=== PATIENT | male | born 1955 | race Caucasian/White ===

== ENCOUNTER → 2016-08-24 | Outpatient (CLI) | payer OTHER, MEDICARE ==
[~2016-08-24] MED LIST: ACCL20 PO; ARFO15NE INH; ASPI81TA21 PO; B-CO1TAB53 PO; CALC500C70 PO; CMBIN INH; DESL1TAB5 PO; DILT180C PO; FEXO1TAB46 PO; FLNIN/ NAE; FSM70 PO; FURO20TA PO; INSDGI SQ; INSDGIPEN SC; INSHNI SQ; IPRA1AER2 INH; IPRASOL34 INH; IPRASOL4 INH; LISI-788 PO; LORA-741 PO; LSN/2025 PO; LXP10 PO; MEPO1INJ SC; NVLGI SC; NVLGI/PEN SQ; OMEP40CA41 PO; OXYC1TAB3 PO; PLMINSR5 NEB; POTA20TA16 PO; PRED10TA PO; PRED20TA2 PO; SIMV10TA5 PO; SPRIN/30 INH; TRAZ50TA35 PO; TURM500T PO; VITATAB11 PO
[2016-08-24 12:59] LABS: ESTIMATED AVERAGE GLUCOSE 140 mg/dl; HA1C FLAG Normal (Normal)
[2016-08-24 13:18] LABS: ALT/SGPT 33 U/L (12-78); BLOOD UREA NITROGEN 25 mg/dl (7-18); BUN/CREATININE RATIO 25.4 (10-20); CALCIUM 8.7 mg/dl (8.5-10.1); CARBON DIOXIDE 28 mmol/L (21-32); CHLORIDE 105 mmol/L (98-107); GLUCOSE 135 mg/dl (70-99); POTASSIUM 4.3 mmol/L (3.5-5.1); SODIUM 143 mmol/L (136-145)
[2016-08-24 13:21] LABS: CHOLESTEROL 185 mg/dl (0-200); CHOLESTEROL/HDL RATIO 2.2; HDL CHOLESTEROL 83 mg/dl; LDL CHOLESTEROL CALCULATED 78 mg/dl; TRIGLYCERIDES 118 mg/dl (0-150); VERY LOW DENSITY LIPOPROT CALC 24 mg/dl
== END | disposition home or self-care (01) ==
LOC: C.LABPBG 08:06
PROVIDERS: ATTEND Family Medicine
DX: E11.9 Type 2 diabetes mellitus without complications (principal); I10 Essential (primary) hypertension; E78.5 Hyperlipidemia, unspecified

== ENCOUNTER 2016-09-30 18:24 | Emergency (ER) | payer OTHER, MEDICARE ==
[~2016-09-30] VITALS: Ht 175.3 cm; Wt 95.0 kg
[~2016-09-30 18:24] MED LIST changes: -ARFO15NE INH; -DESL1TAB5 PO; -INSDGIPEN SC; -INSHNI SQ; -IPRA1AER2 INH; -IPRASOL4 INH; -LISI-788 PO; -LORA-741 PO; -MEPO1INJ SC; -NVLGI/PEN SQ; -OXYC1TAB3 PO; -PRED20TA2 PO
[2016-09-30 18:49] VITALS: TEMP 36.6; Ht 175.3 cm; Wt 95.0 kg
[2016-09-30] MEDS ORDERED: LIDOCAINE/EPINEPH/TETRACAINE 1 EA SYR EXT STA (19:17)
--- NOTE | 2016-09-30 19:32 | DIAGNOSTIC IMAGING REPORT ---
CHEST ONE VIEW PORTABLE CLINICAL HISTORY: cough HEAD TRAUMA. FALL. COMPARISON STUDY: 05/15/2016 FINDINGS: The cardiac and mediastinal contours are normal. There is no evidence of focal pulmonary consolidation. There is no evidence of failure. No pleural effusions are visualized.[ IMPRESSION: No active disease in the chest. Electronically signed by: Isma Cunningham M.D. 09/30/2016 7:31 PM Dictated Date/Time: 09/30/2016 7:30 PM
[2016-09-30 19:51] LABS: BASO % 0.1 %; BASO ABS # 0.01 K/uL (0-0.2); COMPLETE YES; EOS % 0.3 %; HEMATOCRIT 42.9 % (42-52); IG% 1.1 %; LYMPH % 4.8 %; LYMPH ABS # 0.53 K/uL (1.2-3.4); MEAN CELL VOLUME 84.6 fL (80-100); MEAN CORPUSCULAR HEMOGLOBIN 27.8 pg (25-34); MEAN CORPUSCULAR HGB CONC 32.9 g/dl (32-36); MEAN PLATELET VOLUME 9.1 fL (7.4-10.4); MONO % 6.2 %; NEUT % 87.5 %; PLATELET COUNT 270 K/uL (130-400); RED BLOOD COUNT 5.07 M/uL (4.7-6.1); WHITE BLOOD COUNT 10.94 K/uL (4.8-10.8)
--- NOTE | 2016-09-30 20:05 | DIAGNOSTIC IMAGING REPORT ---
CT HEAD WITHOUT CONTRAST (CT) CLINICAL HISTORY: fall, head injury COMPARISON STUDY: 12/20/2014 TECHNIQUE: Axial CT of the brain is performed from the vertex to the skull base. IV contrast was not administered for this examination. CT DOSE: FINDINGS: No intra or extra-axial mass lesions are visualized. There is no CT evidence of acute cortical infarction. There is no evidence of midline shift. There is no acute hemorrhage. No calvarial fractures are visualized. There are minimal white matter hypodensities likely on a small vessel basis. There is no evidence of pathologic ventricular dilatation. There are postsurgical changes of bilateral maxillary medial antrectomies. There is mucosal thickening. There is left-sided periorbital edema. There is an equivocal discontinuity in the lamina papyracea bilaterally. There is left frontal scalp edema. IMPRESSION: 1. No acute intracranial findings 2. Left periorbital edema and frontal scalp swelling 3. Equivocal bony defects involving the lamina papyracea. Electronically signed by: Isma Cunningham M.D. 09/30/2016 8:03 PM Dictated Date/Time: 09/30/2016 8:00 PM
[2016-09-30 20:09] LABS: ALT/SGPT 33 U/L (12-78); AST/SGOT 11 U/L (15-37); BLOOD UREA NITROGEN 17 mg/dl (7-18); BUN/CREATININE RATIO 13.8 (10-20); CALCIUM 9.1 mg/dl (8.5-10.1); CARBON DIOXIDE 30 mmol/L (21-32); CHLORIDE 104 mmol/L (98-107); GLUCOSE 165 mg/dl (70-99); POTASSIUM 4.2 mmol/L (3.5-5.1); SODIUM 140 mmol/L (136-145)
--- NOTE | 2016-09-30 20:12 | DIAGNOSTIC IMAGING REPORT ---
CT FACIAL BONES-MXILLOFAC WITHOUT CT DOSE: 766.96 mGy.cm CLINICAL HISTORY: Head trauma. Facial pain. COMPARISON STUDY: 12/20/2014 TECHNIQUE: Helical images were acquired in the transverse plane. The study was reviewed and analyzed on the independent 3-D workstation. The pterygoid plates appear intact. The zygomatic arches appear intact. . There are chronic bony defects involving the lamina papyracea bilaterally. There are old nasal bone fractures. The orbital floors appears intact. The mandibular condyles appear intact. There is left-sided periorbital edema. There is frontal scalp edema. There are postsurgical changes involving the maxillary sinuses. IMPRESSION: 1. Old fractures of the lamina papyracea bilaterally. 2. Old nasal bone fractures 3. No acute fractures are visualized 4. Left-sided periorbital edema and frontal scalp edema Electronically signed by: Isma Cunningham M.D. 09/30/2016 8:10 PM Dictated Date/Time: 09/30/2016 8:04 PM
[2016-09-30 20:14] LABS: ALB/GLOB RATIO 1.1 (0.9-2); ALKALINE PHOSPHATASE 61 U/L (45-117)
[2016-09-30] MEDS ORDERED: NVLGI/PEN SQ (21:00)
[2016-09-30] MEDS ORDERED: VITATAB11 PO (21:00)
[2016-09-30] MEDS ORDERED: LORA-741 PO (21:00)
[2016-09-30] MEDS ORDERED: LISI-788 PO (21:00)
[2016-09-30] MEDS ORDERED: PRED10TA PO (21:00)
[2016-09-30] MEDS ORDERED: INSDGIPEN SC (21:00)
[2016-09-30] MEDS ORDERED: IPRA1AER2 INH (21:00)
[2016-09-30] MEDS ORDERED: IPRASOL4 INH (21:00)
--- NOTE | 2016-09-30 21:15 | EMERGENCY ROOM VISIT NOTE ---
ED Visit Note First contact with patient: 19:03 Staff note: I have reviewed the Patients chart and have discussed this case with my PA. I generally agree with the ED note and findings.
--- NOTE | 2016-09-30 21:41 | EMERGENCY ROOM VISIT NOTE ---
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 Pt reports this has happened once in the past. Pt has lac to forehead, bruised right eye, and swelling and ecchymosis to right lip. Denies chest pain, SOB, N, or vomiting. History of Present Illness The patient is a 61 year old male who presents to the Emergency Room with complaints of a syncopal episode. The patient states that approximately one hour ago he was eating dinner and started coughing. The patient then had a syncopal episode. He states this is not unusual for him and has happened multiple times before. He has seen his primary care provider about it before. He has a history of COPD and uses inhalers at home. He states that he struck his face on his exercise bike. He complains of pain and swelling to the left eye, a laceration to the forehead, and swelling of the lip. He denies any further injuries. He rates his discomfort an 8/10. He denies any nausea/ vomiting or dizziness. Review of Systems A complete 10 point review of systems was reviewed with the patient with pertinent positives and negatives as per history of present illness. All else were negative. Past Medical/Surgical History Medical Problems: (1) Asthma (2) COPD with acute exacerbation (3) Diabetes (4) Nasal polyp (5) nose surgery (6) wrist surgery Family History Diabetes mellitus Heart disease Hypertension Social History Smoking Status: Never Smoker Drug Use: none Marital Status: Housing Status: lives with family Occupation Status: employed Current/Historical Medications Scheduled Alendronate Sodium (Alendronate Sodium), 70 MG PO WK Aspirin Enteric Coated (Ecotrin Or Generic), 81 MG PO DAILY B-Complex W/Biotin & Folic Aci (Super B-Complex), 1 TAB PO DAILY Budesonide (Pulmicort Respules 0.5MG/2ML), 2 ML NEB BID Calcium/Vitamin D (Os-Lee 500 Plus D), 1 TAB PO DAILY Diltiazem Hcl Coated Beads (Diltiazem Hcl Er), 180 MG PO DAILY Escitalopram Oxalate (Escitalopram Oxalate), 10 MG PO DAILY Fexofenadine Hcl (Lupe), 180 MG PO DAILY Fluticasone Propionate (Fluticasone Propionate), 2 SPRAYS ANNA DAILY Furosemide (Lasix), 20-40 MG PO DAILY Insulin Glargine (Lantus), 30 UNITS SQ QAM Insulin Glargine (Lantus Solostar), 25 UNITS SC QPM Ipratropium-Albuterol (Combivent Respimat), 1 PUFFS INH QID Lisinopril/Hctz (Zestoretic 20MG/25MG), 1 TAB PO DAILY Omeprazole (Prilosec), 40 MG PO BID Potassium Ext Rel (Klor-Con), 20 MEQ PO TID Prednisone Tab (Prednisone), 10 MG PO DAILY Simvastatin (Zocor), 10 MG PO QPM Tiotropium Tokio (Spiriva Handihaler), 1 CAP INH DAILY Trazodone Hcl (Trazodone), 50 MG PO HS PRN Turmeric (Curcuma Longa) (Turmeric), 500 MG PO DAILY Zafirlukast (Zafirlukast), 20 MG PO BID Scheduled PRN Insulin Aspart (Novolog Flexpen), 1 DOSE SQ TIDM PRN for PER SLIDING SCALE Ipratropium-Albuterol (Duoneb), 1 TREATMENT INH Q4H PRN for SOB/Wheezing Lorazepam (Ativan), 0.5 MG PO TID PRN for Anxiety Allergies Coded Allergies: No Known Allergies (Unverified , 09/30/16) UNKNOWN Physical Exam Vital Signs Date Time Temp Pulse Resp B/P (MAP) Pulse Ox O2 Delivery O2 Flow Rate FiO2 09/30/16 21:50 110 24 150/87 94 09/30/16 20:28 77 21 160/86 96 Room Air 83 162/88 85 154/86 09/30/16 19:13 82 09/30/16 18:49 36.6 91 18 136/85 95 Room Air Physical Exam VITALS: Vitals are noted on the nurse's note and reviewed by myself. Vital signs stable. GENERAL: This is a 61-year-old male, in no acute distress, nondiaphoretic, well- developed well-nourished. SKIN: There is a 4 cm laceration to the forehead with no active bleeding. HEAD: Normocephalic atraumatic. EARS: External auditory canals clear, no hemotympanum. EYES: Bilateral subconjunctival hemorrhages. There is moderate left periorbital ecchymosis and swelling. Extraocular movements intact. NOSE: Patent, no bleeding. MOUTH: The left lower lip is swollen and ecchymotic. NECK: Supple without nuchal rigidity. No tenderness of the cervical spine. HEART: Regular rate and rhythm without murmurs gallops or rubs. LUNGS: Clear to auscultation bilaterally without wheezes, rales or rhonchi. MUSCULOSKELETAL: Full range of motion throughout. Strength 5/5 throughout. NEURO: Patient was alert and oriented to person place and time. Normal sensation to light and sharp touch. Medical Decision & Procedures ER Provider Diagnostic Interpretation: CHEST ONE VIEW PORTABLE FINDINGS: The cardiac and mediastinal contours are normal. There is no evidence of focal pulmonary consolidation. There is no evidence of failure. No pleural effusions are visualized.[ IMPRESSION: No active disease in the chest. CT HEAD WITHOUT CONTRAST (CT) FINDINGS: No intra or extra-axial mass lesions are visualized. There is no CT evidence of acute cortical infarction. There is no evidence of midline shift. There is no acute hemorrhage. No calvarial fractures are visualized. There are minimal white matter hypodensities likely on a small vessel basis. There is no evidence of pathologic ventricular dilatation. There are postsurgical changes of bilateral maxillary medial antrectomies. There is mucosal thickening. There is left-sided periorbital edema. There is an equivocal discontinuity in the lamina papyracea bilaterally. There is left frontal scalp edema. IMPRESSION: 1. No acute intracranial findings 2. Left periorbital edema and frontal scalp swelling 3. Equivocal bony defects involving the lamina papyracea. CT FACIAL BONES-MXILLOFAC WITHOUT The pterygoid plates appear intact. The zygomatic arches appear intact. . There are chronic bony defects involving the lamina papyracea bilaterally. There are old nasal bone fractures. The orbital floors appears intact. The mandibular condyles appear intact. There is left-sided periorbital edema. There is frontal scalp edema. There are postsurgical changes involving the maxillary sinuses. IMPRESSION: 1. Old fractures of the lamina papyracea bilaterally. 2. Old nasal bone fractures 3. No acute fractures are visualized 4. Left-sided periorbital edema and frontal scalp edema Laboratory Results 09/30/16 19:30 Red Blood Count 5.07, Mean Corpuscular Volume 84.6, Mean Corpuscular Hemoglobin 27.8, Mean Corpuscular Hemoglobin Concent 32.9, Mean Platelet Volume 9.1, Neutrophils (%) (Auto) 87.5, Lymphocytes (%) (Auto) 4.8, Monocytes (%) (Auto) 6.2, Eosinophils (%) (Auto) 0.3, Basophils (%) (Auto) 0.1, Neutrophils # (Auto) 9.57, Lymphocytes # (Auto) 0.53, Monocytes # (Auto) 0.68, Eosinophils # (Auto) 0.03, Basophils # (Auto) 0.01 09/30/16 19:30 Test 09/30/16 19:30 09/30/16 21:21 White Blood Count 10.94 K/uL (4.8-10.8) Red Blood Count 5.07 M/uL (4.7-6.1) Hemoglobin 14.1 g/dL (14.0-18.0) Hematocrit 42.9 % (42-52) Mean Corpuscular Volume 84.6 fL (80-100) Mean Corpuscular Hemoglobin 27.8 pg (25-34) Mean Corpuscular Hemoglobin Concent 32.9 g/dl (32-36) Platelet Count 270 K/uL (130-400) Mean Platelet Volume 9.1 fL (7.4-10.4) Neutrophils (%) (Auto) 87.5 % Lymphocytes (%) (Auto) 4.8 % Monocytes (%) (Auto) 6.2 % Eosinophils (%) (Auto) 0.3 % Basophils (%) (Auto) 0.1 % Neutrophils # (Auto) 9.57 K/uL (1.4-6.5) Lymphocytes # (Auto) 0.53 K/uL (1.2-3.4) Monocytes # (Auto) 0.68 K/uL (0.11-0.59) Eosinophils # (Auto) 0.03 K/uL (0-0.5) Basophils # (Auto) 0.01 K/uL (0-0.2) RDW Standard Deviation 43.1 fL (36.4-46.3) RDW Coefficient of Variation 14.0 % (11.5-14.5) Immature Granulocyte % (Auto) 1.1 % Immature Granulocyte # (Auto) 0.12 K/uL (0.00-0.02) Anion Gap 6.0 mmol/L (3-11) Est Creatinine Clear Calc Drug Dose 73.6 ml/min Estimated GFR () 75.2 Estimated GFR (Non- 64.9 BUN/Creatinine Ratio 13.8 (10-20) Calcium Level 9.1 mg/dl (8.5-10.1) Total Bilirubin 0.3 mg/dl (0.2-1) Aspartate Amino Transf (AST/SGOT) 11 U/L (15-37) Alanine Aminotransferase (ALT/SGPT) 33 U/L (12-78) Alkaline Phosphatase 61 U/L (45-117) Troponin I < 0.015 ng/ml (0-0.045) Total Protein 6.5 gm/dl (6.4-8.2) Albumin 3.4 gm/dl (3.4-5.0) Globulin 3.1 gm/dl (2.5-4.0) Albumin/Globulin Ratio 1.1 (0.9-2) Bedside Glucose 248 mg/dl (70-99) Medications Administered Medications (Trade) Dose Ordered Sig/Dianne Route Start Time Stop Time Status Last Admin Dose Admin Tetracaine/ Epinephrine/ Lidocaine (L.e.t. Gel 4%/ 1:100/0.5%) 1 ea UD STAT EXT 09/30/16 19:17 09/30/16 19:20 DC 09/30/16 19:47 1 EA Procedure Verbal consent was obtained to perform the procedure. LET gel was applied to the laceration and left in place for greater than 30 minutes. Using sterile technique the wound was cleaned with Betadine. The area was sterilely draped. The wound was copiously irrigated under pressure with sterile saline. The wound was explored and there were no deep structures injured such as tendons, bone, or significant blood vessels. The laceration was repaired using 7 simple interrupted 6-0 nylon sutures with the wound edges being well approximated. The patient tolerated the procedure well. Hemostasis was achieved. The area was cleaned with sterile saline and dressed with bacitracin ointment and bandage. ECG Rate (beats per minute): 89 Rhythm: normal sinus Findings: PVC, no acute ischemic change ED Course The patient was evaluated as above. Labs were drawn and IV access was obtained. Imaging studies performed and read by radiology as above. Laceration repair was performed as noted above. Discharge instructions were reviewed with the patient. The patient verbalized understanding of my assessment and treatment plan and was discharged home in good condition. Medical Decision Differential diagnosis includes vasovagal syncope, pneumonia, bronchitis, arrhythmia, among others. The patient is a 61-year-old male who presents today complaining of injuries following a syncopal event. The patient experienced a vasovagal event after coughing. This has happened to him frequently in the past. Labs were unremarkable. CT scans of the head and facial bones were performed and showed no bleeds or fractures. There was an old fracture, which the patient states is from a previous similar event. His laceration was repaired. Conservative measures were discussed. The patient was independently evaluated by Dr. Lyles, ED attending physician, who agreed with my assessment and treatment plan. Based on the patient's presentation and work up, I feel the patient is stable for outpatient treatment. The patient was educated to return to the emergency department for any worsening of their current condition or new/concerning symptoms. He will follow up with his PCP. Impression Primary Impression: Syncope Additional Impression: Facial laceration Departure Information Dispostion Home / Self-Care Condition GOOD Referrals Malathi Phillip MD (PCP) Patient Instructions My [facility] Additional Instructions You have received 7 sutures on your days. These sutures are NOT dissolvable and WILL need to be removed by a health care provider in 6-7 days. You can return to the Emergency Department or contact your Primary Care Provider to have the sutures removed. Proper wound care is essential for adequate wound healing and infection prevention. You can shower and clean the wound with soap and water. Do not scour over the wound, pat dry with a towel. Do not submerse the wound (i.e. bathe or dish wash) until the sutures have been removed. You can use an antibiotic ointment with a dressing over the wound for the next 3-4 days. After this time you may leave the wound dry and open to the air. If crust develops over the wound you can use a Q-tip to apply a 1:1 peroxide:water solution to clean the wound. Look for signs of infection of the wound including: increased pain, swelling, foul discharge, streaking, or increased temperature. If any of these are noticed you should return to the Emergency Department for further assessment and treatment. As with any laceration you may have received nerve damage to the surrounding tissues. This damage may or may not be permanent. You should keep the area covered with sunscreen for the first 6 months to 1 year when at risk for exposure to help minimize scarring. You can also use scar reducing creams or Vitamin E oil to help minimize scarring. For pain control, you can use the following [id number] medicines (if >12 yo): - Regular strength (325mg/tab) Tylenol (acetaminophen) 2 tabs every 4-6 hours as needed. Do not exceed 12 tablets in a 24 hour period. Avoid taking more than 4 grams (4000 mg) of Tylenol per day. This includes any other sources of acetaminophen you may take on a regular basis. - Regular strength (200 mg/tab) Advil (ibuprofen) 1-2 tabs every 4-6 hours as needed. Do not exceed a dose of 3200 mg per day. Rest and drink plenty of fluids. Follow-up with your primary care provider. Return to the emergency department if your symptoms worsen despite treatment course outlined above. Problem Qualifiers Primary Impression: Syncope Syncope type: vasovagal syncope Qualified Codes: R55 - Syncope and collapse
[2016-09-30 21:50] VITALS: BP 150/87; PULSE 110; O2SAT 94
== END 2016-09-30 21:50 | disposition home or self-care (01) ==
LOC: C.EDB 18:25 → C.EDA 21:50
DX: R55 Syncope and collapse (principal); S01.81XA Laceration without foreign body of other part of head, initial encounter; W22.8XXA Striking against or struck by other objects, initial encounter; S00.11XA Contusion of right eyelid and periocular area, initial encounter; S00.531A Contusion of lip, initial encounter; J45.909 Unspecified asthma, uncomplicated; J44.9 Chronic obstructive pulmonary disease, unspecified; E11.9 Type 2 diabetes mellitus without complications; Z79.82 Long term (current) use of aspirin; Z79.4 Long term (current) use of insulin; Z83.3 Family history of diabetes mellitus; Z82.49 Family history of ischemic heart disease and other diseases of the circulatory system

== ENCOUNTER → 2016-11-13 | Outpatient (CLI) | payer OTHER, MEDICARE ==
[~2016-11-13] MED LIST changes: +ARFO15NE INH; -CMBIN INH; +DESL1TAB5 PO; +INSDGIPEN SC; +INSHNI SQ; +IPRA1AER2 INH; -IPRASOL34 INH; +IPRASOL4 INH; +LISI-788 PO; +LORA-741 PO; -LSN/2025 PO; +MEPO1INJ SC; -NVLGI SC; +NVLGI/PEN SQ; +OXYC1TAB3 PO; +PRED20TA2 PO; -VITATAB11 PO
[2016-11-13 18:20] LABS: INR 0.9 (0.9-1.1); PROTHROMBIN TIME (PATIENT) 9.6 SECONDS (9.0-12.0)
[2016-11-13 18:43] LABS: ALKALINE PHOSPHATASE 73 U/L (45-117); ALT/SGPT 43 U/L (12-78); AST/SGOT 19 U/L (15-37)
--- NOTE | 2016-11-16 07:24 | DIAGNOSTIC IMAGING REPORT ---
RIGHT RIBS UNILATERAL WITH PA CHEST CLINICAL HISTORY: Right lower lateral rib pain following cough. COMPARISON STUDY: Chest radiograph September 30, 2016. FINDINGS: There is no pneumothorax or pleural effusion. No airspace opacities are identified. There are several old anterior right rib fractures. No acute right rib fractures are identified on this exam. There is a small hiatal hernia. IMPRESSION: No pneumothorax. No acute right rib fractures identified. Electronically signed by: Mike Daniels M.D. 11/13/2016 6:21 PM Dictated Date/Time: 11/13/2016 6:17 PM
== END | disposition home or self-care (01) ==
LOC: C.RAD 17:46
PROVIDERS: ATTEND Nurse Practitioner Adult Health
DX: R07.81 Pleurodynia (principal); R23.8 Other skin changes

== ENCOUNTER 2017-01-15 10:40 | Emergency (ER) | payer OTHER, MEDICARE ==
[~2017-01-15] VITALS: Ht 175.3 cm; Wt 95.3 kg
[~2017-01-15 10:40] MED LIST changes: -ARFO15NE INH; -DESL1TAB5 PO; -INSHNI SQ; -MEPO1INJ SC; -OXYC1TAB3 PO; -PRED20TA2 PO
[2017-01-15 10:48] VITALS: TEMP 36.4; Ht 175.3 cm; Wt 95.3 kg
[2017-01-15] MEDS ORDERED: SODIUM CHLORIDE 0.9% 1000ML 1,000 ML IV STA (11:08)
[2017-01-15 11:18] LABS: BASO % 0.1 %; BASO ABS # 0.02 K/uL (0-0.2); COMPLETE YES; EOS % 0.2 %; HEMATOCRIT 44.2 % (42-52); IG% 0.6 %; LYMPH % 5.3 %; LYMPH ABS # 0.84 K/uL (1.2-3.4); MEAN CELL VOLUME 84.7 fL (80-100); MEAN CORPUSCULAR HEMOGLOBIN 27.2 pg (25-34); MEAN CORPUSCULAR HGB CONC 32.1 g/dl (32-36); MEAN PLATELET VOLUME 9.6 fL (7.4-10.4); MONO % 6.4 %; NEUT % 87.4 %; PLATELET COUNT 331 K/uL (130-400); RED BLOOD COUNT 5.22 M/uL (4.7-6.1); WHITE BLOOD COUNT 15.73 K/uL (4.8-10.8)
--- NOTE | 2017-01-15 11:26 | EMERGENCY ROOM VISIT NOTE ---
History First contact with patient: 10:57 Chief Complaint: KIDNEY STONE Stated Complaint: KIDNEY STONE - SENT FROM [facility] History of Present Illness The patient is a 61 year old male who presents to the Emergency Room via private vehicle accompanied by female referred by family doctor with complaints of "kidney stone-sent from Dr. Phillip". The patient states that he has a history of renal calculi, and for the past few days has had right flank pain. He notes that it will wax and wane. He also notes that for the same amount of time he has had a superficial right lower quadrant abdominal tenderness over the area where he has been injecting himself with the insulin. He notes a small bruise over this region. He denies any history of hernia. He states that he has been urinating okay, and does not believe he has passed any stones. He went to see his family doctor, Dr. Phillip today who referred him here to the emergency Department for further evaluation and management of a suspected kidney stone. The patient notes that upon arrival he is in no pain and declines pain medication. He denies any fevers, chills, chest pain or shortness of breath. His interval medication adjustment is that he is now on Pep. Review of Systems A complete 10-point Review of Systems was discussed with the patient, with pertinent positives and negatives listed in the History of Present Illness. All remaining Review of Systems questions can be considered negative unless otherwise specified. Past Medical/Surgical History Medical Problems: (1) Asthma (2) COPD with acute exacerbation (3) Diabetes (4) Nasal polyp (5) nose surgery (6) wrist surgery Family History Diabetes mellitus Heart disease Hypertension Social History Smoking Status: Never Smoker Drug Use: none Marital Status: Housing Status: lives with family Occupation Status: employed Current/Historical Medications Scheduled Alendronate Sodium (Alendronate Sodium), 70 MG PO WK Arformoterol Tartrate (Brovana), 15 MCG INH BID Aspirin Enteric Coated (Ecotrin Or Generic), 81 MG PO DAILY B-Complex W/Biotin & Folic Aci (Super B-Complex), 1 TAB PO DAILY Budesonide (Pulmicort Respules 0.5MG/2ML), 2 ML NEB BID Calcium/Vitamin D (Os-Lee 500 Plus D), 1 TAB PO DAILY Desloratadine (Desloratadine), 5 MG PO DAILY Diltiazem Hcl Coated Beads (Diltiazem Hcl Er), 180 MG PO DAILY Escitalopram Oxalate (Escitalopram Oxalate), 10 MG PO DAILY Fluticasone Propionate (Fluticasone Propionate), 2 SPRAYS ANNA DAILY Furosemide (Lasix), 20-40 MG PO DAILY Insulin Glargine (Lantus), 28 UNITS SQ QAM Insulin Glargine (Lantus Solostar), 25 UNITS SC QPM Ipratropium-Albuterol (Combivent Respimat), 1 PUFFS INH QID Lisinopril/Hctz (Zestoretic 20MG/25MG), 1 TAB PO DAILY Omeprazole (Prilosec), 40 MG PO BID Potassium Ext Rel (Klor-Con), 20 MEQ PO TID Simvastatin (Zocor), 10 MG PO QPM Turmeric (Curcuma Longa) (Turmeric), 500 MG PO DAILY Zafirlukast (Zafirlukast), 20 MG PO BID Scheduled PRN Insulin Aspart (Novolog Flexpen), 1 DOSE SQ TIDM PRN for PER SLIDING SCALE Ipratropium-Albuterol (Duoneb), 1 TREATMENT INH Q4H PRN for SOB/Wheezing Oxycodone Ir (Roxicodone Ir), 1-2 TAB PO Q4H PRN for Pain Physical Exam Vital Signs Date Time Temp Pulse Resp B/P (MAP) Pulse Ox O2 Delivery O2 Flow Rate FiO2 01/15/17 12:44 102 20 115/72 98 Room Air 01/15/17 10:48 36.4 102 20 169/91 91 Room Air Physical Exam VITAL SIGNS - Vital signs and nursing notes were reviewed. Patient is afebrile , hypertensive at 169/91, tachycardic at a rate of 102 bpm, and is saturating well on room air 91%. GENERAL -61-year-old male appearing his stated age who is in no acute distress. Communicates well with provider and answers questions appropriately. SKIN - Without rashes. No petechial rashes. There is a small bruise formation overlying the skin approximately 4 cm x 2 cm in the right lower quadrant of the abdomen. HEAD - NC/AT. EYES - sclera anicteric. EARS - No deformities of external structures noted on gross examination bilaterally. NOSE - Midline and without cyanosis. No epistaxis or purulent drainage noted. MOUTH/OROPHARYNX - Without perioral cyanosis. LUNGS - Chest wall symmetric without accessory muscle use, intercostals retractions, or central cyanosis. Normal vesicular breath sounds CTA B/L. No wheezes, rales, or rhonchi appreciated. CARDIAC - RRR with S1/S2. No murmur, rubs, or gallops appreciated. ABDOMEN - Abdominal contour normal without pulsations or visible masses. BS normoactive all four quadrants. There is minimal tenderness in the right lower quadrant overlying a superficial area that is palpable as a small nodule without fluctuance. No hepatosplenomegaly, or ascites noted. EXTREMITIES - No clubbing or peripheral cyanosis. No pretibial edema present. NEUROLOGIC - Cranial nerves II through XII grossly intact. PSYCH - A&O, and cooperates fully with examiner. Pt is very pleasant and interacts well with examiner. Medical Decision & Procedures ER Provider Diagnostic Interpretation: ABDOMEN AND PELVIS CT WITHOUT CONTRAST CT DOSE: 1241.12 mGy.cm HISTORY: Right flank pain, hx of stones and RLQ superficial lump/pain TECHNIQUE: Multiaxial CT images of the abdomen and pelvis were performed without the use of intravenous and oral contrast according to the standard department stone protocol. A dose lowering technique was utilized adhering to the principles of ALARA. COMPARISON STUDY: None. FINDINGS: The lung bases are clear. No pneumoperitoneum. No pneumatosis. No fractures within the visualized osseous structures. Mild skin thickening and subcutaneous fat stranding within the right and left lower quadrant likely due to prior medication injection. No focal hematoma or fluid collections. Mild fatty changes within the liver. Otherwise, the unenhanced liver, spleen, adrenal glands, gallbladder and pancreas are unremarkable. Mild bilateral perinephric edema. This is likely chronic. A 9 mm hypodense lesion within the upper pole of the right kidney. This is incompletely characterized on this noncontrast study. A 4 mm stone within the right kidney. A punctate stone within the left kidney. No ureteral calculi. No hydronephrosis. No retroperitoneal lymphadenopathy. Normal bladder. Suboptimal evaluation for bowel pathology due to the lack of intravenous and oral contrast. However, there is no evidence for bowel obstruction. A few colonic diverticula. The mid to distal appendix best seen on image 256 within the lateral aspect of the right lower quadrant is fluid-filled and distended up to 1 cm. There is no associated inflammatory change. IMPRESSION: 1. Mild skin thickening and subcutaneous fat stranding within the right and left lower quadrant. This likely represents prior medication injection. No large hematoma or loculated fluid collections. 2. Bilateral nephrolithiasis. No hydronephrosis. 3. The mid to distal appendix is fluid-filled and distended up to 1 cm. There is no periappendiceal fat stranding to suggest acute appendicitis at this time. However, this is considered abnormal and could represent a mucocele. Surgical consultation is recommended for resection. 4. These findings were discussed with Dr. Villegas at 11:45 AM on 01/15/2017. Electronically signed by: Doe Knight M.D. 01/15/2017 11:48 AM Dictated Date/Time: 01/15/2017 11:34 AM Laboratory Results 01/15/17 11:00 Red Blood Count 5.22, Mean Corpuscular Volume 84.7, Mean Corpuscular Hemoglobin 27.2, Mean Corpuscular Hemoglobin Concent 32.1, Mean Platelet Volume 9.6, Neutrophils (%) (Auto) 87.4, Lymphocytes (%) (Auto) 5.3, Monocytes (%) (Auto) 6.4, Eosinophils (%) (Auto) 0.2, Basophils (%) (Auto) 0.1, Neutrophils # (Auto) 13.74, Lymphocytes # (Auto) 0.84, Monocytes # (Auto) 1.01, Eosinophils # (Auto) 0.03, Basophils # (Auto) 0.02 01/15/17 11:00 Test 01/15/17 11:00 White Blood Count 15.73 K/uL (4.8-10.8) Red Blood Count 5.22 M/uL (4.7-6.1) Hemoglobin 14.2 g/dL (14.0-18.0) Hematocrit 44.2 % (42-52) Mean Corpuscular Volume 84.7 fL (80-100) Mean Corpuscular Hemoglobin 27.2 pg (25-34) Mean Corpuscular Hemoglobin Concent 32.1 g/dl (32-36) Platelet Count 331 K/uL (130-400) Mean Platelet Volume 9.6 fL (7.4-10.4) Neutrophils (%) (Auto) 87.4 % Lymphocytes (%) (Auto) 5.3 % Monocytes (%) (Auto) 6.4 % Eosinophils (%) (Auto) 0.2 % Basophils (%) (Auto) 0.1 % Neutrophils # (Auto) 13.74 K/uL (1.4-6.5) Lymphocytes # (Auto) 0.84 K/uL (1.2-3.4) Monocytes # (Auto) 1.01 K/uL (0.11-0.59) Eosinophils # (Auto) 0.03 K/uL (0-0.5) Basophils # (Auto) 0.02 K/uL (0-0.2) RDW Standard Deviation 42.5 fL (36.4-46.3) RDW Coefficient of Variation 13.8 % (11.5-14.5) Immature Granulocyte % (Auto) 0.6 % Immature Granulocyte # (Auto) 0.09 K/uL (0.00-0.02) Urine Color DK YELLOW Urine Appearance CLEAR (CLEAR) Urine pH 5.0 (4.5-7.5) Urine Specific [place] 1.021 (1.000-1.030) Urine Protein NEG (NEG) Urine Glucose (UA) 2+ (NEG) Urine Ketones NEG (NEG) Urine Occult Blood NEG (NEG) Urine Nitrite NEG (NEG) Urine Bilirubin NEG (NEG) Urine Urobilinogen NEG (NEG) Urine Leukocyte Esterase TRACE (NEG) Urine WBC (Auto) 1-5 /hpf (0-5) Urine RBC (Auto) 0-4 /hpf (0-4) Urine Hyaline Casts (Auto) 0 /lpf (0-5) Urine Epithelial Cells (Auto) 0-5 /lpf (0-5) Urine Bacteria (Auto) NEG (NEG) Anion Gap 8.0 mmol/L (3-11) Est Creatinine Clear Calc Drug Dose 80.4 ml/min Estimated GFR () 83.5 Estimated GFR (Non- 72.1 BUN/Creatinine Ratio 9.4 (10-20) Calcium Level 9.0 mg/dl (8.5-10.1) Total Bilirubin 0.3 mg/dl (0.2-1) Aspartate Amino Transf (AST/SGOT) 14 U/L (15-37) Alanine Aminotransferase (ALT/SGPT) 38 U/L (12-78) Alkaline Phosphatase 80 U/L (45-117) Total Creatine Kinase 71 U/L (39-308) Total Protein 7.2 gm/dl (6.4-8.2) Albumin 3.6 gm/dl (3.4-5.0) Globulin 3.6 gm/dl (2.5-4.0) Albumin/Globulin Ratio 1.0 (0.9-2) Medications Administered Medications (Trade) Dose Ordered Sig/Dianne Route Start Time Stop Time Status Last Admin Dose Admin Sodium Chloride 1,000 ml @ 999 mls/hr Q1H1M STAT IV 01/15/17 11:08 01/15/17 12:08 DC 01/15/17 11:08 999 MLS/HR Medical Decision Patient was seen and evaluated as above. He presents to us today referred by his family doctor over concern for a kidney stone. IV access was initiated, and the above workup was performed. He declines pain medication, and notes that he actually feels well upon examination. He notes pain in the right flank prior to coming here, as well as a small discomfort in the right lower quadrant that is superficial at the location where he provides his insulin injections. Blood work, specific we CBC reveals a leukocytosis of 15.73, and review of his previous studies reveal this is likely chronic secondary to his chronic prednisone use for his respiratory ailments. Metabolic workup is negative for acute process, glucose is high at 178. No evidence of kidney or liver failure. Urine reveals a small amount of leukocytes, and a small amount of glucose. Otherwise negative. Decision was made to obtain a CT scan of the abdomen and pelvis without contrast for stone. As this was being performed, I was called by the radiologist in regard to a dilated appendix. It was identified that this is likely not appendicitis, however should be dealt with by the patient being referred to surgery on a nonemergent basis. Patient was thoroughly educated upon this, and provided with the number for a general surgeon of which she is to call later today to schedule follow-up. I suspect that his pain is likely secondary to some kidney stones that he is likely passed. There is no evidence of emergent process upon examination. He is felt stable for discharge. Case was thoroughly discussed with the attending physician, who also personally evaluated the patient. The patient was educated upon worrisome symptoms in which to return, had questions prior to discharge, and was discharged home in good condition. The patient notes that the right flank pain which feels identical to his previous renal calculi, thus causing difficulty sleeping, and requests something. I will give him a short course of OxyIR. In evaluation treatment this patient following differential diagnoses were entertained: Renal calculi, rhabdomyolysis, pyelonephritis, appendicitis, diverticulitis, among others. [facility] Drug Monitoring Program Search Results: patient reviewed within database, no issues identified Medication Reconcilliation Current Medication List: was personally reviewed by me Blood Pressure Screening Patient's blood pressure: Elevated blood pressure Blood pressure disposition: Elevated BP felt to be situational Impression Primary Impression: Right flank pain Additional Impressions: Hypokalemia enlarged appendix Departure Information Dispostion Home / Self-Care Condition GOOD Prescriptions Oxycodone Ir (Roxicodone Ir) 5 Mg Tab 1-2 TAB PO Q4H Y for Pain, #12 TAB For Initial Treatment Prov: Jesu Herrera PA-C 01/15/17 Referrals Malathi Phillip MD (PCP) Roberto Cornelius, DO Patient Instructions [facility] Additional Instructions You have been treated in the Emergency Department your Abdominal Pain. Laboratory results and imaging studies have ruled out any emergent causes for your abdominal pain which would warrant admission or surgery emergently however please refer to the CT scan report below which recommends that you have your appendix evaluated by a general surgeon. Please call them later today. I have listed [address] Cornelius, Dr. Manzano, Dr. Atkinson. You may choose any of these, or any surgeon that you prefer. You have been prescribed oxycodone immediate release to be used for pain control. This is a narcotic medication. You cannot drive or consume alcohol while on this medicine. This medicine should only be used for pain that cannot be controlled with [id number] pain medicines. Drink plenty of water and stay well hydrated. As with any trip to the Emergency Department, you should follow-up with your Primary Care Provider from today's visit. Please follow-up regarding the kidney as we discussed. Return to the emergency department if your symptoms persist despite treatment plan outlined above or if the following symptoms occur: increased fevers, chills , worsening nausea/vomiting, blood in your stool or urine. Hilario Manzano MD Address: [address] [place] [address], [place] [address] Dr. Alexander : [phone] WITHOUT CONTRAST CT DOSE: 1241.12 mGy.cm HISTORY: Right flank pain, hx of stones and RLQ superficial lump/pain TECHNIQUE: Multiaxial CT images of the abdomen and pelvis were performed without the use of intravenous and oral contrast according to the standard department stone protocol. A dose lowering technique was utilized adhering to the principles of ALARA. COMPARISON STUDY: None. FINDINGS: The lung bases are clear. No pneumoperitoneum. No pneumatosis. No fractures within the visualized osseous structures. Mild skin thickening and subcutaneous fat stranding within the right and left lower quadrant likely due to prior medication injection. No focal hematoma or fluid collections. Mild fatty changes within the liver. Otherwise, the unenhanced liver, spleen, adrenal glands, gallbladder and pancreas are unremarkable. Mild bilateral perinephric edema. This is likely chronic. A 9 mm hypodense lesion within the upper pole of the right kidney. This is incompletely characterized on this noncontrast study. A 4 mm stone within the right kidney. A punctate stone within the left kidney. No ureteral calculi. No hydronephrosis. No retroperitoneal lymphadenopathy. Normal bladder. Suboptimal evaluation for bowel pathology due to the lack of intravenous and oral contrast. However, there is no evidence for bowel obstruction. A few colonic diverticula. The mid to distal appendix best seen on image 256 within the lateral aspect of the right lower quadrant is fluid-filled and distended up to 1 cm. There is no associated inflammatory change. IMPRESSION: 1. Mild skin thickening and subcutaneous fat stranding within the right and left lower quadrant. This likely represents prior medication injection. No large hematoma or loculated fluid collections. 2. Bilateral nephrolithiasis. No hydronephrosis. 3. The mid to distal appendix is fluid-filled and distended up to 1 cm. There is no periappendiceal fat stranding to suggest acute appendicitis at this time. However, this is considered abnormal and could represent a mucocele. Surgical consultation is recommended for resection. 4. These findings were discussed with Dr. Villegas at 11:45 AM on 01/15/2017. Electronically signed by: Doe Knight M.D. 01/15/2017 11:48 AM Dictated Date/Time: 01/15/2017 11:34 AM Problem Qualifiers
[2017-01-15 11:30] LABS: URINE APPEARANCE CLEAR (CLEAR); URINE BILIRUBIN NEG (NEG); URINE COLOR DK YELLOW; URINE EPITHELIAL CELL AUTO 0-5 /lpf (0-5); URINE NITRITE NEG (NEG); URINE SPECIFIC GRAVITY 1.021 (1.000-1.030); UROBILINOGEN NEG (NEG); ZZUR CULT IF INDIC CLEAN CATCH NO
[2017-01-15 11:32] LABS: MANUAL MICROSCOPIC REQUIRED? NO; REVIEW REQ? NO
[2017-01-15 11:38] LABS: BUN/CREATININE RATIO 9.4 (10-20); CREATININE 1.1 mg/dl (0.60-1.40); POTASSIUM 3.4 mmol/L (3.5-5.1)
--- NOTE | 2017-01-15 11:49 | DIAGNOSTIC IMAGING REPORT ---
ABDOMEN AND PELVIS CT WITHOUT CONTRAST CT DOSE: 1241.12 mGy.cm HISTORY: Right flank pain, hx of stones and RLQ superficial lump/pain TECHNIQUE: Multiaxial CT images of the abdomen and pelvis were performed without the use of intravenous and oral contrast according to the standard department stone protocol. A dose lowering technique was utilized adhering to the principles of ALARA. COMPARISON STUDY: None. FINDINGS: The lung bases are clear. No pneumoperitoneum. No pneumatosis. No fractures within the visualized osseous structures. Mild skin thickening and subcutaneous fat stranding within the right and left lower quadrant likely due to prior medication injection. No focal hematoma or fluid collections. Mild fatty changes within the liver. Otherwise, the unenhanced liver, spleen, adrenal glands, gallbladder and pancreas are unremarkable. Mild bilateral perinephric edema. This is likely chronic. A 9 mm hypodense lesion within the upper pole of the right kidney. This is incompletely characterized on this noncontrast study. A 4 mm stone within the right kidney. A punctate stone within the left kidney. No ureteral calculi. No hydronephrosis. No retroperitoneal lymphadenopathy. Normal bladder. Suboptimal evaluation for bowel pathology due to the lack of intravenous and oral contrast. However, there is no evidence for bowel obstruction. A few colonic diverticula. The mid to distal appendix best seen on image 256 within the lateral aspect of the right lower quadrant is fluid-filled and distended up to 1 cm. There is no associated inflammatory change. IMPRESSION: 1. Mild skin thickening and subcutaneous fat stranding within the right and left lower quadrant. This likely represents prior medication injection. No large hematoma or loculated fluid collections. 2. Bilateral nephrolithiasis. No hydronephrosis. 3. The mid to distal appendix is fluid-filled and distended up to 1 cm. There is no periappendiceal fat stranding to suggest acute appendicitis at this time. However, this is considered abnormal and could represent a mucocele. Surgical consultation is recommended for resection. 4. These findings were discussed with Dr. Villegas at 11:45 AM on 01/15/2017. Electronically signed by: Doe Knight M.D. 01/15/2017 11:48 AM Dictated Date/Time: 01/15/2017 11:34 AM
[2017-01-15] MEDS ORDERED: DESL1TAB5 PO (11:50)
[2017-01-15] MEDS ORDERED: ARFO15NE INH (11:50)
[2017-01-15] MEDS ORDERED: OXYC1TAB3 PO (12:32)
[2017-01-15 12:44] VITALS: BP 115/72; PULSE 102; O2SAT 98
== END 2017-01-15 12:46 | disposition home or self-care (01) ==
LOC: C.EDB 10:41 → C.EDC 12:46
DX: K38.9 Disease of appendix, unspecified (principal); E87.6 Hypokalemia; E11.9 Type 2 diabetes mellitus without complications; J45.909 Unspecified asthma, uncomplicated; J44.9 Chronic obstructive pulmonary disease, unspecified; Z87.828 Personal history of other (healed) physical injury and trauma; Z79.4 Long term (current) use of insulin; Z79.82 Long term (current) use of aspirin; Z79.899 Other long term (current) drug therapy; Z83.3 Family history of diabetes mellitus; Z82.49 Family history of ischemic heart disease and other diseases of the circulatory system

== ENCOUNTER 2017-01-18 17:33 | Emergency (ER) | payer OTHER, MEDICARE ==
[~2017-01-18] VITALS: Ht 165.1 cm; Wt 96.1 kg
[~2017-01-18 17:33] MED LIST changes: +ARFO15NE INH; +DESL1TAB5 PO; -FEXO1TAB46 PO; -LORA-741 PO; +OXYC1TAB3 PO; -PRED10TA PO; -SPRIN/30 INH; -TRAZ50TA35 PO
[2017-01-18 17:37] VITALS: TEMP 36.6; Ht 165.1 cm; Wt 96.1 kg
[2017-01-18] MEDS ORDERED: ALBUT/IPRATROP 3MG/0.5MG NEB 3 ML VIAL INH STA (18:06)
[2017-01-18 18:11] VITALS: O2SAT 93
[2017-01-18] MEDS ORDERED: METHYLPREDNISOLONE 125 MG VIAL IV STA (18:14)
[2017-01-18] MEDS ORDERED: MAGNESIUM SULFATE 1GM / D5W 1 GM BAG IV STA (18:31)
--- NOTE | 2017-01-18 18:35 | EMERGENCY ROOM VISIT NOTE ---
History Report prepared by Zaki: Cesar Platt Under the Supervision of: Dr. Christi Mills D.O. First contact with patient: 17:40 Chief Complaint: RESPIRATORY PROBLEMS Stated Complaint: DIFFICULTY BREATHING History of Present Illness The patient is a 61 year old male who presents to the Emergency Room with complaints of constant shortness of breath that started a day ago. He rates his discomfort as a 5/10 in severity. The patient states that his SOB worsens with exertion. He also reports that he is experiencing a cough with clear sputum and diffuse chest tightness. The patient denies and radiation of chest pain. He admits that he tried to use his Duoneb, Albuterol inhaler, and Mucinex, but denies any relief of symptoms. The patient reports that he has had multiple similar incidents in the past. The patient reports that his last hospitalization for his symptoms was in May, when he was given a BiPAP and Nitroglycerin. He admits to a history of chronic asthma, COPD, diabetes, and bilateral kidney stones. States this episode is similar to prior asthma exacerbations. Has never been intubated. He states that his blood sugars for his diabetes have been fine. The patient states that he currently has kidney stones and is experiencing hematuria and dysuria. He admits that he has lower extremity edema, but reports that this is baseline. He reports that he recently saw a revenue officer, but had no pertinent results. The patient states that he takes 10 mg of steroids a day, but reports that he took 30 mg today. The patient states he has not taken his Lasix today, which he usually takes as needed. He states that he takes medication for his rapid heart rate and started Nucala a month ago. He reports that he usually uses 2L of oxygen at night and oxygen during the day if needed. The patient states that he is usually 94-92% oxygen saturated in the day and 98% at night. He admits to a history of a kidney removal surgery years ago. The patient admits to chewing, but denies smoking. He denies a family history of asthma. He denies any heart palpitations , fevers, chills, rhinorrhea, congestion. Source of History: patient Onset: a day ago Position: other (global) Symptom Intensity: 5/10 Timing: constant Modifying Factors (Worsening): exertion Modifying Factors (Relieving): other (Duoneb, inhaler) Associated Symptoms: + cough, + chest pain, No fevers, No chills Review of Systems See HPI for pertinent positives & negatives. A total of 10 systems reviewed and were otherwise negative. Past Medical & Surgical Medical Problems: (1) Asthma (2) COPD with acute exacerbation (3) Diabetes (4) Nasal polyp (5) nose surgery (6) wrist surgery Family History Diabetes mellitus Heart disease Hypertension Social History Smoking Status: Never Smoker Drug Use: none Marital Status: Housing Status: lives with family Occupation Status: employed Current/Historical Medications Scheduled Alendronate Sodium (Alendronate Sodium), 70 MG PO WK Arformoterol Tartrate (Brovana), 15 MCG INH BID Aspirin Enteric Coated (Ecotrin Or Generic), 81 MG PO DAILY B-Complex W/Biotin & Folic Aci (Super B-Complex), 1 TAB PO DAILY Budesonide (Pulmicort Respules 0.5MG/2ML), 2 ML NEB BID Calcium/Vitamin D (Os-Lee 500 Plus D), 1 TAB PO DAILY Desloratadine (Desloratadine), 5 MG PO DAILY Diltiazem Hcl Coated Beads (Diltiazem Hcl Er), 180 MG PO DAILY Escitalopram Oxalate (Escitalopram Oxalate), 10 MG PO DAILY Fluticasone Propionate (Fluticasone Propionate), 2 SPRAYS ANNA DAILY Furosemide (Lasix), 20-40 MG PO DAILY Insulin Glargine (Lantus), 28 UNITS SQ QAM Insulin Glargine (Lantus Solostar), 25 UNITS SC QPM Ipratropium-Albuterol (Combivent Respimat), 1 PUFFS INH QID Lisinopril/Hctz (Zestoretic 20MG/25MG), 1 TAB PO DAILY Omeprazole (Prilosec), 40 MG PO BID Potassium Ext Rel (Klor-Con), 20 MEQ PO TID Simvastatin (Zocor), 10 MG PO QPM Turmeric (Curcuma Longa) (Turmeric), 500 MG PO DAILY Zafirlukast (Zafirlukast), 20 MG PO BID Scheduled PRN Insulin Aspart (Novolog Flexpen), 1 DOSE SQ TIDM PRN for PER SLIDING SCALE Ipratropium-Albuterol (Duoneb), 1 TREATMENT INH Q4H PRN for SOB/Wheezing Oxycodone Ir (Roxicodone Ir), 1-2 TAB PO Q4H PRN for Pain Oxycodone Ir (Roxicodone Ir), 1-2 TAB PO Q4H PRN for Severe Pain Allergies Coded Allergies: No Known Allergies (Unverified , 09/30/16) UNKNOWN Physical Exam Vital Signs Date Time Temp Pulse Resp B/P (MAP) Pulse Ox O2 Delivery O2 Flow Rate FiO2 01/18/17 22:13 115 172/81 91 Nasal Cannula 2.0 01/18/17 21:18 100 17 92 01/18/17 20:48 107 15 01/18/17 20:40 145/78 01/18/17 20:18 108 20 94 01/18/17 20:13 111 17 93 01/18/17 20:08 109 25 97 01/18/17 20:03 110 20 97 01/18/17 19:58 113 22 01/18/17 19:53 113 18 97 01/18/17 19:48 107 29 97 01/18/17 19:43 101 14 98 01/18/17 19:38 101 15 98 01/18/17 19:33 102 13 97 01/18/17 19:28 99 16 98 01/18/17 19:23 104 14 98 01/18/17 19:18 102 15 97 01/18/17 19:13 112 24 95 01/18/17 19:08 98 15 97 01/18/17 19:03 100 13 99 01/18/17 18:58 101 18 98 01/18/17 18:55 106 22 146/84 98 Room Air 01/18/17 18:54 146/84 17 18:53 100 16 98 17 18:48 103 21 97 17 18:45 111 21 95 Nasal Cannula 2.5 01/18/17 18:43 111 25 96 1817 18:38 141 28 88 1817 18:33 102 16 95 18/17 18:28 109 21 95 18/17 18:23 104 23 94 1817 18:18 91 25 94 18/17 18:15 98 1817 18:13 91 93 18 18:11 93 Nasal Cannula 2.0 01/18/17 18:08 88 Room Air 01/18/17 17:37 36.6 104 26 135/79 88 Room Air Physical Exam GENERAL: alert, well appearing, well nourished, no distress, non-toxic EYE EXAM: normal conjunctiva, PERRL and EOM's grossly intact OROPHARYNX: no exudate, no erythema, lips, buccal mucosa, and tongue normal and mucous membranes are moist NECK: supple, no nuchal rigidity, no adenopathy, non-tender LUNGS: Bilateral inspiratory and expiratory wheezes. Increased work of breath. Coughing. HEART: Tachycardic no murmurs, S1 normal and S2 normal ABDOMEN: abdomen soft, non-tender, normo-active bowel sounds, no masses, no rebound or guarding. BACK: Back is symmetrical on inspection and there is no deformity, no midline tenderness, no CVA tenderness. SKIN: no rashes and no bruising UPPER EXTREMITIES: upper extremities are grossly normal. LOWER EXTREMITIES: 1+ lower extremity edema, right greater than left. NEURO EXAM: Normal sensorium, cranial nerves II-XII grossly intact, normal speech, no gross weakness of arms, no gross weakness of legs. No drift. Finger to nose intact. Gross sensation intact. Medical Decision & Procedures ER Provider Diagnostic Interpretation: Radiology results have been interpreted by the radiologist and reviewed by me. SINGLE VIEW CHEST CLINICAL HISTORY: Dyspnea. FINDINGS: An AP, portable, upright chest radiograph is compared to study dated 09/30/2016 and correlated with chest CT dated 05/13/2016. The examination is degraded by portable technique and patient rotation. The heart is top normal for projection and there is mild atherosclerotic calcification of the thoracic aorta. The pulmonary vasculature is noncongested. Chronic interstitial thickening is similar to previous. No airspace consolidation or pleural effusion is identified. No pneumothorax is seen. The skeletal structures are osteopenic. The bony thorax is grossly intact. IMPRESSION: No acute cardiopulmonary abnormality. Electronically signed by: Otf Banks M.D. 01/18/2017 6:38 PM Dictated Date/Time: 01/18/2017 6:37 PM Laboratory Results 01/18/17 18:35 Red Blood Count 5.09, Mean Corpuscular Volume 85.1, Mean Corpuscular Hemoglobin 26.9, Mean Corpuscular Hemoglobin Concent 31.6, Mean Platelet Volume 9.5, Neutrophils (%) (Auto) 95.5, Lymphocytes (%) (Auto) 2.9, Monocytes (%) (Auto) 1.1, Eosinophils (%) (Auto) 0.0, Basophils (%) (Auto) 0.1, Neutrophils # (Auto) 13.59, Lymphocytes # (Auto) 0.41, Monocytes # (Auto) 0.16, Eosinophils # (Auto) 0.00, Basophils # (Auto) 0.01 01/18/17 18:35 Test 01/18/17 18:35 White Blood Count 14.23 K/uL (4.8-10.8) Red Blood Count 5.09 M/uL (4.7-6.1) Hemoglobin 13.7 g/dL (14.0-18.0) Hematocrit 43.3 % (42-52) Mean Corpuscular Volume 85.1 fL (80-100) Mean Corpuscular Hemoglobin 26.9 pg (25-34) Mean Corpuscular Hemoglobin Concent 31.6 g/dl (32-36) Platelet Count 319 K/uL (130-400) Mean Platelet Volume 9.5 fL (7.4-10.4) Neutrophils (%) (Auto) 95.5 % Lymphocytes (%) (Auto) 2.9 % Monocytes (%) (Auto) 1.1 % Eosinophils (%) (Auto) 0.0 % Basophils (%) (Auto) 0.1 % Neutrophils # (Auto) 13.59 K/uL (1.4-6.5) Lymphocytes # (Auto) 0.41 K/uL (1.2-3.4) Monocytes # (Auto) 0.16 K/uL (0.11-0.59) Eosinophils # (Auto) 0.00 K/uL (0-0.5) Basophils # (Auto) 0.01 K/uL (0-0.2) RDW Standard Deviation 42.9 fL (36.4-46.3) RDW Coefficient of Variation 13.9 % (11.5-14.5) Immature Granulocyte % (Auto) 0.4 % Immature Granulocyte # (Auto) 0.06 K/uL (0.00-0.02) Anion Gap 12.0 mmol/L (3-11) Est Creatinine Clear Calc Drug Dose 68.9 ml/min Estimated GFR () 75.2 Estimated GFR (Non- 64.9 BUN/Creatinine Ratio 13.8 (10-20) Calcium Level 9.7 mg/dl (8.5-10.1) Magnesium Level 1.7 mg/dl (1.8-2.4) Total Bilirubin 0.4 mg/dl (0.2-1) Aspartate Amino Transf (AST/SGOT) 26 U/L (15-37) Alanine Aminotransferase (ALT/SGPT) 39 U/L (12-78) Alkaline Phosphatase 77 U/L (45-117) Troponin I < 0.015 ng/ml (0-0.045) Pro-B-Type Natriuretic Peptide 65 pg/ml (0-900) Total Protein 7.0 gm/dl (6.4-8.2) Albumin 3.5 gm/dl (3.4-5.0) Globulin 3.5 gm/dl (2.5-4.0) Albumin/Globulin Ratio 1.0 (0.9-2) Laboratory results per my review. Medications Administered Medications (Trade) Dose Ordered Sig/Dianne Route Start Time Stop Time Status Last Admin Dose Admin Methylprednisolone Sodium Succinate (Solu-Medrol IV) 80 mg NOW STAT IV 01/18/17 18:14 01/18/17 18:15 DC 01/18/17 18:47 80 MG Albuterol/ Ipratropium (Duoneb) 12 ml ONE ONCE INH 01/18/17 18:45 01/18/17 18:46 DC 01/18/17 18:44 12 ML Magnesium Sulfate (Magnesium Sulfate) 2 gm NOW STAT IV 01/18/17 18:31 01/18/17 18:32 DC 01/18/17 19:13 2 GM ECG Indication: SOB/dyspnea Rate (beats per minute): 101 Rhythm: sinus tachycardia Findings: RBBB (incomplete), other (No acute STEMI, no Q waves, no hypertrophy , normal axis) ED Course 1805: Ordered Duoneb 3 ml INH. 1813: Ordered Solu-Medrol IV 80 mg IV. 1823: The patient was evaluated in room C03. A complete history and physical exam was performed. 1830: Ordered Magnesium Sulfate 2 gram IV. 1844: Ordered Duoneb 12 ml INH. 1950: I reevaluated the patient and he is still bilateral wheezing with a decreased work of breathing. He reports that he feels better. 2130: I reevaluated the patient and he has expiratory wheezing at the base posteriorly. He and his family are fine with him going home. He is on his usually oxygen at home and his oxygen saturation is 94. I updated him on his results and treatment plan. They understand and agree. The patient is ready for discharge. Medical Decision Differential diagnoses includes but is not limited to pneumonia, bronchitis, COPD/Asthma exacerbation, pneumothorax, pulmonary embolism, congestive heart failure, acute coronary syndrome Pt markedly improved following nebs/steroids here. Pt with multiple similar episodes, states feeling well enough to go home. No fevers, no evidence of infection. Leukocytosis likely due to steroids. Pt with steroid regimen for exacerbations, MDI and home nebs. No evidence of cardiac etiology. Doubt PE. Doubt bacteremia/sepsis. Doubt pneumothorax. Doubt other vascular etiology. Pt maintaining sats on usual home oxygen levels. Family at bedside comfortable with how improved he is and comfortable with him going home. Pt offered observation due to hx of severe resp distress and risk factors, he declined. Discussed with him at length sx to watch/return for, he and family both verbalized understanding and were agreeable with plan. Medication Reconcilliation Current Medication List: was personally reviewed by me Blood Pressure Screening Patient's blood pressure: Elevated blood pressure Blood pressure disposition: Elevated BP felt to be situational Impression Primary Impression: Asthma Additional Impression: Oxygen dependent Scribe Attestation The scribe's documentation has been prepared under my direction and personally reviewed by me in its entirety. I confirm that the note above accurately reflects all work, treatment, procedures, and medical decision making performed by me. Departure Information Dispostion Home / Self-Care Prescriptions Oxycodone Ir (Roxicodone Ir) 5 Mg Tab 1-2 TAB PO Q4H Y for Severe Pain, #7 TAB Prov: Christi Mills, 01/18/17 Referrals Malathi Phillip MD (PCP) Forms HOME CARE DOCUMENTATION FORM, IMPORTANT VISIT INFORMATION, WORK / SCHOOL INSTRUCTIONS Patient Instructions My [facility] Additional Instructions Please continue wearing your home oxygen as usual. Please continue your home nebulizer treatments in your other controller medications for your asthma. Please adhere to the prior protocol regarding your steroids for your asthma exacerbations is you are familiar with. You were given a dose of IV steroids here. If you have any worsening trouble breathing, feel you need to turn of the amount of oxygen you're using, feel as though you're nebulizer treatments aren't helping, noticed a change in your cough or the color be sputum, develop fevers, chest pain, dizziness, increased swelling in her legs, or you have any other new concerns, please return the emergency room. Problem Qualifiers
--- NOTE | 2017-01-18 18:39 | DIAGNOSTIC IMAGING REPORT ---
SINGLE VIEW CHEST CLINICAL HISTORY: Dyspnea. FINDINGS: An AP, portable, upright chest radiograph is compared to study dated 09/30/2016 and correlated with chest CT dated 05/13/2016. The examination is degraded by portable technique and patient rotation. The heart is top normal for projection and there is mild atherosclerotic calcification of the thoracic aorta. The pulmonary vasculature is noncongested. Chronic interstitial thickening is similar to previous. No airspace consolidation or pleural effusion is identified. No pneumothorax is seen. The skeletal structures are osteopenic. The bony thorax is grossly intact. IMPRESSION: No acute cardiopulmonary abnormality. Electronically signed by: Otf Banks M.D. 01/18/2017 6:38 PM Dictated Date/Time: 01/18/2017 6:37 PM
[2017-01-18 18:45] VITALS: PULSE 111; O2SAT 95
[2017-01-18] MEDS ORDERED: ALBUT/IPRATROP 3MG/0.5MG NEB 3 ML VIAL INH ONE (18:45)
[2017-01-18 18:53] LABS: BASO % 0.1 %; BASO ABS # 0.01 K/uL (0-0.2); COMPLETE YES; HEMATOCRIT 43.3 % (42-52); IG% 0.4 %; LYMPH % 2.9 %; LYMPH ABS # 0.41 K/uL (1.2-3.4); MEAN CELL VOLUME 85.1 fL (80-100); MEAN CORPUSCULAR HEMOGLOBIN 26.9 pg (25-34); MEAN CORPUSCULAR HGB CONC 31.6 g/dl (32-36); MEAN PLATELET VOLUME 9.5 fL (7.4-10.4); MONO % 1.1 %; NEUT % 95.5 %; PLATELET COUNT 319 K/uL (130-400); RED BLOOD COUNT 5.09 M/uL (4.7-6.1); WHITE BLOOD COUNT 14.23 K/uL (4.8-10.8)
[2017-01-18 19:11] LABS: ALT/SGPT 39 U/L (12-78); AST/SGOT 26 U/L (15-37); BLOOD UREA NITROGEN 17 mg/dl (7-18); BUN/CREATININE RATIO 13.8 (10-20); CALCIUM 9.7 mg/dl (8.5-10.1); CARBON DIOXIDE 27 mmol/L (21-32); CHLORIDE 101 mmol/L (98-107); GLUCOSE 179 mg/dl (70-99); MAGNESIUM 1.7 mg/dl (1.8-2.4); SODIUM 140 mmol/L (136-145)
[2017-01-18 19:16] LABS: ALKALINE PHOSPHATASE 77 U/L (45-117)
[2017-01-18] MEDS ORDERED: OXYC1TAB3 PO (22:01)
[2017-01-18 22:13] VITALS: BP 172/81; PULSE 115; O2SAT 91
== END 2017-01-18 22:18 | disposition home or self-care (01) ==
LOC: C.EDB 17:33 → C.EDC 22:18
DX: J45.909 Unspecified asthma, uncomplicated (principal); Z99.81 Dependence on supplemental oxygen; R00.0 Tachycardia, unspecified; J44.9 Chronic obstructive pulmonary disease, unspecified; E11.9 Type 2 diabetes mellitus without complications; Z79.82 Long term (current) use of aspirin; Z79.4 Long term (current) use of insulin; Z79.899 Other long term (current) drug therapy; Z83.3 Family history of diabetes mellitus; Z82.49 Family history of ischemic heart disease and other diseases of the circulatory system

== ENCOUNTER 2017-01-21 16:01 | Observation (INO) | payer OTHER, MEDICARE ==
[~2017-01-21] VITALS: Ht 175.3 cm; Wt 94.9 kg
[2017-01-21] MEDS ORDERED: PRED10TA PO (16:46)
--- NOTE | 2017-01-21 17:08 | DIAGNOSTIC IMAGING REPORT ---
CHEST ONE VIEW PORTABLE CLINICAL HISTORY: Shortness of breath COMPARISON STUDY: 01/18/2017 FINDINGS: The cardiac and mediastinal contours are normal. There is no evidence of focal pulmonary consolidation. There is no evidence of failure. No pleural effusions are visualized.[ IMPRESSION: No active disease in the chest. Electronically signed by: Isma Cunningham M.D. 01/21/2017 5:07 PM Dictated Date/Time: 01/21/2017 5:06 PM
[2017-01-21] MEDS ORDERED: ALBUT/IPRATROP 3MG/0.5MG NEB 3 ML VIAL INH STA ×2 (17:11→17:31)
[2017-01-21] MEDS ORDERED: MAGNESIUM SULFATE 1GM / D5W 1 GM BAG IV STA (17:11)
[2017-01-21] MEDS ORDERED: METHYLPREDNISOLONE 125 MG VIAL IV STA (17:11)
[2017-01-21] MEDS ORDERED: AZITHROMYCIN 250 MG TAB PO ONE (17:15)
--- NOTE | 2017-01-21 17:27 | EMERGENCY ROOM VISIT NOTE ---
History Report prepared by Zaki: Cesar Platt Under the Supervision of: Dr. Joey Jordan M.D. First contact with patient: 16:58 Chief Complaint: RESPIRATORY PROBLEMS Stated Complaint: CAN'T BREATH -PHYSICIAN REFERRED Nursing Triage Summary: pt seen in er on wednesday night for trouble breathing, hx asthma, they wanted pt to stay but he refused, went to f/u with pcp today and they sent him to the er History of Present Illness The patient is a 61 year old white male with a past medical history of chronic asthma and bilateral kidney stones who presents to the ED with a cc of constant shortness of breath beginning today. The patient rates his discomfort as a 5/10 in severity. He states that he was here a couple of days ago for the same symptoms. The patient reports that he was treated and discharged home. He states that he went to his vessel welder, Dr. Villegas of [facility], today. The patient states that his vessel welder told him to report to the ED. He reports that he has been using his inhaler and nebulizer treatment a couple of times per hour for the last four days. The patient states that he has been experiencing normal bowel movements and urinating normally. He reports that he takes diuretics as needed. He reports that he is supposed to have his appendix taken out because it is fluid filled and enlarged, which they noticed when he was here in the hospital six days ago. Positive productive cough with clear sputum and fatigue. Negative chest pains, a history of heart failure and blood clots, use of BiPAP and CPAP. Source of History: patient Onset: today Position: other (global) Symptom Intensity: 5/10 Timing: constant Modifying Factors (Relieving): other (nebulizer, inhaler) Associated Symptoms: + cough, + fatigue, No chest pain Review of Systems See HPI for pertinent positives and negatives. A total of ten systems were reviewed and were otherwise negative. Past Medical & Surgical Medical Problems: (1) Asthma (2) COPD with acute exacerbation (3) Diabetes (4) Nasal polyp (5) nose surgery (6) wrist surgery Family History Diabetes mellitus Heart disease Hypertension Social History Smoking Status: Never Smoker Drug Use: none Marital Status: Housing Status: lives with family Occupation Status: employed Current/Historical Medications Scheduled Alendronate Sodium (Alendronate Sodium), 70 MG PO WK Arformoterol Tartrate (Brovana), 15 MCG INH BID Aspirin Enteric Coated (Ecotrin Or Generic), 81 MG PO DAILY B-Complex W/Biotin & Folic Aci (Super B-Complex), 1 TAB PO DAILY Budesonide (Pulmicort Respules 0.5MG/2ML), 2 ML NEB BID Calcium/Vitamin D (Os-Lee 500 Plus D), 1 TAB PO DAILY Desloratadine (Desloratadine), 5 MG PO DAILY Diltiazem Hcl Coated Beads (Diltiazem Hcl Er), 180 MG PO DAILY Escitalopram Oxalate (Escitalopram Oxalate), 10 MG PO DAILY Fluticasone Propionate (Fluticasone Propionate), 2 SPRAYS ANNA DAILY Furosemide (Lasix), 20-40 MG PO DAILY Insulin Glargine (Lantus), 28 UNITS SQ QAM Insulin Glargine (Lantus Solostar), 25 UNITS SC QPM Ipratropium-Albuterol (Combivent Respimat), 1 PUFFS INH QID Lisinopril/Hctz (Zestoretic 20MG/25MG), 1 TAB PO DAILY Mepolizumab (Nucala), 100 MG SC MONTHLY Omeprazole (Prilosec), 40 MG PO BID Potassium Ext Rel (Klor-Con), 20 MEQ PO TID Prednisone (Prednisone), 10 MG PO DAILY Simvastatin (Zocor), 10 MG PO QPM Turmeric (Curcuma Longa) (Turmeric), 500 MG PO DAILY Zafirlukast (Zafirlukast), 20 MG PO BID Scheduled PRN Insulin Aspart (Novolog Flexpen), 1 DOSE SQ TIDM PRN for PER SLIDING SCALE Ipratropium-Albuterol (Duoneb), 1 TREATMENT INH Q4H PRN for SOB/Wheezing Oxycodone Ir (Roxicodone Ir), 1-2 TAB PO Q4H PRN for Severe Pain Allergies Coded Allergies: No Known Allergies (Unverified , 01/21/17) UNKNOWN Physical Exam Vital Signs Date Time Temp Pulse Resp B/P (MAP) Pulse Ox O2 Delivery O2 Flow Rate FiO2 01/21/17 19:55 94 18 159/75 93 Room Air 01/21/17 18:53 92 166/87 95 Room Air 01/21/17 18:52 93 Room Air 01/21/17 18:27 80 01/21/17 17:59 81 22 144/88 99 Nebulizer 9.0 01/21/17 17:48 85 14 94 Room Air 01/21/17 16:07 92 Room Air 01/21/17 16:05 36.9 93 24 154/86 92 Room Air Physical Exam GENERAL: Awake, alert, well-appearing, NAD HENT: Normocephalic, atraumatic. EYES: Normal conjunctiva. Sclera non-icteric. NECK: Supple. No nuchal rigidity. FROM. RESPIRATORY: labored breathing, tachypneic, wheezing in all lung krishnamurthy, prolonged expiration. CARDIAC: RRR, no MRG ABDOMEN: Soft, NTND, BS+ MSK: No chest wall TTP, 1-2+ LE edema bilaterally. NEURO: GCS 15, CN 2-12 intact, moves all 4s on command SKIN: No rash or jaundice noted. Medical Decision & Procedures ER Provider Diagnostic Interpretation: Radiology results as stated below per my review and radiologist interpretation: CHEST ONE VIEW PORTABLE CLINICAL HISTORY: Shortness of breath COMPARISON STUDY: 01/18/2017 FINDINGS: The cardiac and mediastinal contours are normal. There is no evidence of focal pulmonary consolidation. There is no evidence of failure. No pleural effusions are visualized.[ IMPRESSION: No active disease in the chest. Electronically signed by: Isma Cunningham M.D. 01/21/2017 5:07 PM Dictated Date/Time: 01/21/2017 5:06 PM ABD/PELVIS IV CONTRAST ONLY CLINICAL HISTORY: 61 years-old Male presenting with recent CT w/ enlarged appendix w/o stranding; f/u study. TECHNIQUE: Multidetector CT of the abdomen and pelvis was performed after the administration of intravenous contrast. IV contrast: 118 mL of Optiray 320. A dose lowering technique was used consistent with the principles of ALARA (as low as reasonably achievable). COMPARISON: 01/15/2017. CT DOSE (mGy.cm): The estimated cumulative dose is 1106.85 mGy.cm. FINDINGS: [employer] topogram: Unremarkable. Lung bases: Lung bases clear. Normal heart size. No pericardial or pleural effusion. Liver: Normal morphology. Hepatic steatosis. No liver lesion. Patent hepatic vasculature. Biliary: No intrahepatic or extrahepatic biliary ductal dilatation. Normal gallbladder. Pancreas: Moderate parenchymal atrophy. Spleen: Normal. Adrenal glands: Normal. Kidneys and ureters: Small hypodensity at the upper pole the right kidney likely simple cyst. Nonobstructing 4 mm calculus at the interpolar region the right kidney. The previously noted nonobstructing punctate calculus in the interpolar region of the left kidney is minimally apparent. No hydronephrosis. Ureters normal. Bladder: Normal. Pelvic organs: Prostate and seminal vesicles normal. Bowel: Mild stool burden throughout normal caliber colon. The appendix is fluid-filled and measures up to 8 mm in diameter. No periappendiceal fat stranding. No bowel obstruction. Peritoneal cavity: No free fluid or intraperitoneal gas. Vasculature: Atherosclerosis of the normal caliber abdominal aorta. IVC patent. Lymph nodes: No enlarged lymph nodes in the abdomen or pelvis. Abdominal wall: Infiltration of the subcutaneous tissue of anterior abdominal wall persists. Minimal associated skin thickening. Musculoskeletal: Normal. IMPRESSION: 1. Persistent fluid-filled mildly dilated appendix without associated periappendiceal inflammatory change. The degree of appendiceal distention is slightly above what is considered within normal range. This could represent a mucocele versus normal variant. 2. Nonobstructing renal calculi. 3. Persistent skin thickening and infiltration of the subcutaneous fat along the inferior abdominal wall. Correlate clinically to exclude cellulitis. This could be secondary to medication administration. Electronically signed by: Fred Sweet M.D. 01/21/2017 8:31 PM Dictated Date/Time: 01/21/2017 8:24 PM Laboratory Results 01/21/17 17:52 01/21/17 17:52 Test 01/21/17 17:52 Red Blood Count 4.62 M/uL (4.7-6.1) Mean Corpuscular Volume 85.1 fL (80-100) Mean Corpuscular Hemoglobin 27.3 pg (25-34) Mean Corpuscular Hemoglobin Concent 32.1 g/dl (32-36) RDW Standard Deviation 44.5 fL (36.4-46.3) RDW Coefficient of Variation 14.4 % (11.5-14.5) Mean Platelet Volume 9.4 fL (7.4-10.4) Prothrombin Time 9.4 SECONDS (9.0-12.0) Prothromb Time International Ratio 0.9 (0.9-1.1) Activated Partial Thromboplast Time 22.3 SECONDS (21.0-31.0) Partial Thromboplastin Ratio 0.9 Venous Blood pH 7.45 (7.36-7.41) Venous Blood Partial Pressure CO2 42 mmHg (38.0-50.0) Venous Blood Partial Pressure O2 67 mmHg Venous Blood HCO3 29 mmol/L Venous Blood Oxygen Saturation 92.9 % Venous Blood Base Excess 4.2 mEq/L Anion Gap 7.0 mmol/L (3-11) Est Creatinine Clear Calc Drug Dose 89.2 ml/min Estimated GFR () 93.7 Estimated GFR (Non- 80.9 BUN/Creatinine Ratio 24.8 (10-20) Calcium Level 9.1 mg/dl (8.5-10.1) Total Bilirubin 0.2 mg/dl (0.2-1) Aspartate Amino Transf (AST/SGOT) 25 U/L (15-37) Alanine Aminotransferase (ALT/SGPT) 46 U/L (12-78) Alkaline Phosphatase 64 U/L (45-117) Total Creatine Kinase 194 U/L (39-308) Creatine Kinase MB 2.9 ng/ml (0.5-3.6) Creatine Kinase MB Ratio 1.5 (0-3.0) Troponin I < 0.015 ng/ml (0-0.045) Total Protein 6.4 gm/dl (6.4-8.2) Albumin 3.3 gm/dl (3.4-5.0) Globulin 3.1 gm/dl (2.5-4.0) Albumin/Globulin Ratio 1.1 (0.9-2) Laboratory results reviewed by me Medications Administered Medications (Trade) Dose Ordered Sig/Dianne Route Start Time Stop Time Status Last Admin Dose Admin Methylprednisolone Sodium Succinate (Solu-Medrol IV) 125 mg NOW STAT IV 01/21/17 17:11 01/21/17 17:13 DC 01/21/17 17:58 125 MG Magnesium Sulfate (Magnesium Sulfate) 2 gm NOW STAT IV 01/21/17 17:11 01/21/17 17:13 DC 01/21/17 17:59 2 GM Azithromycin (Zithromax Tab) 500 mg NOW ONCE PO 01/21/17 17:15 01/21/17 17:16 DC 01/21/17 17:30 500 MG Albuterol/ Ipratropium (Duoneb) 12 ml ONE STAT INH 01/21/17 17:31 01/21/17 17:32 DC 01/21/17 17:47 12 ML Ondansetron HCl (Zofran Inj) 4 mg NOW STAT IV 01/21/17 20:02 01/21/17 20:03 DC 01/21/17 20:09 4 MG ECG Indication: SOB/dyspnea Rate (beats per minute): 81 Rhythm: normal sinus Findings: other (Normal axis, Normal intervals, No ST changes) ED Course 1702: The patient was evaluated in room B10. A complete history and physical exam was performed. 1917: I discussed the patient's case with Dr. Laird [facility] Hospitalist. He understands the patient's condition and agrees to accept the patient. The patient will be further evaluated. Medical Decision The differential diagnoses includes etiologies such as infections, reactive airway disease, pneumonia, pneumothorax, COPD, CHF, cardiac ischemia, pulmonary embolism, musculoskeletal, gastrointestinal, as well as others were entertained. Patient was seen and evaluated at the bedside. Patient is clear chest x-ray fairly benign labs. Patient was given symptomatic treatment for COPD. Patient did improve his lung sounds still had a prolonged expiratory phase and wheezing. Patient was able to ambulate was mildly tachypnea, no no desaturation. I spoke with the patient and family given there recent issues they were concerned about going home as he tends to get worse after he's been treated here in the ER twice in the last week. The hospitalist who agreed that the patient should be admitted. Patient did have a CT of the abdomen and pelvis was repeated given the prior concern for an enlarged fluid-filled appendix without any periappendiceal stranding. Patient's CT was negative at this time for acute appendicitis. Patient admitted. Medication Reconcilliation Current Medication List: was personally reviewed by me Blood Pressure Screening Patient's blood pressure: Elevated blood pressure Blood pressure disposition: Referred to PCP Consults Time Called: 1917 Consulting Physician: Dr. Laird [facility] Hospitalist Returned Call: 1917 I discussed the patient's case with Dr. Laird [facility] Hospitalist. He understands the patient's condition and agrees to accept the patient. The patient will be further evaluated. Impression Primary Impression: COPD with acute exacerbation Scribe Attestation The scribe's documentation has been prepared under my direction and personally reviewed by me in its entirety. I confirm that the note above accurately reflects all work, treatment, procedures, and medical decision making performed by me. Departure Information Dispostion Being Evaluated By Hospitalist Referrals Malathi Phillip MD (PCP) Patient Instructions My [facility]
[2017-01-21 17:48] VITALS: PULSE 85; O2SAT 94
[2017-01-21 18:01] LABS: HEMATOCRIT 39.3 % (42-52); MEAN CELL VOLUME 85.1 fL (80-100); MEAN CORPUSCULAR HEMOGLOBIN 27.3 pg (25-34); MEAN CORPUSCULAR HGB CONC 32.1 g/dl (32-36); MEAN PLATELET VOLUME 9.4 fL (7.4-10.4); PLATELET COUNT 289 K/uL (130-400); RED BLOOD COUNT 4.62 M/uL (4.7-6.1); WHITE BLOOD COUNT 11.56 K/uL (4.8-10.8)
[2017-01-21 18:05] LABS: VEN BLD GAS O2 SATURATION 92.9 %; VEN BLOOD GAS BASE EXCESS 4.2 mEq/L
[2017-01-21 18:10] LABS: INR 0.9 (0.9-1.1); PARTIAL THROMBOPLASTIN RATIO 0.9; PROTHROMBIN TIME (PATIENT) 9.4 SECONDS (9.0-12.0)
[2017-01-21 18:19] LABS: ALT/SGPT 46 U/L (12-78); BLOOD UREA NITROGEN 25 mg/dl (7-18); BUN/CREATININE RATIO 24.8 (10-20); CALCIUM 9.1 mg/dl (8.5-10.1); CARBON DIOXIDE 29 mmol/L (21-32); CHLORIDE 105 mmol/L (98-107); GLUCOSE 134 mg/dl (70-99); POTASSIUM 3.9 mmol/L (3.5-5.1); SODIUM 141 mmol/L (136-145)
[2017-01-21 18:23] LABS: ALB/GLOB RATIO 1.1 (0.9-2); ALKALINE PHOSPHATASE 64 U/L (45-117); AST/SGOT 25 U/L (15-37); CKMB/CK RATIO 1.5 (0-3.0)
[2017-01-21] MEDS ORDERED: OPTIRAY 320 IV PRN (19:30)
[2017-01-21] MEDS ORDERED: MEPO1INJ SC (19:58)
[2017-01-21] MEDS: BUDESONIDE 0.5 MG/2 ML VIAL (PULMICORT) INH SCH (20:00)
[2017-01-21] MEDS ORDERED: ALUMINUM/MAGNESIUM/SIMETH (MAALOX MAX) 30 ML UDC PO PRN (20:00)
[2017-01-21] MEDS ORDERED: ACETAMINOPHEN 325 MG TAB PO PRN (20:00)
[2017-01-21] MEDS: ALBUT/IPRATROP 3MG/0.5MG NEB 3 ML VIAL INH SCH (20:00)
[2017-01-21] MEDS: ARFORMOTEROL TART 15MCG/2ML VIAL INH SCH (20:00)
[2017-01-21] MEDS ORDERED: MAGNESIUM HYDROXIDE SUSP 30 ML UDC PO PRN (20:00)
[2017-01-21] MEDS ORDERED: ONDANSETRON INJ 2 MG/ML 2 ML VIAL IV PRN (20:00)
[2017-01-21] MEDS ORDERED: POLYETHYLENE (MIRALAX) 17 GM PACK PO PRN (20:00)
[2017-01-21] MEDS ORDERED: ONDANSETRON INJ 2 MG/ML 2 ML VIAL IV STA (20:02)
[2017-01-21] MEDS ORDERED: DiphenhydrAMINE HCL 50 MG/ML VIAL IV PRN (20:15)
--- NOTE | 2017-01-21 20:28 | History and Physical ---
History & Physical Date & Time of Service: Jan 21, 2017 at 20:05 Chief Complaint: Can't Breath -Physician Referred Primary Care Physician: Malathi Phillip MD History of Present Illness Source: patient, parent, spouse, clinic records, hospital records This is a 61 y/o male with a history of COPD, severe persistent asthma, HTN, HLD , DM I, anxiety, and GERD who presented to the ED on 01/21 with worsening shortness of breath. The patient had actually presented to the ED on 01/18 with shortness of breath and was found to be in a COPD exacerbation. He was given nebulizers and IV steroids and was feeling better. The ED had recommended admission for observation at that time, but the patient had refused. He now returns again with worsening shortness of breath and dyspnea on exertion. He has a mildly productive cough with clear sputum. He complains of intermittent wheezing. The patient denies fevers, chills, sweats, chest pain, palpitations, claudication, nausea, vomiting, abdominal pain, dysuria, hematuria, urinary retention, paralysis, weakness, numbness and tingling. Past Medical/Surgical History Medical Problems: (1) Asthma Status: Chronic (2) Diabetes mellitus type 1 Status: Chronic (3) Nasal polyp Status: Resolved (4) Nose surgery Status: Resolved (5) Wrist surgery Status: Resolved COPD HTN HLD Anxiety GERD Family History Diabetes mellitus Heart disease Hypertension Lung cancer Myocardial infarction Social History Smoking Status: Never Smoker Smokeless Tobacco Use: Yes Alcohol Use: none Drug Use: none Marital Status: Housing status: lives with significant other Occupational Status: retired Immunizations History of Influenza Vaccine: Yes Influenza Vaccine Date: Feb 07, 2010 History of Tetanus Vaccine?: Unknown History of Pneumococcal: Yes Pneumococcal Date: Apr 09, 2009 History of Hepatitis B Vaccine: Unknown Multi-Drug Resistant Organisms History of MDRO: Yes Type of MDRO: MRSA Allergies Coded Allergies: No Known Allergies (Unverified , 01/21/17) UNKNOWN Home Medications Scheduled Alendronate Sodium (Alendronate Sodium), 70 MG PO WK Arformoterol Tartrate (Brovana), 15 MCG INH BID Aspirin Enteric Coated (Ecotrin Or Generic), 81 MG PO DAILY B-Complex W/Biotin & Folic Aci (Super B-Complex), 1 TAB PO DAILY Budesonide (Pulmicort Respules 0.5MG/2ML), 2 ML NEB BID Calcium/Vitamin D (Os-Lee 500 Plus D), 1 TAB PO DAILY Desloratadine (Desloratadine), 5 MG PO DAILY Diltiazem Hcl Coated Beads (Diltiazem Hcl Er), 180 MG PO DAILY Escitalopram Oxalate (Escitalopram Oxalate), 10 MG PO DAILY Fluticasone Propionate (Fluticasone Propionate), 2 SPRAYS ANNA DAILY Furosemide (Lasix), 20-40 MG PO DAILY Insulin Glargine (Lantus), 28 UNITS SQ QAM Insulin Glargine (Lantus Solostar), 25 UNITS SC QPM Ipratropium-Albuterol (Combivent Respimat), 1 PUFFS INH QID Lisinopril/Hctz (Zestoretic 20MG/25MG), 1 TAB PO DAILY Mepolizumab (Nucala), 100 MG SC MONTHLY Omeprazole (Prilosec), 40 MG PO BID Potassium Ext Rel (Klor-Con), 20 MEQ PO TID Prednisone (Prednisone), 10 MG PO DAILY Simvastatin (Zocor), 10 MG PO QPM Turmeric (Curcuma Longa) (Turmeric), 500 MG PO DAILY Zafirlukast (Zafirlukast), 20 MG PO BID Scheduled PRN Insulin Aspart (Novolog Flexpen), 1 DOSE SQ TIDM PRN for PER SLIDING SCALE Ipratropium-Albuterol (Duoneb), 1 TREATMENT INH Q4H PRN for SOB/Wheezing Oxycodone Ir (Roxicodone Ir), 1-2 TAB PO Q4H PRN for Severe Pain Review of Systems Constitutional: No fever, No chills, No sweats Eyes: No worsening of vision, No eye pain, No diplopia ENT: No hearing loss, No sore throat, No trouble swallowing Respiratory: + cough, + sputum, + wheezing, + shortness of breath, + dyspnea on exertion Cardiovascular: No chest pain, No claudication, No palpitations Abdomen: No pain, No nausea, No vomiting Musculoskeletal: No joint pain, No muscle pain, No swelling Genitourinary - Male: No hematuria, No dysuria, No urinary retention Neurologic: No paralysis, No weakness, No numbness/tingling Integumentary: No rash, No itch, No color change Physical Exam Vital Signs Date Time Temp Pulse Resp B/P (MAP) Pulse Ox O2 Delivery O2 Flow Rate FiO2 01/21/17 19:55 94 18 159/75 93 Room Air 01/21/17 18:53 92 166/87 95 Room Air 01/21/17 18:52 93 Room Air 01/21/17 18:27 80 01/21/17 17:59 81 22 144/88 99 Nebulizer 9.0 01/21/17 17:48 85 14 94 Room Air 01/21/17 16:07 92 Room Air 01/21/17 16:05 36.9 93 24 154/86 92 Room Air General appearance: +Obese. Well-developed, well-nourished, no apparent distress Head: Normocephalic, atraumatic Eyes: Normal inspection, PERRL, EOMI ENT: Normal ENT inspection, hearing grossly normal, pharynx normal Neck: Supple, no JVD, trachea midline Respiratory/Chest: +Diffuse wheezing throughout all lung krishnamurthy. Normal breath sounds, no respiratory distress Cardiovascular: Regular rate & rhythm, no gallop, no murmur Abdomen/GI: Normal bowel sounds, non-tender, soft Extremities/Musculoskeletal: +Trace pitting edema. Normal inspection, no calf tenderness Neurological/Psych: Alert, normal mood/affect, oriented x 3 Skin: Normal color, warm/dry, no rash Diagnostics Laboratory Results Results Past 24 Hours Test 01/21/17 17:52 Range/Units White Blood Count 11.56 4.8-10.8 K/uL Red Blood Count 4.62 4.7-6.1 M/uL Hemoglobin 12.6 14.0-18.0 g/dL Hematocrit 39.3 42-52 % Mean Corpuscular Volume 85.1 80-100 fL Mean Corpuscular Hemoglobin 27.3 25-34 pg Mean Corpuscular Hemoglobin Concent 32.1 32-36 g/dl RDW Standard Deviation 44.5 36.4-46.3 fL RDW Coefficient of Variation 14.4 11.5-14.5 % Platelet Count 289 130-400 K/uL Mean Platelet Volume 9.4 7.4-10.4 fL Prothrombin Time 9.4 9.0-12.0 SECONDS Prothromb Time International Ratio 0.9 0.9-1.1 Activated Partial Thromboplast Time 22.3 21.0-31.0 SECONDS Partial Thromboplastin Ratio 0.9 Venous Blood pH 7.45 7.36-7.41 Venous Blood Partial Pressure CO2 42 38.0-50.0 mmHg Venous Blood Partial Pressure O2 67 mmHg Venous Blood HCO3 29 mmol/L Venous Blood Oxygen Saturation 92.9 % Venous Blood Base Excess 4.2 mEq/L Sodium Level 141 136-145 mmol/L Potassium Level 3.9 3.5-5.1 mmol/L Chloride Level 105 98-107 mmol/L Carbon Dioxide Level 29 21-32 mmol/L Anion Gap 7.0 3-11 mmol/L Blood Urea Nitrogen 25 7-18 mg/dl Creatinine 1.00 0.60-1.40 mg/dl Est Creatinine Clear Calc Drug Dose 89.2 ml/min Estimated GFR () 93.7 Estimated GFR (Non- 80.9 BUN/Creatinine Ratio 24.8 10-20 Random Glucose 134 70-99 mg/dl Calcium Level 9.1 8.5-10.1 mg/dl Total Bilirubin 0.2 0.2-1 mg/dl Aspartate Amino Transf (AST/SGOT) 25 15-37 U/L Alanine Aminotransferase (ALT/SGPT) 46 12-78 U/L Alkaline Phosphatase 64 45-117 U/L Total Creatine Kinase 194 39-308 U/L Creatine Kinase MB 2.9 0.5-3.6 ng/ml Creatine Kinase MB Ratio 1.5 0-3.0 Troponin I < 0.015 0-0.045 ng/ml Total Protein 6.4 6.4-8.2 gm/dl Albumin 3.3 3.4-5.0 gm/dl Globulin 3.1 2.5-4.0 gm/dl Albumin/Globulin Ratio 1.1 0.9-2 Diagnostic Radiology Reviewed the following studies and agree with interpretation as follows: Patient Name: ALEC WHITE Unit Number: [id number] Dictated: 01/21/171705 Transcribed: 01/21/171705 ARG Printed Date/Time: [~ rep prt dt]/[~ rep prt tm] [~ rep ct labl] - [~ rep ct ivnm] [facility] [place] [address] Dictated: 01/21/171705 Transcribed: 01/21/171705 ARG Printed Date/Time: [~ rep prt dt]/[~ rep prt tm] [~ rep ct labl] - [~ rep ct ivnm] Patient: ALEC WHITE Address1: [address] [facility] Rec: [id number] Address2: Acct ID: [id number] [facility] Zip: [id number] Date: 1955 Sex: M Room/Bed: Ref Phy: Malathi Phillip MD SC: C.EDB Att Phy: Report #: [id number] Krupa Phy: Malathi Phillip MD Test: CXR1P Admit Phy: Food Mixer: JAC Interpreting Phy: Isma Cunningham M.D. Diagnosis: CAN'T BREATH -PHYSICIAN REFERRED Ordering Phy: ED, PROTOCOL Service Date: 01/21/17 Admit Date: 01/21/17 MNE: [id number] CONF: DICTATED BY: Isma Cunningham M.D.]] CC: ED,PROTOCOL Joey Jordan M.D. Zuniga, Tania S., MD Endcc: [~ rep ct add3]] CHEST ONE VIEW PORTABLE CLINICAL HISTORY: Shortness of breath COMPARISON STUDY: 01/18/2017 FINDINGS: The cardiac and mediastinal contours are normal. There is no evidence of focal pulmonary consolidation. There is no evidence of failure. No pleural effusions are visualized.[ IMPRESSION: No active disease in the chest. Electronically signed by: Isma Cunningham M.D. 01/21/2017 5:07 PM Dictated Date/Time: 01/21/2017 5:06 PM The status of this report is Signed. Draft = Not yet reviewed or approved by Radiologist. Signed = Reviewed and approved by Radiologist. <AttendingPhy></AttendingPhy> <FamilyPhy>Malathi Phillip MD</FamilyPhy> < PrimaryPhy>Malathi Phillip MD</PrimaryPhy> <UnitNumber>[id number]</UnitNumber > <VisitNumber>[id number]</VisitNumber> <PatientName>ALEC WHITE</ PatientName> <DateOfBirth>1955</DateOfBirth> <Location>C.EDB</Location> < ServiceDate>01/21/17</ServiceDate> <MNE>ESINDI</MNE> <OrderingPhy>ED, PROTOCOL</ OrderingPhy> <OrderingPhyMNE>f rep ord dr truong</OrderingPhyMNE> <DictatingPhyMNE> f rep dict dr truong</DictatingPhyMNE> <CCListMNE>f rep ct dionne</CCListMNE> < AdmittingPhyMNE>f pt admit dr truong</AdmittingPhyMNE> <AttendingPhyMNE>f pt attend dr truong</AttendingPhyMNE> <ConsultingPhyMNE>f pt consult dr truong</ConsultingPhyMNE> <FamilyPhyMNE>f pt fam dr truong</FamilyPhyMNE> <OtherPhyMNE>f pt other dr truong</OtherPhyMNE> < PrimaryPhyMNE>f pt prim care dr truong</PrimaryPhyMNE> <ReferringPhyMNE>f pt referring dr truong</ReferringPhyMNE> EKG Reviewed EKG and agree with interpretation as follows: 81 bpm, sinus rhythm Impression Assessment and Plan 61 y/o male with a history of COPD, severe persistent asthma, HTN, HLD, DM I, anxiety, and GERD who presented to the ED on 01/21 with worsening shortness of breath. Pt afebrile, VSS on arrival. CXR shows no acute disease although appears emphysematous upon my review. EKG no ischemic changes. WBC 11.56. Troponin negative. Pt received loading dose of Solu-Medrol 125 mg IV x 1, magnesium 2 mg IV, a Duoneb treatment and azithromycin 500 mg PO x 1 in ED. COPD exacerbation, severe persistent asthma -Admit to tele for observation -Hold off on further Solu-Medrol for now. Pt had abdomen/pelvis CT last week that showed fluid filled and dilated appendix. Repeat a/p CT pending. Consider general surgery consult if appears to be worsening. If stable, can then start steroids -DuoNebs QIDR and q2h prn SOB/wheezing -O2 by protocol. Pt also wears 2L NC at nighttime -Continue Brovana neb BID, Pulmicort respules neb BID -Desloratadine converted to loratadine 10 mg PO hs -Zafirlukast converted to montelukast 10 mg PO hs -Home prednisone, Combivent and Nucala held HTN--stable -Continue diltiazem 180 mg PO qd and HCTZ/lisinopril 25/20 mg PO qd -Pt takes Lasix prn weight gain/swelling. He states based on his current swelling, he is due for a dose. Continue Lasix 20 mg PO qd HLD -Continue simvastatin 10 mg PO hs DM I--last HgbA1c 08/24/16 was 6.5 -Lantus 28 units SC q am and 25 units q pm -Insulin sliding scale -Check BSGs q ac and qhs -Recheck HgbA1c Anxiety -Continue Lexapro 10 mg PO qd GERD -Convert Prilosec to Protonix 40 mg PO BID DVT prophylaxis -Enoxaparin 40 mg SC q24h -ISAIAH mena and SCDs Code Status -Level I, FULL RESUSCITATION STATUS Attending Addendum: I have physically seen and examined this patient, have directed the physician assistants medical activities, and agree with the H&P as noted above with the following exceptions as noted. The patient is awake, alert and oriented 3, well-developed and well-nourished , normocephalic and atraumatic, lying in bed and in no acute distress. HEENT--PERRL, EOMI, mucous membranes and oropharynx dry. Neck--supple, no JVD or bruits, thyroid normal, trachea midline, no adenopathy. Heart--normal S1 and S2, no extra beats, no murmurs, rubs or gallops. Lungs--coarse breath sounds with wheezes bilaterally, no respiratory distress, no accessory muscle use. Abdomen--normal bowel sounds and soft, nontender and nondistended, no hernias or masses, no organomegaly and obese. Extremities--no cyanosis, clubbing or edema. There are good distal pulses b/l. Dermatologic--normal skin turgor, normal color, warm and dry, no abnormal lymph nodes, no rash. Neurologic--cranial nerves II through XII grossly intact, motor and sensory examination normal. Rheumatologic--normal range of motion, nontender, muscles and joints. Psychiatric--normal affect. Assessment and Plan: 1. COPD exacerbation/severe persistent asthma-- Status post Solu-Medrol 125 mg IV 1, magnesium 2 g IV and azithromycin 500 mg by mouth in the ED. Admit to telemetry for observation. Duonebs every 4 hours while awake and every 2 hours when necessary. Nasal cannula 2 L of oxygen, titrate to keep pulse ox greater than or equal to 92%. Continue Brovana twice a day and Pulmicort Respules twice a day. Desloratadine to loratadine. Zafirlukast to montelukast. Solu-Medrol 20 mg IV every 8 hours. Follow blood sugars closely. 2. Diabetes mellitus-- Continue Lantus 28 units subcutaneous every morning and 25 units subcutaneous every evening. Place on Accu-Cheks before meals and at bedtime with NovoLog coverage per scale. Follow blood sugars closely while on Solu-Medrol IV. 3. Hypertension Continue outpatient dosing of diltiazem CD 180 mg by mouth daily and HCTZ/ lisinopril 25/20 by mouth daily. Lasix 20 mg by mouth daily. 4. Swollen appendix stable on successive CTs--consult surgery for their opinion. He reports he was scheduled to see Dr. Atkinson sometime next week. Level of Care Telemetry Advanced Directives Existing Advance Directive: No Existing Living Will: No Existing Power of Screen Roller: No Resuscitation Status FULL RESUSCITATION VTE Prophylaxis VTE Risk Assessment Done? Y/N: Yes Risk Level: Moderate Given or contraindicated: Enoxaparin (Lovenox)SQ, T.E.D. Stockings, SCD's Social Service Consult None Apply
[2017-01-21] MEDS ORDERED: GLUCAGON FOR INJ 1 MG VIAL SQ PRN (20:30)
[2017-01-21] MEDS ORDERED: DEXTROSE 50% 50 ML SYR IV PRN (20:30)
[2017-01-21] MEDS ORDERED: GLUCOSE 10 TABS/TUBE PO PRN (20:30)
[2017-01-21] MEDS ORDERED: GLUCOSE 40% GEL 15 GM TUBE PO PRN (20:30)
--- NOTE | 2017-01-21 20:32 | DIAGNOSTIC IMAGING REPORT ---
ABD/PELVIS IV CONTRAST ONLY CLINICAL HISTORY: 61 years-old Male presenting with recent CT w/ enlarged appendix w/o stranding; f/u study. TECHNIQUE: Multidetector CT of the abdomen and pelvis was performed after the administration of intravenous contrast. IV contrast: 118 mL of Optiray 320. A dose lowering technique was used consistent with the principles of ALARA (as low as reasonably achievable). COMPARISON: 01/15/2017. CT DOSE (mGy.cm): The estimated cumulative dose is 1106.85 mGy.cm. FINDINGS: Radio Script Writer topogram: Unremarkable. Lung bases: Lung bases clear. Normal heart size. No pericardial or pleural effusion. Liver: Normal morphology. Hepatic steatosis. No liver lesion. Patent hepatic vasculature. Biliary: No intrahepatic or extrahepatic biliary ductal dilatation. Normal gallbladder. Pancreas: Moderate parenchymal atrophy. Spleen: Normal. Adrenal glands: Normal. Kidneys and ureters: Small hypodensity at the upper pole the right kidney likely simple cyst. Nonobstructing 4 mm calculus at the interpolar region the right kidney. The previously noted nonobstructing punctate calculus in the interpolar region of the left kidney is minimally apparent. No hydronephrosis. Ureters normal. Bladder: Normal. Pelvic organs: Prostate and seminal vesicles normal. Bowel: Mild stool burden throughout normal caliber colon. The appendix is fluid-filled and measures up to 8 mm in diameter. No periappendiceal fat stranding. No bowel obstruction. Peritoneal cavity: No free fluid or intraperitoneal gas. Vasculature: Atherosclerosis of the normal caliber abdominal aorta. IVC patent. Lymph nodes: No enlarged lymph nodes in the abdomen or pelvis. Abdominal wall: Infiltration of the subcutaneous tissue of anterior abdominal wall persists. Minimal associated skin thickening. Musculoskeletal: Normal. IMPRESSION: 1. Persistent fluid-filled mildly dilated appendix without associated periappendiceal inflammatory change. The degree of appendiceal distention is slightly above what is considered within normal range. This could represent a mucocele versus normal variant. 2. Nonobstructing renal calculi. 3. Persistent skin thickening and infiltration of the subcutaneous fat along the inferior abdominal wall. Correlate clinically to exclude cellulitis. This could be secondary to medication administration. Electronically signed by: Fred Sweet M.D. 01/21/2017 8:31 PM Dictated Date/Time: 01/21/2017 8:24 PM
[2017-01-21] MEDS ORDERED: IV FLUIDS COMPLETED PRN (20:45)
[2017-01-21] MEDS ORDERED: IPRATROPIUM BROMIDE/ALBUTEROL respimat INH INH SCH (21:00)
[2017-01-21] MEDS ORDERED: INSULIN GLARGINE SOLOSTAR 100 UNITS/ML 3 ML PEN SC SCH (21:00)
[2017-01-21 21:30] VITALS: BP 156/79; PULSE 110; TEMP 37.2; O2SAT 92; BMI 31.1
[2017-01-21] MEDS: POTASSIUM CHLORIDE 20 MEQ TABCR PO SCH (21:49)
[2017-01-21] MEDS: PANTOprazole SOD 40 MG TAB PO SCH (21:49)
[2017-01-21] MEDS: MONTELUKAST SOD 10 MG TAB PO SCH (21:50)
[2017-01-21] MEDS: SIMVASTATIN 10 MG TAB PO SCH (21:50)
[2017-01-21] MEDS: ENOXAPARIN 40 MG/0.4 ML SYR SC SCH (21:51)
[2017-01-21] MEDS: INSULIN ASPART 100 UNITS/ML 3 ML PEN SC SCH (21:54)
[2017-01-21] MEDS: METHYLPREDNISOLONE IV 20 MG in SYRINGE 0 ML IV SCH (22:22)
[2017-01-21] MEDS ORDERED: INFLUENZA VIRUS QUAD VACCINE 0.5 ML SYR IM. ONE (23:45)
[2017-01-21] MEDS ORDERED: INFLUENZA ADMINISTRATION CHARGE ONE (23:45)
[2017-01-22] VITALS (13 sets, daily range): BP systolic 135–156; BP diastolic 71–87; PULSE 76–99; TEMP 36.5–37; O2SAT 89–100; Ht 175.3 cm; Wt 94.9 kg
[2017-01-22] MEDS: ALBUT/IPRATROP 3MG/0.5MG NEB 3 ML VIAL INH SCH ×5 (03:45→19:27)
[2017-01-22 06:08] LABS: ESTIMATED AVERAGE GLUCOSE 154 mg/dl; HA1C FLAG Normal (Normal)
[2017-01-22] MEDS: METHYLPREDNISOLONE IV 20 MG in SYRINGE 0 ML IV SCH (06:42)
[2017-01-22 07:03] LABS: MEAN CELL VOLUME 84.6 fL (80-100); MEAN CORPUSCULAR HEMOGLOBIN 27.1 pg (25-34); MEAN CORPUSCULAR HGB CONC 32.1 g/dl (32-36); MEAN PLATELET VOLUME 9.5 fL (7.4-10.4); PLATELET COUNT 256 K/uL (130-400); RED BLOOD COUNT 4.61 M/uL (4.7-6.1); WHITE BLOOD COUNT 11.24 K/uL (4.8-10.8)
[2017-01-22] MEDS: BUDESONIDE 0.5 MG/2 ML VIAL (PULMICORT) INH SCH ×2 (07:05→19:27)
[2017-01-22] MEDS: ARFORMOTEROL TART 15MCG/2ML VIAL INH SCH ×2 (07:05→19:27)
[2017-01-22 07:42] LABS: BUN/CREATININE RATIO 19.5 (10-20); CALCIUM 8.7 mg/dl (8.5-10.1); CREATININE 1.3 mg/dl (0.60-1.40)
[2017-01-22] MEDS ORDERED: PHARMACY GLYCEMIC MGMT CONSULT STA (07:50)
[2017-01-22 07:56] LABS: BETA-HYDROXYBUTYRATE 1.37 mg/dL (0.2-2.81)
[2017-01-22] MEDS: INSULIN GLARGINE SOLOSTAR 100 UNITS/ML 3 ML PEN SC SCH ×2 (08:46→21:44)
[2017-01-22] MEDS: INSULIN ASPART 100 UNITS/ML 3 ML PEN SC SCH ×3 (08:46→21:41)
[2017-01-22] MEDS: LISINOPRIL/HCTZ 20/25MG TAB PO SCH (08:47)
[2017-01-22] MEDS: LORATADINE 10 MG TAB PO SCH (08:47)
[2017-01-22] MEDS: ASPIRIN 81 MG ECTAB PO SCH (08:47)
[2017-01-22] MEDS: FUROSEMIDE 20 MG TAB PO SCH (08:47)
[2017-01-22] MEDS: ESCITALOPRAM OXALATE 10 MG TAB PO SCH (08:48)
[2017-01-22] MEDS: FLUTICASONE PROPIONATE NA SPR 16 GM BTL NAE SCH (08:48)
[2017-01-22] MEDS: CALCIUM 600MG + VIT D 400 IU TAB PO SCH (08:48)
[2017-01-22] MEDS: DILTIAZEM HCL 180 MG CAPCR PO SCH (08:48)
[2017-01-22] MEDS: PANTOprazole SOD 40 MG TAB PO SCH ×2 (08:48→20:26)
[2017-01-22] MEDS: POTASSIUM CHLORIDE 20 MEQ TABCR PO SCH ×3 (09:00→20:25)
[2017-01-22] MEDS ORDERED: INSULIN GLARGINE SOLOSTAR 100 UNITS/ML 3 ML PEN SQ SCH (09:00)
--- NOTE | 2017-01-22 09:45 | Medical Consult ---
Consultation Date of Consultation: Jan 22, 2017. Attending Physician: Carlos Ling D.O. History of Present Illness 61 y/o male admitted last night for COPD exacerbation, had been in ER 3 days prior for the same. Feels much better this morning, hoping to be discharged soon. Has appt next week with Dr. Alexander next week for dilated, fluid filled appendix possible mucocele. This was first seen on CT 01/15 when he was in ED for flank pain and appeared similar on CT yesterday. He also has right nephrolithiasis. His flank pain has subsided. His appetite has been good. No fevers, chills or nausea. Has never had colonoscopy. Past Medical/Surgical History Medical Problems: (1) Asthma (2) COPD with acute exacerbation (3) Diabetes (4) Nasal polyp (5) nose surgery (6) wrist surgery Family History Diabetes mellitus Heart disease Hypertension Lung cancer Myocardial infarction Social History Smoking Status: Never Smoker Smokeless Tobacco Use: Yes Alcohol Use: none Drug Use: none Marital Status: Housing Status: lives with family Occupation Status: retired Allergies Coded Allergies: No Known Allergies (Unverified , 01/21/17) UNKNOWN Current Inpatient Medications Current Inpatient Medications Medications (Trade) Dose Ordered Sig/Dianne Route Start Time Stop Time Status Last Admin Dose Admin Ioversol (Optiray 320) 111 ml UD PRN IV 01/21/17 19:30 01/25/17 19:29 Enoxaparin Sodium (Lovenox Inj) 40 mg HS SC 01/21/17 22:00 02/20/17 21:59 01/21/17 21:51 40 MG Acetaminophen (Tylenol Tab) 650 mg Q4H PRN PO 01/21/17 20:00 02/20/17 19:59 Al Hydrox/Mg Hydrox/Simethicone (Maalox Max Susp) 15 ml Q4H PRN PO 01/21/17 20:00 02/20/17 19:59 Magnesium Hydroxide (Milk Of Magnesia Susp) 30 ml Q12H PRN PO 01/21/17 20:00 02/20/17 19:59 Ondansetron HCl (Zofran Inj) 4 mg Q6H PRN IV 01/21/17 20:00 02/20/17 19:59 Polyethylene (Miralax Powder Packet) 17 gm DAILY PRN PO 01/21/17 20:00 02/20/17 19:59 Arformoterol Tartrate (Brovana 15MCG/ 2ML Neb Soln) 15 mcg BID INH 01/21/17 21:00 02/20/17 20:59 01/22/17 07:05 15 MCG Aspirin (Ecotrin Tab) 81 mg DAILY PO 01/22/17 09:00 02/21/17 08:59 01/22/17 08:47 81 MG Budesonide (Pulmicort Respules 0.5MG/ 2ML Neb Soln) 0.5 mg BID INH 01/21/17 21:00 02/20/17 20:59 01/22/17 07:05 0.5 MG Calcium/Vitamin D (Caltrate Plus Tab) 1 tab DAILY PO 01/22/17 09:00 02/21/17 08:59 01/22/17 08:48 1 TAB Diltiazem HCl (Cardizem Cd Cap) 180 mg DAILY PO 01/22/17 09:00 02/21/17 08:59 01/22/17 08:48 180 MG Escitalopram Oxalate (Lexapro Tab) 10 mg DAILY PO 01/22/17 09:00 02/21/17 08:59 01/22/17 08:48 10 MG Fluticasone Propionate (Flonase Nasal [place]) 2 sprays DAILY ANNA 01/22/17 09:00 02/21/17 08:59 01/22/17 08:48 2 SPRAYS HCTZ/Lisinopril (Prinzide 20-25MG Tab) 1 tab DAILY PO 01/22/17 09:00 02/21/17 08:59 01/22/17 08:47 1 TAB Potassium Chloride (Klor-Con Tab) 20 meq TID PO 01/21/17 21:00 02/20/17 20:59 01/21/17 21:49 20 MEQ Simvastatin (Zocor Tab) 10 mg QPM PO 01/21/17 21:00 02/20/17 20:59 01/21/17 21:50 10 MG Furosemide (Lasix Tab) 20 mg QAM PO 01/22/17 09:00 02/21/17 08:59 01/22/17 08:47 20 MG Loratadine (Claritin Tab) 10 mg QAM PO 01/22/17 09:00 02/21/17 08:59 01/22/17 08:47 10 MG Pantoprazole Sodium (Protonix Tab) 40 mg BID PO 01/21/17 21:00 02/20/17 20:59 01/22/17 08:48 40 MG Montelukast Sodium (Singulair Tab) 10 mg HS PO 01/21/17 21:00 02/20/17 20:59 01/21/17 21:50 10 MG Albuterol/ Ipratropium (Duoneb) 3 ml QIDR INH 01/21/17 20:00 02/20/17 19:59 01/22/17 03:45 3 ML Glucose (Glucose 40% Gel) 15-30 GRAMS 15 GRAMS... UD PRN PO 01/21/17 20:30 02/20/17 20:29 Glucose (Glucose Chew Tab) 4-8 Tablets 4 Tabl... UD PRN PO 01/21/17 20:30 02/20/17 20:29 Dextrose (Dextrose 50% 50ML Syringe) 25-50ML OF 50% DW IV FOR... UD PRN IV 01/21/17 20:30 02/20/17 20:29 Glucagon (Glucagon Inj) 1 mg UD PRN SQ 01/21/17 20:30 02/20/17 20:29 Insulin Aspart (novoLOG ASPART) SLIDING SCALE G... ACHS SC 01/21/17 21:00 02/20/17 20:59 01/22/17 08:46 25 UNITS Miscellaneous (Iv Fluids Completed) 1 ea PRN PRN N/A 01/21/17 20:45 01/21/18 20:44 Methylprednisolone Sodium Succinate 40 mg/Syringe 0.64 ml @ 1.5 mls/min Q12 IV 01/22/17 11:00 02/21/17 10:59 Insulin Glargine (Lantus Solostar Pen) 45 units BID SC 01/22/17 09:00 02/21/17 08:59 01/22/17 08:46 45 UNITS Review of Systems Constitutional: No fever, No chills Respiratory: + shortness of breath, + dyspnea on exertion Abdomen: + pain, No nausea, No vomiting, No GI bleeding Physical Exam Date Time Temp Pulse Resp B/P (MAP) Pulse Ox O2 Delivery O2 Flow Rate FiO2 01/22/17 08:00 90 Room Air 01/22/17 07:21 36.5 80 16 135/84 (101) 100 Nasal Cannula 2.0 01/22/17 07:05 76 18 96 Nasal Cannula 2.0 01/22/17 04:00 Nasal Cannula 2.0 01/22/17 03:45 99 24 89 Room Air 01/22/17 03:43 36.5 84 18 146/82 (103) 91 Nasal Cannula 2.0 01/22/17 00:00 37.0 85 18 152/80 (104) 97 Nasal Cannula 2.0 01/21/17 23:59 Nasal Cannula 2.0 01/21/17 21:30 37.2 110 24 156/79 92 Room Air 01/21/17 20:53 105 22 163/88 91 01/21/17 19:55 94 18 159/75 93 Room Air 01/21/17 18:53 92 166/87 95 Room Air 01/21/17 18:52 93 Room Air 01/21/17 18:27 80 01/21/17 17:59 81 22 144/88 99 Nebulizer 9.0 01/21/17 17:48 85 14 94 Room Air 01/21/17 16:07 92 Room Air 01/21/17 16:05 36.9 93 24 154/86 92 Room Air General Appearance: WD/WN, no apparent distress Head: normocephalic, atraumatic ENT: normal ENT inspection, hearing grossly normal Respiratory/Chest: no respiratory distress, no accessory muscle use, + wheezing Cardiovascular: regular rate, rhythm, no edema Abdomen/GI: non tender, soft Neurologic/Psych: alert, normal mood/affect Skin: normal color, warm/dry Laboratory Results Last 24 Hours Test 01/21/17 17:52 01/21/17 21:09 01/22/17 06:31 01/22/17 06:47 White Blood Count 11.56 K/uL 11.24 K/uL Red Blood Count 4.62 M/uL 4.61 M/uL Hemoglobin 12.6 g/dL 12.5 g/dL Hematocrit 39.3 % 39.0 % Mean Corpuscular Volume 85.1 fL 84.6 fL Mean Corpuscular Hemoglobin 27.3 pg 27.1 pg Mean Corpuscular Hemoglobin Concent 32.1 g/dl 32.1 g/dl RDW Standard Deviation 44.5 fL 43.9 fL RDW Coefficient of Variation 14.4 % 14.2 % Platelet Count 289 K/uL 256 K/uL Mean Platelet Volume 9.4 fL 9.5 fL Prothrombin Time 9.4 SECONDS Prothromb Time International Ratio 0.9 Activated Partial Thromboplast Time 22.3 SECONDS Partial Thromboplastin Ratio 0.9 Venous Blood pH 7.45 Venous Blood Partial Pressure CO2 42 mmHg Venous Blood Partial Pressure O2 67 mmHg Venous Blood HCO3 29 mmol/L Venous Blood Oxygen Saturation 92.9 % Venous Blood Base Excess 4.2 mEq/L Sodium Level 141 mmol/L 136 mmol/L Potassium Level 3.9 mmol/L 5.0 mmol/L Chloride Level 105 mmol/L 100 mmol/L Carbon Dioxide Level 29 mmol/L 31 mmol/L Anion Gap 7.0 mmol/L 5.0 mmol/L Blood Urea Nitrogen 25 mg/dl 25 mg/dl Creatinine 1.00 mg/dl 1.30 mg/dl Est Creatinine Clear Calc Drug Dose 89.2 ml/min 68.1 ml/min Estimated GFR () 93.7 68.3 Estimated GFR (Non- 80.9 58.9 BUN/Creatinine Ratio 24.8 19.5 Random Glucose 134 mg/dl 375 mg/dl Estimated Average Glucose 154 mg/dl Hemoglobin A1c 7.0 % Calcium Level 9.1 mg/dl 8.7 mg/dl Total Bilirubin 0.2 mg/dl Aspartate Amino Transf (AST/SGOT) 25 U/L Alanine Aminotransferase (ALT/SGPT) 46 U/L Alkaline Phosphatase 64 U/L Total Creatine Kinase 194 U/L Creatine Kinase MB 2.9 ng/ml Creatine Kinase MB Ratio 1.5 Troponin I < 0.015 ng/ml Total Protein 6.4 gm/dl Albumin 3.3 gm/dl Globulin 3.1 gm/dl Albumin/Globulin Ratio 1.1 Bedside Glucose 242 mg/dl 333 mg/dl Beta-Hydroxybutyric Acid 1.37 mg/dL ABD/PELVIS IV CONTRAST ONLY CLINICAL HISTORY: 61 years-old Male presenting with recent CT w/ enlarged appendix w/o stranding; f/u study. TECHNIQUE: Multidetector CT of the abdomen and pelvis was performed after the administration of intravenous contrast. IV contrast: 118 mL of Optiray 320. A dose lowering technique was used consistent with the principles of ALARA (as low as reasonably achievable). COMPARISON: 01/15/2017. CT DOSE (mGy.cm): The estimated cumulative dose is 1106.85 mGy.cm. FINDINGS: Application Software Developer topogram: Unremarkable. Lung bases: Lung bases clear. Normal heart size. No pericardial or pleural effusion. Liver: Normal morphology. Hepatic steatosis. No liver lesion. Patent hepatic vasculature. Biliary: No intrahepatic or extrahepatic biliary ductal dilatation. Normal gallbladder. Pancreas: Moderate parenchymal atrophy. Spleen: Normal. Adrenal glands: Normal. Kidneys and ureters: Small hypodensity at the upper pole the right kidney likely simple cyst. Nonobstructing 4 mm calculus at the interpolar region the right kidney. The previously noted nonobstructing punctate calculus in the interpolar region of the left kidney is minimally apparent. No hydronephrosis. Ureters normal. Bladder: Normal. Pelvic organs: Prostate and seminal vesicles normal. Bowel: Mild stool burden throughout normal caliber colon. The appendix is fluid-filled and measures up to 8 mm in diameter. No periappendiceal fat stranding. No bowel obstruction. Peritoneal cavity: No free fluid or intraperitoneal gas. Vasculature: Atherosclerosis of the normal caliber abdominal aorta. IVC patent. Lymph nodes: No enlarged lymph nodes in the abdomen or pelvis. Abdominal wall: Infiltration of the subcutaneous tissue of anterior abdominal wall persists. Minimal associated skin thickening. Musculoskeletal: Normal. IMPRESSION: 1. Persistent fluid-filled mildly dilated appendix without associated periappendiceal inflammatory change. The degree of appendiceal distention is slightly above what is considered within normal range. This could represent a mucocele versus normal variant. 2. Nonobstructing renal calculi. 3. Persistent skin thickening and infiltration of the subcutaneous fat along the inferior abdominal wall. Correlate clinically to exclude cellulitis. This could be secondary to medication administration. Electronically signed by: Fred Sweet M.D. 01/21/2017 8:31 PM Dictated Date/Time: 01/21/2017 8:24 PM Assessment & Plan appendix abnormality, possible mucocele He does not have any acute abdominal findings. He is interested in laparoscopic appendectomy which can be done electively once his respiratory status is optimized. He should have colonoscopy preoperatively. He has an appt with Dr. Benjamin Bagley Jan 27.
--- NOTE | 2017-01-22 10:06 | Pharmacy Progress Note ---
Glycemic Control Intl Consult Date of Service Jan 22, 2017. Scope Glycemic Pharmacist consulted by Dr Ling on 01/22/17 for glycemic control and to write orders per [facility] inpatient glycemic control protocol Objective Weight (Kilograms): 95.600 Accuchecks BSG (last 24hrs): Test 01/21/17 17:52 01/21/17 21:09 01/22/17 06:31 01/22/17 06:47 Random Glucose 134 mg/dl (70-99) 375 mg/dl (70-99) Bedside Glucose 242 mg/dl (70-99) 333 mg/dl (70-99) Laboratory Data (last 24hrs) Test 01/21/17 17:52 01/22/17 06:47 Anion Gap 7.0 mmol/L 5.0 mmol/L BUN/Creatinine Ratio 24.8 19.5 Blood Urea Nitrogen 25 mg/dl 25 mg/dl Creatinine 1.00 mg/dl 1.30 mg/dl Hemoglobin A1c 7.0 % Potassium Level 3.9 mmol/L 5.0 mmol/L Sodium Level 141 mmol/L 136 mmol/L White Blood Count 11.56 K/uL 11.24 K/uL HbA1c Test 01/21/17 17:52 Hemoglobin A1c 7.0 % (4.5-5.6) H Recent Pertinent Medications Outpatient Anti-diabetic Regimen: * Lantus 28 units AM, 25 units PM * A1c = 7.0% 01/21/17 The patient is currently receiving: * Basal insulin: Lantus 28 units AM, 25 units HS * Correctional Insulin: Novolog Correction per scale ACHS Goal Range: Low 140 mg/dL - High 180 mg/dL Correction Factor: 30 mg/dL/unit * Prandial insulin: Per carb ratio of 1 unit per -- grams CHO consumed Risk Factors for Insulin Resistance: * Steroids * Diet Assessment & Plan ASSESSMENT: * 61 yo M admitted with COPD exacerbation overnight, initiated on high-dose IV steroids which have causes BSGs to climb in the upper 300's * My plan was to double outpatient basal regimen, and tighten Novolog to include carb ratio; however, BSGs have not responded and have climbed to nearly 500 at lunch time * Initiate insulin drip per protocol and overlap Lantus therapy to ease transition when appropriate * ADA & AACE recommend a goal blood sugar range 140-180 mg/dl for the majority of critically ill & non-critically ill patients. However, more stringent targets may be selected in individual cases. Tighten to 110-140 mg/dL PLAN FOR INPATIENT GLYCEMIC CONTROL: * Initiate insulin drip per severe stress protocol * Goal range 100-200 mg/dL * Basal insulin * Increase to Lantus 45 units BID * Continue WITH insulin drip * Please note that the plan above was derived based on current level of insulin resistance and hospital stress. These recommendations are appropriate for inpatient admission only. Plan of care upon discharge will need to be reassessed to avoid potential outpatient hypo/hyperglycemia. Thank you.
[2017-01-22] MEDS ORDERED: INSULIN IV INFUSION PROTOCOL SCH (11:45)
[2017-01-22] MEDS ORDERED: INSULIN HUMAN REGULAR IV BOLUS 3.5 UNIT in SYRINGE 0 ML IV SCH (13:00)
[2017-01-22] MEDS ORDERED: INSULIN REGULAR 250 UNITS in SODIUM CHLORIDE 0.9% 250ML 250 ML IV SCH (13:00)
[2017-01-22] MEDS: METHYLPREDNISOLONE IV 40 MG in SYRINGE 0 ML IV SCH ×2 (13:33→20:31)
--- NOTE | 2017-01-22 15:49 | Progress Note ---
Subjective Date of Service: Jan 22, 2017. Subjective Pt evaluation today including: conversation w/ patient, physical exam, lab review, review of inpatient medication list Pain: no pain PO Intake: adequate Voiding: no voiding problems patient breathing much better, minimal cough, non-productive discussed elevated sugars and plan for insulin drip will ask pharmacy to assist with determining how much insulin to use plan to d/c tomorrow on Prednisone Problem List Medical Problems: (1) Hypokalemia Status: Acute (2) Oxygen dependent Status: Acute (3) Respiratory failure Status: Acute (4) Right flank pain Status: Acute Review of Systems Respiratory: + cough, + wheezing, + shortness of breath, + dyspnea on exertion All Other Systems: Reviewed and Negative Medications Current Inpatient Medications Medications (Trade) Dose Ordered Sig/Dianne Route Start Time Stop Time Status Last Admin Dose Admin Ioversol (Optiray 320) 111 ml UD PRN IV 01/21/17 19:30 01/25/17 19:29 Enoxaparin Sodium (Lovenox Inj) 40 mg HS SC 01/21/17 22:00 02/20/17 21:59 01/21/17 21:51 40 MG Acetaminophen (Tylenol Tab) 650 mg Q4H PRN PO 01/21/17 20:00 02/20/17 19:59 Al Hydrox/Mg Hydrox/Simethicone (Maalox Max Susp) 15 ml Q4H PRN PO 01/21/17 20:00 02/20/17 19:59 Magnesium Hydroxide (Milk Of Magnesia Susp) 30 ml Q12H PRN PO 01/21/17 20:00 02/20/17 19:59 Ondansetron HCl (Zofran Inj) 4 mg Q6H PRN IV 01/21/17 20:00 02/20/17 19:59 Polyethylene (Miralax Powder Packet) 17 gm DAILY PRN PO 01/21/17 20:00 02/20/17 19:59 Arformoterol Tartrate (Brovana 15MCG/ 2ML Neb Soln) 15 mcg BID INH 01/21/17 21:00 02/20/17 20:59 01/22/17 07:05 15 MCG Aspirin (Ecotrin Tab) 81 mg DAILY PO 01/22/17 09:00 02/21/17 08:59 01/22/17 08:47 81 MG Budesonide (Pulmicort Respules 0.5MG/ 2ML Neb Soln) 0.5 mg BID INH 01/21/17 21:00 02/20/17 20:59 01/22/17 07:05 0.5 MG Calcium/Vitamin D (Caltrate Plus Tab) 1 tab DAILY PO 01/22/17 09:00 02/21/17 08:59 01/22/17 08:48 1 TAB Diltiazem HCl (Cardizem Cd Cap) 180 mg DAILY PO 01/22/17 09:00 02/21/17 08:59 01/22/17 08:48 180 MG Escitalopram Oxalate (Lexapro Tab) 10 mg DAILY PO 01/22/17 09:00 02/21/17 08:59 01/22/17 08:48 10 MG Fluticasone Propionate (Flonase Nasal [place]) 2 sprays DAILY ANNA 01/22/17 09:00 02/21/17 08:59 01/22/17 08:48 2 SPRAYS HCTZ/Lisinopril (Prinzide 20-25MG Tab) 1 tab DAILY PO 01/22/17 09:00 02/21/17 08:59 01/22/17 08:47 1 TAB Potassium Chloride (Klor-Con Tab) 20 meq TID PO 01/21/17 21:00 02/20/17 20:59 01/22/17 13:35 20 MEQ Simvastatin (Zocor Tab) 10 mg QPM PO 01/21/17 21:00 02/20/17 20:59 01/21/17 21:50 10 MG Furosemide (Lasix Tab) 20 mg QAM PO 01/22/17 09:00 02/21/17 08:59 01/22/17 08:47 20 MG Loratadine (Claritin Tab) 10 mg QAM PO 01/22/17 09:00 02/21/17 08:59 01/22/17 08:47 10 MG Pantoprazole Sodium (Protonix Tab) 40 mg BID PO 01/21/17 21:00 02/20/17 20:59 01/22/17 08:48 40 MG Montelukast Sodium (Singulair Tab) 10 mg HS PO 01/21/17 21:00 02/20/17 20:59 9/21/17 21:50 10 MG Albuterol/ Ipratropium (Duoneb) 3 ml QIDR INH 01/21/17 20:00 02/20/17 19:59 01/22/17 14:39 3 ML Glucose (Glucose 40% Gel) 15-30 GRAMS 15 GRAMS... UD PRN PO 01/21/17 20:30 02/20/17 20:29 Glucose (Glucose Chew Tab) 4-8 Tablets 4 Tabl... UD PRN PO 01/21/17 20:30 02/20/17 20:29 Dextrose (Dextrose 50% 50ML Syringe) 25-50ML OF 50% DW IV FOR... UD PRN IV 01/21/17 20:30 02/20/17 20:29 Glucagon (Glucagon Inj) 1 mg UD PRN SQ 01/21/17 20:30 02/20/17 20:29 Miscellaneous (Iv Fluids Completed) 1 ea PRN PRN N/A 01/21/17 20:45 01/21/18 20:44 Methylprednisolone Sodium Succinate 40 mg/Syringe 0.64 ml @ 1.5 mls/min Q12 IV 01/22/17 11:00 02/21/17 10:59 01/22/17 13:33 1.5 MLS/MIN Insulin Glargine (Lantus Solostar Pen) 45 units BID SC 01/22/17 09:00 02/21/17 08:59 01/22/17 08:46 45 UNITS Insulin Human Regular 250 units/ Sodium Chloride 252.5 ml @ 0 mls/hr DAILY@1130 IV 01/22/17 13:00 02/21/17 12:59 01/22/17 12:56 3.6 MLS/HR Insulin Aspart (novoLOG ASPART) SLIDING SCALE [facility] 01/22/17 17:30 02/21/17 17:29 Objective Vital Signs Date Time Temp Pulse Resp B/P (MAP) Pulse Ox O2 Delivery O2 Flow Rate FiO2 01/22/17 14:39 82 18 99 Room Air 01/22/17 12:25 Room Air 01/22/17 11:21 36.8 93 19 156/87 (110) 92 Room Air 01/22/17 11:11 90 18 91 Room Air 01/22/17 08:00 90 Room Air 01/22/17 07:21 36.5 80 16 135/84 (101) 100 Nasal Cannula 2.0 01/22/17 07:05 76 18 96 Nasal Cannula 2.0 01/22/17 04:00 Nasal Cannula 2.0 01/22/17 03:45 99 24 89 Room Air 01/22/17 03:43 36.5 84 18 146/82 (103) 91 Nasal Cannula 2.0 01/22/17 00:00 37.0 85 18 152/80 (104) 97 Nasal Cannula 2.0 01/21/17 23:59 Nasal Cannula 2.0 01/21/17 21:30 37.2 110 24 156/79 92 Room Air 01/21/17 20:53 105 22 163/88 91 01/21/17 19:55 94 18 159/75 93 Room Air 01/21/17 18:53 92 166/87 95 Room Air 01/21/17 18:52 93 Room Air 01/21/17 18:27 80 01/21/17 17:59 81 22 144/88 99 Nebulizer 9.0 01/21/17 17:48 85 14 94 Room Air 01/21/17 16:07 92 Room Air 01/21/17 16:05 36.9 93 24 154/86 92 Room Air Physical Exam General Appearance: no apparent distress, + obese Eyes: normal inspection, EOMI, sclerae normal ENT: normal ENT inspection, hearing grossly normal, pharynx normal Neck: supple, no adenopathy, no JVD, trachea midline Respiratory/Chest: chest non-tender, no respiratory distress, no accessory muscle use, + decreased breath sounds, + wheezing (faint, end expiratory) Cardiovascular: regular rate, rhythm, no edema, no gallop, no JVD, no murmur Abdomen: normal bowel sounds, non tender, soft, no organomegaly Extremities: normal range of motion, non-tender, normal inspection, no pedal edema, no calf tenderness, pelvis stable Neurologic/Psychiatric: radio assembler II-XII nml as tested, no motor/sensory deficits, alert, normal mood/affect, oriented x 3 Skin: normal color, warm/dry, no rash Laboratory Results Last 24 Hours Test 01/21/17 17:52 01/21/17 21:09 01/22/17 06:31 01/22/17 06:47 White Blood Count 11.56 K/uL 11.24 K/uL Red Blood Count 4.62 M/uL 4.61 M/uL Hemoglobin 12.6 g/dL 12.5 g/dL Hematocrit 39.3 % 39.0 % Mean Corpuscular Volume 85.1 fL 84.6 fL Mean Corpuscular Hemoglobin 27.3 pg 27.1 pg Mean Corpuscular Hemoglobin Concent 32.1 g/dl 32.1 g/dl RDW Standard Deviation 44.5 fL 43.9 fL RDW Coefficient of Variation 14.4 % 14.2 % Platelet Count 289 K/uL 256 K/uL Mean Platelet Volume 9.4 fL 9.5 fL Prothrombin Time 9.4 SECONDS Prothromb Time International Ratio 0.9 Activated Partial Thromboplast Time 22.3 SECONDS Partial Thromboplastin Ratio 0.9 Venous Blood pH 7.45 Venous Blood Partial Pressure CO2 42 mmHg Venous Blood Partial Pressure O2 67 mmHg Venous Blood HCO3 29 mmol/L Venous Blood Oxygen Saturation 92.9 % Venous Blood Base Excess 4.2 mEq/L Sodium Level 141 mmol/L 136 mmol/L Potassium Level 3.9 mmol/L 5.0 mmol/L Chloride Level 105 mmol/L 100 mmol/L Carbon Dioxide Level 29 mmol/L 31 mmol/L Anion Gap 7.0 mmol/L 5.0 mmol/L Blood Urea Nitrogen 25 mg/dl 25 mg/dl Creatinine 1.00 mg/dl 1.30 mg/dl Est Creatinine Clear Calc Drug Dose 89.2 ml/min 68.1 ml/min Estimated GFR () 93.7 68.3 Estimated GFR (Non- 80.9 58.9 BUN/Creatinine Ratio 24.8 19.5 Random Glucose 134 mg/dl 375 mg/dl Estimated Average Glucose 154 mg/dl Hemoglobin A1c 7.0 % Calcium Level 9.1 mg/dl 8.7 mg/dl Total Bilirubin 0.2 mg/dl Aspartate Amino Transf (AST/SGOT) 25 U/L Alanine Aminotransferase (ALT/SGPT) 46 U/L Alkaline Phosphatase 64 U/L Total Creatine Kinase 194 U/L Creatine Kinase MB 2.9 ng/ml Creatine Kinase MB Ratio 1.5 Troponin I < 0.015 ng/ml Total Protein 6.4 gm/dl Albumin 3.3 gm/dl Globulin 3.1 gm/dl Albumin/Globulin Ratio 1.1 Bedside Glucose 242 mg/dl 333 mg/dl Beta-Hydroxybutyric Acid 1.37 mg/dL Test 01/22/17 11:09 01/22/17 11:10 01/22/17 14:06 01/22/17 15:09 Bedside Glucose 463 mg/dl 479 mg/dl 327 mg/dl 278 mg/dl Assessment and Plan 61 y/o male with a history of COPD, severe persistent asthma, HTN, HLD, DM I, anxiety, and GERD who presented to the ED on 01/21 with worsening shortness of breath. Pt afebrile, VSS on arrival. CXR shows no acute disease although appears emphysematous upon my review. EKG no ischemic changes. WBC 11.56. Troponin negative. Pt received loading dose of Solu-Medrol 125 mg IV x 1, magnesium 2 mg IV, a Duoneb treatment and azithromycin 500 mg PO x 1 in ED. COPD exacerbation, severe persistent asthma continue Solu Medrol 40 IV q12 and nebulizers no indication for antibiotics currently, non-productive cough Continue Brovana neb BID, Pulmicort respules neb BID Desloratadine converted to loratadine 10 mg PO hs Zafirlukast converted to montelukast 10 mg PO hs HTN--stable -Continue diltiazem 180 mg PO qd and HCTZ/lisinopril 25/20 mg PO qd -Pt takes Lasix prn weight gain/swelling. He states based on his current swelling, he is due for a dose. Continue Lasix 20 mg PO qd HLD -Continue simvastatin 10 mg PO hs DM I--last HgbA1c 08/24/16 was 6.5 -Lantus 28 units SC q am and 25 units q pm - hyperglycemia with the Solu Medrol use, no DKA - consulted pharmacy, placed on insulin drip with the Lantus - will plan to d/c home on Prednisone 40mg daily tomorrow, please plan for Lantus adjustment Anxiety -Continue Lexapro 10 mg PO qd GERD -Convert Prilosec to Protonix 40 mg PO BID DVT prophylaxis -Enoxaparin 40 mg SC q24h -ISAIAH Hawkins Code Status -Level I, FULL RESUSCITATION STATUS Plan: transfer to medical, improve glucose control with drip, plan to d/c home tomorrow on Prednisone 40mg PO daily, would benefit from home nebulizers so that may limit discharge would need a plan for Lantus adjustment while on the Prednisone
[2017-01-22] MEDS ORDERED: NURSING VERBAL MED ORDER ONE (16:15)
[2017-01-22] MEDS: MUPIROCIN 2% OINT 22 GM TUBE EXT SCH (20:25)
[2017-01-22] MEDS: MONTELUKAST SOD 10 MG TAB PO SCH (20:25)
[2017-01-22] MEDS: SIMVASTATIN 10 MG TAB PO SCH (20:26)
[2017-01-22] MEDS: ENOXAPARIN 40 MG/0.4 ML SYR SC SCH (20:33)
[2017-01-23] MEDS: ALBUT/IPRATROP 3MG/0.5MG NEB 3 ML VIAL INH SCH ×3 (03:04→11:11)
[2017-01-23 03:05] VITALS: PULSE 84; O2SAT 93
[2017-01-23 03:21] VITALS: BP 135/76; PULSE 82; TEMP 36.7; O2SAT 91
[2017-01-23 05:49] LABS: HEMATOCRIT 37.6 % (42-52); MEAN CORPUSCULAR HEMOGLOBIN 27.8 pg (25-34); MEAN CORPUSCULAR HGB CONC 33.5 g/dl (32-36); MEAN PLATELET VOLUME 9.4 fL (7.4-10.4); PLATELET COUNT 264 K/uL (130-400); RED BLOOD COUNT 4.53 M/uL (4.7-6.1); WHITE BLOOD COUNT 17.92 K/uL (4.8-10.8)
[2017-01-23 06:19] LABS: BUN/CREATININE RATIO 32.7 (10-20); CREATININE 1.2 mg/dl (0.60-1.40); POTASSIUM 3.9 mmol/L (3.5-5.1)
[2017-01-23 06:24] VITALS: BP 165/92; PULSE 93; TEMP 36.6; O2SAT 93
[2017-01-23 06:57] VITALS: PULSE 83; O2SAT 95
[2017-01-23] MEDS: ARFORMOTEROL TART 15MCG/2ML VIAL INH SCH (06:57)
[2017-01-23] MEDS: BUDESONIDE 0.5 MG/2 ML VIAL (PULMICORT) INH SCH (06:57)
[2017-01-23] MEDS: ESCITALOPRAM OXALATE 10 MG TAB PO SCH (08:04)
[2017-01-23] MEDS: PANTOprazole SOD 40 MG TAB PO SCH (08:04)
[2017-01-23] MEDS: LISINOPRIL/HCTZ 20/25MG TAB PO SCH (08:04)
[2017-01-23] MEDS: ASPIRIN 81 MG ECTAB PO SCH (08:04)
[2017-01-23] MEDS: POTASSIUM CHLORIDE 20 MEQ TABCR PO SCH (08:04)
[2017-01-23] MEDS: LORATADINE 10 MG TAB PO SCH (08:04)
[2017-01-23] MEDS: CALCIUM 600MG + VIT D 400 IU TAB PO SCH (08:05)
[2017-01-23] MEDS: FUROSEMIDE 20 MG TAB PO SCH (08:05)
[2017-01-23] MEDS: DILTIAZEM HCL 180 MG CAPCR PO SCH (08:06)
[2017-01-23] MEDS: METHYLPREDNISOLONE IV 40 MG in SYRINGE 0 ML IV SCH (08:06)
[2017-01-23] MEDS: FLUTICASONE PROPIONATE NA SPR 16 GM BTL NAE SCH (08:07)
[2017-01-23] MEDS: MUPIROCIN 2% OINT 22 GM TUBE EXT SCH (08:08)
[2017-01-23] MEDS: INSULIN ASPART 100 UNITS/ML 3 ML PEN SC SCH ×2 (08:12→11:39)
[2017-01-23] MEDS: INSULIN GLARGINE SOLOSTAR 100 UNITS/ML 3 ML PEN SC SCH (08:13)
[2017-01-23] MEDS ORDERED: INSULIN ASPART 100 UNITS/ML 3 ML PEN SC ONE (10:00)
[2017-01-23] MEDS ORDERED: PRED20TA2 PO (10:33)
[2017-01-23 10:47] VITALS: BP 175/83; PULSE 80; TEMP 36.5; O2SAT 93
--- NOTE | 2017-01-23 11:03 | Discharge Instructions ---
Discharge Instructions Date of Service Jan 23, 2017. Admission Reason for Admission: Copd With Acute Exacerbation Discharge Discharge Diagnosis / Problem: copd exacerbation Discharge Goals Goal(s): Decrease discomfort, Improve function, Increase independence, Improve disease control Activity Recommendations Activity Limitations: as noted below Lifting Limitations: gradually increase as tolerated Exercise/Sports Limitations: as tolerated May Resume Sexual Activity: when tolerated Shower/Bathe: no limitations Driving or Machine Use: no limitations . Instructions / Follow-Up Instructions / Follow-Up follow with pcp. follow with general surgery follow with pulmonology follow with Endo Current Hospital Diet Patient's current hospital diet: Diabetes Type 2 Diet, AHA Diet (Heart Healthy) Discharge Diet Recommended Diet: AHA Diet (Heart Healthy), Diabetes Type 2 Diet Procedures Procedures Performed: none Pending Studies Studies pending at discharge: no Laboratory Results Hemoglobin A1c Test 01/21/17 17:52 Range/Units Estimated Average Glucose 154 mg/dl Hemoglobin A1c 7.0 H 4.5-5.6 % Medical Emergencies . Who to Call and When: Medical Emergencies: If at any time you feel your situation is an emergency, please call 911 immediately. . Non-Emergent Contact Non-Emergency issues call your: Primary Care Provider Call Non-Emergent contact if: temperature is above 100.5, your pain is not controlled, your pain is worsening, your pain is unusual for you . . "Provider Documentation" section prepared by Margot Chawla . Child And Family Services Worker Recommendations Child And Family Services Worker Recommendations: follow up with Dr Alexander (surgery) outpatient for non Emergent appendectomy and colonoscopy VTE Core Measure Inpt VTE Proph given/why not?: Enoxaparin (Lovenox)MAGI, [facility]goc [place], SCD's
[2017-01-23] MEDS ORDERED: INSHNI SQ (11:08)
[2017-01-23 11:12] VITALS: PULSE 92; O2SAT 94
--- NOTE | 2017-01-23 11:34 | Discharge Summary ---
Discharge Summary Date of Service Jan 23, 2017. Discharge Summary Admission Date: Jan 21, 2017 at 20:05 Discharge Date: Jan 23, 2017 Discharge Disposition: Home Principal Diagnosis: Copd exacebration Problems/Secondary Diagnoses: hyperglycemia in setting of steroids Immunizations: Have You Had Influenza Vaccine: Yes Influenza Vaccine Date: Feb 07, 2010 History of Tetanus Vaccine?: Unknown History of Pneumococcal: Yes Pneumococcal Date: Apr 09, 2009 History of Hepatitis B Vaccine: Unknown Procedures: none Consultations: Surgery Medication Reconciliation New Medications: Insulin Human NPH (Humulin N) 100 Units/Ml Susp 20 UNITS SQ DAILY for Documentation for 5 Days, #1 % Changed Medications: Prednisone (Prednisone Tab) 20 Mg Tab 2 TAB PO DAILY for 5 Days, #10 TAB (Changed from: Prednisone 10 Mg Tab 10 Mg PO DAILY) Continued Medications: Alendronate Sodium (Alendronate Sodium) 70 Mg Tab 70 MG PO WK, #12 Arformoterol Tartrate (Brovana) 15 Mcg/2 Ml Neb 15 MCG INH BID, INHALER Aspirin Enteric Coated (Ecotrin Or Generic) 81 Mg Tab 81 MG PO DAILY, TAB B-Complex W/Biotin & Folic Aci (Super B-Complex) 1 Tab Tab 1 TAB PO DAILY Budesonide (Pulmicort Respules 0.5MG/2ML) 0.5 Mg/2 Ml Nebu 2 ML NEB BID, EA Calcium/Vitamin D (Os-Lee 500 Plus D) Tab 1 TAB PO DAILY, TAB Desloratadine (Desloratadine) 5 Mg Tab 5 MG PO DAILY, #90 Diltiazem Hcl Coated Beads (Diltiazem Hcl Er) 180 Mg Cap 180 MG PO DAILY, #90 Escitalopram Oxalate (Escitalopram Oxalate) 10 Mg Tab 10 MG PO DAILY, #30 Fluticasone Propionate (Fluticasone Propionate) 120 Sprays/6000 Mcg Inha 2 SPRAYS ANNA DAILY, #48 Furosemide (Lasix) 20 Mg Tab 20-40 MG PO DAILY, TAB Insulin Aspart (Novolog Flexpen) 100 Units/Ml Inj 1 DOSE SQ TIDM PRN for PER SLIDING SCALE Insulin Glargine (Lantus) 100 Unit/Ml Inj 28 UNITS SQ QAM, #40 Insulin Glargine (Lantus Solostar) 100 Unit/Ml Inj 25 UNITS SC QPM, PEN Ipratropium-Albuterol (Combivent Respimat) 1 Aer Aer 1 PUFFS INH QID, INH Ipratropium-Albuterol (Duoneb) 3 Ml Nebu 1 TREATMENT INH Q4H PRN for SOB/Wheezing, INHA Lisinopril/Hctz (Zestoretic 20MG/25MG) Tab 1 TAB PO DAILY, TAB Mepolizumab (Nucala) 100 Mg Inj 100 MG SC MONTHLY Omeprazole (Prilosec) 40 Mg Cap 40 MG PO BID, CAP 30-60 MINUTES BEFORE MEALS Potassium Ext Rel (Klor-Con) 20 Meq Tabcr 20 MEQ PO TID, TAB Simvastatin (Zocor) 10 Mg Tab 10 MG PO QPM, TAB Turmeric (Curcuma Longa) (Turmeric) 500 Mg Tab 500 MG PO DAILY Zafirlukast (Zafirlukast) 20 Mg Tab 20 MG PO BID, #180 Discontinued Medications: Oxycodone Ir (Roxicodone Ir) 5 Mg Tab 1-2 TAB PO Q4H PRN for Severe Pain, #7 TAB Referrals At Discharge Follow up Referrals: Family Practice Referral - Within 1 Week with Malathi Phillip MD Discharge Exam Review of Systems: Constitutional: No fever, No chills Respiratory: No cough, No sputum, No wheezing, No shortness of breath, No dyspnea on exertion, No dyspnea at rest Cardiovascular: No chest pain, No orthopnea, No edema Abdomen: No pain, No nausea Neurologic: No memory loss, No paralysis, No weakness, No numbness/tingling Psychiatric: No depression symptoms Endocrine: No fatigue Integumentary: No rash Physical Exam: General Appearance: WD/WN, no apparent distress Neck: supple Respiratory/Chest: lungs clear, normal breath sounds, no respiratory distress, no accessory muscle use Cardiovascular: regular rate, rhythm, no edema, no gallop, no murmur Abdomen / GI: normal bowel sounds, non tender, soft Extremities: no calf tenderness, no pedal edema, normal range of motion Neurologic/Psychiatric: online advertising analyst II-XII nml as tested, no motor/sensory deficits , oriented x 3 Skin: no rash Lymphatic: no adenopathy Hospital Course 61 y/o male with a history of COPD, severe persistent asthma, HTN, HLD, DM I, anxiety, and GERD who presented to the ED on 01/21 with worsening shortness of breath. Pt afebrile, VSS on arrival. CXR shows no acute disease although appears emphysematous upon my review. EKG no ischemic changes. WBC 11.56. Troponin negative. Pt received loading dose of Solu-Medrol 125 mg IV x 1, magnesium 2 mg IV, a Duoneb treatment and azithromycin 500 mg PO x 1 in ED. COPD exacerbation, severe persistent asthma continue Solu Medrol 40 IV q12 and nebulizers no indication for antibiotics currently, non-productive cough Continue Brovana neb BID, Pulmicort respules neb BID Desloratadine converted to loratadine 10 mg PO hs Zafirlukast converted to montelukast 10 mg PO hs HTN--stable -Continue diltiazem 180 mg PO qd and HCTZ/lisinopril 25/20 mg PO qd -Pt takes Lasix prn weight gain/swelling. He states based on his current swelling, he is due for a dose. Continue Lasix 20 mg PO qd HLD -Continue simvastatin 10 mg PO hs DM I--last HgbA1c 08/24/16 was 6.5 -Lantus 28 units SC q am and 25 units q pm - hyperglycemia with the Solu Medrol use, no DKA - consulted pharmacy, placed on insulin drip with the Lantus - will plan to d/c home on Prednisone 40mg daily tomorrow, please plan for Lantus adjustment Anxiety -Continue Lexapro 10 mg PO qd GERD -Convert Prilosec to Protonix 40 mg PO BID DVT prophylaxis -Enoxaparin 40 mg SC q24h -ISAIAH mena and SCDs Hyperglycemia steroid induced with Dm type2 in setting of COPD exacerbation. Pt did well with solumedrol and his cough and sob improved. Pt does have hyperglycemia but in setting of steroids. Pt recent A1c is 7.0% and follow with endocrine outpatient.Pt know how to do carb counting and he is diabetic for 20 years. Pt takes basal insulin (lantus) 28 units in am and 25 units hs, as well as nutritional insulin novalog with 1:5g ratio. Pt BG were all over during hospitalization and was managed with increased dose of lantus and insulin drip. However during inpatient he has some low readings and the best approach is to add NPH for next 5 days to cover his prednisone doses. We talk to pharmacy and add 20 units of NPH daily with steroid dose, and stop when prednisone is finished. -- Advise pt to follow with PCP, endocrine, pulmonology and general surgery. . Total Time Spent: Greater than 30 minutes This includes examination of the patient, discharge planning, medication reconciliation, and communication with other providers. Discharge Instructions Please refer to the electronic Patient Visit Report (Discharge Instructions) for additional information. Follow-Up PCP pulmonology surgery endocrine Additional Copies To Malathi Phillip MD
== END 2017-01-23 13:04 | disposition home or self-care (01) ==
LOC: C.EDB 16:03 → C.2T 20:05 → UNDOADMOB 20:05 → ENRESERV 20:10
PROVIDERS: ADMIT Hospitalist; ATTEND Internal Medicine
DX: J44.1 Chronic obstructive pulmonary disease with (acute) exacerbation (principal); J45.51 Severe persistent asthma with (acute) exacerbation; I10 Essential (primary) hypertension; E78.5 Hyperlipidemia, unspecified; E10.65 Type 1 diabetes mellitus with hyperglycemia; Z79.52 Long term (current) use of systemic steroids; R73.9 Hyperglycemia, unspecified; K21.9 Gastro-esophageal reflux disease without esophagitis; F41.9 Anxiety disorder, unspecified; Z82.49 Family history of ischemic heart disease and other diseases of the circulatory system; Z79.4 Long term (current) use of insulin; Z79.82 Long term (current) use of aspirin; Z79.899 Other long term (current) drug therapy

== ENCOUNTER → 2017-04-13 | Outpatient (CLI) | payer OTHER, MEDICARE ==
[~2017-04-13] MED LIST changes: +INSHNI SQ; +MEPO1INJ SC; -OXYC1TAB3 PO
[2017-04-13 12:05] LABS: BLOOD UREA NITROGEN 21 mg/dl (7-18)
== END | disposition home or self-care (01) ==
LOC: C.LABPBG 09:31
PROVIDERS: ATTEND Surgery
DX: E10.9 Type 1 diabetes mellitus without complications (principal)

== ENCOUNTER → 2017-04-22 | Outpatient (CLI) | payer OTHER, MEDICARE ==
[~2017-04-22] MED LIST changes: +OPTIRAY 320 IV PRN
--- NOTE | 2017-04-22 08:15 | DIAGNOSTIC IMAGING REPORT ---
ABDOMEN AND PELVIS CT WITH IV CONTRAST CT DOSE: 873.96 mGycm HISTORY: Follow-up study to assess dilated fluid-filled appendix K38.9 Disorder of [id number] F.UP., CT SCAN [id number] TECHNIQUE: Multiaxial CT images of the abdomen and pelvis were performed following the use of intravenous contrast. A dose lowering technique was utilized adhering to the principles of ALARA. COMPARISON STUDY: CT abdomen and pelvis 01/21/2017 and 01/15/2017. FINDINGS: Lung bases are generally clear. There is no pneumatosis or pneumoperitoneum identified. Imaged inferior cardiac chambers are unremarkable. Liver, gallbladder, spleen, and adrenal glands are within normal limits. There is moderate diffuse pancreatic atrophy. 1.2 cm low attenuating lesion of the superior pole right kidney suggests renal cyst. Nonobstructing 5 mm calculus of the interpolar right kidney. 2 mm nonobstructing calculus of the interpolar left kidney. Mild nonspecific bilateral perinephric stranding. Ureters are unremarkable. The urinary bladder is partially collapsed. Prostate appears unremarkable. There are calcifications of the vas deferens. There is mild to moderate atherosclerosis of the aorta. No bulky retroperitoneal adenopathy. There is a very minimal sliding type hiatal hernia. No bowel obstruction or focal bowel wall thickening. Minimal colonic diverticulosis without diverticulitis. The appendix is again noted to be fluid-filled and distended measuring up to 10 mm transversely nicely seen on image 276 series 3. This is stable dating back to study dated 01/15/2017. No periappendiceal inflammatory stranding identified. Mild diastases recti. Mild stranding within the subcutaneous tissues of the lower anterior abdominal wall suggest area of prior medication administration or less likely cellulitis. Remaining soft tissues are unremarkable. Bones appear intact. No significant degenerative changes of the spine. IMPRESSION: 1. Unchanged appearance of the dilated fluid-filled appendix which measures up to 1 cm transversely, unchanged dating back to study dated 01/15/2017. Again, this is very suspicious for underlying appendiceal mucocele. Surgical consultation recommended. No inflammatory stranding to suggest acute appendicitis. 2. Bilateral nephrolithiasis without hydronephrosis. 3. Additional findings as above. Electronically signed by: Jason Bishop M.D. 04/22/2017 8:14 AM Dictated Date/Time: 04/22/2017 8:06 AM
== END | disposition home or self-care (01) ==
LOC: C.CTS 07:29
PROVIDERS: ATTEND Surgery
DX: K38.9 Disease of appendix, unspecified (principal); N20.0 Calculus of kidney

== ENCOUNTER → 2017-05-18 | Outpatient (CLI) | payer OTHER, MEDICARE ==
[~2017-05-18] MED LIST changes: -OPTIRAY 320 IV PRN
--- NOTE | 2017-05-19 06:45 | PAP/PSG TECHNICIAN REPORT ---
[facility] [employer]le And Frame Mechanic Polysomnogram Report Study name: None Report date: 05/19/2017 Study date: 05/18/2017 Referring Physician: Alice Villegas Name: ALEC WHITE Interpreting Physician: Ghulam Vela M.D. Date of : 1955 Axle And Frame Mechanic: Mckenzie Zamarripa PSGT. Sex: Male Age: 61 StudyType: PSG Weight: 218 lbs Height: 61 years, Height 5' 9" Neck Circum:17.5 inches BMI: 32.19 Medications: SEE LIST OF 33 MEDICATIONS LISTED IN CHART. Patient History 61 yr. old here for a split night study. Patient has a long-standing history of insomnia, severe persistent asthma, with acute respiratory failure, mild nocturnal hypoxemia on 2 lpm qhs at home. Patient also complains of fluid in his arms and legs. He arrived here very short of breath. Sleep study will be done on room air and with ETCO2.ESS=10, Neck= 17.5 inches. Parameters Monitored NPSG: E1-M2, E2-M1, Fp1-M2, Fp2-M1, F3-M2, F4-M2, F4-M1, C3-M2, C4-M2, C4-M1, O1-M2, O2-M2, O2-M1, T3-M2, T4-M1, P3-M2, P4-M1, CHIN1, CHIN2, HR, EKG, Legs, PFLOW, SNOR, FLOW, CFLOW, Tidal Volume, THOR, ABDO, SpO2, PLTH, CPRESS, ETCO2 Wave, ETCO2, pH Sleep Architecture Sleep Stages Time at Lights Off 10:40:49 PM STAGES Time (min.) TST (%) Time at Lights On 5:11:19 AM Wake 206.0 -- Total Recording Time (TRT) 393.50 min. N1 15.5 8 Total Sleep Period (TSP) 272.5 min. N2 123.5 67 Total Sleep Time (TST) 184.5min. N3 0.0 0 Awake Time 209.0 min. REM 45.5 25 Wake after Sleep Onset 98.5 min. Sleep Efficiency (SE) 47 % Sleep Onset Latency (DAVID) 107.5 min. Number of Stage 1 Shifts None Awakenings 11 Stage Changes 35 Number of REM periods 2 REM 45.5 25 REM Latency 73.0 min. NREM 139.0 75 Body Position Analysis Supine Right Left Side Prone Vertical Total Sleep Time (min.) 0.0 0.0 0.0 0.00 0.0 390.5 Total Sleep Time (%) 0% 0% 0% 0 0% 100% Total Sleep Time REM (min.) 0.0 0.0 0.0 None 0.0 45.5 Total Sleep Time NREM (min.) 0.0 0.0 0.0 None 0.0 139.0 Intermittent Wake (min.) 0.0 0.0 0.0 None 0.0 206.0 Total Sleep Period (%) 0% None None None None None Arousals Myoclonus (PLM) * Events Count Index Events Count Index Spontaneous 29 9 Events Awake (PLMW) 1 0.3 Respiratory 1 0.3 Events Asleep w/ Arousal (PLMA) 1 0.3 PLM 1 0 Events Asleep w/o Arousal (PLMS) 13 4.2 Snoring 1 0 Total Asleep 14 4.6 Total 32 10 Total 15 2 Respiratory Analysis * CA OA MA CH H RERA Total Count 0 0 0 0 3 0 3 Index 0.0 0.0 0.0 0 1.0 0 1.0 Mean Duration 0.0 0.0 0.0 0.00 17.5 0.0 17.5 Longest Duration 0.0 0.0 0.0 0.00 0.0 0.0 22.8 Respiratory Event Summary Total Supine ~Supine Right Left Prone REM NREM Apneas Count 0 N/A 0 N/A N/A N/A 0 0 Index 0.0 N/A 0 N/A N/A N/A 0 0 Hypopneas (4% Desat) Count 3 N/A 3 N/A N/A N/A 0 3 Index 1.0 N/A 1 N/A N/A N/A 0.0 1.3 Apneas & All Hypopneas Count 3 N/A 3 N/A N/A N/A 0 3 Index 1.0 N/A 1 N/A N/A N/A 0.0 1.3 Respiratory Events (Band Shover+All Hyp+RERA) Count 3 N/A 3 N/A N/A N/A 0 3 Index 1.0 N/A 1 N/A N/A N/A 0.0 1.3 Respiratory Related Arousal Count 1 N/A 1 N/A N/A N/A 0 1 Index 0.3 N/A 0 N/A N/A N/A 0 0 Snoring Analysis Supine Right Left Prone REM NREM Total Snore duration 3.3 min Snores count N/A N/A N/A N/A 3 167 170 Snore mean duration 1.2 Sec Snores index N/A N/A N/A N/A 4.0 72.1 55.3 TST with snoring (%) 1.8% SpO2 Analysis Total REM NREM Awake <50% 0.0 min. 0.0 min. 0.0 min. 0.0 min. 51 - 60% 0.0 min. 0.0 min. 0.0 min. 0.0 min. 61 - 70% 0.0 min. 0.0 min. 0.0 min. 0.0 min. 71 - 80% 0.0 min. 0.0 min. 0.0 min. 0.0 min. 81 - 90% 244.0 min. 44.8 min. 115.9 min. 83.3 min. 91 - 100% 129.3 min. 0.7 min. 23.0 min. 105.6 min. Average 90 87 90 91 Minimum SpO2 80 81 86 80 Desaturation Event Index 1.5 1.3 3.9 0.0 # Desat. Events below 89% 9 1 8 N/A Time(%) with Saturation below 89% 16.1 7.7 5.6 2.8 Time(min.) with Saturation below 89% 60.2 28.7 20.9 10.6 Heart Rate Analysis End Tidal CO2 Analysis Min (bpm) Max (bpm) Average (bpm) TSP (mins) % of TSP Awake 30 114 95 Above 55 mmHg 0.0 0.0 NREM 80 111 87 50-55 mmHg 0.0 0.0 REM 70 95 81 45-50 mmHg 0.7 0.4 Overall 70 111 86 40-45 mmHg 104.1 56.4 35-40 mmHg 72.2 39.1 30-35 mmHg 3.4 1.8 Average ETCO2 0.1 Supplemental O2 Values Minimum O2 level: None Value Start Time End Time Axle And Frame Mechanic Comments PSG Study Mr. White slept sitting up in the recliner, he refused to sleep in the hospital bed. Rapid cardiac arrhythmia. PLM's were not recorded do to sitting in the recliner. No bruxism noted. Snoring was noted and scored as a 2 on a scale of 1 through 5. (0=no snoring, 5=snoring loud enough to be heard through a closed door or down the [address] way) awoke to use the restroom 5 times during the night. Mr. White stated, I did not sleep as well as I do when I am on my couch propped up with 8 pillows. Patient would not sleep in a bed even though he could sleep elevated, he insisted on sleeping in a recliner. The patient used several different inhalers including a nebulizer throughout the night.Mr White was up to use the restroom every hour. Patient had the t.v. on all night and would watch t.v. dose wake and watch t.v., when asked about the t.v. he stated that he always leaves the t.v. on all night. He complained of shortness of breath the entire time he was here in the lab, when he called at 5:15 am for the restroom he stated that he was light headed when he stood up. The test was ended at that time. No respiratory events were seen while sleeping in the recliner. The final report will be interpreted and signed by a sleep physician. The completed physician report will then be placed in the patient medical record. Therapy (cm H2O) 0 TIB (min.) 390.5 TST (min.) 184.5 Sleep Onset (min.) 107.5 REM Onset From Sleep (min.) 73.0 Sleep Efficiency % 47 Wakefulness (%) 53 Wakefulness (min.) 209.0 NREM 1 (%) 8 NREM 1 (min.) 15.5 NREM 2 (%) 67 NREM 2 (min.) 123.5 NREM 3 (%) 0 NREM 3 (min.) 0.0 REM (%) 25 REM (min.) 45.5 # Arousals 32 Arousal Index 10 # Snore 170 Snore Index 55.3 AHI 1.0 AHI Supine N/A AHI Non-Supine 1 NREM AHI 1.3 REM AHI 0.0 RDI 1.0 # Obstructive Apnea 0 # Central Apnea 0 # Mixed Apnea 0 # Hypopneas 3 RERAs 0 Total Respiratory Events 3 Time Below SpO2 89% (min.) 49.6 Mean NREM SpO2 (%) 90 Mean REM SpO2 (%) 87 Mean Sleep SpO2 (%) 89 Min NREM SpO2 (%) 86 Min REM SpO2 (%) 81 Position Supine (min.) 0.0 Position Non-supine (min.) 184.5 LM Index Sleep 4.6 LM Index NREM 6.0 LM Index REM 0.0 Mean Heart Rate (bpm) 86 Min Heart Rate (bpm) 70
--- NOTE | 2017-05-20 16:21 | POLYSOMNOGRAPH REPORT ---
CLINICAL DATA: A 61-year-old male with BMI of 32.3 referred by CAMELIA Joseph for a possible split night study. He has severe asthma, respiratory failure, and nocturnal hypoxemia on oxygen 2 liters per minute. He has peripheral edema. He arrived very short of breath. SLEEP ARCHITECTURE: Total sleep period was 272.5 minutes. Total sleep time was 184.5 minutes divided between 139 minutes of non-REM sleep and 45.5 minutes of REM sleep. Sleep onset latency was delayed at 107.5 minutes. REM latency was 73 minutes. Sleep efficiency was 47%. Awake after sleep onset was 98.5 minutes. Sleep consisted of stage N1 8%, stage N2 67%, and REM 25%. AROUSAL DATA: 32 arousals were recorded for an index of 10 per hour. 29 were spontaneous. PLM DATA: 14 limb movements during sleep were noted for an index of 4.6 per hour with arousal index of 0.3 per hour. RESPIRATORY DATA: There was no evidence of significant sleep apnea seen. The AHI was 1. There were 3 hypopneic episodes with a mean duration of 17.5 seconds. OXIMETRY DATA: Nocturnal hypoxemia was seen. Oxygen angel was 81% during REM. The mean saturation was 90%. Time below 89% was 60.2 minutes. EKG: Heart rates ranged from 80-111 beats per minute. The patient did have tachycardia noted. KNOCKER OUT'S COMMENTS: The patient slept upright in a recliner refusing to sleep in the hospital bed. Snoring was moderate, rated 2 on a scale of 1-5. The patient states that he did not sleep as well as he normally does because he sleeps propped up on his couch on 8 pillows. He used several different inhalers and a nebulizer through the night and was up to use the restroom every hour. He had the television on all night and would watch television then wake and then watch TV. He states he does this all night. He had shortness of breath the entire time he was in the lab. At 5:15 after going to the restroom he called was lightheaded when he stood up. The test was then ended at that time. No respiratory events were seen while he was in the recliner. IMPRESSION: No evidence of clinically significant sleep apnea seen on his very limited sleep study. The study was performed in a recliner chair. The patient did have nocturnal hypoxemia. RECOMMENDATIONS: The patient should be continued on oxygen and treatment for his asthma and other respiratory issues. At least based on this limited sleep study, there is no evidence of significant sleep apnea seen.
== END | disposition home or self-care (01) ==
LOC: C.NEUR 20:00
PROVIDERS: ATTEND Nurse Practitioner Family
DX: J45.50 Severe persistent asthma, uncomplicated (principal); R06.83 Snoring; F51.04 Psychophysiologic insomnia; G47.10 Hypersomnia, unspecified; Z87.09 Personal history of other diseases of the respiratory system

== ENCOUNTER → 2017-06-16 | Day surgery (SDC) | payer OTHER, MEDICARE ==
[2017-06-10 11:25] VITALS: Ht 175.3 cm; Wt 90.9 kg
[~2017-06-16] VITALS: Ht 175.3 cm; Wt 90.9 kg
[~2017-06-16] MED LIST changes: -INSHNI SQ; +LIDOCAINE HCL 2% 2 ML VIAL (20MG/ML) ONE; +LORA-741 PO; +NVLG SQ; -NVLGI/PEN SQ; +PRED10TA PO; +PROPOFOL IV EMULSION 10 MG/ML 20 ML VIAL IV ONE; +SODIUM CHLORIDE 0.9% 500ML 500 ML IV ONE; +VITATAB11 PO
--- NOTE | 2017-06-16 08:26 | Endo History and Physical ---
History & Physical Date of Service: Jun 16, 2017. Chief Complaint: right quadrant abdominal pain Referring Physician: Dr. Malathi Phillip History of Present Illness 61 yo presenting for Colonoscopy for right lower quadrant abdominal pain-index examination Past Medical History Diabetes, Asthma, Hypertension, COPD Past Surgical History Hx Cardiac Surgery: No Hx Internal Defibrillator: No Hx Pacemaker: No Hx Abdominal Surgery: No Hx of Implantable Prosthesis: No Hx Post-Op Nausea and Vomiting: No Hx Cancer Surgery: No Hx Thoracic Surgery: No Hx Orthopedic: No Hx Urinary Tract Surgery: Yes (LITHOTRIPSY) Family History None Social History Smoking Status: Never Smoker Hx Substance Use: No Hx Alcohol Use: No Allergies Coded Allergies: No Known Allergies (Verified , 06/16/17) UNKNOWN Current Medications Reported Home Medications Medications Dose Route/Sig Max Daily Dose Days Date Category Dose Instructions Ativan (Lorazepam) 0.5 Mg Tab 0.5 Mg PO DAILY PRN 06/10/17 Reported Prednisone 10 Mg Tab 10 Mg PO QAM 06/10/17 Reported Lipoflavonoid (Vitamins W/ Lipotropics) 1 Tab Tab 1 Tab PO BID 06/10/17 Reported Novolog (Insulin Aspart) 100 Units/Ml Inj 1 Dose SQ TIDM PRN 06/10/17 Reported Nucala (Mepolizumab) 100 Mg Inj 100 Mg SC MONTHLY 01/21/17 Reported Brovana (Arformoterol Tartrate) 15 Mcg/2 Ml Neb 15 Mcg INH BID 01/15/17 Reported Desloratadine 5 Mg Tab 5 Mg PO QAM 01/15/17 Reported Zestoretic 20MG/25MG (HCTZ/Lisinopril) Tab 1 Tab PO QAM 09/30/16 Reported Lantus Solostar (Insulin Glargine) 100 Unit/Ml Inj 25 Units SC QPM 09/30/16 Reported Duoneb (Ipratropium-Albuterol) 3 Ml Nebu 1 Treatment INH Q4H PRN 09/30/16 Reported Combivent Respimat (Ipratropium-Albuterol) 1 Aer Aer 1 Puffs INH 6XDAY 09/30/16 Reported Turmeric (Turmeric (Curcuma Longa)) 500 Mg Tab 500 Mg PO QAM 05/12/16 Reported Super B-Complex (B-Complex W/Biotin & Folic Aci) 1 Tab Tab 1 Tab PO QAM 05/12/16 Reported Os-Lee 500 Plus D (Calcium/Vitamin D) Tab 1 Tab PO QAM 05/12/16 Reported Pulmicort Respules 0.5MG/2ML (Budesonide) 0.5 Mg/2 Ml Nebu 2 Ml NEB BID 05/12/16 Reported Escitalopram Oxalate 10 Mg Tab 10 Mg PO QAM 05/12/16 Reported Diltiazem Hcl Er (Diltiazem Hcl Coated Beads) 180 Mg Cap 180 Mg PO QAM 05/12/16 Reported Lantus (Insulin Glargine) 100 Unit/Ml Inj 28 Units SQ QAM 05/12/16 Reported Zafirlukast 20 Mg Tab 20 Mg PO BID 12/20/14 Reported Fluticasone Propionate 120 Sprays/6000 Mcg Inha 2 Sprays ANNA DAILY 12/20/14 Reported Alendronate Sodium 70 Mg Tab 70 Mg PO WK 12/20/14 Reported Ecotrin Or Generic (Aspirin) 81 Mg Tab 81 Mg PO QAM 05/12/12 Reported Prilosec (Omeprazole) 40 Mg Cap 40 Mg PO BID 05/12/12 Reported 30-60 MINUTES BEFORE MEALS Lasix (Furosemide) 20 Mg Tab 20-40 Mg PO DAILY PRN 05/12/12 Reported Zocor (Simvastatin) 10 Mg Tab 10 Mg PO QPM 05/12/12 Reported Klor-Con (Potassium Chloride) 20 Meq Tabcr 20 Meq PO TID 05/12/12 Reported Vital Signs Weight (Kilograms): 90.91 Height (Feet): 5 Height (Inches): 9 Date Time Temp Pulse Resp B/P (MAP) Pulse Ox O2 Delivery O2 Flow Rate FiO2 06/16/17 08:21 36.6 110 24 133/87 (102) 95 Room Air Physical Exam General Appearance: WD/WN, no apparent distress Respiratory/Chest: Respiratory effort: no dyspnea Auscultation: breath sounds normal Cardiovascular: Apical Impulse: not displaced Heart Auscultation: RRR, normal S1, normal S2 Abdomen: Bowel Sounds: normal Inspection & Palpation: soft, non-distended Assessment and Plan 61 yo presenting for colonoscopy for right lower quadrant pain
--- NOTE | 2017-06-16 09:23 | GI REPORT ---
Procedure Date: 06/16/2017 8:39 AM Procedure: Colonoscopy Indications: Screening for colorectal malignant neoplasm, Incidental abdominal pain noted Medicines: Monitored Anesthesia Care Complications: No immediate complications. Estimated blood loss: None. Estimated Blood Loss: Estimated blood loss: none. Procedure: Pre-Anesthesia Assessment: - Pre-Anesthesia Assessment: - Prior to the procedure, a History and Physical was performed, and patient medications, allergies and sensitivities were reviewed. The patient's tolerance of previous anesthesia was reviewed. Please see [employer] for complete details. - The risks and benefits of the procedure and the sedation options and risks were discussed with the patient. All questions were answered and informed consent was obtained. - Patient identification and proposed procedure were verified prior to the procedure by the physician and the nurse. The procedure was verified in the pre-procedure area in the procedure room. After obtaining informed consent, the endoscope was passed carefully and meticuously under direct vision and only advanced when the lumen was clearly identified, C02 insuflation was utilized throughout the entirity of the procedure. Throughout the procedure, the patient's blood pressure, pulse, and oxygen saturations were monitored continuously. After I obtained informed consent, the scope was passed under direct vision. Throughout the procedure, the patient's blood pressure, pulse, and oxygen saturations were monitored continuously. The Scope was introduced through the anus and advanced to the terminal ileum, with identification of the appendiceal orifice and IC valve. The colonoscopy was performed without difficulty. The patient tolerated the procedure well. The quality of the bowel preparation was fair. Findings: A 25 mm polyp was found in the proximal ascending colon. The polyp was semi-sessile. Polypectomy was not attempted due to after submucosal injection failed to lift polyp, therefore, not attempted due to likelihood of muscular adherenc. Biopsies were taken with a cold forceps for histology. Area was tattooed with an injection of Spot (carbon black) laterally to the polyp. A 7 mm polyp was found in the hepatic flexure. The polyp was sessile. To prevent bleeding post-intervention, two hemostatic clips were successfully placed. There was no bleeding during, or at the end, of the procedure. Two sessile polyps were found in the transverse colon. The polyps were 3 to 5 mm in size. These polyps were removed with a cold snare. Resection and retrieval were complete. A 4 mm polyp was found in the sigmoid colon. The polyp was sessile. The polyp was removed with a cold snare. Resection and retrieval were complete. Multiple medium-mouthed diverticula were found in the sigmoid colon. Internal hemorrhoids were found during retroflexion. The terminal ileum appeared normal. The exam was otherwise without abnormality on direct and retroflexion views. Impression: - Preparation of the colon was fair. - One 25 mm polyp in the proximal ascending colon. Resection not attempted. Biopsied. Tattooed. - One 7 mm polyp at the hepatic flexure. Clips were placed. - Two 3 to 5 mm polyps in the transverse colon, removed with a cold snare. Resected and retrieved. - One 4 mm polyp in the sigmoid colon, removed with a cold snare. Resected and retrieved. - Diverticulosis in the sigmoid colon. - Internal hemorrhoids. - The examined portion of the ileum was normal. - The examination was otherwise normal on direct and retroflexion views. Recommendation: - Discharge patient to home (with escort). - Return to referring physician as previously scheduled. - Anticipated right hemicolectomy evaluation. Enrico Meade MD 06/16/2017 9:22:35 AM This report has been signed electronically. Note Initiated On: 06/16/2017 8:39 AM I attest to the content of the Intraoperative Record and orders documented therein, exceptions below
--- NOTE | 2017-06-16 09:29 | Discharge Instructions ---
Endoscopy Patient Instructions Date / Procedure(s) Performed Jun 16, 2017. Colonoscopy Allergy Information Coded Allergies: No Known Allergies (Verified , 06/16/17) UNKNOWN Discharge Date / Findings Jun 16, 2017. Findings: A 25 mm polyp was found in the proximal ascending colon. The polyp was semi-sessile. Polypectomy was not attempted due to after submucosal injection failed to lift polyp, therefore, not attempted due to likelihood of muscular adherenc. Biopsies were taken with a cold forceps for histology. Area was tattooed with an injection of Spot (carbon black) laterally to the polyp. A 7 mm polyp was found in the hepatic flexure. The polyp was sessile. To prevent bleeding post-intervention, two hemostatic clips were successfully placed. There was no bleeding during, or at the end, of the procedure. Two sessile polyps were found in the transverse colon. The polyps were 3 to 5 mm in size. These polyps were removed with a cold snare. Resection and retrieval were complete. A 4 mm polyp was found in the sigmoid colon. The polyp was sessile. The polyp was removed with a cold snare. Resection and retrieval were complete. Multiple medium-mouthed diverticula were found in the sigmoid colon. Internal hemorrhoids were found during retroflexion. The terminal ileum appeared normal. The exam was otherwise without abnormality on direct and retroflexion views. Impression: - Preparation of the colon was fair. - One 25 mm polyp in the proximal ascending colon. Resection not attempted. Biopsied. Tattooed. - One 7 mm polyp at the hepatic flexure. Clips were placed. - Two 3 to 5 mm polyps in the transverse colon, removed with a cold snare. Resected and retrieved. - One 4 mm polyp in the sigmoid colon, removed with a cold snare. Resected and retrieved. - Diverticulosis in the sigmoid colon. - Internal hemorrhoids. - The examined portion of the ileum was normal. - The examination was otherwise normal on direct and retroflexion views. Recommendation: - Discharge patient to home (with escort). - Return to referring physician as previously scheduled. - Anticipated right hemicolectomy evaluation. Medication Instructions Stopped Medication(s): stopped ASa 2 days ago Provider Instructions Activity Restrictions - No exercising or heavy lifting for 24 hours. - Do not drink alcohol the day of the procedure. - Do not drive a car or operate machinery until the day after the procedure. - Do not make any important decisions or sign important papers in 24 hours after the procedure. Following Day: - Return to full activity which may include returning to work/school. Diet Start your diet with liquids and light foods (jello, soup, juice, toast). Then eat your usual diet if not nauseated. Treatment For Common After Affects For mild abdominal pain, bloating, or excessive gas: - Rest - Eat lightly - Lie on right side Follow-Up Information Follow-up with Dr. Malathi Phillip as scheduled Anesthesia Information What You Should Know You have had a procedure that required some medicine to reduce anxiety and discomfort. This treatment is called moderate sedation. After receiving the treatment, you may be sleepy, but you will be able to breathe on your own. The effects of the treatment may last for several hours. Follow these instructions along with Activity/Diet recommendations noted above: * Do NOT do anything where dizziness or clumsiness would be dangerous. * Rest quietly at home today, then you can be up and about tomorrow. * Have a responsible person stay with you the rest of today. * You may have had an I.V. today. If so, you may take the dressing off later today. Recommendations Call your doctor if: * Trouble breathing * Continuous vomiting for more than 24 hours * Temperature above 101 degrees * Severe abdominal pain or bloating * Pain not relieved by pain medicine ordered * There is increased drainage or redness from any incision * A large amount of rectal bleeding greater than 2-3 tablespoons. (If you had a polyp/s removed or have hemorrhoids, a small amount of blood - from the rectum is to be expected.) * You have any unanswered questions or concerns. IN THE EVENT OF A SERIOUS EMERGENCY, GO TO THE NEAREST EMERGENCY ROOM Your discharge instructions were prepared by provider Enrico Meade. Patient Instructions Signature Page Alexander Barron Patient (or Guardian) Signature/Date: I have read and understand the instructions given to me by my caregivers. Caregiver/RN/Doctor Signature/Date: The above-named patient and/or guardian has received patient instructions on this date. + Original Patient Signature Page (only) stays with chart. Please make copy for patient.
--- NOTE | 2017-06-16 09:29 | Anesthesiology Progress Note ---
Anesthesia Post Op Note Date & Time Jun 16, 2017 at 09:29 Vital Signs Pain Intensity: 0 Vital Signs Past 12 Hours Date Time Temp Pulse Resp B/P (MAP) Pulse Ox O2 Delivery O2 Flow Rate FiO2 06/16/17 08:21 36.6 110 24 133/87 (102) 95 Room Air Notes Mental Status: alert / awake / arousable, participated in evaluation Pt Amnestic to Procedure: Yes Nausea / Vomiting: adequately controlled Pain: adequately controlled Airway Patency, RR, SpO2: stable & adequate BP & HR: stable & adequate Hydration State: stable & adequate Anesthetic Complications: no major complications apparent
[2017-06-16 09:49] VITALS: BP 130/87; PULSE 103; O2SAT 93
== END | disposition home or self-care (01) ==
LOC: C.GI 07:25
PROVIDERS: ATTEND Internal Medicine
DX: Z12.11 Encounter for screening for malignant neoplasm of colon (principal); R10.31 Right lower quadrant pain; D12.2 Benign neoplasm of ascending colon; D12.3 Benign neoplasm of transverse colon; D12.5 Benign neoplasm of sigmoid colon; K63.5 Polyp of colon; K57.30 Diverticulosis of large intestine without perforation or abscess without bleeding; K64.8 Other hemorrhoids; E10.9 Type 1 diabetes mellitus without complications; I10 Essential (primary) hypertension; J44.9 Chronic obstructive pulmonary disease, unspecified; Z87.442 Personal history of urinary calculi; Z92.241 Personal history of systemic steroid therapy; Z90.89 Acquired absence of other organs; F17.220 Nicotine dependence, chewing tobacco, uncomplicated

== ENCOUNTER 2017-07-15 09:45 | Inpatient (IN) | payer OTHER, MEDICARE ==
[2017-07-05 15:26] VITALS: BMI 32.0
--- NOTE | 2017-07-05 16:13 | PAT Medication Instructions ---
Service Date Jul 05, 2017. Current Home Medication List Alendronate Sodium (Alendronate Sodium), 70 MG PO WK Arformoterol Tartrate (Brovana), 15 MCG INH BID Aspirin Enteric Coated (Ecotrin Or Generic), 81 MG PO QAM B-Complex W/Biotin & Folic Aci (Super B-Complex), 1 TAB PO QAM Budesonide (Pulmicort Respules 0.5MG/2ML), 2 ML NEB BID Calcium/Vitamin D (Os-Lee 500 Plus D), 1 TAB PO QAM Desloratadine (Desloratadine), 5 MG PO QAM Diltiazem Hcl Coated Beads (Diltiazem Hcl Er), 180 MG PO QAM Escitalopram Oxalate (Escitalopram Oxalate), 10 MG PO QAM Fluticasone Propionate (Fluticasone Propionate), 2 SPRAYS ANNA QAM Furosemide (Lasix), 20-40 MG PO DAILY PRN for LEG SWELLING Home O2 Therapy (Oxygen), 2 LITERS NA PRN Ibuprofen Tab (Motrin), 600 MG PO PRN PRN for Pain Insulin Aspart (Novolog), 1 DOSE SQ TIDM PRN for SLIDING SCALE Insulin Glargine (Lantus), 35 UNITS SQ AM/PM Ipratropium-Albuterol (Combivent Respimat), 1 PUFFS INH 6XDAY Ipratropium-Albuterol (Duoneb), 1 TREATMENT INH Q4H PRN for SOB/Wheezing Lisinopril/Hctz (Zestoretic 20MG/25MG), 1 TAB PO QAM Lorazepam (Ativan), 0.5 MG PO DAILY PRN for ANXIETY Mepolizumab (Nucala), 100 MG SC MONTHLY Omeprazole (Prilosec), 40 MG PO BID Potassium Ext Rel (Klor-Con), 20 MEQ PO TID Prednisone Tab (Prednisone), 10 MG PO QAM Simvastatin (Zocor), 10 MG PO QPM Spironolactone (Aldactone), 25 MG PO QAM Trazodone Hcl (Trazodone), 50 MG PO HS PRN for RN Turmeric (Curcuma Longa) (Turmeric), 500 MG PO QAM Vitamins W/ Lipotropics (Lipoflavonoid), 1 TAB PO BID Zafirlukast (Zafirlukast), 20 MG PO BID Medication Instructions For Your Scheduled Surgery Mepolizumab (Nucala), 100 MG SC MONTHLY (last dose 07/02/17) - Check with surgeon and prescribing physician for instructions: Zafirlukast (Zafirlukast), 20 MG PO BID - Hold the following medications starting 07/06/17: Turmeric (Curcuma Longa) (Turmeric), 500 MG PO QAM - Check with surgeon for instructions: Ibuprofen Tab (Motrin), 600 MG PO PRN PRN for Pain - Continue as directed: Alendronate Sodium (Alendronate Sodium), 70 MG PO WK - Hold the following medications the morning of surgery: B-Complex W/Biotin & Folic Aci (Super B-Complex), 1 TAB PO QAM Calcium/Vitamin D (Os-Lee 500 Plus D), 1 TAB PO QAM Desloratadine (Desloratadine), 5 MG PO QAM Furosemide (Lasix), 20-40 MG PO DAILY PRN for LEG SWELLING Insulin Aspart (Novolog), 1 DOSE SQ TIDM PRN for SLIDING SCALE Lisinopril/Hctz (Zestoretic 20MG/25MG), 1 TAB PO QAM Potassium Ext Rel (Klor-Con), 20 MEQ PO TID Spironolactone (Aldactone), 25 MG PO QAM Vitamins W/ Lipotropics (Lipoflavonoid), 1 TAB PO BID - Take the following medications the morning of surgery with a sip of water: Prednisone Tab (Prednisone), 10 MG PO QAM Omeprazole (Prilosec), 40 MG PO BID Lorazepam (Ativan), 0.5 MG PO DAILY PRN for ANXIETY (if needed) Ipratropium-Albuterol (Combivent Respimat), 1 PUFFS INH 6XDAY Ipratropium-Albuterol (Duoneb), 1 TREATMENT INH Q4H PRN for SOB/Wheezing (if needed) Home O2 Therapy (Oxygen), 2 LITERS NA PRN (if needed) Fluticasone Propionate (Fluticasone Propionate), 2 SPRAYS ANNA QAM Escitalopram Oxalate (Escitalopram Oxalate), 10 MG PO QAM Diltiazem Hcl Coated Beads (Diltiazem Hcl Er), 180 MG PO QAM Budesonide (Pulmicort Respules 0.5MG/2ML), 2 ML NEB BID Arformoterol Tartrate (Brovana), 15 MCG INH BID Aspirin Enteric Coated (Ecotrin Or Generic), 81 MG PO QAM (okay to continue per surgeon) - Take the following medications as scheduled the night before surgery: Trazodone Hcl (Trazodone), 50 MG PO HS PRN for RN (if needed) Simvastatin (Zocor), 10 MG PO QPM Potassium Ext Rel (Klor-Con), 20 MEQ PO TID Omeprazole (Prilosec), 40 MG PO BID Lorazepam (Ativan), 0.5 MG PO DAILY PRN for ANXIETY (if needed) Ipratropium-Albuterol (Combivent Respimat), 1 PUFFS INH 6XDAY Ipratropium-Albuterol (Duoneb), 1 TREATMENT INH Q4H PRN for SOB/Wheezing (if needed) Insulin Glargine (Lantus), 35 UNITS SQ AM/PM Insulin Aspart (Novolog), 1 DOSE SQ TIDM PRN for SLIDING SCALE (if needed) Home O2 Therapy (Oxygen), 2 LITERS NA PRN (if needed) Furosemide (Lasix), 20-40 MG PO DAILY PRN for LEG SWELLING (if needed) Budesonide (Pulmicort Respules 0.5MG/2ML), 2 ML NEB BID Arformoterol Tartrate (Brovana), 15 MCG INH BID - For Insulin Dependent Diabetic patients: Test blood sugar A.M. of surgery. - If Blood sugar greater than 150, take half of your regular dose of: Insulin Glargine (Lantus), take 17 units - If Blood sugar than 150, do not take any: Insulin Glargine (Lantus), 35 UNITS SQ AM/PM If you have any questions please call us at [phone] or [phone] or [phone]
--- NOTE | 2017-07-05 16:40 | DIAGNOSTIC IMAGING REPORT ---
CHEST 2 VIEWS ROUTINE CLINICAL HISTORY: PAT preoperative evaluation COMPARISON STUDY: 01/21/2017 FINDINGS: The bones soft tissues and hemidiaphragms are normal. The cardiomediastinal silhouette is normal. The lungs are clear. The pulmonary vasculature is normal. IMPRESSION: Negative chest. The above report was generated using voice recognition software. It may contain grammatical, syntax or spelling errors. Electronically signed by: Nato Lester M.D. 07/05/2017 4:39 PM Dictated Date/Time: 07/05/2017 4:38 PM
[2017-07-05 16:42] LABS: BASO % 0.1 %; BASO ABS # 0.01 K/uL (0-0.2); EOS % 0.1 %; EOS ABS # 0.01 K/uL (0-0.5); HEMATOCRIT 39.2 % (42-52); HEMOGLOBIN 12.2 g/dL (14.0-18.0); IG# 0.13 K/uL (0.00-0.02); LYMPH % 3.9 %; LYMPH ABS # 0.46 K/uL (1.2-3.4); MEAN CELL VOLUME 83.4 fL (80-100); MEAN CORPUSCULAR HGB CONC 31.1 g/dl (32-36); MEAN PLATELET VOLUME 9.6 fL (7.4-10.4); MONO % 4.7 %; MONO ABS # 0.56 K/uL (0.11-0.59); NEUT % 90.1 %; NEUT ABS # 10.63 K/uL (1.4-6.5); PLATELET COUNT 309 K/uL (130-400); RED CELL DISTRIBUTION WIDTH CV 15.6 % (11.5-14.5); RED CELL DISTRIBUTION WIDTH SD 47.6 fL (36.4-46.3)
[2017-07-05 16:57] LABS: CALCIUM 8.8 mg/dl (8.5-10.1); CREATININE 1.2 mg/dl (0.60-1.40); POTASSIUM 4.6 mmol/L (3.5-5.1)
[~2017-07-15] VITALS: Ht 175.3 cm; Wt 94.6 kg
[2017-07-15] VITALS (12 sets, daily range): BP systolic 132–173; BP diastolic 74–109; PULSE 103–115; TEMP 36.7–36.8; O2SAT 92–98
[~2017-07-15 09:45] MED LIST changes: +ACETAMINOPHEN 1000 MG/100 ML IV IV ONE; +ATROPINE SULFATE 0.1 MG/ML 5ML SYR IV PRN; +EpHEDrine SULFATE INJ 50 MG/ML AMP IV PRN; +IBUP-1449 PO; -INSDGIPEN SC; +LACTATED RINGER'S 1000ML 1,000 ML IV SCH; -LIDOCAINE HCL 2% 2 ML VIAL (20MG/ML) ONE; +ONDANSETRON INJ 2 MG/ML 2 ML VIAL IV PRN; +OXGN; +PHENYLEPHRINE 100MCG/ML 5ML SYR IV PRN; -PROPOFOL IV EMULSION 10 MG/ML 20 ML VIAL IV ONE; -SODIUM CHLORIDE 0.9% 500ML 500 ML IV ONE; +SPIR25TA PO; +TRAZ50TA35 PO
[2017-07-15 10:33] LABS: CALCIUM 8.8 mg/dl (8.5-10.1); CREATININE 1.25 mg/dl (0.60-1.40); POTASSIUM 4.3 mmol/L (3.5-5.1)
[2017-07-15] MEDS ORDERED: MIDAZOLAM HCL 1 MG/ML 2ML VIAL ONE ×2 (11:01→11:03)
[2017-07-15] MEDS ORDERED: ONDANSETRON INJ 2 MG/ML 2 ML VIAL ONE (11:03)
[2017-07-15] MEDS ORDERED: DEXAMETHASONE SOD INJ 4 MG/ML VIAL ONE (11:03)
[2017-07-15] MEDS ORDERED: LIDOCAINE HCL 2% 2 ML VIAL (20MG/ML) ONE (11:03)
[2017-07-15] MEDS ORDERED: PROPOFOL IV EMULSION 10 MG/ML 20 ML VIAL IV ONE (11:03)
[2017-07-15] MEDS ORDERED: FENTANYL CITRATE INJ 50 MCG/1 ML 2 ML VIAL ONE ×2 (11:03→13:21)
[2017-07-15] MEDS ORDERED: NovoLIN-R INSULIN PER UNIT CHARGE ONE ×2 (11:04→14:47)
[2017-07-15] MEDS ORDERED: HYDROmorphone INJ 2 MG/ML SYR/VIAL ONE (11:04)
[2017-07-15] MEDS ORDERED: KETAMINE HCL INJ 50 MG/ML 10 ML VIAL ONE (11:04)
[2017-07-15] MEDS ORDERED: ALBUT/IPRATROP 3MG/0.5MG NEB 3 ML VIAL INH ONE (11:15)
--- NOTE | 2017-07-15 12:10 | History & Physical Bridge Note ---
H&P Re-Evaluation Bridge Note: I have examined the patient, reviewed the History & Physical and in the interval since the performance of the History & Physical I have noted the following changes of clinical significance: No changes notedfamily at bedside all questions answered
[2017-07-15] MEDS ORDERED: BUPIVACAINE 0.5 % 5 MG/1 ML MPF 30ML VIAL ONE (12:31)
[2017-07-15] MEDS ORDERED: ROCURONIUM BROMIDE 10 MG/ML 5 ML VIAL IV ONE ×2 (13:43→13:59)
--- NOTE | 2017-07-15 14:16 | [facility] Post Operative Brief Note ---
Immediate Operative Summary Operative Date Jul 15, 2017. Pre-Operative Diagnosis Lesion in ascending colon Dilated appendix Possible mucocele Post-Operative Diagnosis Same Procedure(s) Performed Right colon resection Surgeon Dr Alexander Assistant Editor Surgeon(s) Rivera Diaz PA-C Estimated Blood Loss 25.5ml Findings See Below (as preop) as preop Specimens Culture #1 cathed urine for culture and sensitivity A. ascending colon and appendix Drains 1/4 rajani suc but Anesthesia Type General
[2017-07-15] MEDS ORDERED: ACETAMINOPHEN IV 100 ML IV PRN (14:45)
[2017-07-15] MEDS: HYDROmorphone INJ 2 MG/ML SYR/VIAL IV PRN ×4 (15:04→16:55)
--- NOTE | 2017-07-15 15:27 | Anesthesiology Progress Note ---
Anesthesia Post Op Note Date & Time Jul 15, 2017 at 15:26 Vital Signs Pain Intensity: 5 Vital Signs Past 12 Hours Date Time Temp Pulse Resp B/P (MAP) Pulse Ox O2 Delivery O2 Flow Rate FiO2 07/15/17 15:21 147/81 07/15/17 15:20 139/80 07/15/17 15:18 102 15 97 07/15/17 15:18 102 15 07/15/17 15:16 165/118 07/15/17 15:13 102 16 97 07/15/17 15:13 102 16 07/15/17 15:11 135/82 07/15/17 15:08 101 14 07/15/17 15:08 100 14 98 07/15/17 15:07 107 18 07/15/17 15:07 107 18 97 07/15/17 15:06 163/83 07/15/17 15:02 109 17 07/15/17 15:02 109 17 98 07/15/17 15:01 163/78 07/15/17 14:57 107 16 98 07/15/17 14:57 107 16 07/15/17 14:56 173/93 07/15/17 14:52 100 16 07/15/17 14:52 101 16 98 07/15/17 14:51 165/82 07/15/17 14:50 101 16 07/15/17 14:50 101 16 97 07/15/17 14:46 146/79 07/15/17 14:45 100 19 97 07/15/17 14:45 100 19 07/15/17 14:41 151/80 07/15/17 14:40 100 17 07/15/17 14:40 100 17 97 07/15/17 14:39 156/74 07/15/17 14:36 162/85 07/15/17 14:35 106 96 07/15/17 14:35 37.5 101 16 156/74 96 Oxymask 10 07/15/17 14:35 106 07/15/17 11:43 103 16 92 Nasal Cannula 3.0 07/15/17 10:26 36.7 109 22 147/92 94 Room Air Notes Mental Status: alert / awake / arousable, participated in evaluation Pt Amnestic to Procedure: Yes Nausea / Vomiting: adequately controlled Pain: adequately controlled Airway Patency, RR, SpO2: stable & adequate BP & HR: stable & adequate Hydration State: stable & adequate Anesthetic Complications: no major complications apparent
--- NOTE | 2017-07-15 16:32 | OPERATIVE REPORT ---
DATE OF OPERATION: 07/15/2017 SURGEON: Dr. Alexander. BOTTOMING ROOM SUPERVISOR: REBEKAH Talbert PREOPERATIVE DIAGNOSES: Ascending colon sessile polyp of 2 cm or so in size, a dilated appendix, rule out mucocele. POSTOPERATIVE DIAGNOSES: Same. PROCEDURE: Right colon resection, laparoscopic assisted. SUMMARY: The patient was brought into the operating room theater. Bryant catheter had been inserted. The abdomen was prepped with Betadine solution and properly draped. The patient had lower abdominal panniculus to the soft tissue areas that were probably related to previous injections from Lovenox and longstanding diabetes, does have a pump in the left lower quadrant. At this point, the abdomen was prepped with Betadine solution and properly draped. Systemic antibiotics were given. We made a small incision supraumbilical sufficient enough to place a Veress needle followed by CO2. Point of entry inspected and no injury identified. At this point, we placed the patient on the left lateral position to visualize the right colon area and then we were able to identify the tattoo which was probably about 10 cm or so from the cecal cap. The appendix can see it was minimally dilated in the appendiceal tip only. At this point, we felt that we had enough mobility just to make an incision and mobilized the colon without any difficulty. Therefore, we made an incision about 8 cm or so in size, deepened through subcutaneous tissue into the abdominal wall. We elevated the abdominal wall ritchison and mobilized the right colon easily dividing the white line of Toldt and also the terminal ileum delivering it into the wound. The appendix also came with this mobilization, we took it all the way up almost the hepatic flexure, but we could feel that we were well away from the tattoo conrado and we can palpate the lesion which appeared to be just almost at the cecum itself. At this point, the mesentery to the right colon and terminal ileum was scored and then divided between hemostats, ligating with 2-0 silk leaving theses sutures, so we closed the mesentery later. Prior to doing that, we had divided the terminal ileum of approximately 4-1/2 inches from the ileocecal valve with a ROB stapler, and similarly divided the colon in a similar fashion. The mesentery was then closed with 3-0 interrupted silk and a [id number] anastomosis was done by first inverting the staple line at the end with 3-0 interrupted silk suture and 3-0 chromic inner layer of 3-0 silk outer layer [id number] anastomosis was done to cope accommodate 2 fingers. The area was then checked for hemostasis, appeared satisfactory. The mesentery was closed completely. We returned the viscera in anatomical position. Of note, once we had opened the right colon to do an anastomosis, we did see one of the Hemoclips that GI had placed probably at an area that was biopsied a small polyp. The wound was closed with interrupted #1 PDS closing the fascia interruptedly. Subcutaneous tissue was drained with a quarter inch [place], colleen for skin edges. One 5 mm trocar that we placed in the epigastric area was closed with Monocryl. Steri-Strips applied. The procedure was tolerated well by the patient. Estimated blood loss approximately 20 mL. The patient was taken to recovery room in good condition. ADDENDUM: At the end of the procedure, I cut into the cecum and could identify that this was the polypoid lesion which was probably a centimeter and a half, at most 2 cm, well demarcated, appeared to be benign grossly. I attest to the content of the Intraoperative Record and any orders documented therein. Any exception s are noted below.
[2017-07-15] MEDS ORDERED: HYDROmorphone INJ 0.5 MG/0.5 ML SYR ONE (17:40)
[2017-07-15] MEDS: CEFOXITIN IV 2,000 MG in DEXTROSE 5% 50ML 50 ML IV SCH (20:40)
[2017-07-15] MEDS: SODIUM CHLORIDE 0.9% 1000ML 1,000 ML IV SCH (20:40)
[2017-07-15] MEDS ORDERED: METHYLPREDNISOLONE IV 20 MG in SYRINGE 0 ML IV SCH (21:00)
[2017-07-15] MEDS ORDERED: DILTIAZEM HCL 5 MG/ML 5 ML VIAL IV SCH (21:00)
--- NOTE | 2017-07-15 21:04 | Medical Consult ---
Consultation Date of Consultation: Jul 15, 2017. Attending Physician: Jose Alexander M.D. History of Present Illness 62 y/o M Hx DM I, HTN, HPL, anxiety, GERD, grade I diastolic dysfunction, severe COPD/eosinophilic asthma.. The pt was admitted to the surgical service for scheduled resection of a cecal mass. He underwent colonoscopy on 06/16 leading to discovery of a 2.5 cm polyp in the ascending colon. Polypectomy was not possible during the colonoscopy. Biopsy was obtained and initial pathology results indicated a tubular adenoma without evidence of invasive malignancy. Post-op the pt is SOB and breathing against pursed lips. He is fully oriented however, and states that his breathing is at baseline presently. He states his abdominal pain is tolerable. Denies CP, N/V fevers. Past Medical/Surgical History 1) Eosinophilic asthma - treated with Fasenra 2) HTN 3) HPL 4) DM I 5) Osteoporosis 6) Colonic polyps - R colonic resection due to 2.5 cm tubular adenoma in cecum 7) GERD 8) Anxiety 9) Diastolic CHF - grade I dysfunction echo 2015 Family History Diabetes mellitus Heart disease Hypertension Lung cancer Myocardial infarction Social History Smoking Status: Never Smoker Drug Use: none Marital Status: Housing Status: lives with family Occupation Status: retired Allergies Coded Allergies: No Known Allergies (Verified , 07/15/17) UNKNOWN Current Inpatient Medications Current Inpatient Medications Medications (Trade) Dose Ordered Sig/Dianne Route Start Time Stop Time Status Last Admin Dose Admin Lactated Ringer's 1,000 ml @ 15 mls/hr Q24H IV 07/15/17 06:00 07/16/17 05:59 07/15/17 11:20 15 MLS/HR Sodium Chloride 1,000 ml @ 100 mls/hr Q10H IV 07/15/17 21:00 08/14/17 20:59 Acetaminophen 100 ml @ 400 mls/hr Q8H PRN IV 07/15/17 14:45 08/14/17 14:44 Oxycodone/ Acetaminophen (Percocet 5-325mg Tab) 1 tab Q4H PRN PO 07/15/17 14:45 07/29/17 14:44 Morphine Sulfate (MoRPHine SULFATE INJ) 2 mg Q3H PRN IV 07/15/17 14:45 07/29/17 14:44 Oxycodone/ Acetaminophen (Percocet 5-325mg Tab) 2 tab Q4H PRN PO 07/15/17 14:45 07/29/17 14:44 Morphine Sulfate (MoRPHine SULFATE INJ) 4 mg Q3H PRN IV 07/15/17 14:45 07/29/17 14:44 Ondansetron HCl (Zofran Inj) 4 mg Q6H PRN IV 07/15/17 14:45 08/14/17 14:44 Cefoxitin Sodium 2000 mg/Dextrose 60 ml @ 100 mls/hr Q6H IV 07/15/17 20:00 07/16/17 02:35 Heparin Sodium (Porcine) (Heparin Sq 5000 Unit/0.5ml) 5,000 unit Q8 SQ 07/15/17 22:00 08/14/17 21:59 UNV Review of Systems Constitutional: No fever, No chills, No sweats Eyes: No worsening of vision ENT: No hearing loss, No unusual epistaxis, No nasal symptoms Respiratory: No cough, No sputum, No wheezing Cardiovascular: No chest pain, No orthopnea, No PND Abdomen: No pain, No nausea, No vomiting Musculoskeletal: No joint pain Genitourinary - Male: No hematuria, No dysuria, No urinary frequency Neurologic: No memory loss, No paralysis, No weakness Psychiatric: No depression symptoms Endocrine: No fatigue Hematologic / Lymphatic: No abnormal bleeding/bruising Integumentary: No rash Allergic / Immunologic: No environmental allergies Physical Exam Date Time Temp Pulse Resp B/P (MAP) Pulse Ox O2 Delivery O2 Flow Rate FiO2 07/15/17 20:00 98 Nasal Cannula 4.0 07/15/17 19:33 36.7 22 136/74 (94) 98 07/15/17 18:37 36.4 97 14 112/83 97 Nasal Cannula 4 07/15/17 18:31 102 13 112/83 95 07/15/17 18:31 96 13 07/15/17 18:26 100 12 96 07/15/17 18:26 100 12 07/15/17 18:21 102 12 96 07/15/17 18:21 101 12 07/15/17 18:16 100 13 118/77 95 07/15/17 18:16 97 13 07/15/17 18:11 103 13 96 07/15/17 18:11 104 13 3/15/18 18:06 101 13 3/15/18 18:06 103 13 96 3/15/18 18:02 141/98 3/15/18 18:01 93 14 3/15/18 18:01 102 14 166/98 95 /15/18 17:56 101 12 3/15/18 17:56 99 12 96 /15/18 17:51 101 13 96 3/15/18 17:51 101 13 /15/18 17:46 98 12 3/15/18 17:46 100 12 146/85 93 3/15/18 17:41 100 16 96 3/15/18 17:41 100 16 /15/18 17:38 118/88 /15/18 17:37 135/106 /15/18 17:36 99 13 /15/18 17:36 98 13 97 /15/18 17:31 93 14 /15/18 17:31 98 14 131/104 95 /15/18 17:26 96 16 /15/18 17:26 94 16 97 /15/18 17:23 37.1 15/18 17:21 99 13 97 /15/18 17:21 99 13 /15/18 17:20 97 16 97 /15/18 17:20 94 16 /15/18 17:16 118/89 /15/18 17:15 98 13 /15/18 17:15 98 13 97 /15/18 17:10 98 13 97 /15/18 17:10 99 13 /15/18 17:05 99 14 96 15/18 17:05 98 14 /15/18 17:04 99 15 97 /15/18 17:04 98 15 /15/18 17:01 121/90 15/18 16:59 100 15 /15/18 16:59 100 15 97 /15/18 16:58 106 15 97 /15/18 16:58 104 15 /15/18 16:53 14 3/15/18 16:53 14 97 /15/18 16:48 94 14 /15/18 16:48 94 14 99 /15/18 16:46 151/92 /15/18 16:43 95 14 99 /15/18 16:43 92 14 3/15/18 16:38 98 13 99 3/15/18 16:38 99 13 3/15/18 16:33 37.1 3/15/18 16:33 97 15 3/15/18 16:33 98 15 99 3/15/18 16:32 96 14 99 3/15/18 16:32 98 14 3/15/18 16:31 120/87 3/15/18 16:27 101 13 99 3/15/18 16:27 100 13 3/15/18 16:22 98 15 3/15/18 16:22 98 15 99 3/15/18 16:17 96 15 98 3/15/18 16:17 96 15 3/15/18 16:16 133/82 3/15/18 16:14 105 17 98 3/15/18 16:14 105 17 3/15/18 16:09 98 15 3/15/18 16:09 97 15 97 /15/18 16:04 99 14 98 3/15/18 16:04 99 14 /15/18 16:01 115/87 3/15/18 15:59 99 15 97 3/15/18 15:59 99 15 3/15/18 15:54 102 14 98 3/15/18 15:54 101 14 3/15/18 15:53 37.1 /15/18 15:49 100 17 /15/18 15:49 100 17 98 3/15/18 15:46 118/81 3/15/18 15:44 100 15 98 3/15/18 15:44 99 15 3/15/18 15:43 100 16 98 3/15/18 15:43 99 16 3/15/18 15:41 126/83 3/15/18 15:38 102 14 3/15/18 15:38 103 14 98 3/15/18 15:36 131/82 3/15/18 15:33 101 16 97 3/15/18 15:33 100 16 3/15/18 15:32 101 14 97 3/15/18 15:32 101 14 3/15/18 15:31 140/85 3/15/18 15:27 108 18 3/15/18 15:27 108 18 97 3/15/18 15:26 128/86 3/15/18 15:22 105 16 3/15/18 15:22 106 16 99 07/15/17 15:21 147/81 07/15/17 15:20 139/80 07/15/17 15:18 102 15 97 07/15/17 15:18 102 15 07/15/17 15:16 165/118 07/15/17 15:13 102 16 97 07/15/17 15:13 102 16 07/15/17 15:11 135/82 07/15/17 15:08 101 14 07/15/17 15:08 100 14 98 07/15/17 15:07 107 18 07/15/17 15:07 107 18 97 07/15/17 15:06 163/83 07/15/17 15:02 109 17 07/15/17 15:02 109 17 98 07/15/17 15:01 163/78 07/15/17 14:57 107 16 98 07/15/17 14:57 107 16 07/15/17 14:56 173/93 07/15/17 14:52 100 16 07/15/17 14:52 101 16 98 07/15/17 14:51 165/82 07/15/17 14:50 101 16 07/15/17 14:50 101 16 97 07/15/17 14:46 146/79 07/15/17 14:45 100 19 97 07/15/17 14:45 100 19 07/15/17 14:41 151/80 07/15/17 14:40 100 17 07/15/17 14:40 100 17 97 07/15/17 14:39 156/74 07/15/17 14:36 162/85 07/15/17 14:35 106 96 07/15/17 14:35 37.5 101 16 156/74 96 Oxymask 10 07/15/17 14:35 106 07/15/17 11:43 103 16 92 Nasal Cannula 3.0 07/15/17 10:26 36.7 109 22 147/92 94 Room Air General Appearance: WD/WN, no apparent distress Head: normocephalic Eyes: normal inspection, EOMI ENT: normal ENT inspection, pharynx normal Neck: supple, no JVD Respiratory/Chest: chest non-tender, lungs clear, normal breath sounds Cardiovascular: regular rate, rhythm, no edema, no gallop Abdomen/GI: normal bowel sounds, non tender, soft Back: normal inspection, no CVA tenderness Extremities/Musculoskelatal: normal inspection, no calf tenderness, normal capillary refill Neurologic/Psych: body fitter II-XII nml as tested, no motor/sensory deficits, alert, oriented x 3 Skin: normal color Laboratory Results Last 24 Hours Test 07/15/17 10:01 07/15/17 10:08 07/15/17 11:52 07/15/17 14:41 Bedside Glucose 234 mg/dl 256 mg/dl 286 mg/dl Sodium Level 133 mmol/L Potassium Level 4.3 mmol/L Chloride Level 97 mmol/L Carbon Dioxide Level 23 mmol/L Anion Gap 12.0 mmol/L Blood Urea Nitrogen 15 mg/dl Creatinine 1.25 mg/dl Est Creatinine Clear Calc Drug Dose 71.0 ml/min Estimated GFR () 71.1 Estimated GFR (Non- 61.3 BUN/Creatinine Ratio 12.1 Random Glucose 246 mg/dl Calcium Level 8.8 mg/dl Test 07/15/17 15:18 07/15/17 19:19 Bedside Glucose 248 mg/dl 254 mg/dl Assessment & Plan 62 y/o M Hx DM I, HTN, HPL, anxiety, GERD, grade I diastolic dysfunction, severe COPD/eosinophilic asthma.. The pt was admitted to the surgical service for scheduled resection of a cecal mass. He underwent colonoscopy on 06/16 leading to discovery of a 2.5 cm polyp in the ascending colon. Polypectomy was not possible during the colonoscopy. Biopsy was obtained and initial pathology results indicated a tubular adenoma without evidence of invasive malignancy. Post-op the pt is SOB and breathing against pursed lips. He is fully oriented however, and states that his breathing is at baseline presently. He states his abdominal pain is tolerable. Denies CP, N/V fevers. 1) Post-op - pain control is adequate - anticoagulation, PT/OT to discretion of surgery when pt is able to tolerate - will likely remain NPO for a few days. 2) Advanced lung disease owing to eosinophilic asthma - placed on nebs - is on 2L 02 continuous at home. The pt is steroid-dependent so we have started him on BID Solumedrol at a low dose - would increase dose if he exhibited hypotension 3) HTN - had not had BP meds today - we have placed him on Q6H IV diltiazem with parameters - HR and BP are currently elevated. 4) Diastolic dysfunction - volume status will be difficult to gauge - he takes diuretics daily and is at risk of overload. We will need to employ oxymetry, imaging and trend labs to assist in PRN administration of diuretics post-op until he can tolerate PO. 5) DM - placed on SS 6) Anxiety - Lorazepam IV provided PRN Total time for this consult including review of labs, meds, imaging, records - discussion with pt and review of surgery notes - 40 min Med will follow daily pending DC
[2017-07-15] MEDS: MoRPHine SULFATE 2 MG/ML CARP IV PRN (21:18)
[2017-07-15] MEDS: IPRATROPIUM BROMIDE/ALBUTEROL respimat INH INH SCH (21:26)
[2017-07-15] MEDS ORDERED: GLUCOSE 10 TABS/TUBE PO PRN (21:45)
[2017-07-15] MEDS ORDERED: GLUCAGON FOR INJ 1 MG VIAL SQ PRN (21:45)
[2017-07-15] MEDS ORDERED: GLUCOSE 40% GEL 15 GM TUBE PO PRN (21:45)
[2017-07-15] MEDS: DILTIAZEM HCL INJ 5 MG in SYRINGE 0 ML IV SCH (22:23)
[2017-07-15] MEDS ORDERED: HEPARIN SOD 5000 UNIT/0.5 ML CARP SQ ONE (22:30)
[2017-07-15] MEDS: MoRPHine SULFATE 4 MG/ML 1 ML CARP\\VIAL IV PRN (23:41)
[2017-07-15] MEDS: INSULIN ASPART 100 UNITS/ML 3 ML PEN SC SCH (23:46)
[2017-07-15] MEDS: ALBUTEROL 0.083% NEBU SOLN 3 ML VIAL INH PRN (23:59)
[2017-07-16] VITALS (11 sets, daily range): BP systolic 125–152; BP diastolic 65–81; PULSE 89–128; TEMP 36.5–37; O2SAT 92–97; BMI 32.2
[2017-07-16] MEDS: CEFOXITIN IV 2,000 MG in DEXTROSE 5% 50ML 50 ML IV SCH (02:06)
[2017-07-16] MEDS: MoRPHine SULFATE 2 MG/ML CARP IV PRN ×2 (02:07→02:31)
[2017-07-16] MEDS: DILTIAZEM HCL INJ 5 MG in SYRINGE 0 ML IV SCH ×4 (03:33→21:51)
[2017-07-16] MEDS: IPRATROPIUM BROMIDE/ALBUTEROL respimat INH INH SCH ×2 (03:34→08:07)
[2017-07-16] MEDS: OXYCODONE/ACETAMINOPHEN 5-325 TAB PO PRN ×4 (03:36→23:45)
[2017-07-16] MEDS: LORAZEPAM 2 MG/ML 1 ML VIAL IV PRN ×2 (04:53→12:16)
[2017-07-16] MEDS: INSULIN ASPART 100 UNITS/ML 3 ML PEN SC SCH ×4 (06:36→23:50)
[2017-07-16] MEDS ORDERED: INSULIN ASPART 100 UNITS/ML 3 ML PEN SC ONE (06:45)
[2017-07-16 06:52] LABS: BASO ABS # 0.01 K/uL (0-0.2); HEMATOCRIT 36.4 % (42-52); HEMOGLOBIN 11.7 g/dL (14.0-18.0); IG# 0.11 K/uL (0.00-0.02); LYMPH % 3.6 %; LYMPH ABS # 0.77 K/uL (1.2-3.4); MEAN CELL VOLUME 85.2 fL (80-100); MEAN CORPUSCULAR HEMOGLOBIN 27.4 pg (25-34); MEAN CORPUSCULAR HGB CONC 32.1 g/dl (32-36); MEAN PLATELET VOLUME 9.4 fL (7.4-10.4); MONO % 3.5 %; MONO ABS # 0.74 K/uL (0.11-0.59); NEUT % 92.4 %; PLATELET COUNT 279 K/uL (130-400); RED CELL DISTRIBUTION WIDTH CV 15.3 % (11.5-14.5); RED CELL DISTRIBUTION WIDTH SD 47.6 fL (36.4-46.3); WHITE BLOOD COUNT 21.23 K/uL (4.8-10.8)
[2017-07-16] MEDS ORDERED: PHARMACY GLYCEMIC MGMT CONSULT PRN (06:55)
[2017-07-16] MEDS ORDERED: INSULIN HUMAN REGULAR IV BOLUS 10 UNIT in SYRINGE 0 ML IV SCH (07:00)
[2017-07-16] MEDS ORDERED: INSULIN GLARGINE SOLOSTAR 100 UNITS/ML 3 ML PEN SC ONE ×2 (07:00→09:45)
[2017-07-16 07:01] LABS: PTT PATIENT 22.9 SECONDS (21.0-31.0)
[2017-07-16] MEDS: MoRPHine SULFATE 4 MG/ML 1 ML CARP\\VIAL IV PRN (07:05)
[2017-07-16] MEDS: ARFORMOTEROL TART 15MCG/2ML VIAL INH SCH ×2 (07:41→19:04)
[2017-07-16] MEDS: BUDESONIDE 0.5 MG/2 ML VIAL (PULMICORT) INH SCH ×2 (07:43→19:04)
[2017-07-16 08:07] LABS: CALCIUM 7.5 mg/dl (8.5-10.1); CREATININE 2.21 mg/dl (0.60-1.40)
[2017-07-16] MEDS: SODIUM CHLORIDE 0.9% 1000ML 1,000 ML IV SCH ×3 (08:08→21:52)
[2017-07-16] MEDS: FLUTICASONE PROPIONATE NA SPR 16 GM BTL NAE SCH (08:08)
[2017-07-16] MEDS: METHYLPREDNISOLONE IV 10 MG in SYRINGE 0 ML IV SCH ×2 (08:08→21:09)
[2017-07-16] MEDS: HEPARIN SOD 5000 UNIT/0.5 ML CARP SQ SCH ×3 (08:45→21:52)
--- NOTE | 2017-07-16 08:59 | Clinical Documentation Query ---
EDEN Ramirez : CLINICAL DOCUMENTATION QUERIES QUERY 1 OF 2 Patient is a 62 year old male who on 07/15 underwent resection of appendix and cecal mass. infrastructure consultant notes patient is a steroid and oxygen dependent eosinophilic asthmatic. He has been placed on nebs and IV Solumedrol. Please clarify as clinically appropriate. Thank you. In your clinical opinion is this patient being managed for: ( x) Chronic respiratory failure with hypoxia ( ) Not Agree ( ) Other explanation of clinical findings (Please Explain) ( ) Unable to determine (Please Define) ( ) Need to Discuss The medical record reflects the following clinical findings, treatment, and risk factors. Clinical Indicators: As above Treatment: He has been placed on nebs and IV Solumedrol Risk Factors: Asthma QUERY 2 OF BUN and creatinine 07/15 were 15 mg/dl and 1.25 mg/dl. Values this a.m. were 38 mg/dl and 2.21 mg/dl. He is recieving IVF and being monitored with serial chemistries. In your clinical opinion is this patient being managed for: ( x ) Acute kidney failure ( ) Not Agree ( ) Other explanation of clinical findings (Please Explain) ( ) Unable to determine (Please Define) ( ) Need to Discuss The medical record reflects the following clinical findings, treatment, and risk factors. Clinical Indicators: As above Treatment:He is recieving IVF and being monitored with serial chemistries Risk Factors: Surgery, fluid shifts, NPO status prior to surgery, age, medications. Please clarify and document your clinical opinion in the progress notes and discharge summary. Terms Please clarify and document your clinical opinion in the progress notes and discharge summary. Terms such as "probable", "suspected", "likely", "questionable", "possible", or "still to be ruled out" are acceptable. IF IN AGREEMENT, YOU MUST DOCUMENT ABOVE DIAGNOSTIC STATEMENT IN DAILY PROGRESS NOTES AND DISCHARGE SUMMARY. This document is not part of the patient's record. Thank You, Rivera Cordova, JOHNNY [phone]
--- NOTE | 2017-07-16 09:29 | SURGERY PROGRESS NOTE ---
DATE: 07/16/2017 Alexander is resting comfortably in bed. He denies any nausea. He feels a little bit bloated. He is alert, coherent. Intraoperative findings were discussed with the patient including surgery. His last vitals showed him a temperature of 37, pulse 109, respirations 18, blood pressure 129/76, O2 sats 94 on 4 liters. I&O -- his urine output was 375 overnight. It appears to be concentrated. Laboratory becerril this morning his BUN is 38, creatinine is 2.21, slightly elevated than preoperatively. White cell count is 21.13. He is on steroids, hemoglobin is 11.7. He does have a slight left shift. His abdomen is softly distended, it is nontender. The dressing has been changed and is dry. At this point, I will leave the Bryant catheter in for today, get the patient out of bed. Initially thought about sending him to regular unit, but will try to monitor him here. Also of note, his blood sugars have been relatively high. Medical service is attending to that.
[2017-07-16] MEDS ORDERED: INSULIN IV INFUSION PROTOCOL STA (09:44)
[2017-07-16] MEDS ORDERED: INSULIN HUMAN REGULAR IV BOLUS 5 UNIT in SYRINGE 0 ML IV STA (09:50)
[2017-07-16] MEDS ORDERED: INSULIN REGULAR 250 UNITS in SODIUM CHLORIDE 0.9% 250ML 250 ML IV SCH (10:00)
--- NOTE | 2017-07-16 10:34 | Pharmacy Progress Note ---
Glycemic Control Intl Consult Date of Service Jul 16, 2017. Scope Glycemic Pharmacist consulted by Dr Guerra on 07/16 for glycemic control and to write orders per [facility] inpatient glycemic control protocol Objective Weight (Kilograms): 98.800 Accuchecks BSG (last 24hrs): Test 07/15/17 11:52 07/15/17 14:41 07/15/17 15:18 07/15/17 19:19 Bedside Glucose 256 mg/dl (70-99) 286 mg/dl (70-99) 248 mg/dl (70-99) 254 mg/dl (70-99) Test 07/15/17 23:36 07/16/17 06:26 07/16/17 07:33 07/16/17 08:50 Bedside Glucose 333 mg/dl (70-99) 391 mg/dl (70-99) 334 mg/dl (70-99) Random Glucose 368 mg/dl (70-99) Laboratory Data (last 24hrs) Test 07/16/17 06:38 07/16/17 07:33 White Blood Count 21.23 K/uL Red Blood Count 4.27 M/uL Hemoglobin 11.7 g/dL Hematocrit 36.4 % Mean Corpuscular Volume 85.2 fL Mean Corpuscular Hemoglobin 27.4 pg Mean Corpuscular Hemoglobin Concent 32.1 g/dl Platelet Count 279 K/uL Mean Platelet Volume 9.4 fL Neutrophils (%) (Auto) 92.4 % Lymphocytes (%) (Auto) 3.6 % Monocytes (%) (Auto) 3.5 % Eosinophils (%) (Auto) 0.0 % Basophils (%) (Auto) 0.0 % Neutrophils # (Auto) 19.60 K/uL Lymphocytes # (Auto) 0.77 K/uL Monocytes # (Auto) 0.74 K/uL Eosinophils # (Auto) 0.00 K/uL Basophils # (Auto) 0.01 K/uL Anion Gap 14.0 mmol/L BUN/Creatinine Ratio 17.0 Blood Urea Nitrogen 38 mg/dl Creatinine 2.21 mg/dl Potassium Level 5.0 mmol/L Sodium Level 134 mmol/L HbA1c 7.0 on 01/21/17 On order for 07/17/17 Recent Pertinent Medications Outpatient Anti-diabetic Regimen: * Lantus 35 units SC AMPM * Novolog TIDM * Note: also on prednisone 10 mg po daily Risk Factors for Insulin Resistance: * Steroids: Dexamethasone 8 mg IV x1 on 07/15 then methylprednisolone 10 mg IV q12h * Recent Surgery: POD 1 s/p cecal mass resection * Diet: NPO Assessment & Plan ASSESSMENT: * 62 yo M admitted for scheduled cecal mass resction * Type 1 diabetes per H&P. I confirmed type 1 w RN (who asked patient). Patient may have mixed type 1 / type 2 diabetes based on higher than usual outpatient doses of insulin for solely type 1 diabetes * Confirmed with RN (who asked patient) that last dose of Lantus was 10 units @ 2100 (note: usual dose is 35 units BID). No basal insulin administered outpatient on 07/15 prior to surgery or inpatient 07/15 after surgery * BSG's elevated to 391 mg/dL this AM - IV insulin, Novolog, and Lantus administered. Responded minimally and decreased to only 334 mg/dL ~ 2 hours after. * Anion gap rising slightly, CO2 decreasing slightly - may be early signs of DKA 2nd basal insulin deficiency * Spoke w Dr. Nadiya SAIZN to start insulin drip, also discussed discontinuation parameters. Do not anticipate need for prolonged therapy, but must overcome basal deficiency and prevent progression to DKA * Criteria for stopping insulin drip (all must be met) * After 07/16 @ 1300 (to allow 6 hour overlap with 1st dose of Lantus this AM) * BSG less than 180 mg/dL x2 consecutive checks * Drip running at less than 2 units/hr * Anion gap 12 mEq/L or less * CO2 15 mEq/L or more * Will give 1.5 x usual AM dose of Lantus (35+17 units) PLAN FOR INPATIENT GLYCEMIC CONTROL: * Starting IV insulin infusion - 5 unit IV bolus then start at 2.5 units/hr * Goal Range 120 - 180 mg/dl * Note: this was stopped @ 1400 after all above criteria were met * Basal insulin with LANTUS 35 units SQ x1 (already administered this AM) and additional 17 units x1 now * Ongoing basal insulin with Lantus BID * BSG less than 80 mg/dL: hold * BSG 80-110 mg/dL: 15 units * BSG 110-140 mg/dL: 20 units * BSG greater than 140 mg/dL: 30 units * Novolog q4h while NPO * Goal range: 140-180 mg/dL * Correction factor: 20 mg/dL/unit * Carbohydrate ratio: 1 unit per 7 g CHO consumed * Please note that the plan above was derived based on current level of insulin resistance and hospital stress. These recommendations are appropriate for inpatient admission only. Plan of care upon discharge will need to be reassessed to avoid potential outpatient hypo/hyperglycemia. Thank you.
--- NOTE | 2017-07-16 11:21 | Hospitalist Progress Note ---
Hospitalist Progress Note Date of Service Jul 16, 2017. Subjective Pt evaluation today including: conversation w/ patient, conversation w/ family ( at bedside), physical exam, chart review, lab review, review of inpatient medication list Pain: Managed with pain meds PO Intake: NPO except chips/sips Voiding: huynh catheter in place The patient complains of diffuse abdominal pain but states this is generally well controlled with pain medications. His pain is worse with coughing and movement. He denies nausea or vomiting. Per , patient is "loopy" from the pain meds. He is making inappropriate comments but is oriented. The patient does have a non-productive cough. He states his breathing feels about baseline but he is currently on 4L NC. He typically only wears 2L at nighttime. The patient does complain of some left lateral rib pain. Per , the patient fell on that side about 3 weeks ago and has had pain in his ribs since then with suspected rib fractures. Huynh catheter is in place with clear urine. The patient denies fevers, chills, sweats, palpitations, claudication, wheezing , shortness of breath, nausea, vomiting, dysuria, hematuria, urinary retention, paralysis, weakness, numbness and tingling. Additional Comments: See HPI for pertinent positives and negatives. All other systems reviewed and negative. Objective Vital Signs Date Time Temp Pulse Resp B/P (MAP) Pulse Ox O2 Delivery O2 Flow Rate FiO2 07/16/17 08:00 36.8 100 22 129/71 (90) 92 Nasal Cannula 4.0 07/16/17 08:00 Nasal Cannula 4.0 07/16/17 07:43 109 18 94 Nasal Cannula 4.0 07/16/17 05:06 37.0 102 129/76 (93) 95 Nasal Cannula 4.0 07/16/17 04:00 Nasal Cannula 4.0 07/16/17 00:48 36.8 128 28 152/69 (96) 92 Nasal Cannula 4.0 07/16/17 00:00 Nasal Cannula 4.0 07/15/17 23:59 115 20 94 Nasal Cannula 4.0 07/15/17 22:30 105 20 147/84 (105) 93 07/15/17 22:00 36.8 110 20 173/94 (120) 95 07/15/17 21:30 113 20 136/90 (105) 93 3/15/18 21:00 111 20 160/98 (118) 93 3/15/18 20:30 110 20 140/109 (119) 95 3/15/18 20:15 109 20 146/76 (99) 95 3/15/18 20:00 36.8 115 20 132/100 (111) 95 3/15/18 20:00 98 Nasal Cannula 4.0 3/15/18 19:45 111 22 132/100 (111) 95 3/15/18 19:33 36.7 22 136/74 (94) 98 3/15/18 18:37 36.4 97 14 112/83 97 Nasal Cannula 4 15/18 18:31 102 13 112/83 95 3/15/18 18:31 96 13 3/15/18 18:26 100 12 96 3/15/18 18:26 100 12 3/15/18 18:21 102 12 96 3/15/18 18:21 101 12 315/18 18:16 100 13 118/77 95 315/18 18:16 97 13 3/15/18 18:11 103 13 96 3/15/18 18:11 104 13 3/15/18 18:06 101 13 3/15/18 18:06 103 13 96 3/15/18 18:02 141/98 3/15/18 18:01 93 14 3/15/18 18:01 102 14 166/98 95 3/15/18 17:56 101 12 3/15/18 17:56 99 12 96 3/15/18 17:51 101 13 96 3/15/18 17:51 101 13 3/15/18 17:46 98 12 3/15/18 17:46 100 12 146/85 93 3/15/18 17:41 100 16 96 3/15/18 17:41 100 16 3/15/18 17:38 118/88 3/15/18 17:37 135/106 3/15/18 17:36 99 13 3/15/18 17:36 98 13 97 3/15/18 17:31 93 14 3/15/18 17:31 98 14 131/104 95 3/15/18 17:26 96 16 3/15/18 17:26 94 16 97 3/15/18 17:23 37.1 3/15/18 17:21 99 13 97 /15/18 17:21 99 13 15/18 17:20 97 16 97 15/18 17:20 94 16 15/18 17:16 118/89 15/18 17:15 98 13 15/18 17:15 98 13 97 15/18 17:10 98 13 97 15/18 17:10 99 13 1518 17:05 99 14 96 15/18 17:05 98 14 15/18 17:04 99 15 97 15/18 17:04 98 15 1518 17:01 121/90 15/18 16:59 100 15 15/18 16:59 100 15 97 15/18 16:58 106 15 97 15/18 16:58 104 15 1518 16:53 14 07/15/17 16:53 14 97 15/18 16:48 94 14 07/15/17 16:48 94 14 99 15/18 16:46 151/92 15/18 16:43 95 14 99 15/18 16:43 92 14 15/18 16:38 98 13 99 15/18 16:38 99 13 15/18 16:33 37.1 15/18 16:33 97 15 15/18 16:33 98 15 99 15/18 16:32 96 14 99 15/18 16:32 98 14 1518 16:31 120/87 15/18 16:27 101 13 99 15/18 16:27 100 13 15/18 16:22 98 15 15/18 16:22 98 15 99 15/18 16:17 96 15 98 15/18 16:17 96 15 15/18 16:16 133/82 15/18 16:14 105 17 98 15/18 16:14 105 17 /15/18 16:09 98 15 /15/18 16:09 97 15 97 15/18 16:04 99 14 98 15/18 16:04 99 14 15/18 16:01 115/87 1518 15:59 99 15 97 3/15/18 15:59 99 15 3/15/18 15:54 102 14 98 3/15/18 15:54 101 14 3/15/18 15:53 37.1 /15/18 15:49 100 17 3/15/18 15:49 100 17 98 3/15/18 15:46 118/81 3/15/18 15:44 100 15 98 3/15/18 15:44 99 15 3/15/18 15:43 100 16 98 3/15/18 15:43 99 16 3/15/18 15:41 126/83 3/15/18 15:38 102 14 /15/18 15:38 103 14 98 /15/18 15:36 131/82 /15/18 15:33 101 16 97 /15/18 15:33 100 16 /15/18 15:32 101 14 97 /15/18 15:32 101 14 /15/18 15:31 140/85 /15/18 15:27 108 18 15/18 15:27 108 18 97 /15/18 15:26 128/86 /15/18 15:22 105 16 /15/18 15:22 106 16 99 /15/18 15:21 147/81 /15/18 15:20 139/80 /15/18 15:18 102 15 97 /15/18 15:18 102 15 /15/18 15:16 165/118 /15/18 15:13 102 16 97 15/18 15:13 102 16 15/18 15:11 135/82 3/15/18 15:08 101 14 /15/18 15:08 100 14 98 /15/18 15:07 107 18 15/18 15:07 107 18 97 /15/18 15:06 163/83 15/18 15:02 109 17 /15/18 15:02 109 17 98 15/18 15:01 163/78 /15/18 14:57 107 16 98 /15/18 14:57 107 16 /15/18 14:56 173/93 /15/18 14:52 100 16 /15/18 14:52 101 16 98 15/18 14:51 165/82 3/15/18 14:50 101 16 07/15/17 14:50 101 16 97 07/15/17 14:46 146/79 07/15/17 14:45 100 19 97 07/15/17 14:45 100 19 07/15/17 14:41 151/80 07/15/17 14:40 100 17 07/15/17 14:40 100 17 97 07/15/17 14:39 156/74 07/15/17 14:36 162/85 07/15/17 14:35 106 96 07/15/17 14:35 37.5 101 16 156/74 96 Oxymask 10 07/15/17 14:35 106 07/15/17 11:43 103 16 92 Nasal Cannula 3.0 Physical Exam Notes: General appearance: +Obese. Well-developed, well-nourished, no apparent distress Head: Normocephalic, atraumatic Eyes: Normal inspection, PERRL, EOMI ENT: +Dry oral mucosa. Normal ENT inspection, hearing grossly normal, pharynx normal Neck: Supple, no JVD, trachea midline Respiratory/Chest: +Decreased breath sounds, on 4L NC>. Lungs clear to auscultation, no respiratory distress Cardiovascular: Regular rate & rhythm, no gallop, no murmur Abdomen/GI: +Diffusely TTP, abdominal incision dressed. Hypoactive bowel sounds. Soft Extremities/Musculoskeletal: Normal inspection, no calf tenderness, no pedal edema Neurological/Psych: +Alert and oriented but "loopy" and making inappropriate and at times hostile comments. Alert, oriented x 3 Skin: Normal color, warm/dry, no rash Laboratory Results Last 24 Hours Test 07/15/17 11:52 07/15/17 14:41 07/15/17 15:18 07/15/17 19:19 Bedside Glucose 256 mg/dl 286 mg/dl 248 mg/dl 254 mg/dl Test 07/15/17 23:36 07/16/17 06:26 07/16/17 06:38 07/16/17 07:33 Bedside Glucose 333 mg/dl 391 mg/dl White Blood Count 21.23 K/uL Red Blood Count 4.27 M/uL Hemoglobin 11.7 g/dL Hematocrit 36.4 % Mean Corpuscular Volume 85.2 fL Mean Corpuscular Hemoglobin 27.4 pg Mean Corpuscular Hemoglobin Concent 32.1 g/dl Platelet Count 279 K/uL Mean Platelet Volume 9.4 fL Neutrophils (%) (Auto) 92.4 % Lymphocytes (%) (Auto) 3.6 % Monocytes (%) (Auto) 3.5 % Eosinophils (%) (Auto) 0.0 % Basophils (%) (Auto) 0.0 % Neutrophils # (Auto) 19.60 K/uL Lymphocytes # (Auto) 0.77 K/uL Monocytes # (Auto) 0.74 K/uL Eosinophils # (Auto) 0.00 K/uL Basophils # (Auto) 0.01 K/uL RDW Standard Deviation 47.6 fL RDW Coefficient of Variation 15.3 % Immature Granulocyte % (Auto) 0.5 % Immature Granulocyte # (Auto) 0.11 K/uL Prothrombin Time 10.0 SECONDS Prothromb Time International Ratio 1.0 Activated Partial Thromboplast Time 22.9 SECONDS Partial Thromboplastin Ratio 0.9 Sodium Level 134 mmol/L Potassium Level 5.0 mmol/L Chloride Level 101 mmol/L Carbon Dioxide Level 20 mmol/L Anion Gap 14.0 mmol/L Blood Urea Nitrogen 38 mg/dl Creatinine 2.21 mg/dl Est Creatinine Clear Calc Drug Dose 40.2 ml/min Estimated GFR () 35.7 Estimated GFR (Non- 30.8 BUN/Creatinine Ratio 17.0 Random Glucose 368 mg/dl Calcium Level 7.5 mg/dl Beta-Hydroxybutyric Acid 29.86 mg/dL Test 07/16/17 08:50 Bedside Glucose 334 mg/dl Assessment and Plan 62 y/o male with a history of HTN, HLD, diastolic dysfunction, severe COPD, eosinophilic asthma, DM I, anxiety, and GERD who presents s/p right colon resection with Dr. Alexander on 07/15 for medical management. S/p right colon resection--POD #1 -Pt admitted to telemetry. No acute events overnight, however pt in sinus rhythm/sinus tachycardia with HR in 90s-100s, up to 124 -Pain management, PT/OT as per primary team -Pt on heparin 5000 units SC q8h for DVT ppx per primary team -NPO except chips/sips, diet per surgery -NSS at 125 cc/hr DM I w/hyperglycemia--pt reportedly did not receive Lantus doses yesterday, now with BSGs in 300s -Pharmacy consulted for glycemic control -Insulin drip, will hopefully be able to transition to Lantus this evening -Lantus BID per protocol -Insulin sliding scale -Check BSGs per protocol -Check HgbA1c YOLETTE -Creatinine 2.21 on 07/16, up from 1.25 -Baseline creatinine 1.0-1.2 -Hold Lasix, lisinopril, HCTZ -IVF as above, continue to monitor HTN, HLD--stable -Diltiazem converted to 5 mg q6h IV as pt is NPO. If ok with surgery, could convert to oral -Lisinopril/HCTZ held Diastolic dysfunction -Hold Lasix due to YOLETTE COPD/eosinophilic asthma--stable, denies SOB or wheezing -Increased oxygen requirement currently post op, normally only wears 2L at night -O2 by protocol -Will change Combivent to scheduled DuoNeb per pt request, does not use inhalers much at home and prefers nebs. DuoNeb QIDR and q2h prn SOB/wheezing -Continue Solu-Medrol 10 mg IV BID for now, BP stable Anxiety -Lorazepam IV prn while NPO
[2017-07-16] MEDS ORDERED: INSULIN ASPART 100 UNITS/ML 3 ML PEN SC SCH (12:00)
[2017-07-16] MEDS: ALBUT/IPRATROP 3MG/0.5MG NEB 3 ML VIAL INH SCH ×3 (12:00→19:49)
[2017-07-16 12:30] LABS: HEMOGLOBIN A1C 6.6 % (4.5-5.6)
[2017-07-16 13:06] LABS: CREATININE 1.85 mg/dl (0.60-1.40); POTASSIUM 4.8 mmol/L (3.5-5.1)
[2017-07-16] MEDS ORDERED: [UNRECOGNIZED DRUG - REMARK] SCH (16:00)
[2017-07-16] MEDS ORDERED: NURSING VERBAL MED ORDER ONE (17:30)
[2017-07-16] MEDS: INSULIN GLARGINE SOLOSTAR 100 UNITS/ML 3 ML PEN SC SCH (21:12)
[2017-07-17] VITALS (13 sets, daily range): BP systolic 148–159; BP diastolic 75–89; PULSE 87–110; TEMP 36.5–37; O2SAT 88–96
[2017-07-17] MEDS: MoRPHine SULFATE 2 MG/ML CARP IV PRN (02:27)
[2017-07-17] MEDS: INSULIN ASPART 100 UNITS/ML 3 ML PEN SC SCH ×6 (04:00→23:30)
[2017-07-17] MEDS: OXYCODONE/ACETAMINOPHEN 5-325 TAB PO PRN (04:21)
[2017-07-17] MEDS: ONDANSETRON INJ 2 MG/ML 2 ML VIAL IV PRN ×3 (05:41→23:25)
[2017-07-17] MEDS: LORAZEPAM 2 MG/ML 1 ML VIAL IV PRN (05:47)
[2017-07-17] MEDS: ALBUT/IPRATROP 3MG/0.5MG NEB 3 ML VIAL INH SCH ×5 (05:58→19:44)
[2017-07-17] MEDS: HEPARIN SOD 5000 UNIT/0.5 ML CARP SQ SCH ×3 (06:09→20:16)
[2017-07-17 06:23] LABS: BASO % 0.1 %; BASO ABS # 0.01 K/uL (0-0.2); EOS % 0.1 %; EOS ABS # 0.01 K/uL (0-0.5); HEMOGLOBIN 11.9 g/dL (14.0-18.0); IG# 0.03 K/uL (0.00-0.02); LYMPH ABS # 0.58 K/uL (1.2-3.4); MEAN CELL VOLUME 84.3 fL (80-100); MEAN CORPUSCULAR HEMOGLOBIN 27.1 pg (25-34); MEAN CORPUSCULAR HGB CONC 32.2 g/dl (32-36); MEAN PLATELET VOLUME 9.5 fL (7.4-10.4); MONO % 7.4 %; MONO ABS # 1.08 K/uL (0.11-0.59); NEUT % 88.2 %; NEUT ABS # 12.93 K/uL (1.4-6.5); PLATELET COUNT 286 K/uL (130-400); RED CELL DISTRIBUTION WIDTH CV 15.6 % (11.5-14.5); RED CELL DISTRIBUTION WIDTH SD 48.2 fL (36.4-46.3); WHITE BLOOD COUNT 14.64 K/uL (4.8-10.8)
[2017-07-17 06:43] LABS: CREATININE 1.27 mg/dl (0.60-1.40); PHOSPHORUS 3.1 mg/dl (2.5-4.9); POTASSIUM 4.1 mmol/L (3.5-5.1)
[2017-07-17] MEDS: ARFORMOTEROL TART 15MCG/2ML VIAL INH SCH ×2 (07:20→18:58)
[2017-07-17] MEDS: BUDESONIDE 0.5 MG/2 ML VIAL (PULMICORT) INH SCH ×2 (07:21→18:59)
[2017-07-17] MEDS: FLUTICASONE PROPIONATE NA SPR 16 GM BTL NAE SCH (08:28)
[2017-07-17] MEDS: METHYLPREDNISOLONE IV 10 MG in SYRINGE 0 ML IV SCH ×2 (08:28→20:15)
[2017-07-17] MEDS: DILTIAZEM HCL 180 MG ER CAP PO SCH (08:29)
[2017-07-17] MEDS: INSULIN GLARGINE SOLOSTAR 100 UNITS/ML 3 ML PEN SC SCH ×2 (08:35→20:14)
--- NOTE | 2017-07-17 09:47 | Surgery Progress Note ---
Surgery Progress Note Date of Service Jul 17, 2017. Subjective Post OP Day: 2 c/o of n/v last night. ? if secondary to percocet. still with incisional pain as well. Objective Vital Signs: Date Time Temp Pulse Resp B/P (MAP) Pulse Ox O2 Delivery O2 Flow Rate FiO2 07/17/17 07:21 87 20 88 Room Air 07/17/17 05:58 88 24 96 Nasal Cannula 3.0 07/17/17 04:18 36.5 94 22 155/85 (108) 95 Nasal Cannula 3.0 07/17/17 04:00 Nasal Cannula 2.0 07/17/17 00:00 Nasal Cannula 2.0 07/16/17 22:42 36.5 93 24 143/81 (101) 95 Nasal Cannula 3.0 07/16/17 20:02 36.7 92 20 130/65 (86) 95 Nasal Cannula 3.0 07/16/17 20:00 Nasal Cannula 2.0 07/16/17 19:04 96 18 94 Nasal Cannula 3.0 07/16/17 16:00 Nasal Cannula 2.0 07/16/17 15:45 93 18 97 Nasal Cannula 3.0 07/16/17 15:38 36.6 95 20 125/74 (91) 95 Room Air 07/16/17 12:45 89 18 96 Nasal Cannula 4.0 07/16/17 11:27 36.9 96 24 127/75 (92) 96 Nasal Cannula 4.0 General Appearance: + mild distress Abdomen: soft, + pertinent finding (mild distension) Incision(s): clean, dry, intact, no erythema Laboratory Results: Results Past 24 Hours Test 07/16/17 10:10 07/16/17 11:28 07/16/17 12:36 07/16/17 12:41 Range/Units Bedside Glucose 242 138 100 70-99 mg/dl Sodium Level 138 136-145 mmol/L Potassium Level 4.8 3.5-5.1 mmol/L Chloride Level 105 98-107 mmol/L Carbon Dioxide Level 24 21-32 mmol/L Anion Gap 9.0 3-11 mmol/L Blood Urea Nitrogen 40 7-18 mg/dl Creatinine 1.85 0.60-1.40 mg/dl Est Creatinine Clear Calc Drug Dose 48.0 ml/min Estimated GFR () 44.2 Estimated GFR (Non- 38.2 BUN/Creatinine Ratio 21.6 10-20 Random Glucose 112 70-99 mg/dl Calcium Level 8.0 8.5-10.1 mg/dl Magnesium Level 2.8 1.8-2.4 mg/dl Test 07/16/17 13:00 07/16/17 13:55 07/16/17 16:21 07/16/17 21:05 Range/Units Bedside Glucose 103 93 94 127 70-99 mg/dl Test 07/16/17 23:48 07/17/17 04:17 07/17/17 05:45 Range/Units Bedside Glucose 130 90 70-99 mg/dl White Blood Count 14.64 4.8-10.8 K/uL Red Blood Count 4.39 4.7-6.1 M/uL Hemoglobin 11.9 14.0-18.0 g/dL Hematocrit 37.0 42-52 % Mean Corpuscular Volume 84.3 80-100 fL Mean Corpuscular Hemoglobin 27.1 25-34 pg Mean Corpuscular Hemoglobin Concent 32.2 32-36 g/dl Platelet Count 286 130-400 K/uL Mean Platelet Volume 9.5 7.4-10.4 fL Neutrophils (%) (Auto) 88.2 % Lymphocytes (%) (Auto) 4.0 % Monocytes (%) (Auto) 7.4 % Eosinophils (%) (Auto) 0.1 % Basophils (%) (Auto) 0.1 % Neutrophils # (Auto) 12.93 1.4-6.5 K/uL Lymphocytes # (Auto) 0.58 1.2-3.4 K/uL Monocytes # (Auto) 1.08 0.11-0.59 K/uL Eosinophils # (Auto) 0.01 0-0.5 K/uL Basophils # (Auto) 0.01 0-0.2 K/uL RDW Standard Deviation 48.2 36.4-46.3 fL RDW Coefficient of Variation 15.6 11.5-14.5 % Immature Granulocyte % (Auto) 0.2 % Immature Granulocyte # (Auto) 0.03 0.00-0.02 K/uL Sodium Level 138 136-145 mmol/L Potassium Level 4.1 3.5-5.1 mmol/L Chloride Level 104 98-107 mmol/L Carbon Dioxide Level 28 21-32 mmol/L Anion Gap 6.0 3-11 mmol/L Blood Urea Nitrogen 34 7-18 mg/dl Creatinine 1.27 0.60-1.40 mg/dl Est Creatinine Clear Calc Drug Dose 69.0 ml/min Estimated GFR () 69.7 Estimated GFR (Non- 60.2 BUN/Creatinine Ratio 26.6 10-20 Random Glucose 94 70-99 mg/dl Calcium Level 8.0 8.5-10.1 mg/dl Phosphorus Level 3.1 2.5-4.9 mg/dl Magnesium Level 2.9 1.8-2.4 mg/dl Assessment & Plan POD 2 right hemicolectomy will d/c morphine ( headaches) and try dilaudid instead of percocet to hopefully control pain better with less nausea wbc and renal fx improved today. will d/c huynh awaiting bowel fx. keep essentially npo until nausea improves increase activity
--- NOTE | 2017-07-17 11:39 | Pharmacy Progress Note ---
Glycemic Control Progress Note Date of Service Jul 17, 2017. Scope Glycemic Pharmacist consulted for glycemic control to write orders per [facility] inpatient glycemic control protocol. Objective Accuchecks BSG (last 24hrs): Test 07/16/17 12:36 07/16/17 12:41 07/16/17 13:00 07/16/17 13:55 Random Glucose 112 mg/dl (70-99) Bedside Glucose 100 mg/dl (70-99) 103 mg/dl (70-99) 93 mg/dl (70-99) Test 07/16/17 16:21 07/16/17 21:05 07/16/17 23:48 07/17/17 04:17 Bedside Glucose 94 mg/dl (70-99) 127 mg/dl (70-99) 130 mg/dl (70-99) 90 mg/dl (70-99) Test 07/17/17 05:45 Random Glucose 94 mg/dl (70-99) HbA1c: Test 07/16/17 06:38 Hemoglobin A1c 6.6 % (4.5-5.6) H Recent Pertinent Medications Outpatient Anti-diabetic Regimen: * Lantus 35 units SC AMPM * Novolog TIDM * Note: also on prednisone 10 mg po daily Risk Factors for Insulin Resistance: * Steroids: Dexamethasone 8 mg IV x1 on 07/15 then methylprednisolone 10 mg IV q12h * Recent Surgery: POD 2 s/p cecal mass resection * Diet: NPO Outpatient Anti-Diabetic Meds Basal Insulin Bolus Insulin Assessment & Plan ASSESSMENT: 07/16/17 * 62 yo M admitted for scheduled cecal mass resction * Type 1 diabetes per H&P. I confirmed type 1 w RN (who asked patient). Patient may have mixed type 1 / type 2 diabetes based on higher than usual outpatient doses of insulin for solely type 1 diabetes * Confirmed with RN (who asked patient) that last dose of Lantus was 10 units @ 2100 (note: usual dose is 35 units BID). No basal insulin administered outpatient on 07/15 prior to surgery or inpatient 07/15 after surgery * BSG's elevated to 391 mg/dL this AM - IV insulin, Novolog, and Lantus administered. Responded minimally and decreased to only 334 mg/dL ~ 2 hours after. * Anion gap rising slightly, CO2 decreasing slightly - may be early signs of DKA 2nd basal insulin deficiency * Spoke w Dr. Nadiya SAINZ to start insulin drip, also discussed discontinuation parameters. Do not anticipate need for prolonged therapy, but must overcome basal deficiency and prevent progression to DKA * Criteria for stopping insulin drip (all must be met) * After 07/16 @ 1300 (to allow 6 hour overlap with 1st dose of Lantus this AM) * BSG less than 180 mg/dL x2 consecutive checks * Drip running at less than 2 units/hr * Anion gap 12 mEq/L or less * CO2 15 mEq/L or more * Will give 1.5 x usual AM dose of Lantus (35+17 units) 07/17/17 * BSG's decreased, insulin drip was stopped yesterday afternoon. Since then, BSG's have ranged 90-130 mg/dL * Would normally only decrease Lantus dose to 80% of home dose for NPO status and lower BSG's for type 1 diabetes, however, this patient likely has mixed type 1/type 2 diabetes. Therefore OK to continue to 40-50% of home dose Lantus for now, until see rise in BSG's. IF BSG's rise significantly, will likely need to provide additional Lantus at that time * Update: BSG increased to 223 mg/dL @ 1200 - will give another dose of Lantus * Will also decrease goal range on Novolog so patient is provided correctional insulin if/when BSG's exceed 150 mg/dL PLAN FOR INPATIENT GLYCEMIC CONTROL: * Additional Basal insulin with Lantus 15 units x1 @ 1200 for increase in BSG ( likely 2nd too aggressive decrease of Lantus this AM) * Basal insulin with Lantus BID * BSG less than 80 mg/dL: hold (note - this should never be held x2 consecutive doses or adjustment will be needed) * BSG 80-110 mg/dL: 15 units * BSG 110-140 mg/dL: 20 units * BSG greater than 140 mg/dL: 30 units * Novolog q4h while NPO * Decrease Goal range: 120-150 mg/dL * Correction factor: 20 mg/dL/unit * Carbohydrate ratio: 1 unit per 7 g CHO consumed * Please note that the plan above was derived based on current level of insulin resistance and hospital stress. These recommendations are appropriate for inpatient admission only. Plan of care upon discharge will need to be reassessed to avoid potential outpatient hypo/hyperglycemia. Thank you.
[2017-07-17] MEDS: ACETAMINOPHEN IV 100 ML IV SCH ×3 (12:12→23:26)
[2017-07-17] MEDS: SODIUM CHLORIDE 0.9% 1000ML 1,000 ML IV SCH ×2 (12:18→23:26)
--- NOTE | 2017-07-17 12:55 | Progress Note ---
Subjective Date of Service: Jul 17, 2017. Subjective Pt evaluation today including: conversation w/ patient, conversation w/ family , physical exam, chart review, lab review, review of studies, conversation w/ community resource consultant, review of inpatient medication list Voiding: huynh catheter in place Sitting up in chair, still complaining about abdominal pain from surgery, otherwise generally feeling better, mild cough, blood glucose is better, Problem List Medical Problems: (1) Hypokalemia Status: Acute (2) Oxygen dependent Status: Acute (3) Respiratory failure Status: Acute (4) Right flank pain Status: Acute Review of Systems Constitutional: + weakness, + fatigue, No fever, No chills, No sweats, No weight loss, No problem reported Eyes: No worsening of vision, No eye pain, No redness, No discharge, No diplopia ENT: No hearing loss, No unusual epistaxis, No nasal symptoms, No sore throat, No tinnitus, No dental problems, No trouble swallowing Respiratory: + cough, No sputum, No wheezing, No shortness of breath, No dyspnea on exertion, No dyspnea at rest, No hemoptysis Cardiac: No chest pain, No orthopnea, No PND, No edema, No claudication, No palpitations Abdomen: + pain, No nausea, No vomiting, No diarrhea, No constipation Musculoskeletal: No joint pain, No muscle pain, No swelling, No calf pain Male : + problem reported (Huynh in place), No dysuria, No urinary frequency , No incontinence, No nocturia more than once/night, No slowing stream, No hematuria Neurologic: No memory loss, No paralysis, No weakness, No numbness/tingling, No vertigo, No balance problems Psychiatric: No depression symptoms, No anhedonism, No anxiety, No insomnia, No substance abuse Heme: No abnormal bleeding/bruising, No clotting problems, No swollen lymph nodes, No night sweats Endo: No fatigue, No excessive thirst, No excessive urination Skin: No rash, No itch, No new/changing skin lesions, No color change, No bleeding Objective Vital Signs Date Time Temp Pulse Resp B/P (MAP) Pulse Ox O2 Delivery O2 Flow Rate FiO2 07/17/17 11:55 37.0 101 18 152/75 (100) 95 Nasal Cannula 2.0 07/17/17 11:26 102 20 94 Nasal Cannula 2.0 07/17/17 08:00 Nasal Cannula 2.0 07/17/17 08:00 37.0 98 20 157/89 (111) 94 Nasal Cannula 2.0 07/17/17 07:21 87 20 88 Room Air 07/17/17 05:58 88 24 96 Nasal Cannula 3.0 07/17/17 04:18 36.5 94 22 155/85 (108) 95 Nasal Cannula 3.0 07/17/17 04:00 Nasal Cannula 2.0 07/17/17 00:00 Nasal Cannula 2.0 07/16/17 22:42 36.5 93 24 143/81 (101) 95 Nasal Cannula 3.0 07/16/17 20:02 36.7 92 20 130/65 (86) 95 Nasal Cannula 3.0 07/16/17 20:00 Nasal Cannula 2.0 07/16/17 19:04 96 18 94 Nasal Cannula 3.0 07/16/17 16:00 Nasal Cannula 2.0 07/16/17 15:45 93 18 97 Nasal Cannula 3.0 07/16/17 15:38 36.6 95 20 125/74 (91) 95 Room Air Physical Exam General Appearance: WD/WN, no apparent distress, + obese Eyes: normal inspection, PERRL, EOMI, sclerae normal ENT: normal ENT inspection, hearing grossly normal, pharynx normal Neck: supple, no adenopathy, thyroid normal, no JVD, no carotid bruits, trachea midline Respiratory/Chest: chest non-tender, normal breath sounds, no respiratory distress, no accessory muscle use, + decreased breath sounds Cardiovascular: regular rate, rhythm, no edema, no gallop, no JVD, no murmur Abdomen: normal bowel sounds, soft, no organomegaly, no pulsatile mass, + tenderness (Mild tender), + pertinent finding (Huynh catheter in place) Extremities: normal inspection, no pedal edema, no calf tenderness, normal capillary refill, pelvis stable, + swelling (Trace) 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, no motor/sensory deficits, alert, normal mood/affect, oriented x 3 Skin: normal color, warm/dry, no rash Lymphatic: no adenopathy Laboratory Results Last 24 Hours Test 07/16/17 13:00 07/16/17 13:55 07/16/17 16:21 07/16/17 21:05 Bedside Glucose 103 mg/dl 93 mg/dl 94 mg/dl 127 mg/dl Test 07/16/17 23:48 07/17/17 04:17 07/17/17 05:45 Bedside Glucose 130 mg/dl 90 mg/dl White Blood Count 14.64 K/uL Red Blood Count 4.39 M/uL Hemoglobin 11.9 g/dL Hematocrit 37.0 % Mean Corpuscular Volume 84.3 fL Mean Corpuscular Hemoglobin 27.1 pg Mean Corpuscular Hemoglobin Concent 32.2 g/dl Platelet Count 286 K/uL Mean Platelet Volume 9.5 fL Neutrophils (%) (Auto) 88.2 % Lymphocytes (%) (Auto) 4.0 % Monocytes (%) (Auto) 7.4 % Eosinophils (%) (Auto) 0.1 % Basophils (%) (Auto) 0.1 % Neutrophils # (Auto) 12.93 K/uL Lymphocytes # (Auto) 0.58 K/uL Monocytes # (Auto) 1.08 K/uL Eosinophils # (Auto) 0.01 K/uL Basophils # (Auto) 0.01 K/uL RDW Standard Deviation 48.2 fL RDW Coefficient of Variation 15.6 % Immature Granulocyte % (Auto) 0.2 % Immature Granulocyte # (Auto) 0.03 K/uL Sodium Level 138 mmol/L Potassium Level 4.1 mmol/L Chloride Level 104 mmol/L Carbon Dioxide Level 28 mmol/L Anion Gap 6.0 mmol/L Blood Urea Nitrogen 34 mg/dl Creatinine 1.27 mg/dl Est Creatinine Clear Calc Drug Dose 69.0 ml/min Estimated GFR () 69.7 Estimated GFR (Non- 60.2 BUN/Creatinine Ratio 26.6 Random Glucose 94 mg/dl Calcium Level 8.0 mg/dl Phosphorus Level 3.1 mg/dl Magnesium Level 2.9 mg/dl Assessment and Plan 62 y/o male s/p right colon resection with Dr. Alexander on 07/15, hospitalist consulted for medical management. S/p right colon resection--POD #2, this will be management by primary team, for discharge plan, PT OT, DVT prophylaxis will be per primary team to DM I w/hyperglycemia, may have mild DKA ; stable improved, A1c 6.6, off insulin drip, currently is getting subcu insulin such as Lantus with insulin sliding scale YOLETTE with creatinine 2.21 on 07/16, there is improving to 1.27, which is significantly improving, will continue follow-up HTN, HLD: Stable continue current care Diastolic dysfunction, stable no sign of decompensation COPD/eosinophilic asthma, Chronic respiratory failure with hypoxia, stable continue his CO2 nebulizer treatment if needed Anxiety Other history history of anxiety, and GERD: Stable continue current medication encourage deep breathing and incentive spirometry, discussed with patient and family answered all questions Continued [facility] stay due to: multiple IV medications needed, home environment unsafe for pt Discharge planning: uncertain
[2017-07-17] MEDS: HYDROmorphone INJ 0.5 MG/0.5 ML SYR IV PRN ×2 (14:42→23:26)
[2017-07-17] MEDS ORDERED: INSULIN GLARGINE SOLOSTAR 100 UNITS/ML 3 ML PEN SC ONE ×2 (15:00)
[2017-07-17] MEDS: HYDROmorphone INJ 1 MG/ML SYR IV PRN (20:52)
[2017-07-18] VITALS (13 sets, daily range): BP systolic 138–156; BP diastolic 72–91; PULSE 82–109; TEMP 36.4–36.6; O2SAT 87–98
[2017-07-18] MEDS: LORAZEPAM 2 MG/ML 1 ML VIAL IV PRN (01:38)
[2017-07-18] MEDS: INSULIN ASPART 100 UNITS/ML 3 ML PEN SC SCH ×5 (04:00→21:00)
[2017-07-18 05:57] LABS: HEMATOCRIT 34.8 % (42-52); HEMOGLOBIN 11.2 g/dL (14.0-18.0); IG# 0.01 K/uL (0.00-0.02); LYMPH % 6.7 %; LYMPH ABS # 0.53 K/uL (1.2-3.4); MEAN CELL VOLUME 84.1 fL (80-100); MEAN CORPUSCULAR HEMOGLOBIN 27.1 pg (25-34); MEAN CORPUSCULAR HGB CONC 32.2 g/dl (32-36); MONO % 5.1 %; NEUT % 88.1 %; NEUT ABS # 6.93 K/uL (1.4-6.5); PLATELET COUNT 264 K/uL (130-400); RED CELL DISTRIBUTION WIDTH CV 15.8 % (11.5-14.5); RED CELL DISTRIBUTION WIDTH SD 48.5 fL (36.4-46.3); WHITE BLOOD COUNT 7.87 K/uL (4.8-10.8)
[2017-07-18] MEDS: HEPARIN SOD 5000 UNIT/0.5 ML CARP SQ SCH ×3 (06:00→22:29)
[2017-07-18] MEDS: ONDANSETRON INJ 2 MG/ML 2 ML VIAL IV PRN (06:01)
[2017-07-18] MEDS: HYDROmorphone INJ 1 MG/ML SYR IV PRN (06:01)
[2017-07-18] MEDS: ALBUTEROL 0.083% NEBU SOLN 3 ML VIAL INH PRN (06:03)
[2017-07-18 06:15] LABS: CALCIUM 7.6 mg/dl (8.5-10.1); CREATININE 1.16 mg/dl (0.60-1.40); POTASSIUM 4.8 mmol/L (3.5-5.1)
[2017-07-18] MEDS: ALBUT/IPRATROP 3MG/0.5MG NEB 3 ML VIAL INH SCH ×4 (07:03→19:08)
[2017-07-18] MEDS: BUDESONIDE 0.5 MG/2 ML VIAL (PULMICORT) INH SCH ×2 (07:07→19:11)
[2017-07-18] MEDS: ARFORMOTEROL TART 15MCG/2ML VIAL INH SCH ×2 (07:07→19:11)
[2017-07-18] MEDS: FLUTICASONE PROPIONATE NA SPR 16 GM BTL NAE SCH (08:12)
[2017-07-18] MEDS: DILTIAZEM HCL 180 MG ER CAP PO SCH (08:12)
[2017-07-18] MEDS: INSULIN GLARGINE SOLOSTAR 100 UNITS/ML 3 ML PEN SC SCH (08:19)
[2017-07-18] MEDS: SODIUM CHLORIDE 0.9% 1000ML 1,000 ML IV SCH (08:23)
[2017-07-18] MEDS: OXYCODONE/ACETAMINOPHEN 5-325 TAB PO PRN ×2 (08:25→18:13)
[2017-07-18] MEDS: ACETAMINOPHEN IV 100 ML IV SCH ×2 (10:21→16:55)
--- NOTE | 2017-07-18 10:36 | Surgery Progress Note ---
Surgery Progress Note Date of Service Jul 18, 2017. Subjective Post OP Day: 3 no bm yet.+ flatus. pain improved on current regiment. no new complaints. Objective Vital Signs: Date Time Temp Pulse Resp B/P (MAP) Pulse Ox O2 Delivery O2 Flow Rate FiO2 07/18/17 08:07 36.6 92 18 156/91 (112) 95 Room Air 07/18/17 08:00 Nasal Cannula 2.0 07/18/17 07:08 88 20 96 Nasal Cannula 2.0 07/18/17 06:03 102 22 96 Nasal Cannula 2.0 07/18/17 04:00 96 Nasal Cannula 2.0 07/18/17 03:32 36.4 88 18 150/89 (109) 93 Nasal Cannula 2.0 07/17/17 23:59 96 Nasal Cannula 2.0 07/17/17 23:48 36.9 91 18 159/88 (111) 95 Nasal Cannula 2.0 07/17/17 20:00 96 Nasal Cannula 2.0 07/17/17 19:58 36.6 91 16 148/81 (103) 95 Nasal Cannula 2.0 07/17/17 18:58 89 20 96 Nasal Cannula 2.0 07/17/17 16:05 36.8 99 20 154/83 (106) 94 Nasal Cannula 2.0 07/17/17 16:00 Nasal Cannula 2.0 07/17/17 14:22 110 20 89 Room Air 07/17/17 12:00 Nasal Cannula 2.0 07/17/17 11:55 37.0 101 18 152/75 (100) 95 Nasal Cannula 2.0 07/17/17 11:26 102 20 94 Nasal Cannula 2.0 General Appearance: no apparent distress Abdomen: soft, + distended Incision(s): clean, dry, intact Laboratory Results: Results Past 24 Hours Test 07/17/17 11:08 07/17/17 16:09 07/17/17 20:02 07/17/17 23:28 Range/Units Bedside Glucose 223 293 307 193 70-99 mg/dl Test 07/18/17 00:22 07/18/17 04:11 07/18/17 05:42 07/18/17 05:43 Range/Units Bedside Glucose 153 142 70-99 mg/dl Sodium Level 138 136-145 mmol/L Potassium Level 4.8 3.5-5.1 mmol/L Chloride Level 108 98-107 mmol/L Carbon Dioxide Level 22 21-32 mmol/L Anion Gap 8.0 3-11 mmol/L Blood Urea Nitrogen 35 7-18 mg/dl Creatinine 1.16 0.60-1.40 mg/dl Est Creatinine Clear Calc Drug Dose 75.5 ml/min Estimated GFR () 77.8 Estimated GFR (Non- 67.1 BUN/Creatinine Ratio 30.2 10-20 Random Glucose 190 70-99 mg/dl Calcium Level 7.6 8.5-10.1 mg/dl Magnesium Level 3.1 1.8-2.4 mg/dl White Blood Count 7.87 4.8-10.8 K/uL Red Blood Count 4.14 4.7-6.1 M/uL Hemoglobin 11.2 14.0-18.0 g/dL Hematocrit 34.8 42-52 % Mean Corpuscular Volume 84.1 80-100 fL Mean Corpuscular Hemoglobin 27.1 25-34 pg Mean Corpuscular Hemoglobin Concent 32.2 32-36 g/dl Platelet Count 264 130-400 K/uL Mean Platelet Volume 9.0 7.4-10.4 fL Neutrophils (%) (Auto) 88.1 % Lymphocytes (%) (Auto) 6.7 % Monocytes (%) (Auto) 5.1 % Eosinophils (%) (Auto) 0.0 % Basophils (%) (Auto) 0.0 % Neutrophils # (Auto) 6.93 1.4-6.5 K/uL Lymphocytes # (Auto) 0.53 1.2-3.4 K/uL Monocytes # (Auto) 0.40 0.11-0.59 K/uL Eosinophils # (Auto) 0.00 0-0.5 K/uL Basophils # (Auto) 0.00 0-0.2 K/uL RDW Standard Deviation 48.5 36.4-46.3 fL RDW Coefficient of Variation 15.8 11.5-14.5 % Immature Granulocyte % (Auto) 0.1 % Immature Granulocyte # (Auto) 0.01 0.00-0.02 K/uL Test 07/18/17 08:17 Range/Units Bedside Glucose 194 70-99 mg/dl Assessment & Plan 07/18/17 POD 3. no acute surgical issues. awaiting bowel fx. keep on clears for now increase activity 07/17/17 POD 2 right hemicolectomy will d/c morphine ( headaches) and try dilaudid instead of percocet to hopefully control pain better with less nausea wbc and renal fx improved today. will d/c huynh awaiting bowel fx. keep essentially npo until nausea improves increase activity POD 2 right hemicolectomy will d/c morphine ( headaches) and try dilaudid instead of percocet to hopefully control pain better with less nausea wbc and renal fx improved today. will d/c huynh awaiting bowel fx. keep essentially npo until nausea improves increase activity
--- NOTE | 2017-07-18 10:43 | Pharmacy Progress Note ---
Glycemic Control Progress Note Date of Service Jul 18, 2017. Scope Glycemic Pharmacist consulted for glycemic control to write orders per [facility] inpatient glycemic control protocol. Objective Accuchecks BSG (last 24hrs): Test 07/17/17 11:08 07/17/17 16:09 07/17/17 20:02 07/17/17 23:28 Bedside Glucose 223 mg/dl (70-99) 293 mg/dl (70-99) 307 mg/dl (70-99) 193 mg/dl (70-99) Test 07/18/17 00:22 07/18/17 04:11 07/18/17 05:42 07/18/17 08:17 Bedside Glucose 153 mg/dl (70-99) 142 mg/dl (70-99) 194 mg/dl (70-99) Random Glucose 190 mg/dl (70-99) HbA1c: Test 07/16/17 06:38 Hemoglobin A1c 6.6 % (4.5-5.6) H Recent Pertinent Medications Outpatient Anti-diabetic Regimen: * Lantus 35 units SC AMPM * Novolog TIDM * Note: also on prednisone 10 mg po daily Risk Factors for Insulin Resistance: * Steroids: Methylprednisolone 10 mg IV q12h tapered to home dose of prednisone 10 mg po daily * Recent Surgery: POD 3 s/p cecal mass resection * Diet: NPO changed to T1DM/full liquid diet Outpatient Anti-Diabetic Meds Basal Insulin Bolus Insulin Assessment & Plan ASSESSMENT: 07/17/17 * BSG's decreased, insulin drip was stopped yesterday afternoon. Since then, BSG's have ranged 90-130 mg/dL * Would normally only decrease Lantus dose to 80% of home dose for NPO status and lower BSG's for type 1 diabetes, however, this patient likely has mixed type 1/type 2 diabetes. Therefore OK to continue to 40-50% of home dose Lantus for now, until see rise in BSG's. IF BSG's rise significantly, will likely need to provide additional Lantus at that time * Update: BSG increased to 223 mg/dL @ 1200 - will give another dose of Lantus * Will also decrease goal range on Novolog so patient is provided correctional insulin if/when BSG's exceed 150 mg/dL 07/18/16 * Steroids tapered to home dose and patient now ordered a diet * BSG's have been elevated while NPO - OK to increase Lantus to home dose * No carb coverage has been admin - will start with a tighter CHO ratio as patient on steroids and BSG's have been inadequately controlled even without po intake * Correction administered overnight with adequate decrease in BSG's - will continue as-is * Switch Novolog from q4h to ACHS 2nd diet ordered - will also add one overnight check PLAN FOR INPATIENT GLYCEMIC CONTROL: * Basal insulin with Lantus BID * BSG less than 120 mg/dL: 25 units * BSG 120-180 mg/dL: 35 units * BSG greater than 180 mg/dL: 40 units * Novolog ACHS and one overnight check * Goal range: 120-150 mg/dL * Correction factor: 20 mg/dL/unit * Carbohydrate ratio: 1 unit per 6 g CHO consumed * Please note that the plan above was derived based on current level of insulin resistance and hospital stress. These recommendations are appropriate for inpatient admission only. Plan of care upon discharge will need to be reassessed to avoid potential outpatient hypo/hyperglycemia. Thank you.
--- NOTE | 2017-07-18 10:46 | SURGERY PROGRESS NOTE ---
DATE: 07/18/2017 Alexander is third postoperative day status post a right colon resection. He states he is passing some flatus. He is sitting at the side of the bed and drinking some carbonated fluids. His abdomen is fairly distended, but it normally is. The midline incision is intact. I did remove the subcutaneous drain, a Nya. His last vitals showed a temperature of 36.6, pulse 92, respirations 18, blood pressure 156/91, and O2 sats 95% on 2 liters. I&O, he had 1175 urine overnight. Laboratory becerril, BUN is 35, creatinine 1.16 and potassium 4.8. The hemoglobin was about 11.2. No significant white count, though he has a slightly left shift. At this point, we will advance him to clear liquids. He was probably like to try something more than that. Cut down his IV. Leave him up to the medical service when they feel he could be discharged or transferred to a regular floor. [place]
--- NOTE | 2017-07-18 15:03 | Progress Note ---
Subjective Date of Service: Jul 18, 2017. Subjective Pt evaluation today including: conversation w/ patient, conversation w/ family , physical exam, chart review, lab review, review of studies, review of inpatient medication list Out of bed to chair, cough and wheezing, wheezing getting worse when having movement, for abdominal pain from the abdominal incision, primary team is giving him some diet already patient passing gas no bowel movement Problem List Medical Problems: (1) Hypokalemia Status: Acute (2) Oxygen dependent Status: Acute (3) Respiratory failure Status: Acute (4) Right flank pain Status: Acute Review of Systems Constitutional: + weakness, + fatigue, No fever, No chills, No sweats, No weight loss, No problem reported Eyes: No worsening of vision, No eye pain, No redness, No discharge, No diplopia ENT: No hearing loss, No unusual epistaxis, No nasal symptoms, No sore throat, No tinnitus, No dental problems, No trouble swallowing Respiratory: + cough, + shortness of breath, + dyspnea on exertion, No sputum, No wheezing, No dyspnea at rest, No hemoptysis Cardiac: No chest pain, No orthopnea, No PND, No edema, No claudication, No palpitations Abdomen: + pain, No nausea, No vomiting, No diarrhea, No constipation Musculoskeletal: No joint pain, No muscle pain, No swelling, No calf pain Male : No dysuria, No urinary frequency, No incontinence, No nocturia more than once/night, No slowing stream, No hematuria Neurologic: No memory loss, No paralysis, No weakness, No numbness/tingling, No vertigo, No balance problems Psychiatric: No depression symptoms, No anhedonism, No anxiety, No insomnia, No substance abuse Heme: No abnormal bleeding/bruising, No clotting problems, No swollen lymph nodes, No night sweats Endo: No fatigue, No excessive thirst, No excessive urination Skin: No rash, No itch, No new/changing skin lesions, No color change, No bleeding Objective Vital Signs Date Time Temp Pulse Resp B/P (MAP) Pulse Ox O2 Delivery O2 Flow Rate FiO2 07/18/17 13:13 87 07/18/17 12:01 36.6 97 18 138/76 (96) 95 Nasal Cannula 07/18/17 11:40 Nasal Cannula 2.0 07/18/17 11:21 82 20 95 Nasal Cannula 2.0 07/18/17 08:07 36.6 92 18 156/91 (112) 95 Room Air 07/18/17 08:00 Nasal Cannula 2.0 07/18/17 07:08 88 20 96 Nasal Cannula 2.0 07/18/17 06:03 102 22 96 Nasal Cannula 2.0 07/18/17 04:00 96 Nasal Cannula 2.0 07/18/17 03:32 36.4 88 18 150/89 (109) 93 Nasal Cannula 2.0 07/17/17 23:59 96 Nasal Cannula 2.0 07/17/17 23:48 36.9 91 18 159/88 (111) 95 Nasal Cannula 2.0 07/17/17 20:00 96 Nasal Cannula 2.0 07/17/17 19:58 36.6 91 16 148/81 (103) 95 Nasal Cannula 2.0 07/17/17 18:58 89 20 96 Nasal Cannula 2.0 07/17/17 16:05 36.8 99 20 154/83 (106) 94 Nasal Cannula 2.0 07/17/17 16:00 Nasal Cannula 2.0 Physical Exam General Appearance: WD/WN, no apparent distress, + pertinent finding (On nasal cannula, speak full sentences) Eyes: normal inspection, PERRL, EOMI, sclerae normal ENT: normal ENT inspection, hearing grossly normal, pharynx normal Neck: supple, no adenopathy, thyroid normal, no JVD, no carotid bruits, trachea midline Respiratory/Chest: chest non-tender, normal breath sounds, no respiratory distress, no accessory muscle use, + decreased breath sounds, + wheezing ( Occasional) Cardiovascular: regular rate, rhythm, no edema, no gallop, no JVD, no murmur, + pertinent finding (1+ edema) Abdomen: normal bowel sounds, non tender, soft, no organomegaly, no pulsatile mass Extremities: normal range of motion, non-tender, normal inspection, no pedal edema, no calf tenderness, normal capillary refill, pelvis stable 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, no motor/sensory deficits, alert, normal mood/affect, oriented x 3 Skin: normal color, warm/dry, no rash Lymphatic: no adenopathy Laboratory Results Last 24 Hours Test 07/17/17 16:09 07/17/17 20:02 07/17/17 23:28 07/18/17 00:22 Bedside Glucose 293 mg/dl 307 mg/dl 193 mg/dl 153 mg/dl Test 07/18/17 04:11 07/18/17 05:42 07/18/17 05:43 07/18/17 08:17 Bedside Glucose 142 mg/dl 194 mg/dl Sodium Level 138 mmol/L Potassium Level 4.8 mmol/L Chloride Level 108 mmol/L Carbon Dioxide Level 22 mmol/L Anion Gap 8.0 mmol/L Blood Urea Nitrogen 35 mg/dl Creatinine 1.16 mg/dl Est Creatinine Clear Calc Drug Dose 75.5 ml/min Estimated GFR () 77.8 Estimated GFR (Non- 67.1 BUN/Creatinine Ratio 30.2 Random Glucose 190 mg/dl Calcium Level 7.6 mg/dl Magnesium Level 3.1 mg/dl White Blood Count 7.87 K/uL Red Blood Count 4.14 M/uL Hemoglobin 11.2 g/dL Hematocrit 34.8 % Mean Corpuscular Volume 84.1 fL Mean Corpuscular Hemoglobin 27.1 pg Mean Corpuscular Hemoglobin Concent 32.2 g/dl Platelet Count 264 K/uL Mean Platelet Volume 9.0 fL Neutrophils (%) (Auto) 88.1 % Lymphocytes (%) (Auto) 6.7 % Monocytes (%) (Auto) 5.1 % Eosinophils (%) (Auto) 0.0 % Basophils (%) (Auto) 0.0 % Neutrophils # (Auto) 6.93 K/uL Lymphocytes # (Auto) 0.53 K/uL Monocytes # (Auto) 0.40 K/uL Eosinophils # (Auto) 0.00 K/uL Basophils # (Auto) 0.00 K/uL RDW Standard Deviation 48.5 fL RDW Coefficient of Variation 15.8 % Immature Granulocyte % (Auto) 0.1 % Immature Granulocyte # (Auto) 0.01 K/uL Test 07/18/17 12:42 Bedside Glucose 212 mg/dl Assessment and Plan 62 y/o male s/p right colon resection with Dr. Alexander on 07/15, hospitalist consulted for medical management. S/p right colon resection--POD #3, this will be management by primary team, for discharge plan, PT OT, DVT prophylaxis will be per primary team to DM I w/hyperglycemia 2 days ago, may have mild DKA ; stable improved, A1c 6.6, has been off insulin drip for today, currently is getting subcu insulin such as Lantus with insulin sliding scale YOLETTE with creatinine 2.21 on 07/16, there is improving to 1.27, today's 1.16, which is significantly improving, it is resolving HTN, HLD: Stable continue current care Diastolic dysfunction, stable no sign of decompensation COPD/eosinophilic asthma, Chronic respiratory failure with hypoxia, patient reported he needed at nighttime NC O2, stable continue his NC O2, nebulizer treatment if needed Anxiety: history of anxiety, and GERD: Stable continue current medication encourage deep breathing and incentive spirometry, increase activity, PT OT, discussed with patient and family answered all questions Continued [facility] stay due to: multiple IV medications needed, home environment unsafe for pt Discharge planning: uncertain
[2017-07-18] MEDS: DEXTROSE 50% 50 ML SYR IV PRN (16:54)
[2017-07-18] MEDS ORDERED: RANITIDINE HCL 150 MG TAB PO ONE (20:15)
[2017-07-18] MEDS: HYDROmorphone INJ 0.5 MG/0.5 ML SYR IV PRN (20:49)
[2017-07-18] MEDS ORDERED: INSULIN GLARGINE SOLOSTAR 100 UNITS/ML 3 ML PEN SC ONE (21:30)
[2017-07-19] VITALS (16 sets, daily range): BP systolic 113–158; BP diastolic 69–87; PULSE 81–108; TEMP 36.7–37.2; O2SAT 91–97
[2017-07-19] MEDS: HYDROmorphone INJ 1 MG/ML SYR IV PRN ×2 (00:07→03:15)
[2017-07-19] MEDS ORDERED: INSULIN ASPART 100 UNITS/ML 3 ML PEN SC ONE (02:00)
[2017-07-19] MEDS: ACETAMINOPHEN IV 100 ML IV SCH (02:00)
[2017-07-19] MEDS: ALBUTEROL 0.083% NEBU SOLN 3 ML VIAL INH PRN ×2 (04:36→17:45)
[2017-07-19] MEDS: ONDANSETRON INJ 2 MG/ML 2 ML VIAL IV PRN ×2 (05:47→17:31)
[2017-07-19] MEDS: HEPARIN SOD 5000 UNIT/0.5 ML CARP SQ SCH ×3 (05:48→21:35)
[2017-07-19 06:42] LABS: CALCIUM 8.2 mg/dl (8.5-10.1); CREATININE 0.97 mg/dl (0.60-1.40); POTASSIUM 3.7 mmol/L (3.5-5.1)
[2017-07-19] MEDS: INSULIN ASPART 100 UNITS/ML 3 ML PEN SC SCH ×4 (07:00→21:00)
[2017-07-19] MEDS: ALBUT/IPRATROP 3MG/0.5MG NEB 3 ML VIAL INH SCH ×5 (07:03→20:00)
[2017-07-19] MEDS: BUDESONIDE 0.5 MG/2 ML VIAL (PULMICORT) INH SCH ×2 (07:03→20:16)
[2017-07-19] MEDS: ARFORMOTEROL TART 15MCG/2ML VIAL INH SCH ×2 (07:03→20:17)
[2017-07-19] MEDS ORDERED: FUROSEMIDE 20 MG TAB PO PRN (07:30)
[2017-07-19] MEDS ORDERED: TRAZODONE HCL 50 MG TAB PO PRN (07:30)
[2017-07-19] MEDS ORDERED: LORAZEPAM 0.5 MG TAB PO PRN (07:30)
[2017-07-19] MEDS: DILTIAZEM HCL 180 MG ER CAP PO SCH (07:43)
[2017-07-19] MEDS: FLUTICASONE PROPIONATE NA SPR 16 GM BTL NAE SCH (07:44)
[2017-07-19] MEDS ORDERED: BISACODYL 10 MG SUPP PR ONE (07:45)
[2017-07-19] MEDS ORDERED: FUROSEMIDE INJ 40 MG in SYRINGE 0 ML IV SCH (07:45)
[2017-07-19] MEDS: INSULIN GLARGINE SOLOSTAR 100 UNITS/ML 3 ML PEN SC SCH ×2 (07:47→21:00)
[2017-07-19] MEDS: SPIRONOLACTONE 25 MG TAB PO SCH (08:20)
[2017-07-19] MEDS: ESCITALOPRAM OXALATE 10 MG TAB PO SCH (08:21)
[2017-07-19] MEDS: POTASSIUM CHLORIDE 20 MEQ TABCR PO SCH ×3 (08:21→21:35)
[2017-07-19] MEDS: LISINOPRIL/HCTZ 20/25MG TAB PO SCH (08:21)
[2017-07-19] MEDS ORDERED: ZAFIRLUKAST TAB 20 MG TAB PO SCH (09:00)
--- NOTE | 2017-07-19 09:04 | SURGERY PROGRESS NOTE ---
DATE: 07/19/2017 Alexander is fourth postoperative day status post right colon resection. His is at his bedside. Alexander is very hard to rate as far as his pain control. He goes in and out. He has abdominal pain, but he can barely keep his eyes open. He states he has been passing flatus but he has not had a bowel movement. He has had some nausea. His last vitals showed a temperature of 36.8, a pulse of 83, respirations 16, blood pressure 149/87, O2 sats 96 on 2 liters. I&O at 1825 yesterday, 550 overnight. Clinically, the patient as stated is sleepy, but sitting in the side of a chair, easily awakened by verbal response. He does have some edema of his hands and his feet. His abdomen is hard to evaluate. It is distended as it usually is, but is nontender. He appears to be tolerating some liquids. He drink a lot of bicarbonate fluids, so I asked him to cut down on that. At this point, we will give him a small suppository, encouraged him to get weaned off the analgesics, restart him on his home meds. Transfer to the regular floor when okay with the medical service. His laboratory this morning, his blood sugar was 89.
[2017-07-19] MEDS: OXYCODONE/ACETAMINOPHEN 5-325 TAB PO PRN ×3 (09:07→20:39)
--- NOTE | 2017-07-19 09:50 | Pharmacy Progress Note ---
Pharmacy Glycemic Short Note 2 Date of Service Jul 19, 2017. OUTPATIENT ANTIDIABETIC REGIMEN: * Lantus 35 units SC BID * Novolog TIDM * Note: also on prednisone 10 mg po daily ASSESSMENT: 07/19/17 * Mr. Barron received 61 unit of insulin yesterday with BSGs ranging from 64- 212 mg/dL in the past 24 hours * His BSGs started to go low around dinner yesterday, and have remained on the lower side through this AM * PM Lantus was cut in half by pharmacist on overnight * Since he is still in the 70s-80s this AM, will continue with a reduced basal dose * He remains on his outpatient prednisone dose, but po intake is minimal * Est TDD ~60 units so basal will be reduced to 15 units BID and CF/CR will be loosened as well 07/18/17 * Steroids tapered to home dose and patient now ordered a diet * BSG's have been elevated while NPO - OK to increase Lantus to home dose * No carb coverage has been admin - will start with a tighter CHO ratio as patient on steroids and BSG's have been inadequately controlled even without po intake * Correction administered overnight with adequate decrease in BSG's - will continue as-is * Switch Novolog from q4h to ACHS 2nd diet ordered - will also add one overnight check PLAN FOR INPATIENT GLYCEMIC CONTROL: * Basal insulin - decrease * Lantus 15 units SQ BID for BSG less than 140 * Lantus 20 units SQ BID for BSG 140 or above * Bolus insulin * NovoLog per scale ACHS or Q6hrs while NPO * Goal Range: Low 120 mg/dL - High 150 mg/dL * LOOSEN Correction Factor: 25 mg/dL/unit * LOOSEN Nutritional / Prandial insulin per carb ratio of 1 unit per 8 grams CHO consumed PLAN FOR DISCHARGE: * A1c indicates excellent outpatient control * Should be able to resume outpatient regimen upon discharge, unless po intake significantly decreased as it is now * Please contact pharmacy for recommendations if that is the case
[2017-07-19] MEDS ORDERED: METOCLOPRAMIDE HCL INJ 5 MG/ML 2 ML VIAL ONE (10:38)
[2017-07-19] MEDS ORDERED: METOCLOPRAMIDE HCL INJ 5 MG/ML 2 ML VIAL IV. STA (10:49)
[2017-07-19] MEDS: FUROSEMIDE INJ 40 MG in SYRINGE 0 ML IV SCH (14:04)
--- NOTE | 2017-07-19 14:37 | Progress Note ---
Subjective Date of Service: Jul 19, 2017. Subjective Pt evaluation today including: conversation w/ patient, conversation w/ family , physical exam, lab review, conversation w/ advanced manufacturing consultant, review of inpatient medication list Pain: moderate, 5 out of 10 PO Intake: poor, clears today Voiding: no voiding problems patient concerned this AM about weight gain, edema in hands and legs reviewed I/O's, + 9 liters for admission gave Lasix 40mg IV and responded quickly says he has pain and nausea, reports that his incision hurts, but also internal pain difficulty sleeping reviewed labs, Cr normal at 0.97, Hb stable at 11 discussed with surgeon, Dr. Alexander Problem List Medical Problems: (1) Hypokalemia Status: Acute (2) Oxygen dependent Status: Acute (3) Respiratory failure Status: Acute (4) Right flank pain Status: Acute Review of Systems Constitutional: + weakness, + fatigue Respiratory: + cough, + wheezing, + dyspnea on exertion Cardiac: + edema Abdomen: + pain, + nausea All Other Systems: Reviewed and Negative Medications Current Inpatient Medications Medications (Trade) Dose Ordered Sig/Dianne Route Start Time Stop Time Status Last Admin Dose Admin Oxycodone/ Acetaminophen (Percocet 5-325mg Tab) 1 tab Q4H PRN PO 07/15/17 14:45 07/29/17 14:44 07/19/17 09:07 1 TAB Oxycodone/ Acetaminophen (Percocet 5-325mg Tab) 2 tab Q4H PRN PO 07/15/17 14:45 07/29/17 14:44 07/18/17 08:25 2 TAB Ondansetron HCl (Zofran Inj) 4 mg Q6H PRN IV 07/15/17 14:45 08/14/17 14:44 07/19/17 05:47 4 MG Heparin Sodium (Porcine) (Heparin Sq 5000 Unit/0.5ml) 5,000 unit Q8 SQ 07/16/17 06:00 08/15/17 05:59 07/19/17 13:57 5,000 UNIT Arformoterol Tartrate (Brovana 15MCG/ 2ML Neb Soln) 15 mcg BIDR INH 07/16/17 08:00 08/15/17 07:59 07/19/17 07:03 15 MCG Budesonide (Pulmicort Respules 0.5MG/ 2ML Neb Soln) 1 mg BIDR INH 07/16/17 08:00 08/15/17 07:59 07/19/17 07:03 1 MG Fluticasone Propionate (Flonase Nasal Webb) 2 sprays QAM ANNA 07/16/17 09:00 08/15/17 08:59 07/19/17 07:44 2 SPRAYS Lorazepam (Ativan Inj) 0.5 mg Q4H PRN IV 07/15/17 21:00 08/14/17 20:59 07/18/17 01:38 0.5 MG Glucose (Glucose 40% Gel) 15-30 GRAMS 15 GRAMS... UD PRN PO 07/15/17 21:45 08/14/17 21:44 Glucose (Glucose Chew Tab) 4-8 Tablets 4 Tabl... UD PRN PO 07/15/17 21:45 08/14/17 21:44 Dextrose (Dextrose 50% 50ML Syringe) 25-50ML OF 50% DW IV FOR... UD PRN IV 07/15/17 21:45 08/14/17 21:44 07/18/17 16:54 25 ML Glucagon (Glucagon Inj) 1 mg UD PRN SQ 07/15/17 21:45 08/14/17 21:44 Miscellaneous Information (Consult Glycemic Management Pharmacy) 1 ea UD PRN N/A 07/16/17 06:55 08/15/17 06:54 Insulin Glargine (Lantus Solostar Pen) BID SC 07/16/17 21:00 08/15/17 20:59 Future hold 07/19/17 07:47 15 UNITS Albuterol/ Ipratropium (Duoneb) 3 ml QIDR INH 07/16/17 12:00 08/15/17 11:59 07/19/17 14:09 3 ML Diltiazem HCl (Dilacor Xr Cap) 180 mg QAM PO 07/17/17 09:00 08/16/17 08:59 07/19/17 07:43 180 MG Hydromorphone HCl (Dilaudid Inj) 0.5 mg Q3H PRN IV 07/17/17 09:45 07/31/17 09:44 07/18/17 20:49 0.5 MG Insulin Aspart (novoLOG ASPART) SLIDING SCALE ACHS SC 07/18/17 11:00 08/17/17 10:59 07/19/17 11:49 10 UNITS Prednisone (PredniSONE TAB) 10 mg QAM PO 07/18/17 11:00 08/17/17 10:59 07/19/17 07:43 10 MG Escitalopram Oxalate (Lexapro Tab) 10 mg QAM PO 07/19/17 09:00 08/18/17 08:59 07/19/17 08:21 10 MG HCTZ/Lisinopril (Prinzide 20-25MG Tab) 1 tab QAM PO 07/19/17 09:00 08/18/17 08:59 07/19/17 08:21 1 TAB Lorazepam (Ativan Tab) 0.5 mg DAILY PRN PO 07/19/17 07:30 08/18/17 07:29 Potassium Chloride (Klor-Con Tab) 20 meq TID PO 07/19/17 09:00 08/18/17 08:59 07/19/17 13:58 20 MEQ Simvastatin (Zocor Tab) 10 mg QPM PO 07/19/17 21:00 08/18/17 20:59 Spironolactone (Aldactone Tab) 25 mg QAM PO 07/19/17 09:00 08/18/17 08:59 07/19/17 08:20 25 MG Trazodone HCl (Desyrel Tab) 50 mg HS PRN PO 07/19/17 07:30 08/18/17 07:29 Furosemide 40 mg/ Syringe 4 ml @ 4 mls/min [id number] IV 07/19/17 14:00 08/18/17 13:59 07/19/17 14:04 4 MLS/MIN Miscellaneous Information (Order Awaiting Action) 1 ea QS N/A 07/19/17 08:00 08/18/17 07:59 Albuterol Sulfate (Ventolin 0.083% 2.5MG/3ML Neb) 2.5 mg Q2H PRN INH 07/19/17 10:30 08/14/17 20:59 Promethazine HCl 12.5 mg/Sodium Chloride 50.5 ml @ 204 mls/hr Q6H PRN IV 07/19/17 10:30 08/18/17 10:29 Objective Vital Signs Date Time Temp Pulse Resp B/P (MAP) Pulse Ox O2 Delivery O2 Flow Rate FiO2 07/19/17 14:11 105 20 97 Room Air 07/19/17 12:16 94 18 132/71 (91) 92 Nasal Cannula 07/19/17 12:00 96 Room Air 07/19/17 11:15 99 18 94 Room Air 07/19/17 08:50 103 18 92 Room Air 07/19/17 08:06 36.7 96 18 158/81 (106) 96 Nasal Cannula 07/19/17 08:00 96 Room Air 07/19/17 07:03 83 16 96 Room Air 2.0 07/19/17 04:36 83 16 91 Room Air 2.0 07/19/17 04:03 36.8 81 16 149/87 (107) 91 Nasal Cannula 1.5 07/19/17 04:00 Nasal Cannula 2.0 07/18/17 23:59 Nasal Cannula 2.0 07/18/17 23:39 36.6 88 22 147/79 (101) 96 Nasal Cannula 1.5 07/18/17 20:03 36.6 84 20 138/72 (94) 97 Nasal Cannula 2.0 07/18/17 20:00 Nasal Cannula 2.0 07/18/17 19:12 84 18 89 Room Air 07/18/17 16:30 Nasal Cannula 2.0 07/18/17 15:32 36.6 109 16 143/84 (103) 96 Nasal Cannula 07/18/17 15:21 85 20 98 Nasal Cannula 4.0 Physical Exam General Appearance: WD/WN, no apparent distress Eyes: normal inspection, EOMI, sclerae normal ENT: normal ENT inspection, hearing grossly normal, pharynx normal Neck: supple, no adenopathy, no JVD, trachea midline Respiratory/Chest: chest non-tender, lungs clear, normal breath sounds, no respiratory distress, no accessory muscle use Cardiovascular: regular rate, rhythm, no gallop, no JVD, no murmur Abdomen: + abnormal bowel sounds, + distended, + tenderness (incisional) Extremities: normal range of motion, non-tender, normal inspection, no calf tenderness, pelvis stable, + pedal edema (2+ pitting bilaterally) Neurologic/Psychiatric: software support technician II-XII nml as tested, no motor/sensory deficits, alert, normal mood/affect, oriented x 3 Skin: normal color, warm/dry, no rash Laboratory Results Last 24 Hours Test 07/18/17 16:21 07/18/17 16:38 07/18/17 17:10 07/18/17 21:05 Bedside Glucose 64 mg/dl 64 mg/dl 120 mg/dl 87 mg/dl Test 07/18/17 22:53 07/19/17 02:03 07/19/17 03:02 07/19/17 05:40 Bedside Glucose 80 mg/dl 88 mg/dl 85 mg/dl 89 mg/dl Test 07/19/17 05:53 07/19/17 06:50 07/19/17 11:44 Sodium Level 141 mmol/L Potassium Level 3.7 mmol/L Chloride Level 106 mmol/L Carbon Dioxide Level 26 mmol/L Anion Gap 9.0 mmol/L Blood Urea Nitrogen 26 mg/dl Creatinine 0.97 mg/dl Est Creatinine Clear Calc Drug Dose 88.7 ml/min Estimated GFR () 96.6 Estimated GFR (Non- 83.3 BUN/Creatinine Ratio 27.0 Random Glucose 74 mg/dl Calcium Level 8.2 mg/dl Magnesium Level 3.1 mg/dl Bedside Glucose 82 mg/dl 255 mg/dl Assessment and Plan 62 y/o male s/p right colon resection with Dr. Alexander on 07/15, hospitalist consulted for medical management. S/p right colon resection--POD #4 poor diet, pain is moderate, still awaiting bowel function management per Dr. Alexander Acute on chronic diastolic HF: likely combination of IV fluids and holding diuretics with surgery will give Lasix 40mg IV BID, follow output, follow Cr YOLETTE: resolved, Cr up to 2.2 on 07/16, today it is 0.97, excellent response to Lasix will follow Cr daily Asthma/COPD: follows with [facility] uses Duoneb quite often at home, every 1-2 hours as needed he says this is what his aquatics manager wants him doing increase frequency to q2 PRN Anxiety: Ativan ordered PRN Continued [facility] stay due to: multiple IV medications needed, home environment unsafe for pt Discharge planning: uncertain
[2017-07-19] MEDS ORDERED: SIMVASTATIN 10 MG TAB PO SCH (21:00)
[2017-07-19] MEDS: PROMETHAZINE HCL INJ 12.5 MG in SODIUM CHLORIDE 0.9% 50ML 50 ML IV PRN (21:02)
[2017-07-20] VITALS (14 sets, daily range): BP systolic 89–148; BP diastolic 57–80; PULSE 98–119; TEMP 36.3–37.2; O2SAT 95–99; BMI 31.0
[2017-07-20] MEDS: OXYCODONE/ACETAMINOPHEN 5-325 TAB PO PRN (01:09)
[2017-07-20] MEDS: ONDANSETRON INJ 2 MG/ML 2 ML VIAL IV PRN (01:14)
[2017-07-20] MEDS ORDERED: LORAZEPAM INJ 0.5 MG in SYRINGE 0.75 ML IV PRN (03:15)
[2017-07-20] MEDS: ALBUT/IPRATROP 3MG/0.5MG NEB 3 ML VIAL INH SCH ×5 (03:18→14:59)
[2017-07-20] MEDS: PROMETHAZINE HCL INJ 12.5 MG in SODIUM CHLORIDE 0.9% 50ML 50 ML IV PRN (04:18)
[2017-07-20] MEDS: ALBUTEROL 0.083% NEBU SOLN 3 ML VIAL INH PRN (05:14)
[2017-07-20] MEDS ORDERED: RANITIDINE HCL 150 MG TAB PO ONE (05:30)
[2017-07-20] MEDS: HEPARIN SOD 5000 UNIT/0.5 ML CARP SQ SCH ×3 (05:31→21:38)
[2017-07-20] MEDS ORDERED: INSULIN ASPART 100 UNITS/ML 3 ML PEN SC STA (05:38)
[2017-07-20] MEDS ORDERED: INSULIN HUMAN REGULAR PER UNIT 4 UNITS in SYRINGE 3.96 ML IV SCH (05:45)
[2017-07-20] MEDS: FUROSEMIDE INJ 40 MG in SYRINGE 0 ML IV SCH (07:06)
[2017-07-20] MEDS: ARFORMOTEROL TART 15MCG/2ML VIAL INH SCH ×2 (07:16→19:24)
[2017-07-20] MEDS: BUDESONIDE 0.5 MG/2 ML VIAL (PULMICORT) INH SCH ×2 (07:16→19:24)
--- NOTE | 2017-07-20 07:40 | Surgery Progress Note ---
Surgery Progress Note Date of Service Jul 20, 2017. Subjective Post OP Day: 5 + bowel movement, + flatus, + nausea, + diet (fulls) Objective Vital Signs: Date Time Temp Pulse Resp B/P (MAP) Pulse Ox O2 Delivery O2 Flow Rate FiO2 07/20/17 07:19 101 20 97 Mask 5.0 07/20/17 05:14 98 24 96 Mask 5.0 07/20/17 03:18 104 24 96 Mask 5.0 07/19/17 23:40 Oxymask 2.0 07/19/17 22:48 37.2 83 16 129/74 (92) 96 Oxymask 2.0 07/19/17 20:17 104 24 96 Mask 2.0 07/19/17 18:30 Oxymask 2.0 07/19/17 18:25 37.0 91 18 113/69 (84) 96 Oxymask 2.0 07/19/17 17:45 108 20 96 Room Air 07/19/17 17:30 36.7 108 20 96 2.0 07/19/17 16:00 97 Room Air 07/19/17 15:26 36.7 93 22 120/74 (89) 97 Nasal Cannula 2.0 07/19/17 14:11 105 20 97 Mask 2.0 07/19/17 12:16 94 18 132/71 (91) 92 Nasal Cannula 07/19/17 12:00 96 Room Air 07/19/17 11:15 99 18 94 Room Air 07/19/17 08:50 103 18 92 Room Air 07/19/17 08:06 36.7 96 18 158/81 (106) 96 Nasal Cannula 07/19/17 08:00 96 Room Air Physical Exam: urine output (not recorded) Abdomen: soft, + distended Extremities: + pedal edema (trace left) Laboratory Results: Results Past 24 Hours Test 07/19/17 11:44 07/19/17 16:22 07/19/17 21:13 07/20/17 05:23 Range/Units Bedside Glucose 255 278 107 367 70-99 mg/dl Microbiology Results 07/20/17 C.difficile Toxin B Gene (PCR), Ordered Pending Assessment & Plan s/p right colectomy COPD, h/o CHF bowel function returning but has nausea, doesn't feel ready to advance diet will review with Dr. Alexander, consider XR
[2017-07-20] MEDS ORDERED: ROCURONIUM BROMIDE 10 MG/ML 5 ML VIAL IV ONE (07:46)
[2017-07-20] MEDS ORDERED: INSULIN ASPART 100 UNITS/ML 3 ML PEN SC SCH (08:00)
[2017-07-20 08:38] LABS: EOS % 0.3 %; EOS ABS # 0.02 K/uL (0-0.5); HEMATOCRIT 35.5 % (42-52); HEMOGLOBIN 11.4 g/dL (14.0-18.0); IG# 0.01 K/uL (0.00-0.02); LYMPH % 1.7 %; LYMPH ABS # 0.11 K/uL (1.2-3.4); MEAN CELL VOLUME 83.3 fL (80-100); MEAN CORPUSCULAR HEMOGLOBIN 26.8 pg (25-34); MEAN CORPUSCULAR HGB CONC 32.1 g/dl (32-36); MEAN PLATELET VOLUME 9.1 fL (7.4-10.4); MONO % 1.9 %; MONO ABS # 0.12 K/uL (0.11-0.59); NEUT % 95.9 %; NEUT ABS # 6.04 K/uL (1.4-6.5); PLATELET COUNT 236 K/uL (130-400); RED CELL DISTRIBUTION WIDTH CV 15.5 % (11.5-14.5); RED CELL DISTRIBUTION WIDTH SD 47.7 fL (36.4-46.3)
[2017-07-20] MEDS: ESCITALOPRAM OXALATE 10 MG TAB PO SCH (09:00)
[2017-07-20] MEDS: POTASSIUM CHLORIDE 20 MEQ TABCR PO SCH ×3 (09:00→21:09)
[2017-07-20] MEDS: SPIRONOLACTONE 25 MG TAB PO SCH (09:00)
[2017-07-20] MEDS: DILTIAZEM HCL 180 MG ER CAP PO SCH (09:00)
[2017-07-20] MEDS: FLUTICASONE PROPIONATE NA SPR 16 GM BTL NAE SCH (09:00)
[2017-07-20] MEDS: LISINOPRIL/HCTZ 20/25MG TAB PO SCH (09:00)
[2017-07-20] MEDS: INSULIN ASPART 100 UNITS/ML 3 ML PEN SC SCH ×5 (09:16→23:36)
[2017-07-20] MEDS: INSULIN GLARGINE SOLOSTAR 100 UNITS/ML 3 ML PEN SC SCH ×2 (09:17→21:12)
[2017-07-20 09:23] LABS: CALCIUM 9.5 mg/dl (8.5-10.1); CREATININE 1.41 mg/dl (0.60-1.40); POTASSIUM 3.7 mmol/L (3.5-5.1)
--- NOTE | 2017-07-20 09:41 | DIAGNOSTIC IMAGING REPORT ---
KUB CLINICAL HISTORY: 62 years-old Male presenting with s/p right colon resection. TECHNIQUE: Single supine view of the abdomen was obtained. COMPARISON: 05/14/[address] from 04/22/2017. FINDINGS: Diffuse small bowel distention. The apparent diameter small bowel is likely affected by magnification with AP technique. Midline skin colleen consistent with recent postsurgical setting. No gross pneumoperitoneum allowing for noncontrast technique. Multiple pelvic phleboliths. Osseous structures normal. Lung bases clear. IMPRESSION: 1. Findings most consistent with ileus. Continued radiographic follow-up recommended. Electronically signed by: Fred Sweet M.D. 07/20/2017 9:40 AM Dictated Date/Time: 07/20/2017 9:38 AM
[2017-07-20] MEDS ORDERED: NURSING VERBAL MED ORDER ONE ×7 (09:45→20:06)
--- NOTE | 2017-07-20 10:03 | Pharmacy Progress Note ---
Pharmacy Glycemic Short Note 2 Date of Service Jul 20, 2017. OUTPATIENT ANTIDIABETIC REGIMEN: * Lantus 35 units SC BID * Novolog TIDM * Note: also on prednisone 10 mg po daily ASSESSMENT: 07/20/17 * Mr. Barron received 37 units of insulin yesterday with BSGs ranging from 107- 367 mg/dL * He refused his PM Lantus and then apparently had chocolate milk overnight so his BSGs went up to the mid-300s * The overnight pharmacist ordered a dose of Novolog and a 4 unit bolus of IV insulin early this AM * At this point, patient is basal-deficient so will order a higher dose of Lantus this AM to make up for it * Will also loosen CF/CR later today once BSGs improve. It seems like this was a little too aggressive yesterday. 07/19/17 * Mr. Barron received 61 unit of insulin yesterday with BSGs ranging from 64- 212 mg/dL in the past 24 hours * His BSGs started to go low around dinner yesterday, and have remained on the lower side through this AM * PM Lantus was cut in half by pharmacist on overnight * Since he is still in the 70s-80s this AM, will continue with a reduced basal dose * He remains on his outpatient prednisone dose, but po intake is minimal * Est TDD ~60 units so basal will be reduced to 15 units BID and CF/CR will be loosened as well 07/18/17 * Steroids tapered to home dose and patient now ordered a diet * BSG's have been elevated while NPO - OK to increase Lantus to home dose * No carb coverage has been admin - will start with a tighter CHO ratio as patient on steroids and BSG's have been inadequately controlled even without po intake * Correction administered overnight with adequate decrease in BSG's - will continue as-is * Switch Novolog from q4h to ACHS 2nd diet ordered - will also add one overnight check PLAN FOR INPATIENT GLYCEMIC CONTROL: * Basal insulin - * Lantus 15 units SQ BID for BSG less than 140 * Lantus 25 units SQ BID for BSG 140 or above (Increase for this AM to make up for missed dose, then back to 20 units this PM) * Bolus insulin * NovoLog per scale ACHS or Q6hrs while NPO * Goal Range: Low 120 mg/dL - High 150 mg/dL * LOOSEN Correction Factor: 40 mg/dL/unit for this AM (since dose was just given), then back to 25 mg/dL/unit * LOOSEN Nutritional / Prandial insulin per carb ratio of 1 unit per 9 grams CHO consumed PLAN FOR DISCHARGE: * A1c indicates excellent outpatient control * Should be able to resume outpatient regimen upon discharge, unless po intake significantly decreased as it is now * Please contact pharmacy for recommendations if that is the case
[2017-07-20] MEDS ORDERED: ALUMINUM/MAGNESIUM SUSP 30 ML UDC PO PRN (10:15)
[2017-07-20] MEDS ORDERED: SODIUM CHLORIDE 0.9% 1000ML 1,000 ML IV SCH (12:00)
[2017-07-20] MEDS ORDERED: HYDROmorphone INJ 1 MG/ML SYR ONE (12:34)
[2017-07-20] MEDS ORDERED: LIDOCAINE HCL 2% 2 ML VIAL (20MG/ML) ONE (12:47)
[2017-07-20] MEDS ORDERED: PROPOFOL IV EMULSION 10 MG/ML 20 ML VIAL IV ONE ×2 (12:47→14:16)
[2017-07-20] MEDS ORDERED: FENTANYL CITRATE INJ 50 MCG/1 ML 2 ML VIAL ONE ×3 (12:47→14:00)
[2017-07-20] MEDS ORDERED: MIDAZOLAM HCL 1 MG/ML 2ML VIAL ONE (12:48)
[2017-07-20] MEDS ORDERED: CEFOXITIN SOD 1 GM VIAL ONE (12:59)
[2017-07-20] MEDS: CEFOXITIN IV 2,000 MG in DEXTROSE 5% 50ML 50 ML IV SCH ×2 (13:05→14:22)
--- NOTE | 2017-07-20 13:25 | Critical Care Consultation ---
Critical Care Consultation Date of Consultation: Jul 20, 2017. Attending Physician: Jose Alexander M.D. Reason for Consultation: Dehiscence of abdominal wound, intractable pain, severe COPD. History of Present Illness Dear Dr. Ling: Thank you for your kind referral of Mr. Barron to critical care service. Is a 60-year-old gentleman with a history of severe asthma treated with bronchial thermoplasty in [place], and currently on immunomodulator Benralizumab, presented to the hospital for hemicolectomy after he was found to have tubular adenoma measuring 2.5 cm by colonoscopy. The patient underwent the procedure on July 15, 2017 uneventful, the patient started his usual recovery postop. Today the patient was noted to have dehiscence of the abdominal wound after he moved due to his back pain according to him. The patient pain has been excruciating 10 out of 10 and was transferred to the ICU. The patient was seen by Dr. Ling and surgical service also was contacted and the patient was in preparation to go to the OR for abdominal wound repair. When I interviewed the patient, he was complaining of severe back pain rather than abdominal pain. Responded to a single dose of Dilaudid and single dose of fentanyl. His oxygen requirement remains the same with maintaining his airways. He denies any shortness of breath or chest pain. No nausea was reported. He does have an NG tube to suction. No increased swelling in his lower extremities. The wound appeared dehiscence with intra-abdominal contents protruding. Currently started on broad-spectrum antibiotics and covered with surgical dressing. Evaluated by anesthesia and surgery and on his way to the OR soon. Hemodynamically stable, and responded to the pain management at the moment. Family History Diabetes mellitus Heart disease Hypertension Lung cancer Myocardial infarction Social History Smoking Status: Never Smoker Drug Use: none Marital Status: Housing Status: lives with family Occupation Status: retired Allergies Coded Allergies: No Known Allergies (Verified , 07/15/17) UNKNOWN Home Medications Scheduled Alendronate Sodium (Alendronate Sodium), 70 MG PO WK Arformoterol Tartrate (Brovana), 15 MCG INH BID Aspirin Enteric Coated (Ecotrin Or Generic), 81 MG PO QAM B-Complex W/Biotin & Folic Aci (Super B-Complex), 1 TAB PO QAM Budesonide (Pulmicort Respules 0.5MG/2ML), 2 ML NEB BID Calcium/Vitamin D (Os-Lee 500 Plus D), 1 TAB PO QAM Desloratadine (Desloratadine), 5 MG PO QAM Diltiazem Hcl Coated Beads (Diltiazem Hcl Er), 180 MG PO QAM Escitalopram Oxalate (Escitalopram Oxalate), 10 MG PO QAM Fluticasone Propionate (Fluticasone Propionate), 2 SPRAYS ANNA QAM Home O2 Therapy (Oxygen), 2 LITERS NA PRN Insulin Glargine (Lantus), 35 UNITS SQ AM/PM Ipratropium-Albuterol (Combivent Respimat), 1 PUFFS INH 6XDAY Lisinopril/Hctz (Zestoretic 20MG/25MG), 1 TAB PO QAM Mepolizumab (Nucala), 100 MG SC MONTHLY Omeprazole (Prilosec), 40 MG PO BID Potassium Ext Rel (Klor-Con), 20 MEQ PO TID Prednisone Tab (Prednisone), 10 MG PO QAM Simvastatin (Zocor), 10 MG PO QPM Spironolactone (Aldactone), 25 MG PO QAM Turmeric (Curcuma Longa) (Turmeric), 500 MG PO QAM Vitamins W/ Lipotropics (Lipoflavonoid), 1 TAB PO BID Zafirlukast (Zafirlukast), 20 MG PO BID Scheduled PRN Furosemide (Lasix), 20-40 MG PO DAILY PRN for LEG SWELLING Ibuprofen Tab (Motrin), 600 MG PO PRN PRN for Pain Insulin Aspart (Novolog), 1 DOSE SQ TIDM PRN for SLIDING SCALE Ipratropium-Albuterol (Duoneb), 1 TREATMENT INH Q4H PRN for SOB/Wheezing Lorazepam (Ativan), 0.5 MG PO DAILY PRN for ANXIETY Trazodone Hcl (Trazodone), 50 MG PO HS PRN for RN Current Inpatient Medications Current Inpatient Medications Medications (Trade) Dose Ordered Sig/Dianne Route Start Time Stop Time Status Last Admin Dose Admin Oxycodone/ Acetaminophen (Percocet 5-325mg Tab) 1 tab Q4H PRN PO 07/15/17 14:45 07/29/17 14:44 07/19/17 20:39 1 TAB Oxycodone/ Acetaminophen (Percocet 5-325mg Tab) 2 tab Q4H PRN PO 07/15/17 14:45 07/29/17 14:44 07/20/17 01:09 2 TAB Ondansetron HCl (Zofran Inj) 4 mg Q6H PRN IV 07/15/17 14:45 08/14/17 14:44 07/20/17 01:14 4 MG Heparin Sodium (Porcine) (Heparin Sq 5000 Unit/0.5ml) 5,000 unit Q8 SQ 07/16/17 06:00 08/15/17 05:59 07/19/17 21:35 5,000 UNIT Arformoterol Tartrate (Brovana 15MCG/ 2ML Neb Soln) 15 mcg BIDR INH 07/16/17 08:00 08/15/17 07:59 07/20/17 07:16 15 MCG Budesonide (Pulmicort Respules 0.5MG/ 2ML Neb Soln) 1 mg BIDR INH 07/16/17 08:00 08/15/17 07:59 07/20/17 07:16 1 MG Fluticasone Propionate (Flonase Nasal Hubertus) 2 sprays QAM ANNA 07/16/17 09:00 08/15/17 08:59 07/19/17 07:44 2 SPRAYS Lorazepam (Ativan Inj) 0.5 mg Q4H PRN IV 07/15/17 21:00 08/14/17 20:59 07/18/17 01:38 0.5 MG Glucose (Glucose 40% Gel) 15-30 GRAMS 15 GRAMS... UD PRN PO 07/15/17 21:45 08/14/17 21:44 Glucose (Glucose Chew Tab) 4-8 Tablets 4 Tabl... UD PRN PO 07/15/17 21:45 08/14/17 21:44 Dextrose (Dextrose 50% 50ML Syringe) 25-50ML OF 50% DW IV FOR... UD PRN IV 07/15/17 21:45 08/14/17 21:44 07/18/17 16:54 25 ML Glucagon (Glucagon Inj) 1 mg UD PRN SQ 07/15/17 21:45 08/14/17 21:44 Miscellaneous Information (Consult Glycemic Management Pharmacy) 1 ea UD PRN N/A 07/16/17 06:55 08/15/17 06:54 Insulin Glargine (Lantus Solostar Pen) BID SC 07/16/17 21:00 08/15/17 20:59 Future hold 07/20/17 09:17 25 UNITS Albuterol/ Ipratropium (Duoneb) 3 ml QIDR INH 07/16/17 12:00 08/15/17 11:59 07/20/17 11:21 3 ML Diltiazem HCl (Dilacor Xr Cap) 180 mg QAM PO 07/17/17 09:00 08/16/17 08:59 07/19/17 07:43 180 MG Hydromorphone HCl (Dilaudid Inj) 0.5 mg Q3H PRN IV 07/17/17 09:45 07/31/17 09:44 07/18/17 20:49 0.5 MG Prednisone (PredniSONE TAB) 10 mg QAM PO 07/18/17 11:00 08/17/17 10:59 07/19/17 07:43 10 MG Escitalopram Oxalate (Lexapro Tab) 10 mg QAM PO 07/19/17 09:00 08/18/17 08:59 07/19/17 08:21 10 MG HCTZ/Lisinopril (Prinzide 20-25MG Tab) 1 tab QAM PO 07/19/17 09:00 08/18/17 08:59 07/19/17 08:21 1 TAB Lorazepam (Ativan Tab) 0.5 mg DAILY PRN PO 07/19/17 07:30 08/18/17 07:29 Potassium Chloride (Klor-Con Tab) 20 meq TID PO 07/19/17 09:00 08/18/17 08:59 07/19/17 21:35 20 MEQ Simvastatin (Zocor Tab) 10 mg QPM PO 07/19/17 21:00 08/18/17 20:59 07/19/17 21:35 10 MG Spironolactone (Aldactone Tab) 25 mg QAM PO 07/19/17 09:00 08/18/17 08:59 07/19/17 08:20 25 MG Trazodone HCl (Desyrel Tab) 50 mg HS PRN PO 07/19/17 07:30 08/18/17 07:29 Miscellaneous Information (Order Awaiting Action) 1 ea QS N/A 07/19/17 08:00 08/18/17 07:59 Albuterol Sulfate (Ventolin 0.083% 2.5MG/3ML Neb) 2.5 mg Q2H PRN INH 07/19/17 10:30 08/14/17 20:59 07/20/17 05:14 2.5 MG Promethazine HCl 12.5 mg/Sodium Chloride 50.5 ml @ 204 mls/hr Q6H PRN IV 07/19/17 10:30 08/18/17 10:29 07/20/17 04:18 204 MLS/HR Lorazepam 0.5 mg/ Syringe 1 ml @ 1 mls/min Q4H PRN IV 07/20/17 03:15 08/19/17 03:14 07/20/17 03:19 1 MLS/MIN Pantoprazole Sodium (Protonix Tab) 40 mg QAM PO 07/21/17 09:00 08/20/17 08:59 Al Hydroxide/Mg Hydroxide (Maalox Susp) 30 ml Q6H PRN PO 07/20/17 10:15 08/19/17 10:14 07/20/17 10:33 30 ML Insulin Aspart (novoLOG ASPART) SLIDING SCALE Q6 SC 07/20/17 12:00 08/19/17 11:59 Cefoxitin Sodium 2000 mg/Dextrose 60 ml @ 100 mls/hr Q8H IV 07/20/17 13:00 07/30/17 12:59 07/20/17 13:05 100 MLS/HR Miscellaneous Information (Nursing Verbal Med Order) 1 ea ONE ONCE N/A 07/20/17 13:00 07/20/17 13:01 UNV Review of Systems Constitutional: No fever, No chills, No sweats, No weight loss, No weakness, No fatigue, No problem reported Respiratory: No cough, No sputum, No wheezing, No shortness of breath, No dyspnea on exertion, No dyspnea at rest, No hemoptysis, No problem reported Abdomen: + pain, No nausea, No vomiting, No diarrhea, No constipation, No GI bleeding, No problem reported Psychiatric: + anxiety Allergic / Immunologic: No environmental allergies, No seasonal allergies, No pet sensitivities, No food allergies, No hives, No frequent infections, No poor healing, No prolonged convalescence, No problem reported Physical Exam Date Time Temp Pulse Resp B/P (MAP) Pulse Ox O2 Delivery O2 Flow Rate FiO2 07/20/17 11:21 118 24 97 Room Air 07/20/17 11:16 104 16 148/80 (102) 07/20/17 08:56 119 26 95 Room Air 07/20/17 08:14 36.6 115 17 133/73 (93) 95 Room Air 07/20/17 08:00 Mask 4.0 07/20/17 07:19 101 20 97 Mask 5.0 07/20/17 05:14 98 24 96 Mask 5.0 07/20/17 03:18 104 24 96 Mask 5.0 07/19/17 23:40 Oxymask 2.0 07/19/17 22:48 37.2 83 16 129/74 (92) 96 Oxymask 2.0 07/19/17 20:17 104 24 96 Mask 2.0 07/19/17 18:30 Oxymask 2.0 07/19/17 18:25 37.0 91 18 113/69 (84) 96 Oxymask 2.0 07/19/17 17:45 108 20 96 Room Air 07/19/17 17:30 36.7 108 20 96 2.0 07/19/17 16:00 97 Room Air 07/19/17 15:26 36.7 93 22 120/74 (89) 97 Nasal Cannula 2.0 07/19/17 14:11 105 20 97 Mask 2.0 General Appearance: moderate distress Eyes: PERRLA, EOMI ENT: normal throat exam Neck: normal range of motion Respiratory: breath sounds normal Cardiovasular: regular rate/rhythm, normal S1S2, no M/G/R Abdomen: other (Abdominal wound dehiscence.) Back: other (Mid back pain) Upper Extremities: no edema Neuro: alert, oriented x 3, other (Somewhat agitated.) Laboratory Results Last 24 Hours Test 07/19/17 16:22 07/19/17 21:13 07/20/17 05:23 07/20/17 08:29 Bedside Glucose 278 mg/dl 107 mg/dl 367 mg/dl White Blood Count 6.30 K/uL Red Blood Count 4.26 M/uL Hemoglobin 11.4 g/dL Hematocrit 35.5 % Mean Corpuscular Volume 83.3 fL Mean Corpuscular Hemoglobin 26.8 pg Mean Corpuscular Hemoglobin Concent 32.1 g/dl Platelet Count 236 K/uL Mean Platelet Volume 9.1 fL Neutrophils (%) (Auto) 95.9 % Lymphocytes (%) (Auto) 1.7 % Monocytes (%) (Auto) 1.9 % Eosinophils (%) (Auto) 0.3 % Basophils (%) (Auto) 0.0 % Neutrophils # (Auto) 6.04 K/uL Lymphocytes # (Auto) 0.11 K/uL Monocytes # (Auto) 0.12 K/uL Eosinophils # (Auto) 0.02 K/uL Basophils # (Auto) 0.00 K/uL RDW Standard Deviation 47.7 fL RDW Coefficient of Variation 15.5 % Immature Granulocyte % (Auto) 0.2 % Immature Granulocyte # (Auto) 0.01 K/uL Sodium Level 135 mmol/L Potassium Level 3.7 mmol/L Chloride Level 98 mmol/L Carbon Dioxide Level 28 mmol/L Anion Gap 9.0 mmol/L Blood Urea Nitrogen 34 mg/dl Creatinine 1.41 mg/dl Est Creatinine Clear Calc Drug Dose 61.9 ml/min Estimated GFR () 61.4 Estimated GFR (Non- 53.0 BUN/Creatinine Ratio 24.3 Random Glucose 245 mg/dl Calcium Level 9.5 mg/dl Diagnostic Results Labs were reviewed, previous workup also was reviewed personally, Assessment & Plan 1. Abdominal wound dehiscence, going to the OR for abdominal wound repair. 2. Hemicolectomy 5 days ago. 3. Asthma with conversion to COPD according to the records, I do not have recent pulmonary function test on him. He is already on immunotherapy and treated previously with bronchial thermoplasty. 4. Diabetes. 5. Anxiety. 6. Large hiatal hernia by report. 7. Colon polyps status post right hemicolectomy. Plan: 1. Pain control. The patient was given 1 mg of Dilaudid and 50 mics of fentanyl. Once he returned from the OR will control his pain with IV meds. 2. I will continue with Brovana and Pulmicort. 3. The patient is on chronic steroids and output him on hydrocortisone IV. 4. We will extubate the patient postoperatively. 5. DVT prophylaxis. 6. GI prophylaxis given his history of hiatal hernia. 7. Discussed in details with the family, surgical team, ICU team. Critical care time spent with the patient was 45 minutes.
--- NOTE | 2017-07-20 14:18 | [facility] Post Operative Brief Note ---
Immediate Operative Summary Operative Date Jul 20, 2017. Pre-Operative Diagnosis Abdomial Wound dehiscence Post-Operative Diagnosis Abdomial Wound dehiscence Procedure(s) Performed Closure of Abdomial Wound dehiscence and Washout Surgeon DR. Jose Alexander Matrix Repairer Surgeon(s) Nikolai Sandra and Dr. Hilario Manzano Estimated Blood Loss 5 ml Findings See Below loop of small bowel eviscerated Specimens None Per Surgeon Drains 1/4 inch rajani sub cut Anesthesia Type General
[2017-07-20] MEDS ORDERED: FENTANYL CITRATE 1250MCG/250ML NSS ONE (14:22)
[2017-07-20] MEDS ORDERED: MIDAZOLAM 125MG/250ML D5W IV ONE (14:23)
[2017-07-20] MEDS ORDERED: MIDAZOLAM 125MG/250ML D5W 250 ML IV PRN (14:45)
--- NOTE | 2017-07-20 14:45 | Progress Note ---
Subjective Date of Service: Jul 20, 2017. Subjective Pt evaluation today including: conversation w/ patient, conversation w/ family , physical exam, lab review, review of studies, conversation w/ bath design sales consultant, review of inpatient medication list Pain: severe pain this AM PO Intake: NPO Voiding: no voiding problems patient seen this AM, c/o lots of pain and distension KUB showed an ileus surgery had recommended NG tube, he declined after further discussion with him he agreed to have one placed I returned 30 minutes later to see how he felt with the NG tube discovered that he had just vomited and dehisced with a loop of small bowel protruding through wound instructed RN to continue to apply pressure, ordered one bag of NSS at 999cc/hr BP was preserved with systolic 130-150, patient mentating clearly, just c/o great deal of pain contacted ICU, transferred down to room 106 so that surgery could evaluate and take to OR discussed case with Dr. Sewell, Dr. Manzano taken to OR in afternoon, abdominal washout and wound closed reviewed labs today, Cr up to 1.4 after Lasix, little diuresis Hb stable at 11.4 Problem List Medical Problems: (1) Hypokalemia Status: Acute (2) Oxygen dependent Status: Acute (3) Respiratory failure Status: Acute (4) Right flank pain Status: Acute Review of Systems Respiratory: + cough, + dyspnea on exertion Abdomen: + pain (severe pain), + nausea, + vomiting, + constipation Psychiatric: + anxiety All Other Systems: Reviewed and Negative Medications Current Inpatient Medications Medications (Trade) Dose Ordered Sig/Dianne Route Start Time Stop Time Status Last Admin Dose Admin Oxycodone/ Acetaminophen (Percocet 5-325mg Tab) 1 tab Q4H PRN PO 07/15/17 14:45 07/29/17 14:44 07/19/17 20:39 1 TAB Oxycodone/ Acetaminophen (Percocet 5-325mg Tab) 2 tab Q4H PRN PO 07/15/17 14:45 07/29/17 14:44 07/20/17 01:09 2 TAB Ondansetron HCl (Zofran Inj) 4 mg Q6H PRN IV 07/15/17 14:45 08/14/17 14:44 07/20/17 01:14 4 MG Heparin Sodium (Porcine) (Heparin Sq 5000 Unit/0.5ml) 5,000 unit Q8 SQ 07/16/17 06:00 08/15/17 05:59 07/19/17 21:35 5,000 UNIT Arformoterol Tartrate (Brovana 15MCG/ 2ML Neb Soln) 15 mcg BIDR INH 07/16/17 08:00 08/15/17 07:59 07/20/17 07:16 15 MCG Budesonide (Pulmicort Respules 0.5MG/ 2ML Neb Soln) 1 mg BIDR INH 07/16/17 08:00 08/15/17 07:59 07/20/17 07:16 1 MG Fluticasone Propionate (Flonase Nasal [place]) 2 sprays QAM ANNA 07/16/17 09:00 08/15/17 08:59 07/19/17 07:44 2 SPRAYS Lorazepam (Ativan Inj) 0.5 mg Q4H PRN IV 07/15/17 21:00 08/14/17 20:59 07/18/17 01:38 0.5 MG Glucose (Glucose 40% Gel) 15-30 GRAMS 15 GRAMS... UD PRN PO 07/15/17 21:45 08/14/17 21:44 Glucose (Glucose Chew Tab) 4-8 Tablets 4 Tabl... UD PRN PO 07/15/17 21:45 08/14/17 21:44 Dextrose (Dextrose 50% 50ML Syringe) 25-50ML OF 50% DW IV FOR... UD PRN IV 07/15/17 21:45 08/14/17 21:44 07/18/17 16:54 25 ML Glucagon (Glucagon Inj) 1 mg UD PRN SQ 07/15/17 21:45 08/14/17 21:44 Miscellaneous Information (Consult Glycemic Management Pharmacy) 1 ea UD PRN N/A 07/16/17 06:55 08/15/17 06:54 Insulin Glargine (Lantus Solostar Pen) BID SC 07/16/17 21:00 08/15/17 20:59 Future hold 07/20/17 09:17 25 UNITS Albuterol/ Ipratropium (Duoneb) 3 ml QIDR INH 07/16/17 12:00 08/15/17 11:59 07/20/17 11:21 3 ML Diltiazem HCl (Dilacor Xr Cap) 180 mg QAM PO 07/17/17 09:00 08/16/17 08:59 07/19/17 07:43 180 MG Hydromorphone HCl (Dilaudid Inj) 0.5 mg Q3H PRN IV 07/17/17 09:45 07/31/17 09:44 07/18/17 20:49 0.5 MG Prednisone (PredniSONE TAB) 10 mg QAM PO 07/18/17 11:00 08/17/17 10:59 07/19/17 07:43 10 MG Escitalopram Oxalate (Lexapro Tab) 10 mg QAM PO 07/19/17 09:00 08/18/17 08:59 07/19/17 08:21 10 MG HCTZ/Lisinopril (Prinzide 20-25MG Tab) 1 tab QAM PO 07/19/17 09:00 08/18/17 08:59 07/19/17 08:21 1 TAB Lorazepam (Ativan Tab) 0.5 mg DAILY PRN PO 07/19/17 07:30 08/18/17 07:29 Potassium Chloride (Klor-Con Tab) 20 meq TID PO 07/19/17 09:00 08/18/17 08:59 07/19/17 21:35 20 MEQ Simvastatin (Zocor Tab) 10 mg QPM PO 07/19/17 21:00 08/18/17 20:59 07/19/17 21:35 10 MG Spironolactone (Aldactone Tab) 25 mg QAM PO 07/19/17 09:00 08/18/17 08:59 07/19/17 08:20 25 MG Trazodone HCl (Desyrel Tab) 50 mg HS PRN PO 07/19/17 07:30 08/18/17 07:29 Miscellaneous Information (Order Awaiting Action) 1 ea QS N/A 07/19/17 08:00 08/18/17 07:59 Albuterol Sulfate (Ventolin 0.083% 2.5MG/3ML Neb) 2.5 mg Q2H PRN INH 07/19/17 10:30 08/14/17 20:59 07/20/17 05:14 2.5 MG Promethazine HCl 12.5 mg/Sodium Chloride 50.5 ml @ 204 mls/hr Q6H PRN IV 07/19/17 10:30 08/18/17 10:29 07/20/17 04:18 204 MLS/HR Lorazepam 0.5 mg/ Syringe 1 ml @ 1 mls/min Q4H PRN IV 07/20/17 03:15 08/19/17 03:14 07/20/17 03:19 1 MLS/MIN Pantoprazole Sodium (Protonix Tab) 40 mg QAM PO 07/21/17 09:00 08/20/17 08:59 Insulin Aspart (novoLOG ASPART) SLIDING SCALE Q6 SC 07/20/17 12:00 08/19/17 11:59 Cefoxitin Sodium 2000 mg/Dextrose 60 ml @ 100 mls/hr Q8H IV 07/20/17 13:00 07/30/17 12:59 07/20/17 14:22 100 MLS/HR Objective Vital Signs Date Time Temp Pulse Resp B/P (MAP) Pulse Ox O2 Delivery O2 Flow Rate FiO2 07/20/17 11:21 118 24 97 Room Air 07/20/17 11:16 104 16 148/80 (102) 07/20/17 08:56 119 26 95 Room Air 07/20/17 08:14 36.6 115 17 133/73 (93) 95 Room Air 07/20/17 08:00 Mask 4.0 07/20/17 07:19 101 20 97 Mask 5.0 07/20/17 05:14 98 24 96 Mask 5.0 07/20/17 03:18 104 24 96 Mask 5.0 07/19/17 23:40 Oxymask 2.0 07/19/17 22:48 37.2 83 16 129/74 (92) 96 Oxymask 2.0 07/19/17 20:17 104 24 96 Mask 2.0 07/19/17 18:30 Oxymask 2.0 07/19/17 18:25 37.0 91 18 113/69 (84) 96 Oxymask 2.0 07/19/17 17:45 108 20 96 Room Air 07/19/17 17:30 36.7 108 20 96 2.0 07/19/17 16:00 97 Room Air 07/19/17 15:26 36.7 93 22 120/74 (89) 97 Nasal Cannula 2.0 Physical Exam General Appearance: WD/WN, + moderate distress ENT: normal ENT inspection, hearing grossly normal, pharynx normal Neck: supple, no adenopathy, no JVD, trachea midline Respiratory/Chest: chest non-tender, lungs clear, no respiratory distress, no accessory muscle use, + decreased breath sounds Cardiovascular: no gallop, no JVD, no murmur, + tachycardia Abdomen: + abnormal bowel sounds (hypoactive), + distended, + tenderness, + pertinent finding (wound dehiscence, loop of bowel eviscerated) Extremities: normal range of motion, non-tender, normal inspection, no pedal edema, no calf tenderness Neurologic/Psychiatric: maintenance and engineering manager II-XII nml as tested, no motor/sensory deficits, alert, oriented x 3, + pertinent finding (anxious) Skin: normal color, warm/dry, no rash Laboratory Results Last 24 Hours Test 07/19/17 16:22 07/19/17 21:13 07/20/17 05:23 07/20/17 08:29 Bedside Glucose 278 mg/dl 107 mg/dl 367 mg/dl White Blood Count 6.30 K/uL Red Blood Count 4.26 M/uL Hemoglobin 11.4 g/dL Hematocrit 35.5 % Mean Corpuscular Volume 83.3 fL Mean Corpuscular Hemoglobin 26.8 pg Mean Corpuscular Hemoglobin Concent 32.1 g/dl Platelet Count 236 K/uL Mean Platelet Volume 9.1 fL Neutrophils (%) (Auto) 95.9 % Lymphocytes (%) (Auto) 1.7 % Monocytes (%) (Auto) 1.9 % Eosinophils (%) (Auto) 0.3 % Basophils (%) (Auto) 0.0 % Neutrophils # (Auto) 6.04 K/uL Lymphocytes # (Auto) 0.11 K/uL Monocytes # (Auto) 0.12 K/uL Eosinophils # (Auto) 0.02 K/uL Basophils # (Auto) 0.00 K/uL RDW Standard Deviation 47.7 fL RDW Coefficient of Variation 15.5 % Immature Granulocyte % (Auto) 0.2 % Immature Granulocyte # (Auto) 0.01 K/uL Sodium Level 135 mmol/L Potassium Level 3.7 mmol/L Chloride Level 98 mmol/L Carbon Dioxide Level 28 mmol/L Anion Gap 9.0 mmol/L Blood Urea Nitrogen 34 mg/dl Creatinine 1.41 mg/dl Est Creatinine Clear Calc Drug Dose 61.9 ml/min Estimated GFR () 61.4 Estimated GFR (Non- 53.0 BUN/Creatinine Ratio 24.3 Random Glucose 245 mg/dl Calcium Level 9.5 mg/dl Assessment and Plan 62 y/o male s/p right colon resection with Dr. Alexander on 07/15, hospitalist consulted for medical management. S/p right colon resection--POD #5 Wound dehiscence on 07/20, taken emergently to OR for closure, washout remain in ICU management per surgery Acute on chronic diastolic HF: likely combination of IV fluids and holding diuretics with surgery still with edema today, not much in terms of diuresis Cr up to 1.4 hold further Lasix edema more likely due to increased abdominal pressure and poor venous return rather than volume overload YOLETTE: resolved, Cr up to 2.2 on 07/16, went down ot 0.9 yesterday up to 1.4 today, likely from Lasix hold further Lasix, provide IV fluids in parris-operative setting Asthma/COPD: follows with [facility] uses Duoneb quite often at home, every 1-2 hours as needed he says this is what his product communications manager wants him doing increase frequency to q2 PRN Anxiety: Ativan ordered PRN 45 minutes spent with patient today, coordinating care, transferring to ICU Continued [facility] stay due to: multiple IV medications needed, home environment unsafe for pt Discharge planning: uncertain
[2017-07-20] MEDS ORDERED: EpHEDrine SULFATE INJ 50 MG/ML AMP ONE (14:55)
--- NOTE | 2017-07-20 15:29 | Anesthesiology Progress Note ---
Anesthesia Post Op Note Date & Time Jul 20, 2017 at 15:26 Vital Signs Pain Intensity: 10.0 Vital Signs Past 12 Hours Date Time Temp Pulse Resp B/P (MAP) Pulse Ox O2 Delivery O2 Flow Rate FiO2 07/20/17 15:10 36.5 125 18 151/81 (105) 94 Mechanical Ventilator 60 07/20/17 15:01 60 07/20/17 15:00 110 18 110/86 (95) 94 Mechanical Ventilator 60 07/20/17 14:50 127 18 156/96 (125) 95 Mechanical Ventilator 60 07/20/17 14:40 36.5 110 18 184/99 (130) 95 Mechanical Ventilator 60 07/20/17 11:21 118 24 97 Room Air 07/20/17 11:16 104 16 148/80 (102) 07/20/17 08:56 119 26 95 Room Air 07/20/17 08:14 36.6 115 17 133/73 (93) 95 Room Air 07/20/17 08:00 Mask 4.0 07/20/17 07:19 101 20 97 Mask 5.0 07/20/17 05:14 98 24 96 Mask 5.0 Notes Mental Status: alert / awake / arousable, participated in evaluation Pt Amnestic to Procedure: Yes Nausea / Vomiting: adequately controlled Pain: adequately controlled Airway Patency, RR, SpO2: stable & adequate BP & HR: stable & adequate Hydration State: stable & adequate Anesthetic Complications: no major complications apparent Pt had emergent surgery for wound dehiscence. Surgeon requested that pt be sedated and placed on vent in ICU post op. Discussed with ICU staff and agreed upon. Pt transported to SICU post op. Sedated and placed on [facility] vent and left in care of ICU staff.
[2017-07-20] MEDS ORDERED: DILTIAZEM BOLUS / DRIP IV STA (15:39)
[2017-07-20] MEDS ORDERED: HYDROCORTISONE IV 50 MG in SYRINGE 0 ML IV SCH (16:00)
[2017-07-20] MEDS ORDERED: DILTIAZEM HCL INJ 125 MG in DEXTROSE 5% 100ML IV PRN (16:00)
[2017-07-20] MEDS ORDERED: DILTIAZEM BOLUS FROM BAG IV ONE (16:00)
--- NOTE | 2017-07-20 16:59 | DIAGNOSTIC IMAGING REPORT ---
CHEST ONE VIEW PORTABLE CLINICAL HISTORY: intubation RESPIRATORY FAILURE COMPARISON STUDY: 07/05/2017 FINDINGS: The study is limited from a technical standpoint. The heart is at the upper limits of normal in size. A nasogastric tube is visualized in stomach. There is an endotracheal tube positioned approximately 4 cm above the rachael. Airspace opacities are suspected the right medial lung base.[ IMPRESSION: 1. Technically limited study 2. Endotracheal tube approximately 4 cm above the rachael 3. Nasogastric tube within the stomach 4. Suspected airspace opacities at the right medial lung base Electronically signed by: Isma Cunningham M.D. 07/20/2017 4:58 PM Dictated Date/Time: 07/20/2017 4:57 PM
[2017-07-20] MEDS ORDERED: RAPID SEQUENCE INDUCTION BAG ONE (17:08)
[2017-07-20] MEDS: METHYLPREDNISOLONE IV 40 MG in SYRINGE 0 ML IV SCH (18:08)
[2017-07-20] MEDS ORDERED: SODIUM CHLORIDE 0.9% 500ML 500 ML IV ONE (18:15)
--- NOTE | 2017-07-20 18:15 | Critical Care Progress Note ---
Critical Care Progress Note Date of Service Jul 20, 2017. Attending Dr. Sewell Subjective The patient is intubated sedated, returned from the OR, review of system was not obtainable at this point. Objective Physical exam revealed after the OR patient is having prolonged expiratory phase of breathing, his blood pressure was elevated at 195 with heart rate of 127, responded to fentanyl and Versed however remains tachycardic and responded better to Cardizem drip. S1-S2 with distant breath sounds bilaterally, abdomen is postop no edema. Neurologically difficult to assess. Assessment & Plan 1. Severe COPD, with asthma converting to COPD previously, patient has poor lung mechanics. 2. Acute respiratory failure requiring intubation and kept intubated. 3. History of dehiscence of abdominal wound status post surgical repair with retention sutures. 4. History of tubular adenoma of the right colon status post right hemicolectomy. Plan: 1. Initially the patient was having expiratory wheezing requiring performing a glide scope. It was noted that the ET tube balloon is at the vocal cords. The balloon was deflated and the ET tube was advanced to 26 cm by the lips. Dictated separately. 2. The patient desaturated to 87% on 100% with 10 of PEEP. Despite the patient was trialed on pressure control mode, assist control mode, or Even flow mode the patient continued to desaturate. Requiring bronchoscopy. Dictated separately, found to have green biliary secretion occluding the right upper lobe takeoff. And the right middle lobe. All suctioned to clear. 3. The patient's urine output has been marginal part of it due to his blood pressure after it dropped due to sedation. Boluses of fluids were administered and continue with IV fluids at the moment. 4. The patient does have pulmonary hypertension and unaware of it, I would be very cautious with administering the IV fluid just to maintain his urine output adequately. The patient also had an open wound earlier with significant insensible loss as well. 5. Continue with current treatment. 6. Hold off on the oral medications. 7. I will start the patient on Solu-Medrol 40 mg IV every 8 hours, discussed with surgery and agreed to steroids. 8. I will rotate the patient sideways 6 hours each time to allow the patient remodeling of his alveoli for better recruitment. 9. I will change the patient to pressure control and added 12 of PEEP while we are tapering the FiO2. Additional critical care time spent with the patient was 45 minutes excluding bronchoscopy time. Data Medications: Current Inpatient Medications Medications (Trade) Dose Ordered Sig/Dianne Route Start Time Stop Time Status Last Admin Dose Admin Oxycodone/ Acetaminophen (Percocet 5-325mg Tab) 1 tab Q4H PRN PO 07/15/17 14:45 07/29/17 14:44 07/19/17 20:39 1 TAB Ondansetron HCl (Zofran Inj) 4 mg Q6H PRN IV 07/15/17 14:45 08/14/17 14:44 07/20/17 01:14 4 MG Heparin Sodium (Porcine) (Heparin Sq 5000 Unit/0.5ml) 5,000 unit Q8 SQ 07/16/17 06:00 08/15/17 05:59 07/19/17 21:35 5,000 UNIT Arformoterol Tartrate (Brovana 15MCG/ 2ML Neb Soln) 15 mcg BIDR INH 07/16/17 08:00 08/15/17 07:59 07/20/17 07:16 15 MCG Budesonide (Pulmicort Respules 0.5MG/ 2ML Neb Soln) 1 mg BIDR INH 07/16/17 08:00 08/15/17 07:59 07/20/17 07:16 1 MG Fluticasone Propionate (Flonase Nasal [place]) 2 sprays QAM ANNA 07/16/17 09:00 08/15/17 08:59 07/19/17 07:44 2 SPRAYS Glucose (Glucose 40% Gel) 15-30 GRAMS 15 GRAMS... UD PRN PO 07/15/17 21:45 08/14/17 21:44 Glucose (Glucose Chew Tab) 4-8 Tablets 4 Tabl... UD PRN PO 07/15/17 21:45 08/14/17 21:44 Dextrose (Dextrose 50% 50ML Syringe) 25-50ML OF 50% DW IV FOR... UD PRN IV 07/15/17 21:45 08/14/17 21:44 07/18/17 16:54 25 ML Glucagon (Glucagon Inj) 1 mg UD PRN SQ 07/15/17 21:45 08/14/17 21:44 Miscellaneous Information (Consult Glycemic Management Pharmacy) 1 ea UD PRN N/A 07/16/17 06:55 4/15/18 06:54 Insulin Glargine (Lantus Solostar Pen) BID SC 07/16/17 21:00 08/15/17 20:59 Future hold 07/20/17 09:17 25 UNITS Albuterol/ Ipratropium (Duoneb) 3 ml QIDR INH 07/16/17 12:00 08/15/17 11:59 07/20/17 11:21 3 ML Hydromorphone HCl (Dilaudid Inj) 0.5 mg Q3H PRN IV 07/17/17 09:45 07/31/17 09:44 07/18/17 20:49 0.5 MG Escitalopram Oxalate (Lexapro Tab) 10 mg QAM PO 07/19/17 09:00 08/18/17 08:59 07/19/17 08:21 10 MG Potassium Chloride (Klor-Con Tab) 20 meq TID PO 07/19/17 09:00 08/18/17 08:59 07/19/17 21:35 20 MEQ Miscellaneous Information (Order Awaiting Action) 1 ea QS N/A 07/19/17 08:00 08/18/17 07:59 Albuterol Sulfate (Ventolin 0.083% 2.5MG/3ML Neb) 2.5 mg Q2H PRN INH 07/19/17 10:30 08/14/17 20:59 07/20/17 05:14 2.5 MG Promethazine HCl 12.5 mg/Sodium Chloride 50.5 ml @ 204 mls/hr Q6H PRN IV 07/19/17 10:30 08/18/17 10:29 07/20/17 04:18 204 MLS/HR Insulin Aspart (novoLOG ASPART) SLIDING SCALE Q6 SC 07/20/17 12:00 08/19/17 11:59 Cefoxitin Sodium 2000 mg/Dextrose 60 ml @ 100 mls/hr Q8H IV 07/20/17 13:00 07/30/17 12:59 07/20/17 14:22 100 MLS/HR Midazolam HCl 250 ml @ 0 mls/hr Q0M PRN IV 07/20/17 14:45 08/19/17 14:44 Fentanyl Citrate 250 ml @ 0 mls/hr Q0M PRN IV 07/20/17 14:45 08/03/17 14:44 Pantoprazole Sodium 40 mg/ Syringe 10 ml @ 5 mls/min DAILY@11 IV 07/21/17 11:00 07/24/17 11:01 Diltiazem HCl 125 mg/Dextrose 125 ml @ 0 mls/hr Q0M PRN IV 07/20/17 16:00 08/19/17 15:59 07/20/17 16:04 7.5 MLS/HR Methylprednisolone Sodium Succinate 40 mg/Syringe 0.64 ml @ 1.5 mls/min Q8H IV 07/20/17 17:00 08/19/17 16:59 Miscellaneous Information (Nursing Verbal Med Order) 1 ea ONE ONCE N/A 07/20/17 18:00 07/20/17 18:01 UNV Sodium Chloride 500 ml @ 999 mls/hr Q31M ONCE IV 07/20/17 18:15 07/20/17 18:45 I & O: 24-Hour Column 07/21/17 07:59 Intake Total 1300 ml Output Total 280 ml Balance 1020 ml Vital Signs: Date Time Temp Pulse Resp B/P (MAP) Pulse Ox O2 Delivery O2 Flow Rate FiO2 07/20/17 18:00 36.3 102 18 95/60 (72) 97 Mechanical Ventilator 100 07/20/17 17:56 100 07/20/17 16:00 Mechanical Ventilator 07/20/17 16:00 60 07/20/17 15:10 36.5 125 18 151/81 (105) 94 Mechanical Ventilator 60 07/20/17 15:01 60 07/20/17 15:00 110 18 110/86 (95) 94 Mechanical Ventilator 60 07/20/17 14:50 127 18 156/96 (125) 95 Mechanical Ventilator 60 07/20/17 14:40 36.5 110 18 184/99 (130) 95 Mechanical Ventilator 60 07/20/17 11:21 118 24 97 Room Air 07/20/17 11:16 104 16 148/80 (102) 07/20/17 08:56 119 26 95 Room Air 07/20/17 08:14 36.6 115 17 133/73 (93) 95 Room Air 07/20/17 08:00 Mask 4.0 07/20/17 07:19 101 20 97 Mask 5.0 07/20/17 05:14 98 24 96 Mask 5.0 07/20/17 03:18 104 24 96 Mask 5.0 07/19/17 23:40 Oxymask 2.0 07/19/17 22:48 37.2 83 16 129/74 (92) 96 Oxymask 2.0 07/19/17 20:17 104 24 96 Mask 2.0 07/19/17 18:30 Oxymask 2.0 07/19/17 18:25 37.0 91 18 113/69 (84) 96 Oxymask 2.0 Laboratory Results: Last 24 Hours Test 07/19/17 21:13 07/20/17 05:23 07/20/17 08:29 07/20/17 11:29 Bedside Glucose 107 mg/dl 367 mg/dl 74 mg/dl White Blood Count 6.30 K/uL Red Blood Count 4.26 M/uL Hemoglobin 11.4 g/dL Hematocrit 35.5 % Mean Corpuscular Volume 83.3 fL Mean Corpuscular Hemoglobin 26.8 pg Mean Corpuscular Hemoglobin Concent 32.1 g/dl Platelet Count 236 K/uL Mean Platelet Volume 9.1 fL Neutrophils (%) (Auto) 95.9 % Lymphocytes (%) (Auto) 1.7 % Monocytes (%) (Auto) 1.9 % Eosinophils (%) (Auto) 0.3 % Basophils (%) (Auto) 0.0 % Neutrophils # (Auto) 6.04 K/uL Lymphocytes # (Auto) 0.11 K/uL Monocytes # (Auto) 0.12 K/uL Eosinophils # (Auto) 0.02 K/uL Basophils # (Auto) 0.00 K/uL RDW Standard Deviation 47.7 fL RDW Coefficient of Variation 15.5 % Immature Granulocyte % (Auto) 0.2 % Immature Granulocyte # (Auto) 0.01 K/uL Sodium Level 135 mmol/L Potassium Level 3.7 mmol/L Chloride Level 98 mmol/L Carbon Dioxide Level 28 mmol/L Anion Gap 9.0 mmol/L Blood Urea Nitrogen 34 mg/dl Creatinine 1.41 mg/dl Est Creatinine Clear Calc Drug Dose 61.9 ml/min Estimated GFR () 61.4 Estimated GFR (Non- 53.0 BUN/Creatinine Ratio 24.3 Random Glucose 245 mg/dl Calcium Level 9.5 mg/dl Test 07/20/17 12:00 07/20/17 16:18 Bedside Glucose 95 mg/dl Blood Gas Sample Site R Radial Bedside Blood Gas pH (LAB) 7.30 Bedside Blood Gas pCO2 (LAB) 48 mmHg Bedside Blood Gas pO2 (LAB) 57 mmHg Bedside Blood Gas HCO3 (LAB) 24 meq/L Bedside Blood Gas Total CO2 25 mEq/l Bedside Blood Gas Base Excess (LAB) -3.0 meq/L Bedside Blood Gas O2 Saturation 87.0 % Royal Test Pass Oxygen Delivery Device Ventilator Bedside Oxygen Rate (breaths/min) 14 Blood Gas Minute Ventilation 11.3 Bedside FiO2 60 % Blood Gas Tidal Volume 500 Blood Gas PEEP 5
[2017-07-20] MEDS: SODIUM CHLORIDE 0.9% 1000ML 1,000 ML IV SCH ×2 (18:20→18:30)
--- NOTE | 2017-07-20 18:22 | Procedure Note ---
Procedure Note Procedure Date Jul 20, 2017. Procedure Description Procedure Name: [place] scope evaluation and bronchoscopy. Procedure time out: side/site verified, patient ID confirmed, correct procedure Consent obtained: emergent consent implied Performed by: attending Indications: diagnostic, therapeutic Contraindications: none Description: The patient was placed in supine position, the patient was given a dose of rocuronium 50 mg 4 evaluation of the ET tube as the patient was desaturating. O2 sat was 87% on 10 of PEEP and 100%. Using the glide scope, the ET tube was visualized and pooling secretions were noted. Secretions were suctioned and the balloon was at the vocal cord. The balloon was deflated and the ET tube was advanced to 26 cm by the lips. And secured. The saturation continue to be problematic. The patient had a bronchoscopy for emergent airway evaluation. Using a blue adapter, the patient was placed on 100% FiO2, O2 saturation was 88% at that time. The patient monitored throughout the entire procedure with ICU style monitoring. The patient was already sedated with fentanyl and Versed. The bronchoscope passed through the blue adapter through the ET tube. In the tracheobronchial tree was examined to the sub-subsegmental level. Noted green biliary secretions occluding the right upper lobe and right middle lobe takeoff. Suctioned also clear. No specimen was obtained. The rest of the airways appears slightly edematous but no endobronchial mucoid impaction. The patient tolerated the procedure very well. The patient was placed in semirecumbent position right lateral to be rotated every 6 hours. O2 saturation improved and registering 99%. We will start to taper the FiO2. Complications: none
[2017-07-20] MEDS ORDERED: DILTIAZEM HCL INJ 125 MG in DEXTROSE 5% 100ML 100 ML IV PRN (18:30)
[2017-07-20] MEDS: IPRATROPIUM BROMIDE HFA INHALER INH SCH (19:24)
[2017-07-20] MEDS: ALBUTEROL HFA 8 GM INHALER INH SCH (19:24)
--- NOTE | 2017-07-20 20:14 | Critical Care Progress Note ---
Critical Care Progress Note Date of Service Jul 20, 2017. Critical Care Progress Note At 1945, I was contacted by nursing staff as the patient had developed some hypotension with systolic pressures in the 70s. He had received a normal saline bolus earlier in the evening. I independently evaluated the patient. At this point, the patient was provided an additional 500 cc normal saline bolus. I did have the nurse titrate back the patient's sedative. In addition, I ordered repeat labs to evaluate for drop in H&H postoperatively as well as any other acute metabolic derangements. Repeat laboratory assessment demonstrates no significant anemia. Of note, the patient's albumin was moderately low. Given the patient's recent significant abdominal surgery and likely significant fluid shifts currently undergoing, I did elect to treat the patient with albumin 5% 12.5 g 1. At this point, patient's blood pressure did improve into the 1 teens. Certainly, this will be continued throughout the night and patient will continue to be monitored closely for need for vasoactive support. I have personally spent 30 minutes of critical care time in the direct management of this patient. This is a life/limb threatening event. This includes time spent evaluating patient, direct bedside care, chart review, placing orders, interpretation of diagnostic studies, discussion with consultants, patient, and family members, as well as other required patient management activities. This time is exclusive of all separately billable procedures, and teaching time and separate from and in addition to any other critical care service time. Thank you for this consultation allow us to be part of this patient's care. Above seen and evaluated, agree with assessment and plan of my colleague. Refer to my other notes.
[2017-07-20] MEDS ORDERED: SODIUM CHLORIDE 0.9% 500ML 500 ML IV SCH (20:45)
[2017-07-20 21:04] LABS: HEMATOCRIT 31.2 % (42-52); HEMOGLOBIN 10.3 g/dL (14.0-18.0)
[2017-07-20 21:29] LABS: ALBUMIN 2.1 gm/dl (3.4-5.0); CALCIUM 8.6 mg/dl (8.5-10.1); CREATININE 1.85 mg/dl (0.60-1.40); POTASSIUM 4.5 mmol/L (3.5-5.1); TOTAL PROTEIN 5.1 gm/dl (6.4-8.2)
[2017-07-20] MEDS ORDERED: ALBUMIN HUMAN 5% 12.5 GM/250 ML VIAL IV ONE (22:00)
[2017-07-20] MEDS: FENTANYL 1250MCG/250ML NSS IV PRN (22:08)
[2017-07-21] VITALS (34 sets, daily range): BP systolic 91–169; BP diastolic 57–96; PULSE 83–132; TEMP 36.3–37.4; O2SAT 91–100; BMI 31.0
[2017-07-21] MEDS: METHYLPREDNISOLONE IV 40 MG in SYRINGE 0 ML IV SCH ×3 (00:54→17:16)
[2017-07-21] MEDS: SODIUM CHLORIDE 0.9% 1000ML 1,000 ML IV SCH ×3 (02:30→13:37)
[2017-07-21] MEDS: CEFOXITIN IV 2,000 MG in DEXTROSE 5% 50ML 50 ML IV SCH ×3 (04:18→21:10)
[2017-07-21] MEDS ORDERED: INSULIN IV INFUSION PROTOCOL SCH (05:41)
[2017-07-21] MEDS ORDERED: INSULIN PROTOCOL GOAL RANGE ONE ×2 (05:45→12:15)
[2017-07-21] MEDS ORDERED: SEVERE STRESS LEVEL ONE (05:45)
[2017-07-21] MEDS: HEPARIN SOD 5000 UNIT/0.5 ML CARP SQ SCH ×3 (05:49→22:13)
[2017-07-21 05:50] LABS: HEMATOCRIT 29.1 % (42-52); HEMOGLOBIN 9.6 g/dL (14.0-18.0); MEAN CELL VOLUME 83.1 fL (80-100); MEAN CORPUSCULAR HEMOGLOBIN 27.4 pg (25-34); MEAN PLATELET VOLUME 9.3 fL (7.4-10.4); PLATELET COUNT 210 K/uL (130-400); RED CELL DISTRIBUTION WIDTH SD 48.1 fL (36.4-46.3); WHITE BLOOD COUNT 7.53 K/uL (4.8-10.8)
[2017-07-21] MEDS ORDERED: NovoLIN R BOLUS FROM BAG IV ONE (06:15)
[2017-07-21] MEDS: INSULIN REGULAR 250 UNITS in SODIUM CHLORIDE 0.9% 250ML 250 ML IV SCH (06:17)
[2017-07-21] MEDS: FENTANYL 1250MCG/250ML NSS IV PRN (06:18)
--- NOTE | 2017-07-21 07:22 | OPERATIVE REPORT ---
DATE OF OPERATION: 07/20/2017 SURGEON: Dr. Alexander. FIREWALL SECURITY ENGINEER: Dr. Manzano. PREOPERATIVE DIAGNOSIS: Abdominal wound dehiscence. POSTOPERATIVE DIAGNOSIS: Same. PROCEDURE: Abdominal washout, closure of abdominal wound dehiscence. SUMMARY: The patient was brought into the operating room under general anesthesia. The patient on his abdomen had some 4 x 4 gauze with ABD pads embedded in normal saline. Once we exposed the bowel, the patient had approximately 1 loop of bowel coming out of the incision. This was small-bowel, viable. We at this point prepped the whole area with Betadine solution and properly draped. We then took out the colleen that were on either end of the incision. The bowel was free of any injury. We easily reduced the bowel into the abdomen. The patient was closed with interrupted #1 PDS. All the sutures were intact as far as the knot was concerned, but I pulled away from the fascia. The patient is a significant COPD'er and this happened when they were trying to insert an NG tube this morning when he coughed and eviscerated. The abdomen was washed out copiously with normal saline in significant amounts. Once this had been accomplished, then we were able to close the wound which was about 8-10 cm long with #5 Ethibond retention sutures that would be tied over a bolster. We closed the fascia with #1 PDS in a continuous fashion as I imagined the fascia per se was really juicy, did seemed to be getting enough sufficient bite that we were able to close it. The retention sutures were close enough that this would be holding it in place. I placed a quarter-inch Nya drain in the subcutaneous tissue, attached to skin edges superior and inferiorly with 2-0 silk. Rubber bolsters were then used to tie the retention suture securely. A dressing was applied. The procedure was tolerated well by the patient. Minimal blood loss. I attest to the content of the Intraoperative Record and any orders documented therein. Any exceptions are noted below. MTDD
[2017-07-21] MEDS: IPRATROPIUM BROMIDE HFA INHALER INH SCH ×4 (07:35→21:10)
[2017-07-21] MEDS: ALBUTEROL HFA 8 GM INHALER INH SCH ×4 (07:35→21:10)
[2017-07-21] MEDS: BUDESONIDE 0.5 MG/2 ML VIAL (PULMICORT) INH SCH ×2 (07:37→19:48)
[2017-07-21] MEDS: ARFORMOTEROL TART 15MCG/2ML VIAL INH SCH ×2 (07:37→19:48)
[2017-07-21] MEDS: INSULIN ASPART 100 UNITS/ML 3 ML PEN SC SCH ×4 (08:00→21:00)
[2017-07-21] MEDS: POTASSIUM CHLORIDE 20 MEQ TABCR PO SCH ×3 (09:00→22:12)
[2017-07-21] MEDS ORDERED: PANTOprazole SOD 40 MG TAB PO SCH (09:00)
[2017-07-21] MEDS: ESCITALOPRAM OXALATE 10 MG TAB PO SCH (09:00)
[2017-07-21] MEDS: FLUTICASONE PROPIONATE NA SPR 16 GM BTL NAE SCH (09:50)
[2017-07-21 10:25] LABS: CREATININE 1.99 mg/dl (0.60-1.40); POTASSIUM 5.1 mmol/L (3.5-5.1)
--- NOTE | 2017-07-21 10:44 | Anesthesiology Progress Note ---
Anesthesia Post Op Note Date & Time Jul 21, 2017 at 10:41 Vital Signs Pain Intensity: 0.0 Vital Signs Past 12 Hours Date Time Temp Pulse Resp B/P (MAP) Pulse Ox O2 Delivery O2 Flow Rate FiO2 07/21/17 06:01 91 18 107/62 (77) 98 07/21/17 05:01 90 17 102/64 (77) 96 07/21/17 04:01 37.3 90 18 112/61 (78) 98 Mechanical Ventilator 50 07/21/17 04:00 96 Mechanical Ventilator 50 07/21/17 04:00 50 07/21/17 03:01 94 18 110/61 (77) 98 Mechanical Ventilator 50 07/21/17 02:25 90 07/21/17 02:01 96 18 109/68 (82) 99 07/21/17 01:01 100 18 93/59 (70) 99 07/21/17 00:01 37.4 100 18 91/59 (70) 99 Mechanical Ventilator 70 07/20/17 23:59 98 Mechanical Ventilator 70 07/20/17 23:59 70 07/20/17 23:01 101 18 98/61 (73) 99 Mechanical Ventilator 70 Notes Mental Status: see Notes Pt Amnestic to Procedure: Yes Nausea / Vomiting: adequately controlled Pain: adequately controlled Airway Patency, RR, SpO2: stable & adequate, see Notes BP & HR: stable & adequate Hydration State: stable & adequate Anesthetic Complications: no major complications apparent patient continues to be on ventilator in ICU on fentanyl and Insulin drips. Per RN: patient had hypertension postoperatively yesterday, was given cardizem which caused hypotension. Creat 1.8, fluid bolus given and BP recovered as well as UO improved. Patient had low spo2 mid 80s earlier. Pt then paralyzed and bronchoscopy done which removed small mucous plug. Spo2 did not improve. MD ordered prone position which can't be done in this facility per RN. They instead intermittently turn pt 45 degrees. spo2 now 100% and doing Cpap trials.No pressors needed t/o night.
[2017-07-21] MEDS: PANTOprazole INJ 40 MG in SYRINGE 0 ML IV SCH (11:00)
--- NOTE | 2017-07-21 11:15 | Surgery Progress Note ---
Surgery Progress Note Date of Service Jul 21, 2017. Subjective Post OP Day: remains on vent Objective Vital Signs: Date Time Temp Pulse Resp B/P (MAP) Pulse Ox O2 Delivery O2 Flow Rate FiO2 07/21/17 06:01 91 18 107/62 (77) 98 07/21/17 05:01 90 17 102/64 (77) 96 07/21/17 04:01 37.3 90 18 112/61 (78) 98 Mechanical Ventilator 50 07/21/17 04:00 96 Mechanical Ventilator 50 07/21/17 04:00 50 07/21/17 03:01 94 18 110/61 (77) 98 Mechanical Ventilator 50 07/21/17 02:25 90 07/21/17 02:01 96 18 109/68 (82) 99 07/21/17 01:01 100 18 93/59 (70) 99 07/21/17 00:01 37.4 100 18 91/59 (70) 99 Mechanical Ventilator 70 07/20/17 23:59 98 Mechanical Ventilator 70 07/20/17 23:59 70 07/20/17 23:01 101 18 98/61 (73) 99 Mechanical Ventilator 70 07/20/17 22:23 90 07/20/17 22:01 105 18 89/60 (70) 99 Mechanical Ventilator 80 07/20/17 21:01 104 18 89/61 (70) 99 Mechanical Ventilator 80 07/20/17 20:01 37.2 104 18 92/57 (69) 99 Mechanical Ventilator 90 07/20/17 20:00 97 Mechanical Ventilator 90 07/20/17 20:00 90 07/20/17 19:24 90 07/20/17 18:00 36.3 102 18 95/60 (72) 97 Mechanical Ventilator 100 07/20/17 17:56 100 07/20/17 16:00 Mechanical Ventilator 07/20/17 16:00 60 07/20/17 15:10 36.5 125 18 151/81 (105) 94 Mechanical Ventilator 60 07/20/17 15:01 60 07/20/17 15:00 110 18 110/86 (95) 94 Mechanical Ventilator 60 07/20/17 14:50 127 18 156/96 (125) 95 Mechanical Ventilator 60 07/20/17 14:40 36.5 110 18 184/99 (130) 95 Mechanical Ventilator 60 3/20/18 11:21 118 24 97 Room Air 07/20/17 11:16 104 16 148/80 (102) Physical Exam: nasogastric drainage (375/100), urine output (425 overnight) Abdomen: soft, + distended Incision(s): intact (dressing) Laboratory Results: Results Past 24 Hours Test 07/20/17 11:29 07/20/17 12:00 07/20/17 12:10 07/20/17 13:00 Range/Units Bedside Glucose 74 95 99 122 70-99 mg/dl Test 07/20/17 16:18 07/20/17 18:08 07/20/17 20:41 07/20/17 20:58 Range/Units Blood Gas Sample Site R Radial Bedside Blood Gas pH (LAB) 7.30 7.35-7.45 Bedside Blood Gas pCO2 (LAB) 48 35-46 mmHg Bedside Blood Gas pO2 (LAB) 57 80-95 mmHg Bedside Blood Gas HCO3 (LAB) 24 19-24 meq/L Bedside Blood Gas Total CO2 25 24-31 mEq/l Bedside Blood Gas Base Excess (LAB) -3.0 -9-1.8 meq/L Bedside Blood Gas O2 Saturation 87.0 90-95 % Royal Test Pass Oxygen Delivery Device Ventilator Bedside Oxygen Rate (breaths/min) 14 Blood Gas Minute Ventilation 11.3 Bedside FiO2 60 % Blood Gas Tidal Volume 500 Blood Gas PEEP 5 Bedside Glucose 220 173 70-99 mg/dl Hemoglobin 10.3 14.0-18.0 g/dL Hematocrit 31.2 42-52 % Sodium Level 137 136-145 mmol/L Potassium Level 4.5 3.5-5.1 mmol/L Chloride Level 103 98-107 mmol/L Carbon Dioxide Level 25 21-32 mmol/L Anion Gap 9.0 3-11 mmol/L Blood Urea Nitrogen 38 7-18 mg/dl Creatinine 1.85 0.60-1.40 mg/dl Est Creatinine Clear Calc Drug Dose 47.2 ml/min Estimated GFR () 44.2 Estimated GFR (Non- 38.2 BUN/Creatinine Ratio 20.5 10-20 Random Glucose 180 70-99 mg/dl Calcium Level 8.6 8.5-10.1 mg/dl Ionized Calcium 1.15 1.12-1.32 mmol/l Total Bilirubin 0.6 0.2-1 mg/dl Direct Bilirubin 0.2 0-0.2 mg/dl Aspartate Amino Transf (AST/SGOT) 14 15-37 U/L Alanine Aminotransferase (ALT/SGPT) 26 12-78 U/L Alkaline Phosphatase 60 45-117 U/L Total Protein 5.1 6.4-8.2 gm/dl Albumin 2.1 3.4-5.0 gm/dl Random Cortisol 84.43 mcg/dl Test 07/20/17 23:31 07/21/17 05:32 07/21/17 05:37 07/21/17 09:37 Range/Units Bedside Glucose 174 70-99 mg/dl White Blood Count 7.53 4.8-10.8 K/uL Red Blood Count 3.50 4.7-6.1 M/uL Hemoglobin 9.6 14.0-18.0 g/dL Hematocrit 29.1 42-52 % Mean Corpuscular Volume 83.1 80-100 fL Mean Corpuscular Hemoglobin 27.4 25-34 pg Mean Corpuscular Hemoglobin Concent 33.0 32-36 g/dl RDW Standard Deviation 48.1 36.4-46.3 fL RDW Coefficient of Variation 16.0 11.5-14.5 % Platelet Count 210 130-400 K/uL Mean Platelet Volume 9.3 7.4-10.4 fL Sodium Level 136 136-145 mmol/L Potassium Level 5.1 3.5-5.1 mmol/L Chloride Level 104 98-107 mmol/L Carbon Dioxide Level 20 21-32 mmol/L Anion Gap 13.0 3-11 mmol/L Blood Urea Nitrogen 44 7-18 mg/dl Creatinine 1.99 0.60-1.40 mg/dl Est Creatinine Clear Calc Drug Dose 43.8 ml/min Estimated GFR () 40.5 Estimated GFR (Non- 34.9 BUN/Creatinine Ratio 21.9 10-20 Random Glucose 267 70-99 mg/dl Bedside Venous pH 7.43 7.36-7.41 Bedside Venous pCO2 32 38.0-50.0 mmHg Bedside Venous pO2 < 32 30-55 mmHg Bedside Venous HCO3 21 23-28 meq/L Bedside Venous Blood Total CO2 22 24-31 mEq/l Bedside Venous Blood O2 Saturation 62.0 70-80 % Bedside Venous Blood Base Excess -3.0 meq/L Bedside FiO2 40 % Assessment & Plan s/p right colectomy, repair of dehiscence COPD, h/o CHF vent management per power cutting machine operator service continue NG consider PPN/TPN as po intake was already limited postop seen this morning by Dr. Alexander
--- NOTE | 2017-07-21 11:21 | SURGERY PROGRESS NOTE ---
DATE: 07/21/2017 Alexander is 1st postoperative day status post abdominal washout, repair of abdominal incisional dehiscence. He is still respirator dependent at this time. He is alert. He squeezes his hand appropriately. He is complaining of some abdominal discomfort on exam. His is at his bedside. His last vital had showed him with a temperature of 37.3, pulse 90, respirations 18, blood pressure 112/61, O2 sats 98% on 50%. I&O, he had 425 urine overnight, minimal NG output. At this point, hopefully we will get him extubated today. I will leave the NG tube in until he has some GI function and consider starting him on some peripheral hyperalimentation since likely it is suspected to be a few more days before he could resume any significant oral intake. We will leave this up to the medical service to try to titrate his oral intake with his diabetes.
[2017-07-21 11:35] LABS: CALCIUM 8.1 mg/dl (8.5-10.1)
[2017-07-21] MEDS ORDERED: INSULIN GLARGINE SOLOSTAR 100 UNITS/ML 3 ML PEN SC SCH ×2 (12:00→14:15)
--- NOTE | 2017-07-21 12:05 | Pharmacy Progress Note ---
Glycemic Control Progress Note Date of Service Jul 21, 2017. Scope Glycemic Pharmacist consulted for glycemic control to write orders per [facility] inpatient glycemic control protocol. Objective Accuchecks BSG (last 24hrs): Test 07/20/17 12:00 07/20/17 12:10 07/20/17 13:00 07/20/17 18:08 Bedside Glucose 95 mg/dl (70-99) 99 mg/dl (70-99) 122 mg/dl (70-99) 220 mg/dl (70-99) Test 07/20/17 20:41 07/20/17 20:58 07/20/17 23:31 07/21/17 05:37 Random Glucose 180 mg/dl (70-99) 267 mg/dl (70-99) Bedside Glucose 173 mg/dl (70-99) 174 mg/dl (70-99) HbA1c: Test 07/16/17 06:38 Hemoglobin A1c 6.6 % (4.5-5.6) H Recent Pertinent Medications The patient is currently receiving: * Basal insulin/ Correctional insulin: IV insulin infusion per severe stress protocol, goal range 120 - 180mg/dL * Prandial insulin: Per carb ratio calculated by IV insulin infusion rate change calculator Outpatient Anti-Diabetic Meds Lantus 35 units SQ BID Novolog SQ TID w/ meals using CR 1 unit per 5 grams CHO's consumed Assessment & Plan ASSESSMENT: 07/21/17 * Patient taken to OR yesterday for abd wound washout and closure of abd wound dehiscence * He remains intubated on vent this AM and continues to receive high dose IV steroids * AG metabolic acidosis noted on this AM labs along with hyperglycemia * His BSGs had been relatively well controlled prior to these acute events. * IV insulin infusion initiated this AM given worsening acidosis and hyperglycemia in a stressed type 1 diabetic * SQ Lantus had been placed on hold, however I would like to resume some basal insulin at this time as this will allow for easier transition off the insulin drip in the future. * There is some discussion of starting parenteral nutrition in this patient in the near future. Insulin will need added to the parenteral nutrition bag if this therapy used. PLAN FOR INPATIENT GLYCEMIC CONTROL: * Continue IV insulin infusion per severe stress protocol * Goal Range 120 - 200 mg/dl * In the critical care setting, continuous IV insulin infusion has been shown to be the best method for achieving glycemic targets. * Restart basal insulin: * Lantus 20 units SQ BID * If BSGs begin to fall below goal range leading to holding the insulin drip, would recommend adding dextrose containing maintenance IVF's * Please note that the plan above was derived based on current level of insulin resistance and hospital stress. These recommendations are appropriate for inpatient admission only. Plan of care upon discharge will need to be reassessed to avoid potential outpatient hypo/hyperglycemia. Thank you.
[2017-07-21] MEDS: DEXTROSE 50% 50 ML SYR IV PRN (13:38)
[2017-07-21] MEDS ORDERED: TPN/PPN CONSULT PHARMACY PRN (14:00)
--- NOTE | 2017-07-21 14:18 | Progress Note ---
Subjective Date of Service: Jul 21, 2017. Subjective Pt evaluation today including: conversation w/ family, physical exam, lab review, review of studies, conversation w/ contamination consultant, review of inpatient medication list Pain: sedated PO Intake: NPO, NGT in place Voiding: huynh catheter in place patient had issues with desaturations after surgery last evening required bronchoscopy for suctioning some bile from right upper airway after several modes of ventilation were attempted, he was saturating in 90's on PEEP of 12 and FiO2 100%, frequent turns doing well this AM, FiO2 decreased to 50% reviewed labs, Cr up to 1.9, urine output has been adequate but not great Hb 9.6, WBC normal, K is high normal at 5.[address] Alexander, should consider TPN since he will not be taking enteral nutrition for several days discussed with Dr. Sewell, he is managing ventilator Problem List Medical Problems: (1) Hypokalemia Status: Acute (2) Oxygen dependent Status: Acute (3) Respiratory failure Status: Acute (4) Right flank pain Status: Acute Review of Systems cannot review, sedated Medications Current Inpatient Medications Medications (Trade) Dose Ordered Sig/Dianne Route Start Time Stop Time Status Last Admin Dose Admin Oxycodone/ Acetaminophen (Percocet 5-325mg Tab) 1 tab Q4H PRN PO 07/15/17 14:45 07/29/17 14:44 07/19/17 20:39 1 TAB Ondansetron HCl (Zofran Inj) 4 mg Q6H PRN IV 07/15/17 14:45 08/14/17 14:44 07/20/17 01:14 4 MG Heparin Sodium (Porcine) (Heparin Sq 5000 Unit/0.5ml) 5,000 unit Q8 SQ 07/16/17 06:00 08/15/17 05:59 07/21/17 05:49 5,000 UNIT Arformoterol Tartrate (Brovana 15MCG/ 2ML Neb Soln) 15 mcg BIDR INH 07/16/17 08:00 08/15/17 07:59 07/21/17 07:37 15 MCG Budesonide (Pulmicort Respules 0.5MG/ 2ML Neb Soln) 1 mg BIDR INH 07/16/17 08:00 08/15/17 07:59 3/21/18 07:37 1 MG Fluticasone Propionate (Flonase Nasal [place]) 2 sprays QAM ANNA 07/16/17 09:00 08/15/17 08:59 07/19/17 07:44 2 SPRAYS Glucose (Glucose 40% Gel) 15-30 GRAMS 15 GRAMS... UD PRN PO 07/15/17 21:45 08/14/17 21:44 Glucose (Glucose Chew Tab) 4-8 Tablets 4 Tabl... UD PRN PO 07/15/17 21:45 08/14/17 21:44 Dextrose (Dextrose 50% 50ML Syringe) 25-50ML OF 50% DW IV FOR... UD PRN IV 07/15/17 21:45 08/14/17 21:44 07/21/17 13:38 25 ML Glucagon (Glucagon Inj) 1 mg UD PRN SQ 07/15/17 21:45 08/14/17 21:44 Miscellaneous Information (Consult Glycemic Management Pharmacy) 1 ea UD PRN N/A 07/16/17 06:55 08/15/17 06:54 Hydromorphone HCl (Dilaudid Inj) 0.5 mg Q3H PRN IV 07/17/17 09:45 07/31/17 09:44 07/18/17 20:49 0.5 MG Escitalopram Oxalate (Lexapro Tab) 10 mg QAM PO 07/19/17 09:00 08/18/17 08:59 07/19/17 08:21 10 MG Potassium Chloride (Klor-Con Tab) 20 meq TID PO 07/19/17 09:00 08/18/17 08:59 07/20/17 21:09 20 MEQ Miscellaneous Information (Order Awaiting Action) 1 ea QS N/A 07/19/17 08:00 08/18/17 07:59 Albuterol Sulfate (Ventolin 0.083% 2.5MG/3ML Neb) 2.5 mg Q2H PRN INH 07/19/17 10:30 08/14/17 20:59 07/20/17 05:14 2.5 MG Promethazine HCl 12.5 mg/Sodium Chloride 50.5 ml @ 204 mls/hr Q6H PRN IV 07/19/17 10:30 08/18/17 10:29 07/20/17 04:18 204 MLS/HR Cefoxitin Sodium 2000 mg/Dextrose 60 ml @ 100 mls/hr Q8H IV 07/20/17 13:00 07/30/17 12:59 07/21/17 13:37 100 MLS/HR Midazolam HCl 250 ml @ 0 mls/hr Q0M PRN IV 07/20/17 14:45 08/19/17 14:44 Fentanyl Citrate 250 ml @ 0 mls/hr Q0M PRN IV 07/20/17 14:45 08/03/17 14:44 07/21/17 06:18 30 MLS/HR Pantoprazole Sodium 40 mg/ Syringe 10 ml @ 5 mls/min DAILY@11 IV 07/21/17 11:00 07/24/17 11:01 07/21/17 11:00 5 MLS/MIN Methylprednisolone Sodium Succinate 40 mg/Syringe 0.64 ml @ 1.5 mls/min Q8H IV 07/20/17 17:00 08/19/17 16:59 07/21/17 09:31 1.5 MLS/MIN Sodium Chloride 1,000 ml @ 125 mls/hr Q8H IV 07/20/17 18:30 08/19/17 18:29 07/21/17 13:37 125 MLS/HR Ipratropium [place] (Atrovent Hfa Inhaler) 4 puffs QIDR INH 07/20/17 20:00 08/19/17 19:59 07/21/17 11:37 4 PUFFS Albuterol (Ventolin Hfa Inhaler) 4 puffs QIDR INH 07/20/17 20:00 08/19/17 19:59 07/21/17 11:37 4 PUFFS Insulin Aspart (novoLOG ASPART) SLIDING SCALE PCHS SC 07/21/17 08:00 08/20/17 07:59 Insulin Human Regular 250 units/ Sodium Chloride 252.5 ml @ 0 mls/hr Q24H IV 07/21/17 06:15 08/20/17 06:14 07/21/17 06:17 3.6 MLS/HR Insulin Glargine (Lantus Solostar Pen) 20 units BID SC 07/21/17 12:00 08/20/17 11:59 Objective Vital Signs Date Time Temp Pulse Resp B/P (MAP) Pulse Ox O2 Delivery O2 Flow Rate FiO2 07/21/17 12:40 40 07/21/17 12:00 40 07/21/17 12:00 37.3 113 18 105/60 (75) 98 Mechanical Ventilator 40 07/21/17 12:00 98 Mechanical Ventilator 40 07/21/17 11:14 40 07/21/17 08:00 37.3 85 18 104/65 (78) 100 Mechanical Ventilator 40 07/21/17 08:00 40 07/21/17 08:00 100 Mechanical Ventilator 40 07/21/17 07:36 40 07/21/17 06:01 91 18 107/62 (77) 98 07/21/17 05:01 90 17 102/64 (77) 96 07/21/17 04:01 37.3 90 18 112/61 (78) 98 Mechanical Ventilator 50 07/21/17 04:00 96 Mechanical Ventilator 50 07/21/17 04:00 50 07/21/17 03:01 94 18 110/61 (77) 98 Mechanical Ventilator 50 07/21/17 02:25 90 07/21/17 02:01 96 18 109/68 (82) 99 07/21/17 01:01 100 18 93/59 (70) 99 07/21/17 00:01 37.4 100 18 91/59 (70) 99 Mechanical Ventilator 70 07/20/17 23:59 98 Mechanical Ventilator 70 07/20/17 23:59 70 07/20/17 23:01 101 18 98/61 (73) 99 Mechanical Ventilator 70 07/20/17 22:23 90 07/20/17 22:01 105 18 89/60 (70) 99 Mechanical Ventilator 80 07/20/17 21:01 104 18 89/61 (70) 99 Mechanical Ventilator 80 07/20/17 20:01 37.2 104 18 92/57 (69) 99 Mechanical Ventilator 90 07/20/17 20:00 97 Mechanical Ventilator 90 07/20/17 20:00 90 07/20/17 19:24 90 07/20/17 18:00 36.3 102 18 95/60 (72) 97 Mechanical Ventilator 100 07/20/17 17:56 100 07/20/17 16:00 Mechanical Ventilator 07/20/17 16:00 60 07/20/17 15:10 36.5 125 18 151/81 (105) 94 Mechanical Ventilator 60 07/20/17 15:01 60 07/20/17 15:00 110 18 110/86 (95) 94 Mechanical Ventilator 60 07/20/17 14:50 127 18 156/96 (125) 95 Mechanical Ventilator 60 07/20/17 14:40 36.5 110 18 184/99 (130) 95 Mechanical Ventilator 60 Physical Exam General Appearance: WD/WN, no apparent distress Neck: supple, no adenopathy, no JVD, trachea midline Respiratory/Chest: no respiratory distress, no accessory muscle use, + decreased breath sounds, + rhonchi, + pertinent finding (intubated) Cardiovascular: regular rate, rhythm, no gallop, no JVD, no murmur Abdomen: + abnormal bowel sounds (hypoactive), + distended, + tenderness Extremities: no calf tenderness, normal capillary refill, + pedal edema Neurologic/Psychiatric: + pertinent finding (sedated on ventilator, moving extremities) Skin: normal color, warm/dry, no rash Laboratory Results Last 24 Hours Test 07/20/17 16:18 07/20/17 18:08 07/20/17 20:41 07/20/17 20:58 Blood Gas Sample Site R Radial Bedside Blood Gas pH (LAB) 7.30 Bedside Blood Gas pCO2 (LAB) 48 mmHg Bedside Blood Gas pO2 (LAB) 57 mmHg Bedside Blood Gas HCO3 (LAB) 24 meq/L Bedside Blood Gas Total CO2 25 mEq/l Bedside Blood Gas Base Excess (LAB) -3.0 meq/L Bedside Blood Gas O2 Saturation 87.0 % Royal Test Pass Oxygen Delivery Device Ventilator Bedside Oxygen Rate (breaths/min) 14 Blood Gas Minute Ventilation 11.3 Bedside FiO2 60 % Blood Gas Tidal Volume 500 Blood Gas PEEP 5 Bedside Glucose 220 mg/dl 173 mg/dl Hemoglobin 10.3 g/dL Hematocrit 31.2 % Sodium Level 137 mmol/L Potassium Level 4.5 mmol/L Chloride Level 103 mmol/L Carbon Dioxide Level 25 mmol/L Anion Gap 9.0 mmol/L Blood Urea Nitrogen 38 mg/dl Creatinine 1.85 mg/dl Est Creatinine Clear Calc Drug Dose 47.2 ml/min Estimated GFR () 44.2 Estimated GFR (Non- 38.2 BUN/Creatinine Ratio 20.5 Random Glucose 180 mg/dl Calcium Level 8.6 mg/dl Ionized Calcium 1.15 mmol/l Total Bilirubin 0.6 mg/dl Direct Bilirubin 0.2 mg/dl Aspartate Amino Transf (AST/SGOT) 14 U/L Alanine Aminotransferase (ALT/SGPT) 26 U/L Alkaline Phosphatase 60 U/L Total Protein 5.1 gm/dl Albumin 2.1 gm/dl Random Cortisol 84.43 mcg/dl Test 07/20/17 23:31 07/21/17 05:32 07/21/17 05:37 07/21/17 09:37 Bedside Glucose 174 mg/dl White Blood Count 7.53 K/uL Red Blood Count 3.50 M/uL Hemoglobin 9.6 g/dL Hematocrit 29.1 % Mean Corpuscular Volume 83.1 fL Mean Corpuscular Hemoglobin 27.4 pg Mean Corpuscular Hemoglobin Concent 33.0 g/dl RDW Standard Deviation 48.1 fL RDW Coefficient of Variation 16.0 % Platelet Count 210 K/uL Mean Platelet Volume 9.3 fL Sodium Level 136 mmol/L Potassium Level 5.1 mmol/L Chloride Level 104 mmol/L Carbon Dioxide Level 20 mmol/L Anion Gap 13.0 mmol/L Blood Urea Nitrogen 44 mg/dl Creatinine 1.99 mg/dl Est Creatinine Clear Calc Drug Dose 43.8 ml/min Estimated GFR () 40.5 Estimated GFR (Non- 34.9 BUN/Creatinine Ratio 21.9 Random Glucose 267 mg/dl Calcium Level 8.1 mg/dl Bedside Venous pH 7.43 Bedside Venous pCO2 32 mmHg Bedside Venous pO2 < 32 mmHg Bedside Venous HCO3 21 meq/L Bedside Venous Blood Total CO2 22 mEq/l Bedside Venous Blood O2 Saturation 62.0 % Bedside Venous Blood Base Excess -3.0 meq/L Bedside FiO2 40 % Assessment and Plan 62 y/o male s/p right colon resection with Dr. Alexander on 07/15, hospitalist consulted for medical management. S/p right colon resection--POD #6 Wound dehiscence on 07/20, taken emergently to OR for closure, washout, POD #1 abdomen distended, tender, decreased BS, keep NGT in place plan for TPN, request pharmacy consult and nutrition consult for TPN to start evening of 07/22 Acute hypoxic respiratory failure, COPD/asthma s/p bronchoscopy on 07/20 after surgery less FiO2 requirements today, less PEEP management per critical care has asthma at baseline, never smoked per Solu Medrol per pulmonary YOLETTE: resolved initially Cr now back up to 1.9 after surgery received Lasix on 07/19 and in the morning on 07/20 no further diuretics needed maintenance fluids, received boluses yesterday + 14 liters for admission, follow closely, may require diuretics again Metabolic acidosis, anion gap HCO3 down slightly to 20, gap is 12 could be due to renal failure, follow closely, well hydrated DM: labile sugars prior to second surgery now on insulin gtt in setting of steroids will ask pharmacy to help manage once TPN started to avoid further hyperglycemia updated at the bedside Continued [facility] stay due to: multiple IV medications needed, home environment unsafe for pt Discharge planning: uncertain
[2017-07-21] MEDS: D5W AND NSS 1,000 ML IV SCH ×2 (14:29→22:12)
--- NOTE | 2017-07-21 16:57 | SURGERY PROGRESS NOTE ---
DATE: 07/21/2017 Since I saw Alexander this morning, the patient was extubated. He is alert, coherent. He is in the process right now for the IV team establishing a PICC line with some hyperalimentation. His is at the bedside. He appears fairly comfortable, not really complaining of significant pain. His last vitals showed a temperature of 37.3, pulse 106, respiration 18, blood pressure 120/79. The abdomen is distended as would expect. The NG drainage was 200 minimally. I discussed it with the finger buffs assembler. I would rather keep the NG tube in another day. He did have an ileus. He was moving his bowels prior to the evisceration and hopefully give him another day to decompress him more before reinstituting any kind of enteral intake. In the meantime as far as his cardiac medicines given p.o. certainly he can be given and just clamp the tube for about 2 hours after giving the meds.
--- NOTE | 2017-07-21 17:45 | Critical Care Progress Note ---
Critical Care Progress Note Date of Service Jul 21, 2017. Attending Dr. Sewell Subjective Overnight the patient has been stable except for one event where his blood pressure dropped down to the 70s requiring a bolus of albumin. Today the patient tolerated CPAP trial and his O2 saturation remains normal. Review of system was not obtainable as the patient was intubated and sedated Objective Physical exam revealed after the OR patient is having prolonged expiratory phase of breathing, his blood pressure was elevated at 195 with heart rate of 127, responded to fentanyl and Versed however remains tachycardic and responded better to Cardizem drip. S1-S2 with distant breath sounds bilaterally, abdomen is postop no edema. Neurologically difficult to assess. Physical exam on 07/21/2017 revealed middle-age gentleman, currently intubated, O2 saturation is 95% on 40%, open his eyes but follows simple commands, appeared drowsy, does not appear to be in any respiratory distress, no stridor, S1-S2 regular rate and rhythm, lungs with distant crackles mainly at the bases, abdomen is postop diminished bowel sounds, no edema. His labs and imaging reviewed on rounds personally. Assessment & Plan 1. Severe COPD, with asthma converting to COPD previously, patient has poor lung mechanics. 2. Acute respiratory failure requiring intubation and kept intubated. 3. History of dehiscence of abdominal wound status post surgical repair with retention sutures. 4. History of tubular adenoma of the right colon status post right hemicolectomy. 5. Anxiety disorder. 6. Acute respiratory failure requiring intubation overnight postoperatively, improving. Plan: 1. I have decreased the PEEP to 5 and placed the patient on CPAP trial. The patient successfully passed a spontaneous breathing trial. 2. The patient was extubated to nasal cannula, was able to maintain his O2 saturation on respiratory status. 3. Discussed the case with Dr. Alexander to administer medication via the NG tube and he agreed. 4. I would resume Aldactone, Zocor and diltiazem which are his home medications. 5. Continue with Brovana and Pulmicort in addition to short acting beta agonist 3 times daily. 6. GI and DVT prophylaxis. 7. Discussed at length with the who is concerned about future intubation and I clarified to her that this is a temporary measure needed to keep an intubation overnight. She is in agreement at this point. 8. For pain control, we will use Dilaudid. 9. I will stop fentanyl and Versed. 10. The patient has been on Ativan in the past and I will continue as needed for anxiety. 11. Appreciate surgery evaluation and input. Case discussed with the staff on rounds and details. Critical care time spent with the patient was 45 minutes. Data Medications: Current Inpatient Medications Medications (Trade) Dose Ordered Sig/Dianne Route Start Time Stop Time Status Last Admin Dose Admin Oxycodone/ Acetaminophen (Percocet 5-325mg Tab) 1 tab Q4H PRN PO 07/15/17 14:45 07/29/17 14:44 07/19/17 20:39 1 TAB Ondansetron HCl (Zofran Inj) 4 mg Q6H PRN IV 07/15/17 14:45 08/14/17 14:44 07/20/17 01:14 4 MG Heparin Sodium (Porcine) (Heparin Sq 5000 Unit/0.5ml) 5,000 unit Q8 SQ 07/16/17 06:00 08/15/17 05:59 07/21/17 14:30 5,000 UNIT Arformoterol Tartrate (Brovana 15MCG/ 2ML Neb Soln) 15 mcg BIDR INH 07/16/17 08:00 08/15/17 07:59 07/21/17 07:37 15 MCG Budesonide (Pulmicort Respules 0.5MG/ 2ML Neb Soln) 1 mg BIDR INH 07/16/17 08:00 08/15/17 07:59 07/21/17 07:37 1 MG Fluticasone Propionate (Flonase Nasal [place]) 2 sprays QAM ANNA 07/16/17 09:00 08/15/17 08:59 07/19/17 07:44 2 SPRAYS Glucose (Glucose 40% Gel) 15-30 GRAMS 15 GRAMS... UD PRN PO 07/15/17 21:45 08/14/17 21:44 Glucose (Glucose Chew Tab) 4-8 Tablets 4 Tabl... UD PRN PO 07/15/17 21:45 08/14/17 21:44 Dextrose (Dextrose 50% 50ML Syringe) 25-50ML OF 50% DW IV FOR... UD PRN IV 07/15/17 21:45 08/14/17 21:44 07/21/17 13:38 25 ML Glucagon (Glucagon Inj) 1 mg UD PRN SQ 07/15/17 21:45 08/14/17 21:44 Miscellaneous Information (Consult Glycemic Management Pharmacy) 1 ea UD PRN N/A 07/16/17 06:55 08/15/17 06:54 Hydromorphone HCl (Dilaudid Inj) 0.5 mg Q3H PRN IV 07/17/17 09:45 07/31/17 09:44 07/18/17 20:49 0.5 MG Escitalopram Oxalate (Lexapro Tab) 10 mg QAM PO 07/19/17 09:00 08/18/17 08:59 07/19/17 08:21 10 MG Potassium Chloride (Klor-Con Tab) 20 meq TID PO 07/19/17 09:00 08/18/17 08:59 07/20/17 21:09 20 MEQ Miscellaneous Information (Order Awaiting Action) 1 ea QS N/A 07/19/17 08:00 08/18/17 07:59 Albuterol Sulfate (Ventolin 0.083% 2.5MG/3ML Neb) 2.5 mg Q2H PRN INH 07/19/17 10:30 08/14/17 20:59 07/20/17 05:14 2.5 MG Promethazine HCl 12.5 mg/Sodium Chloride 50.5 ml @ 204 mls/hr Q6H PRN IV 07/19/17 10:30 08/18/17 10:29 07/20/17 04:18 204 MLS/HR Cefoxitin Sodium 2000 mg/Dextrose 60 ml @ 100 mls/hr Q8H IV 07/20/17 13:00 07/30/17 12:59 07/21/17 13:37 100 MLS/HR Pantoprazole Sodium 40 mg/ Syringe 10 ml @ 5 mls/min DAILY@11 IV 07/21/17 11:00 07/24/17 11:01 07/21/17 11:00 5 MLS/MIN Methylprednisolone Sodium Succinate 40 mg/Syringe 0.64 ml @ 1.5 mls/min Q8H IV 07/20/17 17:00 08/19/17 16:59 07/21/17 17:16 1.5 MLS/MIN Ipratropium [place] (Atrovent Hfa Inhaler) 4 puffs QIDR INH 07/20/17 20:00 08/19/17 19:59 07/21/17 11:37 4 PUFFS Albuterol (Ventolin Hfa Inhaler) 4 puffs QIDR INH 07/20/17 20:00 08/19/17 19:59 07/21/17 11:37 4 PUFFS Insulin Aspart (novoLOG ASPART) SLIDING SCALE PCHS SC 07/21/17 08:00 08/20/17 07:59 Insulin Human Regular 250 units/ Sodium Chloride 252.5 ml @ 0 mls/hr Q24H IV 07/21/17 06:15 08/20/17 06:14 07/21/17 06:17 3.6 MLS/HR Miscellaneous Information (Pharmacy Tpn/ Ppn Consult Active) 1 ea UD PRN N/A 07/21/17 14:00 08/20/17 13:59 Dextrose/Sodium Chloride 1,000 ml @ 125 mls/hr Q8H IV 07/21/17 14:15 08/20/17 14:14 07/21/17 14:29 125 MLS/HR Insulin Glargine (Lantus Solostar Pen) 15 units BID SC 07/21/17 14:15 08/20/17 14:14 07/21/17 17:14 15 UNITS Diltiazem HCl (Cardizem Tab) 60 mg TID PO 07/21/17 21:00 08/20/17 20:59 Spironolactone (Aldactone Tab) 25 mg QAM PO 07/22/17 09:00 08/21/17 08:59 Simvastatin (Zocor Tab) 10 mg DAILY PO 07/22/17 09:00 08/21/17 08:59 I & O: 24-Hour Column 07/22/17 08:00 Intake Total 1344 ml Output Total 800 ml Balance 544 ml Vital Signs: Date Time Temp Pulse Resp B/P (MAP) Pulse Ox O2 Delivery O2 Flow Rate FiO2 07/21/17 14:31 106 120/79 (93) 97 07/21/17 13:16 130/61 (84) 07/21/17 12:40 40 07/21/17 12:31 103 18 104/57 (73) 96 3/21/18 12:00 40 07/21/17 12:00 37.3 113 18 105/60 (75) 98 Mechanical Ventilator 40 07/21/17 12:00 98 Mechanical Ventilator 40 07/21/17 11:46 115 18 100/57 (71) 93 07/21/17 11:32 132 19 153/73 (99) 94 07/21/17 11:14 40 07/21/17 11:01 92 18 91/73 (79) 97 07/21/17 10:46 89 18 108/71 (83) 97 07/21/17 10:31 89 18 107/71 (83) 98 07/21/17 10:16 91 18 104/67 (79) 98 07/21/17 09:46 92 18 104/65 (78) 97 07/21/17 09:31 98 18 118/75 (89) 97 07/21/17 08:46 86 18 99/60 (73) 99 07/21/17 08:00 Mechanical Ventilator 07/21/17 08:00 37.3 85 18 104/65 (78) 100 Mechanical Ventilator 40 07/21/17 08:00 40 07/21/17 08:00 100 Mechanical Ventilator 40 07/21/17 07:36 40 07/21/17 06:01 91 18 107/62 (77) 98 07/21/17 05:01 90 17 102/64 (77) 96 07/21/17 04:01 37.3 90 18 112/61 (78) 98 Mechanical Ventilator 50 07/21/17 04:00 96 Mechanical Ventilator 50 07/21/17 04:00 50 07/21/17 03:01 94 18 110/61 (77) 98 Mechanical Ventilator 50 07/21/17 02:25 90 07/21/17 02:01 96 18 109/68 (82) 99 07/21/17 01:01 100 18 93/59 (70) 99 07/21/17 00:01 37.4 100 18 91/59 (70) 99 Mechanical Ventilator 70 07/20/17 23:59 98 Mechanical Ventilator 70 07/20/17 23:59 70 07/20/17 23:01 101 18 98/61 (73) 99 Mechanical Ventilator 70 07/20/17 22:23 90 07/20/17 22:01 105 18 89/60 (70) 99 Mechanical Ventilator 80 07/20/17 21:01 104 18 89/61 (70) 99 Mechanical Ventilator 80 07/20/17 20:01 37.2 104 18 92/57 (69) 99 Mechanical Ventilator 90 07/20/17 20:00 97 Mechanical Ventilator 90 07/20/17 20:00 90 07/20/17 19:24 90 07/20/17 18:00 36.3 102 18 95/60 (72) 97 Mechanical Ventilator 100 07/20/17 17:56 100 Laboratory Results: Last 24 Hours Test 07/20/17 18:08 07/20/17 20:41 07/20/17 20:58 07/20/17 23:31 Bedside Glucose 220 mg/dl 173 mg/dl 174 mg/dl Hemoglobin 10.3 g/dL Hematocrit 31.2 % Sodium Level 137 mmol/L Potassium Level 4.5 mmol/L Chloride Level 103 mmol/L Carbon Dioxide Level 25 mmol/L Anion Gap 9.0 mmol/L Blood Urea Nitrogen 38 mg/dl Creatinine 1.85 mg/dl Est Creatinine Clear Calc Drug Dose 47.2 ml/min Estimated GFR () 44.2 Estimated GFR (Non- 38.2 BUN/Creatinine Ratio 20.5 Random Glucose 180 mg/dl Calcium Level 8.6 mg/dl Ionized Calcium 1.15 mmol/l Total Bilirubin 0.6 mg/dl Direct Bilirubin 0.2 mg/dl Aspartate Amino Transf (AST/SGOT) 14 U/L Alanine Aminotransferase (ALT/SGPT) 26 U/L Alkaline Phosphatase 60 U/L Total Protein 5.1 gm/dl Albumin 2.1 gm/dl Random Cortisol 84.43 mcg/dl Test 07/21/17 05:32 07/21/17 05:37 07/21/17 09:37 White Blood Count 7.53 K/uL Red Blood Count 3.50 M/uL Hemoglobin 9.6 g/dL Hematocrit 29.1 % Mean Corpuscular Volume 83.1 fL Mean Corpuscular Hemoglobin 27.4 pg Mean Corpuscular Hemoglobin Concent 33.0 g/dl RDW Standard Deviation 48.1 fL RDW Coefficient of Variation 16.0 % Platelet Count 210 K/uL Mean Platelet Volume 9.3 fL Sodium Level 136 mmol/L Potassium Level 5.1 mmol/L Chloride Level 104 mmol/L Carbon Dioxide Level 20 mmol/L Anion Gap 13.0 mmol/L Blood Urea Nitrogen 44 mg/dl Creatinine 1.99 mg/dl Est Creatinine Clear Calc Drug Dose 43.8 ml/min Estimated GFR () 40.5 Estimated GFR (Non- 34.9 BUN/Creatinine Ratio 21.9 Random Glucose 267 mg/dl Calcium Level 8.1 mg/dl Bedside Venous pH 7.43 Bedside Venous pCO2 32 mmHg Bedside Venous pO2 < 32 mmHg Bedside Venous HCO3 21 meq/L Bedside Venous Blood Total CO2 22 mEq/l Bedside Venous Blood O2 Saturation 62.0 % Bedside Venous Blood Base Excess -3.0 meq/L Bedside FiO2 40 %
[2017-07-21] MEDS: HYDROmorphone INJ 0.5 MG/0.5 ML SYR IV PRN ×2 (17:48→21:10)
[2017-07-21] MEDS: DILTIAZEM HCL 60 MG TAB PO SCH (22:12)
[2017-07-21] MEDS: INSULIN GLARGINE SOLOSTAR 100 UNITS/ML 3 ML PEN SC SCH (22:13)
[2017-07-22] VITALS (17 sets, daily range): BP systolic 114–145; BP diastolic 66–84; PULSE 74–85; TEMP 36.5–36.9; O2SAT 93–98
[2017-07-22] MEDS: METHYLPREDNISOLONE IV 40 MG in SYRINGE 0 ML IV SCH ×3 (00:47→21:37)
[2017-07-22] MEDS: HYDROmorphone INJ 0.5 MG/0.5 ML SYR IV PRN ×5 (00:48→18:36)
[2017-07-22] MEDS: CEFOXITIN IV 2,000 MG in DEXTROSE 5% 50ML 50 ML IV SCH (04:56)
[2017-07-22] MEDS: D5W AND NSS 1,000 ML IV SCH (05:21)
[2017-07-22 05:43] LABS: HEMATOCRIT 25.7 % (42-52); HEMOGLOBIN 8.2 g/dL (14.0-18.0); IG# 0.03 K/uL (0.00-0.02); LYMPH % 2.1 %; LYMPH ABS # 0.14 K/uL (1.2-3.4); MEAN CELL VOLUME 85.1 fL (80-100); MEAN CORPUSCULAR HEMOGLOBIN 27.2 pg (25-34); MEAN CORPUSCULAR HGB CONC 31.9 g/dl (32-36); MEAN PLATELET VOLUME 9.3 fL (7.4-10.4); MONO % 2.1 %; MONO ABS # 0.14 K/uL (0.11-0.59); NEUT % 95.4 %; NEUT ABS # 6.51 K/uL (1.4-6.5); PLATELET COUNT 190 K/uL (130-400); RED CELL DISTRIBUTION WIDTH CV 16.3 % (11.5-14.5); RED CELL DISTRIBUTION WIDTH SD 50.2 fL (36.4-46.3); WHITE BLOOD COUNT 6.82 K/uL (4.8-10.8)
[2017-07-22] MEDS: HEPARIN SOD 5000 UNIT/0.5 ML CARP SQ SCH ×3 (05:59→21:28)
[2017-07-22] MEDS: INSULIN REGULAR 250 UNITS in SODIUM CHLORIDE 0.9% 250ML 250 ML IV SCH (06:20)
--- NOTE | 2017-07-22 06:21 | SURGERY PROGRESS NOTE ---
DATE: 07/22/2017 This gentleman is resting comfortably this morning. His is at bedside. He is back to baseline mentally. He is alert, coherent. NG tube is in place, had virtually no drainage overnight. The abdomen is preoperatively distended. He normally has a protruding abdomen. The incision looks intact. He took the dressing off, the retention sutures are all intact. His last vitals showed a temperature of 36.5, pulse 78, respirations 18, blood pressure 145/79, O2 sats 94 on 4 liters. I&O, he had 1100 of urine overnight. Laboratory becerril this morning, PRPs are pending, but his hemoglobin is 8.2, WBC 6.82 with slight left shift. Blood sugar about 252. He has had significant amount of fluid in the last few days. Therefore, I think the slight drop in hemoglobin is dilutional. It has been 9.6 prior to surgery. At this point, we will discontinue the NG tube, start him on some clear liquids, place an abdominal binder on him and from my point of view, the patient could probably be transferred to ICU to monitor bed if okay with the news commentator and the medical service. We will start oral intake. Some hyperalimentation will be started.
[2017-07-22] MEDS: BUDESONIDE 0.5 MG/2 ML VIAL (PULMICORT) INH SCH ×2 (07:33→19:11)
[2017-07-22] MEDS: ARFORMOTEROL TART 15MCG/2ML VIAL INH SCH ×2 (07:33→19:11)
[2017-07-22 07:34] LABS: ALBUMIN 2.1 gm/dl (3.4-5.0); CALCIUM 7.6 mg/dl (8.5-10.1); CREATININE 1.45 mg/dl (0.60-1.40); PHOSPHORUS 3.1 mg/dl (2.5-4.9); TOTAL PROTEIN 5.7 gm/dl (6.4-8.2)
[2017-07-22] MEDS: INSULIN ASPART 100 UNITS/ML 3 ML PEN SC SCH ×4 (08:00→21:00)
[2017-07-22] MEDS: IPRATROPIUM BROMIDE HFA INHALER INH SCH (08:47)
[2017-07-22] MEDS: FLUTICASONE PROPIONATE NA SPR 16 GM BTL NAE SCH (08:47)
[2017-07-22] MEDS: DILTIAZEM HCL 60 MG TAB PO SCH ×3 (08:47→21:26)
[2017-07-22] MEDS: ESCITALOPRAM OXALATE 10 MG TAB PO SCH (08:47)
[2017-07-22] MEDS: ALBUTEROL HFA 8 GM INHALER INH SCH (08:47)
[2017-07-22] MEDS: SPIRONOLACTONE 25 MG TAB PO SCH (08:48)
[2017-07-22] MEDS: POTASSIUM CHLORIDE 20 MEQ TABCR PO SCH ×3 (08:48→21:37)
[2017-07-22] MEDS ORDERED: SIMVASTATIN 10 MG TAB PO SCH (09:00)
[2017-07-22] MEDS: INSULIN GLARGINE SOLOSTAR 100 UNITS/ML 3 ML PEN SC SCH (09:33)
[2017-07-22] MEDS: PANTOprazole INJ 40 MG in SYRINGE 0 ML IV SCH (11:58)
--- NOTE | 2017-07-22 12:43 | Pharmacy Progress Note ---
Glycemic Control Progress Note Date of Service Jul 22, 2017. Scope Glycemic Pharmacist consulted for glycemic control to write orders per [facility] inpatient glycemic control protocol. Objective Accuchecks BSG (last 24hrs): Test 07/21/17 13:31 07/21/17 14:24 07/21/17 15:34 07/21/17 17:09 Bedside Glucose 78 mg/dl (70-99) 126 mg/dl (70-99) 150 mg/dl (70-99) 149 mg/dl (70-99) Test 07/21/17 18:22 07/21/17 20:04 07/21/17 21:59 07/22/17 00:23 Bedside Glucose 156 mg/dl (70-99) 138 mg/dl (70-99) 145 mg/dl (70-99) 186 mg/dl (70-99) Test 07/22/17 04:02 07/22/17 05:06 07/22/17 06:05 07/22/17 06:44 Bedside Glucose 244 mg/dl (70-99) 252 mg/dl (70-99) 241 mg/dl (70-99) Random Glucose 221 mg/dl (70-99) Test 07/22/17 07:05 07/22/17 07:52 Bedside Glucose 216 mg/dl (70-99) 185 mg/dl (70-99) HbA1c: Test 07/16/17 06:38 Hemoglobin A1c 6.6 % (4.5-5.6) H Recent Pertinent Medications The patient is currently receiving: * Basal insulin/ Correctional insulin: * IV insulin infusion per severe stress protocol, goal range 120 - 180mg/dL * Lantus 15 units x 1 and 12 units x 1 given yesterday * Prandial insulin: Per carb ratio calculated by IV insulin infusion rate change calculator Outpatient Anti-Diabetic Meds Lantus 35 units SQ BID Novolog TID w/ meals using CR 1:5 Assessment & Plan ASSESSMENT: 07/21/17 * Patient taken to OR yesterday for abd wound washout and closure of abd wound dehiscence * He remains intubated on vent this AM and continues to receive high dose IV steroids * AG metabolic acidosis noted on this AM labs along with hyperglycemia * His BSGs had been relatively well controlled prior to these acute events. * IV insulin infusion initiated this AM given worsening acidosis and hyperglycemia in a stressed type 1 diabetic * SQ Lantus had been placed on hold, however I would like to resume some basal insulin at this time as this will allow for easier transition off the insulin drip in the future. * There is some discussion of starting parenteral nutrition in this patient in the near future. Insulin will need added to the parenteral nutrition bag if this therapy used. 07/22/17 * Patient remains on insulin drip this AM with BSGs rising into the 240's, rate had been ~1unit/hr most of the evening yesterday and overnight * The original plan to give Lantus 20units BID changed when RN called with concerns pt's BSGs in the 70's and Lantus was ordered. Changed Lantus order to 15 units BID and consulted provider to incorporate dextrose into maintenance IVF 's as pt was NPO still. Lantus dose further down-titrated by evening RPH. * New events over last 24 hours: pt has been extubated, steroid dose reduced ~33 %, clear liquid diet ordered, starting TPN at 1600 today * AG acidosis has resolved * Many factors are now in play that can increase or decrease insulin requirements. I will make an attempt to transition off insulin drip per nursing request, but will have a low threshold to resume the insulin drip in this type 1 diabetic. * I still anticipate he will require ~70-80+units per day when tolerating a diet on current steroid dose. * Will up his Lantus dose today, give next dose when 1st bag TPN hung as I believe he is basal deficient by ~20-30 units/days at this point * Will place insulin in 1st bag of TPN, utilizing a insulin to carb ratio of 1:8 PLAN FOR INPATIENT GLYCEMIC CONTROL: * Continue IV insulin infusion per severe stress protocol * Goal Range 120 - 200 mg/dl * Increase basal insulin: * Lantus 20 units SQ BID * Lantus 25 units SQ x 1 at 1600, then discontinue the insulin drip 6 hours later * Add 15 units to today's bag of TPN containing 125gm dextrose * BSGs Q 4 hrs after insulin drip d/c'd and cover with Novolog SQ * Correction factor 20mg/dL/unit * Carb ratio 1 unit per 6 grams CHO's consumed * Resume IV insulin infusion per moderate stress protocol, goal 120-200 if BSGs sustained above 250 * Please note that the plan above was derived based on current level of insulin resistance and hospital stress. These recommendations are appropriate for inpatient admission only. Plan of care upon discharge will need to be reassessed to avoid potential outpatient hypo/hyperglycemia. Thank you.
[2017-07-22] MEDS ORDERED: IPRATROPIUM BROMIDE HFA INHALER INH SCH (13:00)
[2017-07-22] MEDS ORDERED: ALBUTEROL HFA 8 GM INHALER INH SCH (13:00)
--- NOTE | 2017-07-22 13:55 | Progress Note ---
Subjective Date of Service: Jul 22, 2017. Subjective Pt evaluation today including: conversation w/ patient, conversation w/ family , physical exam, lab review, conversation w/ senior sustainability consultant, review of inpatient medication list Pain: less pain today PO Intake: clears Voiding: huynh catheter in place NGT pulled today per surgery, allowed to have clears discussed with Dr. Alexander, anticipates just clears for a few days, likely a few days for his bowels to move regularly he would like to continue with TPN discussed case with Dr. Sewell, he is okay to transfer out of the ICU today reviewed labs, Cr down to 1.4, Hb dropped to 8.3 vitals stable, breathing comfortably on 4 liters updated at the bedside patient c/o some abdominal pain, bloated, anxiety Problem List Medical Problems: (1) Hypokalemia Status: Acute (2) Oxygen dependent Status: Acute (3) Respiratory failure Status: Acute (4) Right flank pain Status: Acute Review of Systems Constitutional: + weakness, + fatigue Respiratory: + shortness of breath Abdomen: + pain, + problem reported (distended) Neurologic: + weakness Psychiatric: + anxiety All Other Systems: Reviewed and Negative Medications Current Inpatient Medications Medications (Trade) Dose Ordered Sig/Dianne Route Start Time Stop Time Status Last Admin Dose Admin Oxycodone/ Acetaminophen (Percocet 5-325mg Tab) 1 tab Q4H PRN PO 07/15/17 14:45 07/29/17 14:44 07/19/17 20:39 1 TAB Ondansetron HCl (Zofran Inj) 4 mg Q6H PRN IV 07/15/17 14:45 08/14/17 14:44 07/20/17 01:14 4 MG Heparin Sodium (Porcine) (Heparin Sq 5000 Unit/0.5ml) 5,000 unit Q8 SQ 07/16/17 06:00 08/15/17 05:59 07/22/17 13:42 5,000 UNIT Arformoterol Tartrate (Brovana 15MCG/ 2ML Neb Soln) 15 mcg BIDR INH 07/16/17 08:00 08/15/17 07:59 07/22/17 07:33 15 MCG Budesonide (Pulmicort Respules 0.5MG/ 2ML Neb Soln) 1 mg BIDR INH 07/16/17 08:00 4/15/18 07:59 07/22/17 07:33 1 MG Fluticasone Propionate (Flonase Nasal [place]) 2 sprays QAM ANNA 07/16/17 09:00 08/15/17 08:59 07/22/17 08:47 2 SPRAYS Glucose (Glucose 40% Gel) 15-30 GRAMS 15 GRAMS... UD PRN PO 07/15/17 21:45 08/14/17 21:44 Glucose (Glucose Chew Tab) 4-8 Tablets 4 Tabl... UD PRN PO 07/15/17 21:45 08/14/17 21:44 Dextrose (Dextrose 50% 50ML Syringe) 25-50ML OF 50% DW IV FOR... UD PRN IV 07/15/17 21:45 08/14/17 21:44 07/21/17 13:38 25 ML Glucagon (Glucagon Inj) 1 mg UD PRN SQ 07/15/17 21:45 08/14/17 21:44 Miscellaneous Information (Consult Glycemic Management Pharmacy) 1 ea UD PRN N/A 07/16/17 06:55 08/15/17 06:54 Hydromorphone HCl (Dilaudid Inj) 0.5 mg Q3H PRN IV 07/17/17 09:45 07/31/17 09:44 07/22/17 12:10 0.5 MG Escitalopram Oxalate (Lexapro Tab) 10 mg QAM PO 07/19/17 09:00 08/18/17 08:59 07/22/17 08:47 10 MG Potassium Chloride (Klor-Con Tab) 20 meq TID PO 07/19/17 09:00 08/18/17 08:59 07/22/17 08:48 20 MEQ Miscellaneous Information (Order Awaiting Action) 1 ea QS N/A 07/19/17 08:00 08/18/17 07:59 Albuterol Sulfate (Ventolin 0.083% 2.5MG/3ML Neb) 2.5 mg Q2H PRN INH 07/19/17 10:30 08/14/17 20:59 07/20/17 05:14 2.5 MG Promethazine HCl 12.5 mg/Sodium Chloride 50.5 ml @ 204 mls/hr Q6H PRN IV 07/19/17 10:30 08/18/17 10:29 07/20/17 04:18 204 MLS/HR Pantoprazole Sodium 40 mg/ Syringe 10 ml @ 5 mls/min DAILY@11 IV 07/21/17 11:00 07/24/17 11:01 07/22/17 11:58 5 MLS/MIN Insulin Aspart (novoLOG ASPART) SLIDING SCALE PCHS SC 07/21/17 08:00 07/22/17 22:00 07/22/17 11:59 2 UNITS Insulin Human Regular 250 units/ Sodium Chloride 252.5 ml @ 0 mls/hr Q24H IV 07/21/17 06:15 07/22/17 22:00 07/22/17 06:20 1.2 MLS/HR Miscellaneous Information (Pharmacy Tpn/ Ppn Consult Active) 1 ea UD PRN N/A 07/21/17 14:00 08/20/17 13:59 Dextrose/Sodium Chloride 1,000 ml @ 75 mls/hr [id number] IV 07/21/17 14:15 07/22/17 16:00 07/22/17 05:21 125 MLS/HR Diltiazem HCl (Cardizem Tab) 60 mg TID PO 07/21/17 21:00 08/20/17 20:59 07/22/17 13:41 60 MG Spironolactone (Aldactone Tab) 25 mg QAM PO 07/22/17 09:00 08/21/17 08:59 07/22/17 08:48 25 MG Simvastatin (Zocor Tab) 10 mg DAILY PO 07/22/17 09:00 08/21/17 08:59 07/22/17 08:47 10 MG Methylprednisolone Sodium Succinate 40 mg/Syringe 0.64 ml @ 1.5 mls/min Q12H IV 07/22/17 09:00 08/21/17 08:59 07/22/17 09:34 1.5 MLS/MIN Nutrition (Parenteral) 0 ml @ 0 mls/hr TODAY@1600 IV 07/22/17 16:00 07/23/17 15:59 Dextrose 1,000 ml @ 0 mls/hr Q0M PRN IV 07/22/17 16:00 08/21/17 15:59 Albuterol/ Ipratropium (Duoneb) 3 ml Q4R PRN INH 07/22/17 11:15 08/21/17 11:14 Insulin Glargine (Lantus Solostar Pen) 20 units BID SC 07/23/17 09:00 08/22/17 08:59 Insulin Glargine (Lantus Solostar Pen) 25 units ONE ONCE SC 07/22/17 16:00 07/22/17 16:01 Insulin Aspart (novoLOG ASPART) SLIDING SCALE Q4 SC 07/23/17 00:00 08/22/17 00:00 Miscellaneous (Stop Order) 1 ea TODAY@2200 ONCE N/A 07/22/17 22:00 07/22/17 22:01 Miscellaneous (Stop Order) 1 ea TODAY@1600 ONCE N/A 07/22/17 16:00 07/22/17 16:01 Heparin Sodium (Porcine) (Heparin 10 Unit/ ml 5 ml Flush) 5 ml PRN PRN FLUSH 07/22/17 13:30 08/21/17 13:29 Objective Vital Signs Date Time Temp Pulse Resp B/P (MAP) Pulse Ox O2 Delivery O2 Flow Rate FiO2 07/22/17 12:00 Nasal Cannula 4.0 07/22/17 09:30 36.8 78 20 128/80 (96) 98 Nasal Cannula 4.0 07/22/17 08:00 Nasal Cannula 07/22/17 07:33 74 18 95 Nasal Cannula 4.0 07/22/17 07:30 36.8 78 20 130/81 (97) 98 Nasal Cannula 4.0 07/22/17 07:30 Nasal Cannula 4.0 07/22/17 06:00 80 20 130/81 (97) 96 Nasal Cannula 4.0 07/22/17 04:00 94 Nasal Cannula 4.0 07/22/17 04:00 36.5 78 18 145/79 (101) 94 Oxymask 4.0 07/22/17 02:01 80 16 126/74 (91) 94 Nasal Cannula 4.0 07/22/17 01:01 36.5 81 15 137/75 (95) 94 Nasal Cannula 4.0 07/22/17 00:01 83 16 114/66 (82) 93 Nasal Cannula 4.0 07/22/17 00:00 96 Nasal Cannula 4.0 07/21/17 22:01 100 25 146/83 (99) 95 07/21/17 21:31 83 17 127/73 (87) 94 07/21/17 21:01 87 17 120/80 (90) 92 07/21/17 20:31 86 16 130/74 (96) 94 07/21/17 20:01 90 18 130/77 (89) 97 07/21/17 20:00 96 Nasal Cannula 4.0 07/21/17 20:00 36.6 07/21/17 19:48 95 18 96 Nasal Cannula 4.0 07/21/17 19:31 95 22 135/96 (111) 95 07/21/17 19:02 108 18 169/91 (118) 91 07/21/17 16:00 Nasal Cannula 4.0 07/21/17 16:00 36.3 100 20 141/84 (103) 96 Nasal Cannula 4.0 07/21/17 15:16 107 127/75 (92) 93 07/21/17 15:01 105 132/68 (89) 96 07/21/17 14:31 106 120/79 (93) 97 Physical Exam General Appearance: WD/WN, no apparent distress Eyes: normal inspection, EOMI, sclerae normal ENT: normal ENT inspection, hearing grossly normal, pharynx normal Neck: supple, no adenopathy, no JVD, trachea midline Respiratory/Chest: chest non-tender, lungs clear, no respiratory distress, no accessory muscle use, + decreased breath sounds Cardiovascular: regular rate, rhythm, no edema, no gallop, no JVD, no murmur Abdomen: normal bowel sounds, + distended, + tenderness (incisional), + pertinent finding (incision clean, intact, dry) Extremities: normal range of motion, non-tender, normal inspection, no calf tenderness, normal capillary refill, pelvis stable 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, alert, + motor weakness, + pertinent finding (anxious) Skin: normal color, warm/dry, no rash Laboratory Results Last 24 Hours Test 07/21/17 14:24 07/21/17 15:34 07/21/17 17:09 07/21/17 18:22 Bedside Glucose 126 mg/dl 150 mg/dl 149 mg/dl 156 mg/dl Test 07/21/17 20:04 07/21/17 21:59 07/22/17 00:23 07/22/17 04:02 Bedside Glucose 138 mg/dl 145 mg/dl 186 mg/dl 244 mg/dl Test 07/22/17 05:06 07/22/17 05:16 07/22/17 06:05 07/22/17 06:44 Bedside Glucose 252 mg/dl 241 mg/dl White Blood Count 6.82 K/uL Red Blood Count 3.02 M/uL Hemoglobin 8.2 g/dL Hematocrit 25.7 % Mean Corpuscular Volume 85.1 fL Mean Corpuscular Hemoglobin 27.2 pg Mean Corpuscular Hemoglobin Concent 31.9 g/dl Platelet Count 190 K/uL Mean Platelet Volume 9.3 fL Neutrophils (%) (Auto) 95.4 % Lymphocytes (%) (Auto) 2.1 % Monocytes (%) (Auto) 2.1 % Eosinophils (%) (Auto) 0.0 % Basophils (%) (Auto) 0.0 % Neutrophils # (Auto) 6.51 K/uL Lymphocytes # (Auto) 0.14 K/uL Monocytes # (Auto) 0.14 K/uL Eosinophils # (Auto) 0.00 K/uL Basophils # (Auto) 0.00 K/uL RDW Standard Deviation 50.2 fL RDW Coefficient of Variation 16.3 % Immature Granulocyte % (Auto) 0.4 % Immature Granulocyte # (Auto) 0.03 K/uL Toxic Vacuolation 1+ Echinocytes 1+ Sodium Level 144 mmol/L Potassium Level 4.0 mmol/L Chloride Level 111 mmol/L Carbon Dioxide Level 23 mmol/L Anion Gap 10.0 mmol/L Blood Urea Nitrogen 41 mg/dl Creatinine 1.45 mg/dl Est Creatinine Clear Calc Drug Dose 60.2 ml/min Estimated GFR () 59.4 Estimated GFR (Non- 51.2 BUN/Creatinine Ratio 28.2 Random Glucose 221 mg/dl Calcium Level 7.6 mg/dl Phosphorus Level 3.1 mg/dl Magnesium Level 2.6 mg/dl Total Bilirubin 0.3 mg/dl Direct Bilirubin 0.1 mg/dl Aspartate Amino Transf (AST/SGOT) 35 U/L Alanine Aminotransferase (ALT/SGPT) 36 U/L Alkaline Phosphatase 58 U/L Total Protein 5.7 gm/dl Albumin 2.1 gm/dl Test 07/22/17 07:05 07/22/17 07:52 Bedside Glucose 216 mg/dl 185 mg/dl Assessment and Plan 62 y/o male s/p right colon resection with Dr. Alexander on 07/15, hospitalist consulted for medical management. S/p right colon resection--POD #7 Wound dehiscence on 07/20, taken emergently to OR for closure, washout, POD #2 less abdominal distension, increased bowel sounds, small BM and flatus NGT pulled per surgery, can have clears plan for TPN, request pharmacy consult and nutrition consult for TPN to start this evening confirmed with Dr. Alexander that he would like TPN, feels that patient will only be on clears for several days so he would benefit from nutrition Acute hypoxic respiratory failure, COPD/asthma s/p bronchoscopy on 07/20 after surgery extubated on 07/21, breathing well on 4L today Solu Medrol q12 per pulmonary, no wheezing today continue home medications YOLETTE: resolved initially Cr went back up to 1.9 after surgery, today it is down to 1.4, making adequate urine can stop maintenance fluids, will get fluid with TPN + 14 liters for admission, -700cc today Metabolic acidosis, anion gap resolved today, HCO3 is 23 DM: labile sugars prior to second surgery was on insulin gtt in setting of steroids will ask pharmacy to help manage once TPN started to avoid further hyperglycemia Lantus started today updated at the bedside transfer to [facility] Continued [facility] stay due to: multiple IV medications needed, home environment unsafe for pt Discharge planning: uncertain
--- NOTE | 2017-07-22 14:57 | Critical Care Progress Note ---
Critical Care Progress Note Date of Service Jul 22, 2017. Attending Dr. Sewell Subjective The patient remains extubated overnight, denies any shortness of breath, minimal abdominal pain was reported, no nausea or vomiting, his pain is 5/10, appears comfortable with no events overnight. Objective Physical exam revealed after the OR patient is having prolonged expiratory phase of breathing, his blood pressure was elevated at 195 with heart rate of 127, responded to fentanyl and Versed however remains tachycardic and responded better to Cardizem drip. S1-S2 with distant breath sounds bilaterally, abdomen is postop no edema. Neurologically difficult to assess. Physical exam on 07/21/2017 revealed middle-age gentleman, currently intubated, O2 saturation is 95% on 40%, open his eyes but follows simple commands, appeared drowsy, does not appear to be in any respiratory distress, no stridor, S1-S2 regular rate and rhythm, lungs with distant crackles mainly at the bases, abdomen is postop diminished bowel sounds, no edema. His labs and imaging reviewed on rounds personally. Physical exam on 07/22/2017, the patient remains extubated, on 3 L via nasal cannula O2 sat is 97%, vital signs are stable, no JVP, S1-S2, regular rate and rhythm, distant breath sounds bilaterally, abdomen with positive bowel sounds, postop, no edema. His labs also were reviewed from today, his medications were reconciled, no new imaging. Assessment & Plan 1. Severe COPD, with asthma converting to COPD previously, patient has poor lung mechanics. 2. Acute respiratory failure requiring intubation, currently extubated and doing well.. 3. History of dehiscence of abdominal wound status post surgical repair with retention sutures, pain is improving.. 4. History of tubular adenoma of the right colon status post right hemicolectomy. 5. Anxiety disorder. 6. Acute respiratory failure requiring intubation, resolved. Plan: 1. I will decrease the dose of Solu-Medrol to 40 mg IV every 12. 2. The patient was extubated to nasal cannula, was able to maintain his O2 saturation on respiratory status. 3. I will change the steroids to 40 mg of prednisone p.o once his oral intake started adequately and taper it to his maintenance dose of 7.5 mg daily. 4. I would resume Aldactone, Zocor and diltiazem which are his home medications. The requested Charisma instead of I which I changes as well. 5. Continue with Brovana and Pulmicort . 6. GI and DVT prophylaxis. 7. Discussed at length with the who is concerned about his medications, I have discussed with her that the other medications including zafirlukast can be used on a chronic basis. The patient also has hydrochlorothiazide which I stopped at this point in the postop. 8. For pain control, we will use Dilaudid. 9. I will stop fentanyl and Versed. 10. The patient has been on Ativan in the past and I will continue as needed for anxiety. 11. Appreciate surgery evaluation and input. NG tube was discontinued. 12. Appreciate nutrition assistance, we will stop TPN and start the patient on oral intake. Case discussed with the staff on rounds and details. Critical care time spent with the patient was 45 minutes. Data Medications: Current Inpatient Medications Medications (Trade) Dose Ordered Sig/Dianne Route Start Time Stop Time Status Last Admin Dose Admin Oxycodone/ Acetaminophen (Percocet 5-325mg Tab) 1 tab Q4H PRN PO 07/15/17 14:45 07/29/17 14:44 07/19/17 20:39 1 TAB Ondansetron HCl (Zofran Inj) 4 mg Q6H PRN IV 07/15/17 14:45 08/14/17 14:44 07/20/17 01:14 4 MG Heparin Sodium (Porcine) (Heparin Sq 5000 Unit/0.5ml) 5,000 unit Q8 SQ 07/16/17 06:00 08/15/17 05:59 07/22/17 13:42 5,000 UNIT Arformoterol Tartrate (Brovana 15MCG/ 2ML Neb Soln) 15 mcg BIDR INH 07/16/17 08:00 08/15/17 07:59 07/22/17 07:33 15 MCG Budesonide (Pulmicort Respules 0.5MG/ 2ML Neb Soln) 1 mg BIDR INH 07/16/17 08:00 08/15/17 07:59 07/22/17 07:33 1 MG Fluticasone Propionate (Flonase Nasal [place]) 2 sprays QAM ANNA 07/16/17 09:00 08/15/17 08:59 07/22/17 08:47 2 SPRAYS Glucose (Glucose 40% Gel) 15-30 GRAMS 15 GRAMS... UD PRN PO 07/15/17 21:45 08/14/17 21:44 Glucose (Glucose Chew Tab) 4-8 Tablets 4 Tabl... UD PRN PO 07/15/17 21:45 08/14/17 21:44 Dextrose (Dextrose 50% 50ML Syringe) 25-50ML OF 50% DW IV FOR... UD PRN IV 07/15/17 21:45 08/14/17 21:44 07/21/17 13:38 25 ML Glucagon (Glucagon Inj) 1 mg UD PRN SQ 07/15/17 21:45 08/14/17 21:44 Miscellaneous Information (Consult Glycemic Management Pharmacy) 1 ea UD PRN N/A 07/16/17 06:55 08/15/17 06:54 Hydromorphone HCl (Dilaudid Inj) 0.5 mg Q3H PRN IV 07/17/17 09:45 07/31/17 09:44 07/22/17 12:10 0.5 MG Escitalopram Oxalate (Lexapro Tab) 10 mg QAM PO 07/19/17 09:00 08/18/17 08:59 07/22/17 08:47 10 MG Potassium Chloride (Klor-Con Tab) 20 meq TID PO 07/19/17 09:00 08/18/17 08:59 07/22/17 08:48 20 MEQ Miscellaneous Information (Order Awaiting Action) 1 ea QS N/A 07/19/17 08:00 08/18/17 07:59 Albuterol Sulfate (Ventolin 0.083% 2.5MG/3ML Neb) 2.5 mg Q2H PRN INH 07/19/17 10:30 08/14/17 20:59 07/20/17 05:14 2.5 MG Promethazine HCl 12.5 mg/Sodium Chloride 50.5 ml @ 204 mls/hr Q6H PRN IV 07/19/17 10:30 08/18/17 10:29 07/20/17 04:18 204 MLS/HR Pantoprazole Sodium 40 mg/ Syringe 10 ml @ 5 mls/min DAILY@11 IV 07/21/17 11:00 3/24/18 11:01 07/22/17 11:58 5 MLS/MIN Insulin Aspart (novoLOG ASPART) SLIDING SCALE PCHS SC 07/21/17 08:00 07/22/17 22:00 07/22/17 11:59 2 UNITS Insulin Human Regular 250 units/ Sodium Chloride 252.5 ml @ 0 mls/hr Q24H IV 07/21/17 06:15 07/22/17 22:00 07/22/17 06:20 1.2 MLS/HR Miscellaneous Information (Pharmacy Tpn/ Ppn Consult Active) 1 ea UD PRN N/A 07/21/17 14:00 08/20/17 13:59 Diltiazem HCl (Cardizem Tab) 60 mg TID PO 07/21/17 21:00 08/20/17 20:59 07/22/17 13:41 60 MG Spironolactone (Aldactone Tab) 25 mg QAM PO 07/22/17 09:00 08/21/17 08:59 07/22/17 08:48 25 MG Simvastatin (Zocor Tab) 10 mg DAILY PO 07/22/17 09:00 08/21/17 08:59 07/22/17 08:47 10 MG Methylprednisolone Sodium Succinate 40 mg/Syringe 0.64 ml @ 1.5 mls/min Q12H IV 07/22/17 09:00 08/21/17 08:59 07/22/17 09:34 1.5 MLS/MIN Nutrition (Parenteral) 0 ml @ 0 mls/hr TODAY@1600 IV 07/22/17 16:00 07/23/17 15:59 Dextrose 1,000 ml @ 0 mls/hr Q0M PRN IV 07/22/17 16:00 08/21/17 15:59 Albuterol/ Ipratropium (Duoneb) 3 ml Q4R PRN INH 07/22/17 11:15 08/21/17 11:14 Insulin Glargine (Lantus Solostar Pen) 20 units BID SC 07/23/17 09:00 08/22/17 08:59 Insulin Glargine (Lantus Solostar Pen) 25 units ONE ONCE SC 07/22/17 16:00 07/22/17 16:01 Insulin Aspart (novoLOG ASPART) SLIDING SCALE Q4 SC 07/23/17 00:00 08/22/17 00:00 Miscellaneous (Stop Order) 1 ea TODAY@2200 ONCE N/A 07/22/17 22:00 07/22/17 22:01 Miscellaneous (Stop Order) 1 ea TODAY@1600 ONCE N/A 07/22/17 16:00 07/22/17 16:01 Heparin Sodium (Porcine) (Heparin 10 Unit/ ml 5 ml Flush) 5 ml PRN PRN FLUSH 07/22/17 13:30 08/21/17 13:29 I & O: 24-Hour Column 07/23/17 07:59 Intake Total 1459 ml Output Total 700 ml Balance 759 ml Vital Signs: Date Time Temp Pulse Resp B/P (MAP) Pulse Ox O2 Delivery O2 Flow Rate FiO2 07/22/17 14:00 36.6 83 20 136/84 (101) 96 Nasal Cannula 4.0 07/22/17 12:00 Nasal Cannula 4.0 07/22/17 09:30 36.8 78 20 128/80 (96) 98 Nasal Cannula 4.0 07/22/17 08:00 Nasal Cannula 07/22/17 07:33 74 18 95 Nasal Cannula 4.0 07/22/17 07:30 36.8 78 20 130/81 (97) 98 Nasal Cannula 4.0 07/22/17 07:30 Nasal Cannula 4.0 07/22/17 06:00 80 20 130/81 (97) 96 Nasal Cannula 4.0 07/22/17 04:00 94 Nasal Cannula 4.0 07/22/17 04:00 36.5 78 18 145/79 (101) 94 Oxymask 4.0 07/22/17 02:01 80 16 126/74 (91) 94 Nasal Cannula 4.0 07/22/17 01:01 36.5 81 15 137/75 (95) 94 Nasal Cannula 4.0 07/22/17 00:01 83 16 114/66 (82) 93 Nasal Cannula 4.0 07/22/17 00:00 96 Nasal Cannula 4.0 07/21/17 22:01 100 25 146/83 (99) 95 07/21/17 21:31 83 17 127/73 (87) 94 07/21/17 21:01 87 17 120/80 (90) 92 07/21/17 20:31 86 16 130/74 (96) 94 07/21/17 20:01 90 18 130/77 (89) 97 07/21/17 20:00 96 Nasal Cannula 4.0 07/21/17 20:00 36.6 07/21/17 19:48 95 18 96 Nasal Cannula 4.0 07/21/17 19:31 95 22 135/96 (111) 95 07/21/17 19:02 108 18 169/91 (118) 91 07/21/17 16:00 Nasal Cannula 4.0 07/21/17 16:00 36.3 100 20 141/84 (103) 96 Nasal Cannula 4.0 07/21/17 15:16 107 127/75 (92) 93 07/21/17 15:01 105 132/68 (89) 96 Laboratory Results: Last 24 Hours Test 07/21/17 15:34 07/21/17 17:09 07/21/17 18:22 07/21/17 20:04 Bedside Glucose 150 mg/dl 149 mg/dl 156 mg/dl 138 mg/dl Test 07/21/17 21:59 07/22/17 00:23 07/22/17 04:02 07/22/17 05:06 Bedside Glucose 145 mg/dl 186 mg/dl 244 mg/dl 252 mg/dl Test 07/22/17 05:16 07/22/17 06:05 07/22/17 06:44 07/22/17 07:05 White Blood Count 6.82 K/uL Red Blood Count 3.02 M/uL Hemoglobin 8.2 g/dL Hematocrit 25.7 % Mean Corpuscular Volume 85.1 fL Mean Corpuscular Hemoglobin 27.2 pg Mean Corpuscular Hemoglobin Concent 31.9 g/dl Platelet Count 190 K/uL Mean Platelet Volume 9.3 fL Neutrophils (%) (Auto) 95.4 % Lymphocytes (%) (Auto) 2.1 % Monocytes (%) (Auto) 2.1 % Eosinophils (%) (Auto) 0.0 % Basophils (%) (Auto) 0.0 % Neutrophils # (Auto) 6.51 K/uL Lymphocytes # (Auto) 0.14 K/uL Monocytes # (Auto) 0.14 K/uL Eosinophils # (Auto) 0.00 K/uL Basophils # (Auto) 0.00 K/uL RDW Standard Deviation 50.2 fL RDW Coefficient of Variation 16.3 % Immature Granulocyte % (Auto) 0.4 % Immature Granulocyte # (Auto) 0.03 K/uL Toxic Vacuolation 1+ Echinocytes 1+ Bedside Glucose 241 mg/dl 216 mg/dl Sodium Level 144 mmol/L Potassium Level 4.0 mmol/L Chloride Level 111 mmol/L Carbon Dioxide Level 23 mmol/L Anion Gap 10.0 mmol/L Blood Urea Nitrogen 41 mg/dl Creatinine 1.45 mg/dl Est Creatinine Clear Calc Drug Dose 60.2 ml/min Estimated GFR () 59.4 Estimated GFR (Non- 51.2 BUN/Creatinine Ratio 28.2 Random Glucose 221 mg/dl Calcium Level 7.6 mg/dl Phosphorus Level 3.1 mg/dl Magnesium Level 2.6 mg/dl Total Bilirubin 0.3 mg/dl Direct Bilirubin 0.1 mg/dl Aspartate Amino Transf (AST/SGOT) 35 U/L Alanine Aminotransferase (ALT/SGPT) 36 U/L Alkaline Phosphatase 58 U/L Total Protein 5.7 gm/dl Albumin 2.1 gm/dl Test 07/22/17 07:52 Bedside Glucose 185 mg/dl
[2017-07-22] MEDS ORDERED: [UNRECOGNIZED DRUG - REMARK] ONE (16:00)
[2017-07-22] MEDS ORDERED: INSULIN GLARGINE SOLOSTAR 100 UNITS/ML 3 ML PEN SC ONE (16:00)
[2017-07-22] MEDS ORDERED: CUSTOM CENTRAL PN 1 BAG IV SCH (16:00)
[2017-07-22] MEDS ORDERED: DEXTROSE 10% 1,000 ML IV PRN (16:00)
[2017-07-22] MEDS: ALBUT/IPRATROP 3MG/0.5MG NEB 3 ML VIAL INH PRN (16:41)
[2017-07-22] MEDS: ONDANSETRON INJ 2 MG/ML 2 ML VIAL IV PRN (19:36)
[2017-07-22] MEDS: PROMETHAZINE HCL INJ 12.5 MG in SODIUM CHLORIDE 0.9% 50ML 50 ML IV PRN (21:23)
[2017-07-22] MEDS ORDERED: STOP ORDER: D/C INSULIN DRIP ONE (22:00)
[2017-07-23] VITALS (12 sets, daily range): BP systolic 131–152; BP diastolic 64–82; PULSE 70–82; TEMP 36.5–37; O2SAT 24–98; BMI 31.0
[2017-07-23] MEDS: INSULIN ASPART 100 UNITS/ML 3 ML PEN SC SCH ×6 (00:03→21:41)
[2017-07-23] MEDS: HYDROmorphone INJ 0.5 MG/0.5 ML SYR IV PRN ×5 (02:03→23:48)
[2017-07-23] MEDS: ONDANSETRON INJ 2 MG/ML 2 ML VIAL IV PRN (02:08)
[2017-07-23 04:57] LABS: HEMATOCRIT 27.8 % (42-52); HEMOGLOBIN 8.9 g/dL (14.0-18.0)
[2017-07-23 05:19] LABS: CALCIUM 7.8 mg/dl (8.5-10.1); CREATININE 1.12 mg/dl (0.60-1.40); POTASSIUM 4.2 mmol/L (3.5-5.1)
[2017-07-23 05:21] LABS: PHOSPHORUS 2.7 mg/dl (2.5-4.9)
[2017-07-23] MEDS: HEPARIN SOD 5000 UNIT/0.5 ML CARP SQ SCH ×3 (06:00→22:42)
[2017-07-23] MEDS: ARFORMOTEROL TART 15MCG/2ML VIAL INH SCH ×2 (07:02→18:52)
[2017-07-23] MEDS: BUDESONIDE 0.5 MG/2 ML VIAL (PULMICORT) INH SCH ×2 (07:02→18:51)
--- NOTE | 2017-07-23 08:21 | Surgery Progress Note ---
Surgery Progress Note Date of Service Jul 23, 2017. Subjective Post OP Day: 3 + flatus (increasing), No bowel movement Objective Vital Signs: Date Time Temp Pulse Resp B/P (MAP) Pulse Ox O2 Delivery O2 Flow Rate FiO2 07/23/17 07:02 74 18 96 Nasal Cannula 3.0 07/23/17 06:57 36.5 81 18 134/78 (96) 97 Nasal Cannula 3.0 07/23/17 04:00 36.6 82 22 149/82 (104) 95 Nasal Cannula 3.5 Humidified Oxygen 07/23/17 04:00 95 Nasal Cannula 3.5 Humidified Oxygen 07/23/17 00:04 36.8 70 18 133/64 (87) 94 Nasal Cannula 3.0 Humidified Oxygen 07/22/17 23:59 94 Nasal Cannula 3.5 07/22/17 20:00 94 Nasal Cannula 3.5 07/22/17 19:32 36.7 74 20 122/76 (91) 94 Nasal Cannula 3.0 07/22/17 19:11 81 18 97 Nasal Cannula 3.0 07/22/17 18:28 36.9 78 20 122/76 (91) 94 Nasal Cannula 4.0 07/22/17 16:42 85 18 94 Nasal Cannula 3.0 07/22/17 16:00 36.9 78 20 127/75 (92) 94 Nasal Cannula 4.0 07/22/17 16:00 Nasal Cannula 4.0 07/22/17 14:00 36.6 83 20 136/84 (101) 96 Nasal Cannula 4.0 07/22/17 12:00 Nasal Cannula 4.0 07/22/17 09:30 36.8 78 20 128/80 (96) 98 Nasal Cannula 4.0 Physical Exam: urine output (3500 yesterday) Abdomen: soft, + distended Incision(s): clean, dry Laboratory Results: Results Past 24 Hours Test 07/22/17 09:51 07/22/17 10:55 07/22/17 12:03 07/22/17 12:55 Range/Units Bedside Glucose 201 187 238 277 70-99 mg/dl Test 07/22/17 13:57 07/22/17 15:08 07/22/17 16:09 07/22/17 17:06 Range/Units Bedside Glucose 255 221 208 225 70-99 mg/dl Test 07/22/17 18:02 07/22/17 19:03 07/22/17 20:05 07/22/17 21:00 Range/Units Bedside Glucose 245 323 162 151 70-99 mg/dl Test 07/22/17 21:56 07/22/17 23:59 07/23/17 03:27 07/23/17 04:33 Range/Units Bedside Glucose 141 154 196 70-99 mg/dl Hemoglobin 8.9 14.0-18.0 g/dL Hematocrit 27.8 42-52 % Sodium Level 143 136-145 mmol/L Potassium Level 4.2 3.5-5.1 mmol/L Chloride Level 112 98-107 mmol/L Carbon Dioxide Level 23 21-32 mmol/L Anion Gap 8.0 3-11 mmol/L Blood Urea Nitrogen 47 7-18 mg/dl Creatinine 1.12 0.60-1.40 mg/dl Est Creatinine Clear Calc Drug Dose 77.9 ml/min Estimated GFR () 81.2 Estimated GFR (Non- 70.0 BUN/Creatinine Ratio 42.4 10-20 Random Glucose 225 70-99 mg/dl Calcium Level 7.8 8.5-10.1 mg/dl Phosphorus Level 2.7 2.5-4.9 mg/dl Magnesium Level 2.9 1.8-2.4 mg/dl Triglycerides Level 184 0-150 mg/dl Assessment & Plan s/p right colectomy, repair of dehiscence COPD, h/o CHF requests other nausea med, will try reglan doesn't like clear liquids, can try fulls, not expecting him to eat more than a few spoonfuls OOB to chair at least cont TPN H&H stable, Cr improving
[2017-07-23] MEDS: FLUTICASONE PROPIONATE NA SPR 16 GM BTL NAE SCH (08:22)
[2017-07-23] MEDS: METHYLPREDNISOLONE IV 40 MG in SYRINGE 0 ML IV SCH ×2 (08:22→20:45)
[2017-07-23] MEDS: ESCITALOPRAM OXALATE 10 MG TAB PO SCH (08:23)
[2017-07-23] MEDS: POTASSIUM CHLORIDE 20 MEQ TABCR PO SCH ×3 (08:25→21:35)
[2017-07-23] MEDS: DILTIAZEM HCL 60 MG TAB PO SCH ×3 (08:26→22:41)
[2017-07-23] MEDS: SPIRONOLACTONE 25 MG TAB PO SCH (08:26)
[2017-07-23] MEDS ORDERED: INSULIN GLARGINE SOLOSTAR 100 UNITS/ML 3 ML PEN SC SCH ×2 (09:00)
--- NOTE | 2017-07-23 09:06 | SURGERY PROGRESS NOTE ---
DATE: 07/23/2017 Alexsander is third postoperative day status post repair of abdominal wound dehiscence. He is alert, coherent. His is at his bedside. He is resting comfortably. He is starting to pass some flatus. His last vitals showed a temperature of 36.5, pulse 74, respirations 18, blood pressure 134/78, O2 sats 96 on 3 liters. I&O, he is still slightly positive but he is mobilizing fluid. He had 3575 yesterday, 600 overnight. He is on peripheral hyperalimentation. His oral intake is limited. Laboratory becerril, his hemoglobin is 8.9 which is reflective of fluid mobilization where it has gone up. His chemistries showed BUN of 47, creatinine 1.12. The abdomen is pretty much unchanged. I did not look at the wound, but Francis Sandra PA-C, looked at it and it looks fine. From our point of view, we will discontinue the Bryant, try to increase his activity, suspect to be here over the weekend. [facility] surgeons will be covering over the weekend. ADDENDUM I also talked with the patient and his regarding the path report that became available this morning and told him that everything was fine, no cancer, and did have an area in the appendix that eventually could have turned out to be a malignancy.
[2017-07-23] MEDS ORDERED: INSULIN GLARGINE SOLOSTAR 100 UNITS/ML 3 ML PEN SC ONE (09:45)
[2017-07-23] MEDS: PROMETHAZINE HCL INJ 12.5 MG in SODIUM CHLORIDE 0.9% 50ML 50 ML IV PRN (10:06)
[2017-07-23] MEDS: PANTOprazole INJ 40 MG in SYRINGE 0 ML IV SCH (10:07)
--- NOTE | 2017-07-23 10:14 | Pharmacy Progress Note ---
Glycemic Control Progress Note Date of Service Jul 23, 2017. Scope Glycemic Pharmacist consulted for glycemic control to write orders per [facility] inpatient glycemic control protocol. Objective Accuchecks BSG (last 24hrs): Test 07/22/17 10:55 07/22/17 12:03 07/22/17 12:55 07/22/17 13:57 Bedside Glucose 187 mg/dl (70-99) 238 mg/dl (70-99) 277 mg/dl (70-99) 255 mg/dl (70-99) Test 07/22/17 15:08 07/22/17 16:09 07/22/17 17:06 07/22/17 18:02 Bedside Glucose 221 mg/dl (70-99) 208 mg/dl (70-99) 225 mg/dl (70-99) 245 mg/dl (70-99) Test 07/22/17 19:03 07/22/17 20:05 07/22/17 21:00 07/22/17 21:56 Bedside Glucose 323 mg/dl (70-99) 162 mg/dl (70-99) 151 mg/dl (70-99) 141 mg/dl (70-99) Test 07/22/17 23:59 07/23/17 03:27 07/23/17 04:33 07/23/17 08:18 Bedside Glucose 154 mg/dl (70-99) 196 mg/dl (70-99) 249 mg/dl (70-99) Random Glucose 225 mg/dl (70-99) HbA1c: Test 07/16/17 06:38 Hemoglobin A1c 6.6 % (4.5-5.6) H Recent Pertinent Medications The patient is currently receiving: * Basal insulin: Lantus 20 units SQ BID * Correctional insulin: * Novolog SQ Q 4 hours: * Goal range: 110 - 150mg/dL * Correction factor: 20mg/dL/unit * Prandial insulin: Per carb ratio 1 unit per 6 grams CHO consumed; 15 units of Regular insulin added to current bag of TPN containing 125gm CHO Outpatient Anti-Diabetic Meds Lantus 35 units SQ BID Novolog SQ TID w/ meals using carb ratio 1 unit per 5 grams CHO + sliding scale coverage Assessment & Plan ASSESSMENT: 07/21/17 * Patient taken to OR yesterday for abd wound washout and closure of abd wound dehiscence * He remains intubated on vent this AM and continues to receive high dose IV steroids * AG metabolic acidosis noted on this AM labs along with hyperglycemia * His BSGs had been relatively well controlled prior to these acute events. * IV insulin infusion initiated this AM given worsening acidosis and hyperglycemia in a stressed type 1 diabetic * SQ Lantus had been placed on hold, however I would like to resume some basal insulin at this time as this will allow for easier transition off the insulin drip in the future. * There is some discussion of starting parenteral nutrition in this patient in the near future. Insulin will need added to the parenteral nutrition bag if this therapy used. 07/22/17 * Patient remains on insulin drip this AM with BSGs rising into the 240's, rate had been ~1unit/hr most of the evening yesterday and overnight * The original plan to give Lantus 20units BID changed when RN called with concerns pt's BSGs in the 70's and Lantus was ordered. Changed Lantus order to 15 units BID and consulted provider to incorporate dextrose into maintenance IVF 's as pt was NPO still. Lantus dose further down-titrated by evening RPH. * New events over last 24 hours: pt has been extubated, steroid dose reduced ~33 %, clear liquid diet ordered, starting TPN at 1600 today * AG acidosis has resolved * Many factors are now in play that can increase or decrease insulin requirements. I will make an attempt to transition off insulin drip per nursing request, but will have a low threshold to resume the insulin drip in this type 1 diabetic. * I still anticipate he will require ~70-80+units per day when tolerating a diet on current steroid dose. * Will up his Lantus dose today, give next dose when 1st bag TPN hung as I believe he is basal deficient by ~20-30 units/days at this point * Will place insulin in 1st bag of TPN, utilizing a insulin to carb ratio of 1:8 07/23/17 * Patient was transitioned off the insulin drip ~2200 last night * Since transition BSGs have risen steadily: 141 --> 154 -->196 --> 249 * Will need to monitor this patient closely as his insulin needs with changing diet and steroid dose are very difficult to estimate in a type 1 diabetic * Current BSG pattern suggests either inadequate basal insulin or inadequate insulin added to TPN; will give STAT dose of Lantus as current TPN will continue thru 1559 today. Next bag of TPN will also contain more insulin. * Will titrate insulin doses to severe stress levels based upon weight; of note doses this high have not yet been used. However doses near this level did result in hypoglycemia earlier this admission on lesser steroid dose. PLAN FOR INPATIENT GLYCEMIC CONTROL: * Increase basal insulin: * Lantus 25 units SQ BID; give 10 units SQ x 1 now * Add 25 units to today's bag of TPN containing 125gm dextrose (did not escalate dextrose content today due to worsening hyperglycemia) * Continue BSGs Q 4 hrs and cover with Novolog SQ * Change correction factor to 18mg/dL/unit * Change carb ratio to 1 unit per 5 grams CHO's consumed * Please note that the plan above was derived based on current level of insulin resistance and hospital stress. These recommendations are appropriate for inpatient admission only. Plan of care upon discharge will need to be reassessed to avoid potential outpatient hypo/hyperglycemia. Thank you.
[2017-07-23] MEDS ORDERED: INSULIN HUMAN REGULAR PER UNIT 5 UNITS in SYRINGE 4.95 ML IV ONE (11:45)
[2017-07-23] MEDS: METOCLOPRAMIDE HCL INJ 5 MG/ML 2 ML VIAL IV. PRN ×2 (14:00→21:40)
--- NOTE | 2017-07-23 15:14 | Progress Note ---
Subjective Date of Service: Jul 23, 2017. Subjective Pt evaluation today including: conversation w/ patient, conversation w/ family , physical exam, lab review, review of inpatient medication list Pain: less abdominal pain today PO Intake: clears Voiding: no voiding problems patient looking much better today abdomen in binder, less pain + flatus no vomiting tolerating TPN reviewed labs, Cr is down to 1.1, Hb stable at 8.9 vitals stable except still on some supplemental oxygen updated at the bedside discussed with Dr. Alexander Problem List Medical Problems: (1) Hypokalemia Status: Acute (2) Oxygen dependent Status: Acute (3) Respiratory failure Status: Acute (4) Right flank pain Status: Acute Review of Systems Constitutional: + weakness, + fatigue Respiratory: + dyspnea on exertion Abdomen: + pain All Other Systems: Reviewed and Negative Medications Current Inpatient Medications Medications (Trade) Dose Ordered Sig/Dianne Route Start Time Stop Time Status Last Admin Dose Admin Oxycodone/ Acetaminophen (Percocet 5-325mg Tab) 1 tab Q4H PRN PO 07/15/17 14:45 07/29/17 14:44 07/19/17 20:39 1 TAB Ondansetron HCl (Zofran Inj) 4 mg Q6H PRN IV 07/15/17 14:45 08/14/17 14:44 07/23/17 02:08 4 MG Heparin Sodium (Porcine) (Heparin Sq 5000 Unit/0.5ml) 5,000 unit Q8 SQ 07/16/17 06:00 08/15/17 05:59 07/23/17 13:50 5,000 UNIT Arformoterol Tartrate (Brovana 15MCG/ 2ML Neb Soln) 15 mcg BIDR INH 07/16/17 08:00 08/15/17 07:59 07/23/17 07:02 15 MCG Budesonide (Pulmicort Respules 0.5MG/ 2ML Neb Soln) 1 mg BIDR INH 07/16/17 08:00 08/15/17 07:59 07/23/17 07:02 1 MG Fluticasone Propionate (Flonase Nasal [place]) 2 sprays QAM ANNA 07/16/17 09:00 08/15/17 08:59 07/23/17 08:22 2 SPRAYS Glucose (Glucose 40% Gel) 15-30 GRAMS 15 GRAMS... UD PRN PO 07/15/17 21:45 08/14/17 21:44 Glucose (Glucose Chew Tab) 4-8 Tablets 4 Tabl... UD PRN PO 07/15/17 21:45 08/14/17 21:44 Dextrose (Dextrose 50% 50ML Syringe) 25-50ML OF 50% DW IV FOR... UD PRN IV 07/15/17 21:45 08/14/17 21:44 07/21/17 13:38 25 ML Glucagon (Glucagon Inj) 1 mg UD PRN SQ 07/15/17 21:45 08/14/17 21:44 Miscellaneous Information (Consult Glycemic Management Pharmacy) 1 ea UD PRN N/A 07/16/17 06:55 08/15/17 06:54 Hydromorphone HCl (Dilaudid Inj) 0.5 mg Q3H PRN IV 07/17/17 09:45 07/31/17 09:44 07/23/17 14:00 0.5 MG Escitalopram Oxalate (Lexapro Tab) 10 mg QAM PO 07/19/17 09:00 08/18/17 08:59 07/23/17 08:23 10 MG Potassium Chloride (Klor-Con Tab) 20 meq TID PO 07/19/17 09:00 08/18/17 08:59 07/22/17 08:48 20 MEQ Miscellaneous Information (Order Awaiting Action) 1 ea QS N/A 07/19/17 08:00 08/18/17 07:59 Albuterol Sulfate (Ventolin 0.083% 2.5MG/3ML Neb) 2.5 mg Q2H PRN INH 07/19/17 10:30 08/14/17 20:59 07/20/17 05:14 2.5 MG Promethazine HCl 12.5 mg/Sodium Chloride 50.5 ml @ 204 mls/hr Q6H PRN IV 07/19/17 10:30 08/18/17 10:29 07/23/17 10:06 204 MLS/HR Pantoprazole Sodium 40 mg/ Syringe 10 ml @ 5 mls/min DAILY@11 IV 07/21/17 11:00 07/24/17 11:01 07/23/17 10:07 5 MLS/MIN Miscellaneous Information (Pharmacy Tpn/ Ppn Consult Active) 1 ea UD PRN N/A 07/21/17 14:00 08/20/17 13:59 Diltiazem HCl (Cardizem Tab) 60 mg TID PO 07/21/17 21:00 08/20/17 20:59 07/23/17 13:50 60 MG Spironolactone (Aldactone Tab) 25 mg QAM PO 07/22/17 09:00 08/21/17 08:59 07/23/17 08:26 25 MG Methylprednisolone Sodium Succinate 40 mg/Syringe 0.64 ml @ 1.5 mls/min Q12H IV 07/22/17 09:00 07/23/17 21:00 07/23/17 08:22 1.5 MLS/MIN Nutrition (Parenteral) 0 ml @ 0 mls/hr TODAY@1600 IV 07/22/17 16:00 07/23/17 15:59 07/22/17 16:02 50.91 MLS/HR Dextrose 1,000 ml @ 0 mls/hr Q0M PRN IV 07/22/17 16:00 08/21/17 15:59 Albuterol/ Ipratropium (Duoneb) 3 ml Q4R PRN INH 07/22/17 11:15 08/21/17 11:14 07/22/17 16:41 3 ML Insulin Aspart (novoLOG ASPART) SLIDING SCALE Q4 SC 07/23/17 00:00 08/22/17 00:00 07/23/17 12:07 10 UNITS Heparin Sodium (Porcine) (Heparin 10 Unit/ ml 5 ml Flush) 5 ml PRN PRN FLUSH 07/22/17 13:30 08/21/17 13:29 Metoclopramide HCl (Reglan Inj) 10 mg Q6H PRN IV. 07/23/17 08:30 08/22/17 08:29 07/23/17 14:00 10 MG Diltiazem HCl (Cardizem Cd Cap) 180 mg QAM PO 07/24/17 09:00 08/23/17 08:59 Miscellaneous Information (Order Awaiting Action) 1 ea QS N/A 07/23/17 16:00 08/22/17 15:59 Methylprednisolone Sodium Succinate 40 mg/Syringe 0.64 ml @ 1.5 mls/min DAILY IV 07/24/17 09:00 08/21/17 08:59 Simvastatin (Zocor Tab) 10 mg QPM PO 07/23/17 21:00 08/21/17 08:59 Nutrition (Parenteral) 0 ml @ 0 mls/hr TODAY@1600 IV 07/23/17 16:00 07/24/17 15:59 Insulin Glargine (Lantus Solostar Pen) 25 units BID SC 07/23/17 21:00 08/22/17 20:59 Miscellaneous Information (Pending Order) 1 ea Q4 N/A 07/23/17 20:00 08/22/17 19:59 Objective Vital Signs Date Time Temp Pulse Resp B/P (MAP) Pulse Ox O2 Delivery O2 Flow Rate FiO2 07/23/17 12:00 Nasal Cannula 3.0 07/23/17 11:48 37.0 78 96 152/76 (101) 24 Nasal Cannula 3.0 07/23/17 08:00 Nasal Cannula 3.0 07/23/17 07:02 74 18 96 Nasal Cannula 3.0 07/23/17 06:57 36.5 81 18 134/78 (96) 97 Nasal Cannula 3.0 07/23/17 04:00 36.6 82 22 149/82 (104) 95 Nasal Cannula 3.5 Humidified Oxygen 07/23/17 04:00 95 Nasal Cannula 3.5 Humidified Oxygen 07/23/17 00:04 36.8 70 18 133/64 (87) 94 Nasal Cannula 3.0 Humidified Oxygen 07/22/17 23:59 94 Nasal Cannula 3.5 07/22/17 20:00 94 Nasal Cannula 3.5 07/22/17 19:32 36.7 74 20 122/76 (91) 94 Nasal Cannula 3.0 07/22/17 19:11 81 18 97 Nasal Cannula 3.0 07/22/17 18:28 36.9 78 20 122/76 (91) 94 Nasal Cannula 4.0 07/22/17 16:42 85 18 94 Nasal Cannula 3.0 07/22/17 16:00 36.9 78 20 127/75 (92) 94 Nasal Cannula 4.0 07/22/17 16:00 Nasal Cannula 4.0 Physical Exam General Appearance: WD/WN, no apparent distress Eyes: normal inspection, EOMI, sclerae normal ENT: normal ENT inspection, hearing grossly normal, pharynx normal Neck: supple, no adenopathy, no JVD, trachea midline Respiratory/Chest: chest non-tender, no respiratory distress, no accessory muscle use, + decreased breath sounds Cardiovascular: regular rate, rhythm, no edema, no gallop, no JVD, no murmur Abdomen: + abnormal bowel sounds, + tenderness, + pertinent finding (abdominal binder) Extremities: normal range of motion, non-tender, normal inspection, no pedal edema, no calf tenderness, pelvis stable Neurologic/Psychiatric: oyster picker II-XII nml as tested, alert, normal mood/affect, oriented x 3, + motor weakness Skin: normal color, warm/dry, no rash Laboratory Results Last 24 Hours Test 07/22/17 15:08 07/22/17 16:09 07/22/17 17:06 07/22/17 18:02 Bedside Glucose 221 mg/dl 208 mg/dl 225 mg/dl 245 mg/dl Test 07/22/17 19:03 07/22/17 20:05 07/22/17 21:00 07/22/17 21:56 Bedside Glucose 323 mg/dl 162 mg/dl 151 mg/dl 141 mg/dl Test 07/22/17 23:59 07/23/17 03:27 07/23/17 04:33 07/23/17 08:18 Bedside Glucose 154 mg/dl 196 mg/dl 249 mg/dl Hemoglobin 8.9 g/dL Hematocrit 27.8 % Sodium Level 143 mmol/L Potassium Level 4.2 mmol/L Chloride Level 112 mmol/L Carbon Dioxide Level 23 mmol/L Anion Gap 8.0 mmol/L Blood Urea Nitrogen 47 mg/dl Creatinine 1.12 mg/dl Est Creatinine Clear Calc Drug Dose 77.9 ml/min Estimated GFR () 81.2 Estimated GFR (Non- 70.0 BUN/Creatinine Ratio 42.4 Random Glucose 225 mg/dl Calcium Level 7.8 mg/dl Phosphorus Level 2.7 mg/dl Magnesium Level 2.9 mg/dl Triglycerides Level 184 mg/dl Test 07/23/17 11:13 07/23/17 13:31 Bedside Glucose 272 mg/dl 214 mg/dl Assessment and Plan 62 y/o male s/p right colon resection with Dr. Alexander on 07/15, hospitalist consulted for medical management. S/p right colon resection--POD #8 Wound dehiscence on 07/20, taken emergently to OR for closure, washout, POD #3 + flatus, BM yesterday, no vomiting, tolerating clear liquids for now continue TPN, was started evening of 07/22 Dr. Alexander managing surgical issues Acute hypoxic respiratory failure, COPD/asthma s/p bronchoscopy on 07/20 after surgery extubated on 07/21, breathing well on 3L today Solu Medrol q12 today, taper to daily tomorrow continue home medications breathing is improved today, no wheezing, no distress, only asked for one nebulizer treatment Acute kidney injury: resolved initially and then had a second injury with wound dehiscence Cr went back up to 1.9 after surgery, today it is down to 1.1, making adequate urine can stop maintenance fluids, will get fluid with TPN + 15 liters for admission, will watch volume status and use Lasix as needed Metabolic acidosis, anion gap resolved DM: stable on Lantus, Novolog pharmacy consult for assistance monitor for hypoglycemia HTN: BP stable, currently on Diltiazem 60mg TID change to 180mg daily tomorrow updated at the bedside keep on tele today, transfer to medical tomorrow Continued [facility] stay due to: multiple IV medications needed, home environment unsafe for pt Discharge planning: uncertain
[2017-07-23] MEDS ORDERED: CUSTOM CENTRAL PN 1 BAG IV SCH (16:00)
[2017-07-23] MEDS: SIMVASTATIN 10 MG TAB PO SCH (20:46)
[2017-07-23] MEDS ORDERED: ZAFIRLUKAST TAB 20 MG TAB PO SCH (21:00)
[2017-07-23] MEDS: ALBUTEROL 0.083% NEBU SOLN 3 ML VIAL INH PRN (21:21)
[2017-07-23] MEDS: INSULIN GLARGINE SOLOSTAR 100 UNITS/ML 3 ML PEN SC SCH (21:42)
[2017-07-24] VITALS (14 sets, daily range): BP systolic 132–156; BP diastolic 74–83; PULSE 74–87; TEMP 36.5–37.1; O2SAT 92–99
[2017-07-24] MEDS: ALBUTEROL 0.083% NEBU SOLN 3 ML VIAL INH PRN (03:05)
[2017-07-24 04:30] LABS: HEMATOCRIT 30.2 % (42-52); HEMOGLOBIN 9.3 g/dL (14.0-18.0); MEAN CELL VOLUME 85.8 fL (80-100); MEAN CORPUSCULAR HEMOGLOBIN 26.4 pg (25-34); MEAN CORPUSCULAR HGB CONC 30.8 g/dl (32-36); MEAN PLATELET VOLUME 10.1 fL (7.4-10.4); NUCLEATED RED BLOOD CELL ABS 0.02 K/uL (0-0); PLATELET COUNT 265 K/uL (130-400); RED CELL DISTRIBUTION WIDTH CV 16.1 % (11.5-14.5); RED CELL DISTRIBUTION WIDTH SD 50.4 fL (36.4-46.3); WHITE BLOOD COUNT 7.88 K/uL (4.8-10.8)
[2017-07-24] MEDS: METOCLOPRAMIDE HCL INJ 5 MG/ML 2 ML VIAL IV. PRN ×2 (04:31→16:43)
[2017-07-24] MEDS: OXYCODONE/ACETAMINOPHEN 5-325 TAB PO PRN ×4 (04:31→21:25)
[2017-07-24] MEDS: INSULIN ASPART 100 UNITS/ML 3 ML PEN SC SCH ×6 (04:35→20:00)
[2017-07-24 04:49] LABS: CALCIUM 8.1 mg/dl (8.5-10.1); CREATININE 1.07 mg/dl (0.60-1.40); PHOSPHORUS 2.9 mg/dl (2.5-4.9); POTASSIUM 3.9 mmol/L (3.5-5.1)
[2017-07-24] MEDS: HEPARIN SOD 5000 UNIT/0.5 ML CARP SQ SCH ×3 (06:18→21:27)
[2017-07-24] MEDS: ARFORMOTEROL TART 15MCG/2ML VIAL INH SCH ×2 (07:09→19:14)
[2017-07-24] MEDS: BUDESONIDE 0.5 MG/2 ML VIAL (PULMICORT) INH SCH ×2 (07:09→19:15)
[2017-07-24] MEDS: FLUTICASONE PROPIONATE NA SPR 16 GM BTL NAE SCH (07:35)
[2017-07-24] MEDS: ZAFIRLUKAST TAB 20 MG TAB PO SCH ×2 (07:36→21:24)
[2017-07-24] MEDS: DESLORATADINE 5 MG TAB PO SCH (07:36)
[2017-07-24] MEDS: DILTIAZEM HCL 180 MG CAPCR PO SCH (07:37)
[2017-07-24] MEDS: POTASSIUM CHLORIDE 20 MEQ TABCR PO SCH ×3 (07:38→21:00)
[2017-07-24] MEDS: ESCITALOPRAM OXALATE 10 MG TAB PO SCH (07:39)
[2017-07-24] MEDS: INSULIN GLARGINE SOLOSTAR 100 UNITS/ML 3 ML PEN SC SCH ×2 (07:43→21:26)
[2017-07-24] MEDS: SPIRONOLACTONE 25 MG TAB PO SCH (08:43)
[2017-07-24] MEDS ORDERED: METHYLPREDNISOLONE IV 40 MG in SYRINGE 0 ML IV SCH (09:00)
[2017-07-24] MEDS: PROMETHAZINE HCL INJ 12.5 MG in SODIUM CHLORIDE 0.9% 50ML 50 ML IV PRN (09:24)
[2017-07-24] MEDS: ALBUT/IPRATROP 3MG/0.5MG NEB 3 ML VIAL INH PRN ×2 (10:48→17:00)
--- NOTE | 2017-07-24 10:53 | Surgery Progress Note ---
Surgery Progress Note Date of Service Jul 24, 2017. Subjective Post OP Day: 3 + feeling well, + complaints (pain controlled), + flatus, + diet (clears/TPN), No nausea, No vomiting Objective Vital Signs: Date Time Temp Pulse Resp B/P (MAP) Pulse Ox O2 Delivery O2 Flow Rate FiO2 07/24/17 08:00 Room Air 07/24/17 07:35 37.1 82 20 142/77 (98) 95 Room Air 07/24/17 07:12 78 20 96 Nasal Cannula 2.0 07/24/17 04:00 95 Nasal Cannula 3.0 Humidified Oxygen 07/24/17 03:35 36.8 79 19 156/77 (103) 95 Nasal Cannula 2.0 07/24/17 03:07 76 20 96 Nasal Cannula 2.0 07/24/17 00:25 36.7 77 23 148/74 (98) 96 Nasal Cannula 2.0 07/23/17 23:59 95 Nasal Cannula 3.0 Humidified Oxygen 07/23/17 21:21 73 18 98 Nasal Cannula 2.0 07/23/17 20:00 95 Nasal Cannula 3.0 Humidified Oxygen 07/23/17 19:35 36.7 80 26 140/73 (95) 96 Nasal Cannula 3.0 07/23/17 18:54 82 16 97 Nasal Cannula 2.0 07/23/17 17:33 82 18 91 Nasal Cannula 2.0 07/23/17 16:47 36.7 82 14 131/77 (95) 97 Nasal Cannula 3.0 07/23/17 16:00 Nasal Cannula 3.0 07/23/17 12:00 Nasal Cannula 3.0 07/23/17 11:48 37.0 78 96 152/76 (101) 24 Nasal Cannula 3.0 General Appearance: WD/WN, no apparent distress Head: normocephalic, atraumatic Neck: supple Respiratory/Chest: lungs clear Cardiovascular: regular rate, rhythm Abdomen: soft, + abnormal bowel sounds (quiet), + distended, + tenderness Incision(s): clean, dry, intact Extremities: non-tender, no pedal edema Laboratory Results: Results Past 24 Hours Test 07/23/17 11:13 07/23/17 13:31 07/23/17 16:09 07/23/17 20:35 Range/Units Bedside Glucose 272 214 151 139 70-99 mg/dl Test 07/24/17 00:11 07/24/17 04:05 07/24/17 04:12 07/24/17 06:50 Range/Units Bedside Glucose 139 157 156 70-99 mg/dl White Blood Count 7.88 4.8-10.8 K/uL Red Blood Count 3.52 4.7-6.1 M/uL Hemoglobin 9.3 14.0-18.0 g/dL Hematocrit 30.2 42-52 % Mean Corpuscular Volume 85.8 80-100 fL Mean Corpuscular Hemoglobin 26.4 25-34 pg Mean Corpuscular Hemoglobin Concent 30.8 32-36 g/dl RDW Standard Deviation 50.4 36.4-46.3 fL RDW Coefficient of Variation 16.1 11.5-14.5 % Platelet Count 265 130-400 K/uL Mean Platelet Volume 10.1 7.4-10.4 fL Nucleated RBC Absolute Count (auto) 0.02 0-0 K/uL Nucleated Red Blood Cells % 0.2 % Sodium Level 142 136-145 mmol/L Potassium Level 3.9 3.5-5.1 mmol/L Chloride Level 108 98-107 mmol/L Carbon Dioxide Level 23 21-32 mmol/L Anion Gap 11.0 3-11 mmol/L Blood Urea Nitrogen 47 7-18 mg/dl Creatinine 1.07 0.60-1.40 mg/dl Est Creatinine Clear Calc Drug Dose 81.5 ml/min Estimated GFR () 85.8 Estimated GFR (Non- 74.0 BUN/Creatinine Ratio 43.7 10-20 Random Glucose 149 70-99 mg/dl Calcium Level 8.1 8.5-10.1 mg/dl Phosphorus Level 2.9 2.5-4.9 mg/dl Magnesium Level 2.7 1.8-2.4 mg/dl Assessment & Plan POD#9 lap resection, POD#3 repair dehisence -TPN -passing flatus -pain controlled trying to wean narcotics -liquid -await bowel function
[2017-07-24] MEDS: PANTOprazole INJ 40 MG in SYRINGE 0 ML IV SCH (12:05)
--- NOTE | 2017-07-24 13:26 | Pharmacy Progress Note ---
Pharmacy Glycemic Short Note 2 Date of Service Jul 24, 2017. OUTPATIENT ANTIDIABETIC REGIMEN: * Lantus 35 units SC BID * Novolog TIDM * Note: also on prednisone 10 mg po daily ASSESSMENT: 07/24/17 * Mr. Barron received 103 units of insulin in the past 24 hours * He remains on TPN w/ 125 gm of dextrose in current bag and 25 units of insulin * PO intake is increasing but patient still reports a lot of nausea * Major change to stressors is decrease in Solu-medrol from q12h yesterday to q24h today * I spoke with Dr. Ling and the plan will be to continue his TPN for at least today and reassess tomorrow * Since his BSGs are controlled, will plan to go up slightly on the dextrose in his bag * My plan will be to keep insulin in the bag the same though because of reduced steroid dose 07/23/17 * Patient was transitioned off the insulin drip ~2200 last night * Since transition BSGs have risen steadily: 141 --> 154 -->196 --> 249 * Will need to monitor this patient closely as his insulin needs with changing diet and steroid dose are very difficult to estimate in a type 1 diabetic * Current BSG pattern suggests either inadequate basal insulin or inadequate insulin added to TPN; will give STAT dose of Lantus as current TPN will continue thru 1559 today. Next bag of TPN will also contain more insulin. * Will titrate insulin doses to severe stress levels based upon weight; of note doses this high have not yet been used. However doses near this level did result in hypoglycemia earlier this admission on lesser steroid dose. PLAN FOR INPATIENT GLYCEMIC CONTROL: * Basal insulin - no change * Lantus 25 units SQ BID * Bolus insulin - no change * NovoLog per scale q4h d/t po intake and continuous TPN * Goal Range: Low 110 mg/dL - High 140 mg/dL * Correction Factor: 18 mg/dL/unit * Nutritional / Prandial insulin per carb ratio of 1 unit per 5 grams CHO consumed * Insulin in PN - no change * 25 units (175 gm dextrose) PLAN FOR DISCHARGE: * A1c indicates excellent outpatient control * Should be able to resume outpatient regimen upon discharge, unless po intake significantly decreased as it is now * Please contact pharmacy for recommendations if that is the case
--- NOTE | 2017-07-24 15:11 | Progress Note ---
Subjective Date of Service: Jul 24, 2017. Subjective Pt evaluation today including: conversation w/ patient, conversation w/ family (), physical exam, lab review, conversation w/ it architecture consultant, review of inpatient medication list Pain: less abdominal pain today PO Intake: clears, pudding Voiding: no voiding problems patient sitting in chair, less abdominal pain, mild nausea + flatus (lots of gas) but no BM c/o lower extremity edema again, feet are aching, asking for ISAIAH lan reviewed labs, Cr is 1.07, K is 3.7, Mag and Phos stable Hb is 9.3 discussed with pharmacy, continue TPN this evening Problem List Medical Problems: (1) Hypokalemia Status: Acute (2) Oxygen dependent Status: Acute (3) Respiratory failure Status: Acute (4) Right flank pain Status: Acute Review of Systems Constitutional: + weakness, + fatigue Cardiac: + edema Abdomen: + pain, + nausea, + constipation All Other Systems: Reviewed and Negative Medications Current Inpatient Medications Medications (Trade) Dose Ordered Sig/Dianne Route Start Time Stop Time Status Last Admin Dose Admin Oxycodone/ Acetaminophen (Percocet 5-325mg Tab) 1 tab Q4H PRN PO 07/15/17 14:45 07/29/17 14:44 07/24/17 09:24 1 TAB Ondansetron HCl (Zofran Inj) 4 mg Q6H PRN IV 07/15/17 14:45 08/14/17 14:44 07/23/17 02:08 4 MG Heparin Sodium (Porcine) (Heparin Sq 5000 Unit/0.5ml) 5,000 unit Q8 SQ 07/16/17 06:00 08/15/17 05:59 07/24/17 13:25 5,000 UNIT Arformoterol Tartrate (Brovana 15MCG/ 2ML Neb Soln) 15 mcg BIDR INH 07/16/17 08:00 08/15/17 07:59 07/24/17 07:09 15 MCG Budesonide (Pulmicort Respules 0.5MG/ 2ML Neb Soln) 1 mg BIDR INH 07/16/17 08:00 08/15/17 07:59 07/24/17 07:09 1 MG Fluticasone Propionate (Flonase Nasal [place]) 2 sprays QAM ANNA 07/16/17 09:00 4/15/18 08:59 07/24/17 07:35 2 SPRAYS Glucose (Glucose 40% Gel) 15-30 GRAMS 15 GRAMS... UD PRN PO 07/15/17 21:45 08/14/17 21:44 Glucose (Glucose Chew Tab) 4-8 Tablets 4 Tabl... UD PRN PO 07/15/17 21:45 08/14/17 21:44 Dextrose (Dextrose 50% 50ML Syringe) 25-50ML OF 50% DW IV FOR... UD PRN IV 07/15/17 21:45 08/14/17 21:44 07/21/17 13:38 25 ML Glucagon (Glucagon Inj) 1 mg UD PRN SQ 07/15/17 21:45 08/14/17 21:44 Miscellaneous Information (Consult Glycemic Management Pharmacy) 1 ea UD PRN N/A 07/16/17 06:55 08/15/17 06:54 Hydromorphone HCl (Dilaudid Inj) 0.5 mg Q3H PRN IV 07/17/17 09:45 07/31/17 09:44 07/23/17 23:48 0.5 MG Escitalopram Oxalate (Lexapro Tab) 10 mg QAM PO 07/19/17 09:00 08/18/17 08:59 07/24/17 07:39 10 MG Potassium Chloride (Klor-Con Tab) 20 meq TID PO 07/19/17 09:00 08/18/17 08:59 07/22/17 08:48 20 MEQ Albuterol Sulfate (Ventolin 0.083% 2.5MG/3ML Neb) 2.5 mg Q2H PRN INH 07/19/17 10:30 08/14/17 20:59 07/24/17 03:05 2.5 MG Promethazine HCl 12.5 mg/Sodium Chloride 50.5 ml @ 204 mls/hr Q6H PRN IV 07/19/17 10:30 08/18/17 10:29 07/24/17 09:24 204 MLS/HR Miscellaneous Information (Pharmacy Tpn/ Ppn Consult Active) 1 ea UD PRN N/A 07/21/17 14:00 08/20/17 13:59 Spironolactone (Aldactone Tab) 25 mg QAM PO 07/22/17 09:00 08/21/17 08:59 07/24/17 08:43 25 MG Dextrose 1,000 ml @ 0 mls/hr Q0M PRN IV 07/22/17 16:00 08/21/17 15:59 Albuterol/ Ipratropium (Duoneb) 3 ml Q4R PRN INH 07/22/17 11:15 08/21/17 11:14 07/24/17 10:48 3 ML Insulin Aspart (novoLOG ASPART) SLIDING SCALE Q4 SC 07/23/17 00:00 08/22/17 00:00 07/24/17 12:05 5 UNITS Heparin Sodium (Porcine) (Heparin 10 Unit/ ml 5 ml Flush) 5 ml PRN PRN FLUSH 07/22/17 13:30 08/21/17 13:29 Metoclopramide HCl (Reglan Inj) 10 mg Q6H PRN IV. 07/23/17 08:30 08/22/17 08:29 07/24/17 04:31 10 MG Diltiazem HCl (Cardizem Cd Cap) 180 mg QAM PO 07/24/17 09:00 08/23/17 08:59 07/24/17 07:37 180 MG Methylprednisolone Sodium Succinate 40 mg/Syringe 0.64 ml @ 1.5 mls/min DAILY IV 07/24/17 09:00 08/21/17 08:59 07/24/17 07:38 1.5 MLS/MIN Simvastatin (Zocor Tab) 10 mg QPM PO 07/23/17 21:00 08/21/17 08:59 07/23/17 20:46 10 MG Nutrition (Parenteral) 0 ml @ 0 mls/hr TODAY@1600 IV 07/23/17 16:00 07/24/17 15:59 07/23/17 15:45 0 MLS/HR Insulin Glargine (Lantus Solostar Pen) 25 units BID SC 07/23/17 21:00 08/22/17 20:59 07/24/17 07:43 25 UNITS Zafirlukast (Accolate Tab) 20 mg BID PO 07/24/17 09:00 08/23/17 08:59 07/24/17 07:36 20 MG Desloratidine (Clarinex) 5 mg QAM PO 07/24/17 09:00 08/23/17 08:59 07/24/17 07:36 5 MG Nutrition (Parenteral) 0 ml @ 0 mls/hr TODAY@1600 IV 07/24/17 16:00 07/25/17 15:59 Objective Vital Signs Date Time Temp Pulse Resp B/P (MAP) Pulse Ox O2 Delivery O2 Flow Rate FiO2 07/24/17 12:00 Room Air 07/24/17 11:30 36.8 74 20 133/76 (95) 97 Nasal Cannula 2.0 07/24/17 10:50 75 20 95 Nasal Cannula 2.0 07/24/17 08:00 Room Air 07/24/17 07:35 37.1 82 20 142/77 (98) 95 Room Air 07/24/17 07:12 78 20 96 Nasal Cannula 2.0 07/24/17 04:00 95 Nasal Cannula 3.0 Humidified Oxygen 07/24/17 03:35 36.8 79 19 156/77 (103) 95 Nasal Cannula 2.0 07/24/17 03:07 76 20 96 Nasal Cannula 2.0 07/24/17 00:25 36.7 77 23 148/74 (98) 96 Nasal Cannula 2.0 07/23/17 23:59 95 Nasal Cannula 3.0 Humidified Oxygen 07/23/17 21:21 73 18 98 Nasal Cannula 2.0 07/23/17 20:00 95 Nasal Cannula 3.0 Humidified Oxygen 07/23/17 19:35 36.7 80 26 140/73 (95) 96 Nasal Cannula 3.0 07/23/17 18:54 82 16 97 Nasal Cannula 2.0 07/23/17 17:33 82 18 91 Nasal Cannula 2.0 07/23/17 16:47 36.7 82 14 131/77 (95) 97 Nasal Cannula 3.0 07/23/17 16:00 Nasal Cannula 3.0 Physical Exam General Appearance: WD/WN, no apparent distress Eyes: normal inspection, EOMI, sclerae normal ENT: normal ENT inspection, hearing grossly normal, pharynx normal Neck: supple, no adenopathy, no JVD, trachea midline Respiratory/Chest: chest non-tender, lungs clear, normal breath sounds, no respiratory distress, no accessory muscle use Cardiovascular: regular rate, rhythm, no gallop, no JVD, no murmur Abdomen: normal bowel sounds, soft, no organomegaly, + distended, + tenderness (incisional), + pertinent finding (incision clean, dry, intact) Extremities: normal range of motion, non-tender, normal inspection, no calf tenderness, pelvis stable, + pedal edema (pitting to knees) Neurologic/Psychiatric: cage maker machine II-XII nml as tested, alert, normal mood/affect, oriented x 3, + motor weakness Skin: normal color, warm/dry, no rash Laboratory Results Last 24 Hours Test 07/23/17 16:09 07/23/17 20:35 07/24/17 00:11 07/24/17 04:05 Bedside Glucose 151 mg/dl 139 mg/dl 139 mg/dl White Blood Count 7.88 K/uL Red Blood Count 3.52 M/uL Hemoglobin 9.3 g/dL Hematocrit 30.2 % Mean Corpuscular Volume 85.8 fL Mean Corpuscular Hemoglobin 26.4 pg Mean Corpuscular Hemoglobin Concent 30.8 g/dl RDW Standard Deviation 50.4 fL RDW Coefficient of Variation 16.1 % Platelet Count 265 K/uL Mean Platelet Volume 10.1 fL Nucleated RBC Absolute Count (auto) 0.02 K/uL Nucleated Red Blood Cells % 0.2 % Sodium Level 142 mmol/L Potassium Level 3.9 mmol/L Chloride Level 108 mmol/L Carbon Dioxide Level 23 mmol/L Anion Gap 11.0 mmol/L Blood Urea Nitrogen 47 mg/dl Creatinine 1.07 mg/dl Est Creatinine Clear Calc Drug Dose 81.5 ml/min Estimated GFR () 85.8 Estimated GFR (Non- 74.0 BUN/Creatinine Ratio 43.7 Random Glucose 149 mg/dl Calcium Level 8.1 mg/dl Phosphorus Level 2.9 mg/dl Magnesium Level 2.7 mg/dl Test 07/24/17 04:12 07/24/17 06:50 07/24/17 11:29 Bedside Glucose 157 mg/dl 156 mg/dl 140 mg/dl Assessment and Plan 62 y/o male s/p right colon resection with Dr. Alexander on 07/15, hospitalist consulted for medical management. S/p right colon resection--POD #9 Wound dehiscence on 07/20, taken emergently to OR for closure, washout, POD #4 + flatus, BM on 07/22, no vomiting, tolerating clear liquids and pudding for now no BM yesterday or today, says he feels a little more distended continue TPN, was started evening of 07/22 Dr. Alexander managing surgical issues Acute hypoxic respiratory failure, COPD/asthma s/p bronchoscopy on 07/20 after surgery extubated on 07/21, breathing well on room air today Solu Medrol daily, will stop after today's dose, no wheezing continue home medications breathing is improved today, no wheezing, no distress, breathing room air Acute kidney injury: resolved initially and then had a second injury with wound dehiscence Cr went back up to 1.9 after surgery, today it is down to 1.07, making lots of urine can stop maintenance fluids, will get fluid with TPN + 15 liters for admission, will watch volume status and use Lasix as needed but he is making a lot of urine on his own apply ISAIAH lan for lower extremity edema Metabolic acidosis, anion gap resolved DM: stable on Lantus, Novolog SS pharmacy consult for assistance monitor for hypoglycemia HTN: BP stable, continue Diltiazem 180mg daily updated at the bedside keep on tele again today but should be ready for surgical floor tomorrow Continued [facility] stay due to: multiple IV medications needed, home environment unsafe for pt Discharge planning: uncertain
[2017-07-24] MEDS ORDERED: CUSTOM CENTRAL PN 1 BAG IV SCH (16:00)
[2017-07-24] MEDS: SIMVASTATIN 10 MG TAB PO SCH (21:24)
[2017-07-25] VITALS (13 sets, daily range): BP systolic 134–155; BP diastolic 77–101; PULSE 74–90; TEMP 36.6–37.2; O2SAT 93–98
[2017-07-25] MEDS: ALBUTEROL 0.083% NEBU SOLN 3 ML VIAL INH PRN ×3 (00:19→12:10)
[2017-07-25] MEDS: METOCLOPRAMIDE HCL INJ 5 MG/ML 2 ML VIAL IV. PRN ×4 (02:12→22:58)
[2017-07-25] MEDS: INSULIN ASPART 100 UNITS/ML 3 ML PEN SC SCH ×6 (04:00→20:40)
[2017-07-25] MEDS: ONDANSETRON INJ 2 MG/ML 2 ML VIAL IV PRN ×3 (04:07→20:50)
[2017-07-25 04:43] LABS: HEMATOCRIT 30.1 % (42-52); HEMOGLOBIN 9.7 g/dL (14.0-18.0)
[2017-07-25 05:18] LABS: CALCIUM 8.4 mg/dl (8.5-10.1); CREATININE 0.99 mg/dl (0.60-1.40); POTASSIUM 3.7 mmol/L (3.5-5.1)
[2017-07-25 05:19] LABS: PHOSPHORUS 2.6 mg/dl (2.5-4.9)
[2017-07-25] MEDS: HEPARIN SOD 5000 UNIT/0.5 ML CARP SQ SCH ×3 (06:22→22:00)
[2017-07-25] MEDS: BUDESONIDE 0.5 MG/2 ML VIAL (PULMICORT) INH SCH ×2 (07:11→19:25)
[2017-07-25] MEDS: ARFORMOTEROL TART 15MCG/2ML VIAL INH SCH ×2 (07:12→19:25)
[2017-07-25] MEDS: OXYCODONE/ACETAMINOPHEN 5-325 TAB PO PRN ×3 (08:08→17:22)
[2017-07-25] MEDS: FLUTICASONE PROPIONATE NA SPR 16 GM BTL NAE SCH (08:09)
[2017-07-25] MEDS: DESLORATADINE 5 MG TAB PO SCH (08:10)
[2017-07-25] MEDS: SPIRONOLACTONE 25 MG TAB PO SCH (08:11)
[2017-07-25] MEDS: ZAFIRLUKAST TAB 20 MG TAB PO SCH ×2 (08:11→21:00)
[2017-07-25] MEDS: POTASSIUM CHLORIDE 20 MEQ TABCR PO SCH ×4 (08:12→20:44)
[2017-07-25] MEDS: ESCITALOPRAM OXALATE 10 MG TAB PO SCH (08:12)
[2017-07-25] MEDS: DILTIAZEM HCL 180 MG CAPCR PO SCH (08:12)
[2017-07-25] MEDS: INSULIN GLARGINE SOLOSTAR 100 UNITS/ML 3 ML PEN SC SCH ×2 (08:16→20:42)
--- NOTE | 2017-07-25 09:06 | Pharmacy Progress Note ---
Pharmacy Glycemic Short Note 2 Date of Service Jul 25, 2017. OUTPATIENT ANTIDIABETIC REGIMEN: * Lantus 35 units SC BID * Novolog TIDM (CR = 5 + sliding scale) * Note: also on prednisone 10 mg po daily Test 07/24/17 11:29 07/24/17 16:10 07/24/17 20:12 07/25/17 00:02 Bedside Glucose 140 mg/dl (70-99) 144 mg/dl (70-99) 113 mg/dl (70-99) 115 mg/dl (70-99) Test 07/25/17 04:04 07/25/17 04:23 07/25/17 06:28 Bedside Glucose 103 mg/dl (70-99) 114 mg/dl (70-99) Random Glucose 95 mg/dl (70-99) ASSESSMENT: 07/25/17 * Mr. Barron received 100 units of insulin in the past 24 hours * BSGs noted above are all acceptable * Changes to causes of insulin resistance: * Steroids d/c'd - last dose yesterday AM * PO intake continues to increase - CHO intake yesterday with meals (46 g, 27 g , 40 g) * TPN will d/c at 1600 today * I have already loosened the CF/CR slightly with the steroids no longer on board (did not want to change too much since his outpt CR = 5) * Ideally, BSGs should remain stable because the insulin in the TPN should be covering the CHO from the TPN only * In case BSGs start to fall, will continue scale of Lantus to provide lower dose if necessary 07/24/17 * Mr. Barron received 103 units of insulin in the past 24 hours * He remains on TPN w/ 125 gm of dextrose in current bag and 25 units of insulin * PO intake is increasing but patient still reports a lot of nausea * Major change to stressors is decrease in Solu-medrol from q12h yesterday to q24h today * I spoke with Dr. Ling and the plan will be to continue his TPN for at least today and reassess tomorrow * Since his BSGs are controlled, will plan to go up slightly on the dextrose in his bag * My plan will be to keep insulin in the bag the same though because of reduced steroid dose 07/23/17 * Patient was transitioned off the insulin drip ~2200 last night * Since transition BSGs have risen steadily: 141 --> 154 -->196 --> 249 * Will need to monitor this patient closely as his insulin needs with changing diet and steroid dose are very difficult to estimate in a type 1 diabetic * Current BSG pattern suggests either inadequate basal insulin or inadequate insulin added to TPN; will give STAT dose of Lantus as current TPN will continue thru 1559 today. Next bag of TPN will also contain more insulin. * Will titrate insulin doses to severe stress levels based upon weight; of note doses this high have not yet been used. However doses near this level did result in hypoglycemia earlier this admission on lesser steroid dose. PLAN FOR INPATIENT GLYCEMIC CONTROL: * Basal insulin - no change * Lantus 20 units SQ BID (BSG < 140) * Lantus 25 units SQ BID (BSG 140 or above) * Bolus insulin * NovoLog per scale change to ACHS since TPN will be d/c'd * Goal Range: Low 110 mg/dL - High 140 mg/dL * LOOSEN Correction Factor: 20 mg/dL/unit * LOOSEN Nutritional / Prandial insulin per carb ratio of 1 unit per 6 grams CHO consumed PLAN FOR DISCHARGE: * A1c indicates excellent outpatient control * Should be able to resume outpatient regimen upon discharge, unless po intake significantly decreased as it is now * Please contact pharmacy for recommendations if that is the case
--- NOTE | 2017-07-25 10:54 | Surgery Progress Note ---
Surgery Progress Note Date of Service Jul 25, 2017. Subjective Post OP Day: 4 + feeling well, + flatus, + diet (fulls), No complaints, No bowel movement, No nausea, No vomiting Objective Vital Signs: Date Time Temp Pulse Resp B/P (MAP) Pulse Ox O2 Delivery O2 Flow Rate FiO2 07/25/17 08:30 Room Air 2.0 Nasal Cannula Humidified Oxygen 07/25/17 07:41 37.2 80 20 137/80 (99) 93 Room Air 07/25/17 07:14 81 20 93 Nasal Cannula 3.0 07/25/17 04:01 36.6 86 22 145/77 (99) 93 Nasal Cannula 3.0 07/25/17 04:00 Room Air 2.0 Nasal Cannula Humidified Oxygen 07/25/17 03:44 90 22 98 Nasal Cannula 3.0 07/25/17 00:19 74 18 94 Nasal Cannula 3.0 07/24/17 23:59 Room Air 2.0 Nasal Cannula Humidified Oxygen 07/24/17 23:57 36.9 80 21 147/83 (104) 99 Nasal Cannula 3.0 07/24/17 20:13 36.8 81 20 132/75 (94) 92 Room Air 07/24/17 20:00 Room Air 2.0 Nasal Cannula Humidified Oxygen 07/24/17 19:15 80 20 96 Nasal Cannula 3.0 07/24/17 17:01 75 20 95 Nasal Cannula 2.0 07/24/17 16:59 81 24 96 Nasal Cannula 3.0 07/24/17 16:00 Room Air 07/24/17 15:19 36.5 87 21 142/76 (98) 95 Nasal Cannula 2.0 Humidified Oxygen 07/24/17 12:00 Room Air 07/24/17 11:30 36.8 74 20 133/76 (95) 97 Nasal Cannula 2.0 General Appearance: WD/WN, no apparent distress Head: normocephalic, atraumatic Neck: supple, trachea midline Respiratory/Chest: chest non-tender, lungs clear Cardiovascular: regular rate, rhythm Abdomen: soft, + distended, + tenderness (mild) Incision(s): clean, dry, intact (looks great; retentions in place; minimal drainage from drain - out soon) Extremities: non-tender, + pedal edema Laboratory Results: Results Past 24 Hours Test 07/24/17 11:29 07/24/17 16:10 07/24/17 20:12 07/25/17 00:02 Range/Units Bedside Glucose 140 144 113 115 70-99 mg/dl Test 07/25/17 04:04 07/25/17 04:23 07/25/17 06:28 Range/Units Bedside Glucose 103 114 70-99 mg/dl Hemoglobin 9.7 14.0-18.0 g/dL Hematocrit 30.1 42-52 % Sodium Level 142 136-145 mmol/L Potassium Level 3.7 3.5-5.1 mmol/L Chloride Level 108 98-107 mmol/L Carbon Dioxide Level 24 21-32 mmol/L Anion Gap 10.0 3-11 mmol/L Blood Urea Nitrogen 42 7-18 mg/dl Creatinine 0.99 0.60-1.40 mg/dl Est Creatinine Clear Calc Drug Dose 88.1 ml/min Estimated GFR () 94.2 Estimated GFR (Non- 81.3 BUN/Creatinine Ratio 42.9 10-20 Random Glucose 95 70-99 mg/dl Calcium Level 8.4 8.5-10.1 mg/dl Phosphorus Level 2.6 2.5-4.9 mg/dl Magnesium Level 2.3 1.8-2.4 mg/dl Assessment & Plan POD# 10 lap resection, POD#4 repair dehisence -TPN -passing more flatus, await bowel function -pain controlled trying to wean narcotics -liquid diet -ambulate -good progress
[2017-07-25] MEDS: ALBUT/IPRATROP 3MG/0.5MG NEB 3 ML VIAL INH PRN (16:30)
[2017-07-25] MEDS: SIMVASTATIN 10 MG TAB PO SCH (21:00)
--- NOTE | 2017-07-25 22:19 | Progress Note ---
Subjective Date of Service: Jul 25, 2017. Subjective Pt evaluation today including: conversation w/ patient, conversation w/ family (), physical exam, lab review, review of inpatient medication list Pain: less abdominal pain today PO Intake: eating a little less today Voiding: no voiding problems ate well at dinner time last evening, less intake for breakfast and lunch today had discussed with pharmacy that TPN could stop when it appeared he was eating more less abdominal pain + flatus (large amounts) but not BM yeat breathing is stable, ambulating in he hallway okay reviewed labs, Hb stable, Cr is 0.9 large amounts of urine output, self diuresing Problem List Medical Problems: (1) Hypokalemia Status: Acute (2) Oxygen dependent Status: Acute (3) Respiratory failure Status: Acute (4) Right flank pain Status: Acute Review of Systems Constitutional: + weakness, + fatigue Respiratory: + dyspnea on exertion Abdomen: + pain, + constipation, No nausea, No vomiting, No diarrhea Neurologic: + weakness All Other Systems: Reviewed and Negative Medications Current Inpatient Medications Medications (Trade) Dose Ordered Sig/Dianne Route Start Time Stop Time Status Last Admin Dose Admin Oxycodone/ Acetaminophen (Percocet 5-325mg Tab) 1 tab Q4H PRN PO 07/15/17 14:45 07/29/17 14:44 07/25/17 17:22 1 TAB Ondansetron HCl (Zofran Inj) 4 mg Q6H PRN IV 07/15/17 14:45 08/14/17 14:44 07/25/17 20:50 4 MG Heparin Sodium (Porcine) (Heparin Sq 5000 Unit/0.5ml) 5,000 unit Q8 SQ 07/16/17 06:00 08/15/17 05:59 07/25/17 14:29 5,000 UNIT Arformoterol Tartrate (Brovana 15MCG/ 2ML Neb Soln) 15 mcg BIDR INH 07/16/17 08:00 08/15/17 07:59 07/25/17 19:25 15 MCG Budesonide (Pulmicort Respules 0.5MG/ 2ML Neb Soln) 1 mg BIDR INH 07/16/17 08:00 08/15/17 07:59 07/25/17 19:25 1 MG Fluticasone Propionate (Flonase Nasal [place]) 2 sprays QAM ANNA 07/16/17 09:00 08/15/17 08:59 07/25/17 08:09 2 SPRAYS Glucose (Glucose 40% Gel) 15-30 GRAMS 15 GRAMS... UD PRN PO 07/15/17 21:45 08/14/17 21:44 Glucose (Glucose Chew Tab) 4-8 Tablets 4 Tabl... UD PRN PO 07/15/17 21:45 08/14/17 21:44 Dextrose (Dextrose 50% 50ML Syringe) 25-50ML OF 50% DW IV FOR... UD PRN IV 07/15/17 21:45 08/14/17 21:44 07/21/17 13:38 25 ML Glucagon (Glucagon Inj) 1 mg UD PRN SQ 07/15/17 21:45 08/14/17 21:44 Miscellaneous Information (Consult Glycemic Management Pharmacy) 1 ea UD PRN N/A 07/16/17 06:55 08/15/17 06:54 Hydromorphone HCl (Dilaudid Inj) 0.5 mg Q3H PRN IV 07/17/17 09:45 07/31/17 09:44 07/23/17 23:48 0.5 MG Escitalopram Oxalate (Lexapro Tab) 10 mg QAM PO 07/19/17 09:00 08/18/17 08:59 07/25/17 08:12 10 MG Potassium Chloride (Klor-Con Tab) 20 meq TID PO 07/19/17 09:00 08/18/17 08:59 07/22/17 08:48 20 MEQ Albuterol Sulfate (Ventolin 0.083% 2.5MG/3ML Neb) 2.5 mg Q2H PRN INH 07/19/17 10:30 08/14/17 20:59 07/25/17 12:10 2.5 MG Promethazine HCl 12.5 mg/Sodium Chloride 50.5 ml @ 204 mls/hr Q6H PRN IV 07/19/17 10:30 08/18/17 10:29 07/24/17 09:24 204 MLS/HR Spironolactone (Aldactone Tab) 25 mg QAM PO 07/22/17 09:00 08/21/17 08:59 07/25/17 08:11 25 MG Albuterol/ Ipratropium (Duoneb) 3 ml Q4R PRN INH 07/22/17 11:15 08/21/17 11:14 07/25/17 16:30 3 ML Heparin Sodium (Porcine) (Heparin 10 Unit/ ml 5 ml Flush) 5 ml PRN PRN FLUSH 07/22/17 13:30 08/21/17 13:29 07/25/17 20:52 5 ML Metoclopramide HCl (Reglan Inj) 10 mg Q6H PRN IV. 07/23/17 08:30 08/22/17 08:29 07/25/17 17:22 10 MG Diltiazem HCl (Cardizem Cd Cap) 180 mg QAM PO 07/24/17 09:00 08/23/17 08:59 07/25/17 08:12 180 MG Simvastatin (Zocor Tab) 10 mg QPM PO 07/23/17 21:00 08/21/17 08:59 07/24/17 21:24 10 MG Zafirlukast (Accolate Tab) 20 mg BID PO 07/24/17 09:00 08/23/17 08:59 07/25/17 08:11 20 MG Desloratidine (Clarinex) 5 mg QAM PO 07/24/17 09:00 08/23/17 08:59 07/25/17 08:10 5 MG Insulin Glargine (Lantus Solostar Pen) SEE PROTOCOL TEXT BID SC 07/24/17 21:00 08/23/17 20:59 07/25/17 20:42 20 UNITS Insulin Aspart (novoLOG ASPART) SLIDING SCALE ACHS SC 07/25/17 11:00 08/24/17 10:59 07/25/17 17:29 4 UNITS Objective Vital Signs Date Time Temp Pulse Resp B/P (MAP) Pulse Ox O2 Delivery O2 Flow Rate FiO2 07/25/17 19:28 86 18 96 Nasal Cannula 2.0 07/25/17 19:00 94 Nasal Cannula 3.0 Humidified Oxygen 07/25/17 19:00 36.8 86 20 134/79 (97) 94 Nasal Cannula 3.0 Humidified Oxygen 07/25/17 18:17 37.0 87 20 94 2.0 07/25/17 16:33 87 20 94 Nasal Cannula 2.0 07/25/17 16:00 37.0 83 18 144/81 (102) 97 Nasal Cannula 2.0 Humidified Air 07/25/17 16:00 Room Air 2.0 Nasal Cannula Humidified Oxygen 07/25/17 12:11 82 20 96 Nasal Cannula 2.0 07/25/17 11:40 Room Air 2.0 Nasal Cannula Humidified Oxygen 07/25/17 11:30 36.8 85 24 154/101 (118) 93 Room Air 07/25/17 08:30 Room Air 2.0 Nasal Cannula Humidified Oxygen 07/25/17 07:41 37.2 80 20 137/80 (99) 93 Room Air 07/25/17 07:14 81 20 93 Nasal Cannula 3.0 07/25/17 04:01 36.6 86 22 145/77 (99) 93 Nasal Cannula 3.0 07/25/17 04:00 Room Air 2.0 Nasal Cannula Humidified Oxygen 07/25/17 03:44 90 22 98 Nasal Cannula 3.0 07/25/17 00:19 74 18 94 Nasal Cannula 3.0 07/24/17 23:59 Room Air 2.0 Nasal Cannula Humidified Oxygen 07/24/17 23:57 36.9 80 21 147/83 (104) 99 Nasal Cannula 3.0 Physical Exam General Appearance: no apparent distress, + obese Eyes: normal inspection, EOMI, sclerae normal ENT: normal ENT inspection, hearing grossly normal, pharynx normal Neck: supple, no adenopathy, no JVD, trachea midline Respiratory/Chest: chest non-tender, lungs clear, normal breath sounds, no respiratory distress, no accessory muscle use Cardiovascular: regular rate, rhythm, no gallop, no JVD, no murmur Abdomen: normal bowel sounds, soft, no organomegaly, + tenderness Extremities: normal range of motion, non-tender, normal inspection, no calf tenderness, pelvis stable, + pedal edema Neurologic/Psychiatric: swahili teacher II-XII nml as tested, alert, normal mood/affect, oriented x 3, + motor weakness Skin: normal color, warm/dry, no rash Laboratory Results Last 24 Hours Test 07/25/17 00:02 07/25/17 04:04 07/25/17 04:23 07/25/17 06:28 Bedside Glucose 115 mg/dl 103 mg/dl 114 mg/dl Hemoglobin 9.7 g/dL Hematocrit 30.1 % Sodium Level 142 mmol/L Potassium Level 3.7 mmol/L Chloride Level 108 mmol/L Carbon Dioxide Level 24 mmol/L Anion Gap 10.0 mmol/L Blood Urea Nitrogen 42 mg/dl Creatinine 0.99 mg/dl Est Creatinine Clear Calc Drug Dose 88.1 ml/min Estimated GFR () 94.2 Estimated GFR (Non- 81.3 BUN/Creatinine Ratio 42.9 Random Glucose 95 mg/dl Calcium Level 8.4 mg/dl Phosphorus Level 2.6 mg/dl Magnesium Level 2.3 mg/dl Test 07/25/17 11:02 07/25/17 15:01 07/25/17 20:34 Bedside Glucose 150 mg/dl 121 mg/dl 137 mg/dl Assessment and Plan 62 y/o male s/p right colon resection with Dr. Alexander on 07/15, hospitalist consulted for medical management. S/p right colon resection--POD #10 Wound dehiscence on 07/20, taken emergently to OR for closure, washout, POD #5 + flatus, BM on 07/22, no vomiting, tolerating clear liquids for now no BM for three days, + flatus, no nausea or vomiting TPN, received 3 days, told pharmacy to stop tonight since eating a little more if not eating better tomorrow then resume TPN Dr. Alexander managing surgical issues Acute hypoxic respiratory failure, COPD/asthma s/p bronchoscopy on 07/20 after surgery extubated on 07/21, breathing well on room air for several days stopped Solu Medrol on 07/23 continue home medications breathing is improved today, no wheezing, no distress, breathing room air Acute kidney injury: resolved initially and then had a second injury with wound dehiscence Cr went back up to 1.9 after surgery, today it is down to 0.9, diuresing without Lasix can stop maintenance fluids, will get fluid with TPN + 15 liters for admission, will watch volume status and use Lasix as needed but he is making a lot of urine on his own apply ISAIAH lan for lower extremity edema Metabolic acidosis, anion gap resolved DM: stable on Lantus, Novolog SS pharmacy consult for assistance monitor for hypoglycemia HTN: BP stable, continue Diltiazem 180mg daily updated at the bedside transfer to medical floor Continued [facility] stay due to: multiple IV medications needed, home environment unsafe for pt Discharge planning: uncertain
[2017-07-26] VITALS (9 sets, daily range): BP systolic 146–148; BP diastolic 71–80; PULSE 82–90; TEMP 36.9–37; O2SAT 92–98; BMI 31.6
[2017-07-26] MEDS: ALBUT/IPRATROP 3MG/0.5MG NEB 3 ML VIAL INH PRN ×2 (00:18→18:21)
[2017-07-26] MEDS: OXYCODONE/ACETAMINOPHEN 5-325 TAB PO PRN ×2 (04:40→13:55)
[2017-07-26] MEDS: PROMETHAZINE HCL INJ 12.5 MG in SODIUM CHLORIDE 0.9% 50ML 50 ML IV PRN (04:45)
[2017-07-26] MEDS: HEPARIN SOD 5000 UNIT/0.5 ML CARP SQ SCH ×3 (05:28→21:05)
[2017-07-26] MEDS: ARFORMOTEROL TART 15MCG/2ML VIAL INH SCH ×2 (07:06→18:21)
[2017-07-26] MEDS: BUDESONIDE 0.5 MG/2 ML VIAL (PULMICORT) INH SCH ×2 (07:06→18:21)
[2017-07-26] MEDS ORDERED: BISACODYL 10 MG SUPP PR PRN ×2 (07:30→11:45)
[2017-07-26 08:02] LABS: CALCIUM 7.9 mg/dl (8.5-10.1); CREATININE 0.91 mg/dl (0.60-1.40); POTASSIUM 3.2 mmol/L (3.5-5.1)
[2017-07-26] MEDS ORDERED: POTASSIUM CHLORIDE 10 MEQ TABCR PO STA (08:38)
[2017-07-26] MEDS: ESCITALOPRAM OXALATE 10 MG TAB PO SCH (08:42)
[2017-07-26] MEDS: INSULIN ASPART 100 UNITS/ML 3 ML PEN SC SCH ×4 (08:43→21:04)
[2017-07-26] MEDS: SPIRONOLACTONE 25 MG TAB PO SCH (08:44)
[2017-07-26] MEDS: FLUTICASONE PROPIONATE NA SPR 16 GM BTL NAE SCH (08:44)
[2017-07-26] MEDS: ZAFIRLUKAST TAB 20 MG TAB PO SCH ×2 (08:44→21:07)
[2017-07-26] MEDS: DILTIAZEM HCL 180 MG CAPCR PO SCH (08:45)
[2017-07-26] MEDS: POTASSIUM CHLORIDE 20 MEQ TABCR PO SCH ×3 (08:45→21:06)
[2017-07-26] MEDS: DESLORATADINE 5 MG TAB PO SCH (08:45)
[2017-07-26] MEDS: INSULIN GLARGINE SOLOSTAR 100 UNITS/ML 3 ML PEN SC SCH ×2 (08:54→21:03)
--- NOTE | 2017-07-26 08:54 | SURGERY PROGRESS NOTE ---
DATE: 07/26/2017 Alexander Barron is fifth postoperative day status post closure of abdominal wall dehiscence and incision. The patient had a previous right hemicolectomy for benign disease in the final path report. The patient was on Heptral but it was held last night because they felt that the oral intake was sufficient. However, both he and his says he has not been eating much. He is passing a significant amount of flatus, but he has not had a bowel movement. His last vitals showed a temperature of 36.7, pulse 86, respiration 18, blood pressure 155/94, O2 sats 96 on 2 liters. Laboratory becerril this morning is pending. The abdomen, Alexander is sitting at the side of the bed, as it was preop is distended. The incision and retention sutures are all intact. The Nya drain is there with minimal drainage. There is mild reaction to the sutures. At this point, we will get an abdominal x-ray on him and also give him Dulcolax suppository, but I would strongly recommend that we continue with hyperalimentation until he has sufficient oral intake and not stop it. ABENAD
--- NOTE | 2017-07-26 09:54 | DIAGNOSTIC IMAGING REPORT ---
PA CHEST RADIOGRAPH AND UPRIGHT AND SUPINE AP RADIOGRAPHS OF THE ABDOMEN CLINICAL HISTORY: Follow-up bowel obstruction. Recent colonic surgery. COMPARISON STUDY: KUB and chest radiograph July 20, 2017. FINDINGS: A right sided central venous catheter is in place. There is a trace right pleural effusion. There is no evidence for pulmonary edema. Mild bibasilar opacities, right greater than left, are noted. There is no free air. Skin colleen from laparotomy are noted. There is a probable [place] drain within the laparotomy site. Moderate small bowel gaseous distention has slightly improved. There is also gas within portions of the colon. IMPRESSION: 1. Persistent, but slightly improved, moderate small bowel gaseous distention with gas within portions of the colon. The findings favor an ileus although a partial small bowel obstruction could appear similar. 2. No free air. 3. Trace right pleural effusion with mild right basilar opacity which may reflect atelectasis or pneumonia. Electronically signed by: Mike Daniels M.D. 07/26/2017 9:52 AM Dictated Date/Time: 07/26/2017 9:47 AM
[2017-07-26] MEDS: ALBUTEROL 0.083% NEBU SOLN 3 ML VIAL INH PRN ×3 (09:59→21:07)
[2017-07-26] MEDS ORDERED: TPN/PPN CONSULT PHARMACY STA (11:30)
--- NOTE | 2017-07-26 11:47 | Hospitalist Progress Note ---
Hospitalist Progress Note Date of Service Jul 26, 2017. Objective Vital Signs Date Time Temp Pulse Resp B/P (MAP) Pulse Ox O2 Delivery O2 Flow Rate FiO2 07/26/17 10:18 97 Room Air 2.0 07/26/17 10:00 89 18 98 Nasal Cannula 3.0 07/26/17 08:08 36.9 82 14 148/80 (102) 97 Nasal Cannula 2.0 07/26/17 07:30 Nasal Cannula 2.0 07/26/17 07:07 86 18 96 Nasal Cannula 2.0 07/26/17 00:18 83 18 97 Nasal Cannula 2.0 07/25/17 22:55 36.7 83 18 155/94 (114) 97 Nasal Cannula 2.0 07/25/17 22:40 Nasal Cannula 07/25/17 19:28 86 18 96 Nasal Cannula 2.0 07/25/17 19:00 94 Nasal Cannula 3.0 Humidified Oxygen 07/25/17 19:00 36.8 86 20 134/79 (97) 94 Nasal Cannula 3.0 Humidified Oxygen 07/25/17 18:17 37.0 87 20 94 2.0 07/25/17 16:33 87 20 94 Nasal Cannula 2.0 07/25/17 16:00 37.0 83 18 144/81 (102) 97 Nasal Cannula 2.0 Humidified Air 07/25/17 16:00 Room Air 2.0 Nasal Cannula Humidified Oxygen 07/25/17 12:11 82 20 96 Nasal Cannula 2.0 07/25/17 11:40 Room Air 2.0 Nasal Cannula Humidified Oxygen Laboratory Results Last 24 Hours Test 07/25/17 15:01 07/25/17 20:34 07/26/17 06:58 07/26/17 07:41 Bedside Glucose 121 mg/dl 137 mg/dl 77 mg/dl Sodium Level 139 mmol/L Potassium Level 3.2 mmol/L Chloride Level 105 mmol/L Carbon Dioxide Level 26 mmol/L Anion Gap 9.0 mmol/L Blood Urea Nitrogen 29 mg/dl Creatinine 0.91 mg/dl Est Creatinine Clear Calc Drug Dose 96.7 ml/min Estimated GFR () 104.3 Estimated GFR (Non- 90.0 BUN/Creatinine Ratio 31.4 Random Glucose 76 mg/dl Calcium Level 7.9 mg/dl Assessment and Plan 62 y/o male s/p right colon resection with Dr. Alexander on 07/15, hospitalist consulted for medical management. S/P R Colon Resection on 07/15 with Wound Dehiscence and Closure/Washout on 07/20: - Moved his bowels this AM and + flatus - did better with eating yesterday but doesn't have much of an appetite today - Will resume TPN and continue to monitor oral intake - no N/V; pain is adequately controlled - Abd XR reviewed - persistent but slightly improved distention - ileus vs partial SBO - Maintain bowel regimen - will keep daily Dulcolax suppositories on board could consider oral agents if appetite improves; recommend for Senna given pain medication - Gen Surg following - appreciate surgical management Acute Hypoxic Respiratory Failure with Underlying COPD/Asthma: IMPROVING - S/P Bronchoscopy on 07/20 and extubated on 07/21 - Recommend to wean O2 for saturations at or greater than 90% - Duonebs/Ventolin PRN, Brovana BID, Pulmicort BID, and Zafirlukast 20 mg BID YOLETTE: RESOLVED - Continues to have adequate urine output - currently + 13.9 L - Has some lower extremity edema but no respiratory distress or JVD - will hold on Lasix as he is producing a lot of urine - can use it intermittently and will continue Spironolactone 25 mg daily - Apply TEDs to promote better circulation; can elevate legs intermittently T2DM: - Appreciate pharmacy input on glycemic management HTN: STABLE - Cardizem 180 mg daily Metabolic Acidosis with Anion Gap: RESOLVFED DVT Prophylaxis: Heparin 5000 units SC Q8H Disposition: - Reinstitute TPN - unclear on D/C at this time - await improved oral intake Continued [facility] stay due to: inadequate po fluid intake Discharge planning: home
[2017-07-26] MEDS: TPN/PPN CONSULT PHARMACY SCH (12:57)
--- NOTE | 2017-07-26 12:58 | Pharmacy Progress Note ---
Parenteral Nutrition Consult Date of Service Jul 26, 2017. Scope Pharmacy was consulted on 07/26/17 to manage parenteral nutrition orders for this patient. Subjective The patient is currently on day 4 (trial off on 07/25) of central parenteral nutrition for R colon resection. Objective Height (Feet): 5 Height (Inches): 9.00 Weight (Kilograms): 97.000 Diet: Diabetic Vascular Access: PICC Intake & Output (Last 72 Hr): 07/25/17 07/26/17 07/27/17 08:00 08:00 08:00 Intake Total 2458 ml 1331 ml Output Total 2075 ml 2600 ml Balance 383 ml -1269 ml Laboratory Data (Last 24 Hr): Test 07/26/17 06:58 Blood Urea Nitrogen 29 mg/dl (7-18) Calcium Level 7.9 mg/dl (8.5-10.1) Carbon Dioxide Level 26 mmol/L (21-32) Chloride Level 105 mmol/L (98-107) Creatinine 0.91 mg/dl (0.60-1.40) Potassium Level 3.2 mmol/L (3.5-5.1) Random Glucose 76 mg/dl (70-99) Sodium Level 139 mmol/L (136-145) Nutrition Assessment Please refer to the Notes section of the EMR for the most recent blue line trimmer note. Assessment Patient off of TPN for 1 day and restarting today due to poor oral intake Plan For day 4 of PN administration, the following will be ordered: Macronutrients Amino acids 125 grams/day Dextrose 125 grams/day Lipids 25 grams/day Micronutrients Sodium phosphate 24 MMol Potassium acetate 40 mEq Calcium gluconate 4.65 mEq Multivitamins 10 mL Trace Elements 1 mL Additional additives: thiamine 100 mg, folic acid 1 gm Regular insuline 25 units Total volume 1604.02 mL to be infused over 24 hrs will provide 1175 kcal/day Final osmolarity 1282 mOsm/L (maximum for PPN is 600 mOsm/L) Labs, as indicated, will be ordered per protocol Pharmacy will continue to follow and adjust parenteral nutrition orders on a daily basis. Thank you for allowing us to participate in the care of this patient.
--- NOTE | 2017-07-26 13:23 | Pharmacy Progress Note ---
Pharmacy Glycemic Short Note 2 Date of Service Jul 26, 2017. OUTPATIENT ANTIDIABETIC REGIMEN: * Lantus 35 units SC BID * Novolog TIDM (CR = 5 + sliding scale) * Note: also on prednisone 10 mg po daily ASSESSMENT: * Mr Barron is a 62 y/o M with a PMH of severe COPD, severe asthma, migraines , long-term steroid use, and well-controlled type 1 diabetes who presented initially for a planned colon resection. His post-operative course has been complicated by a dehiscence repair and intubation. Currently the patient is finished with his TPN (received 3 days) and tolerating diet. * Yesterday, the patient received 57 units of subcutaneous insulin (40 units of basal insulin) plus a TPN that infused from midnight to 1600 -- translates to around 17 units of insulin in TPN for that period. * The patient's blood sugars yesterday were [phone] and fasting today was 76 mg/dL. Yesterday's fasting was 114 mg/dL. This indicates basal insulin is too aggressive... Loosened doses to reflect this. Patient will start TPN today again. Allow for carbohydrate coverage via TPN. * For Novolog, it appears that the patient's meals are well controlled. The patient is eating well but insulin coverage is weighted towards basal insulin which is similar to outpatient regimen. Continue current regimen. PLAN FOR INPATIENT GLYCEMIC CONTROL: * Basal insulin - loosen slightly * Lantus 10 units SQ BID (BSG < 120) * Lantus 15 units SQ BID (BSG 120-180 mg/dL) * Lantus 20 units SQ BID (BSG 180 or above) * Bolus insulin * NovoLog per scale ACHS * Goal Range: Low 110 mg/dL - High 140 mg/dL * LOOSEN Correction Factor: 20 mg/dL/unit * LOOSEN Nutritional / Prandial insulin per carb ratio of 1 unit per 6 grams CHO consumed PLAN FOR DISCHARGE: * A1c indicates excellent outpatient control * Should be able to resume outpatient regimen upon discharge, unless po intake significantly decreased as it is now * Please contact pharmacy for recommendations if that is the case
[2017-07-26] MEDS ORDERED: CUSTOM CENTRAL PN 1 BAG IV SCH (16:00)
[2017-07-26] MEDS: METOCLOPRAMIDE HCL INJ 5 MG/ML 2 ML VIAL IV. PRN (17:55)
[2017-07-26] MEDS: SIMVASTATIN 10 MG TAB PO SCH (21:06)
[2017-07-26] MEDS: DICLOFENAC SOD 1% GEL 100 GM TUBE EXT PRN (21:16)
[2017-07-27] VITALS (9 sets, daily range): BP systolic 129–152; BP diastolic 72–82; PULSE 79–101; TEMP 36.4–37.2; O2SAT 92–97; Ht 175.3 cm; Wt 94.6 kg
[2017-07-27] MEDS: ALBUTEROL 0.083% NEBU SOLN 3 ML VIAL INH PRN ×3 (01:20→05:06)
[2017-07-27] MEDS: DICLOFENAC SOD 1% GEL 100 GM TUBE EXT PRN (05:33)
[2017-07-27] MEDS: METOCLOPRAMIDE HCL INJ 5 MG/ML 2 ML VIAL IV. PRN (05:39)
[2017-07-27] MEDS: HEPARIN SOD 5000 UNIT/0.5 ML CARP SQ SCH ×2 (05:42→14:20)
[2017-07-27] MEDS ORDERED: INSULIN ASPART 100 UNITS/ML 3 ML PEN SC SCH ×2 (06:00→12:00)
[2017-07-27 06:59] LABS: HEMATOCRIT 31.3 % (42-52); HEMOGLOBIN 10.2 g/dL (14.0-18.0); MEAN CELL VOLUME 83.5 fL (80-100); MEAN CORPUSCULAR HEMOGLOBIN 27.2 pg (25-34); MEAN CORPUSCULAR HGB CONC 32.6 g/dl (32-36); PLATELET COUNT 298 K/uL (130-400); RED CELL DISTRIBUTION WIDTH CV 15.8 % (11.5-14.5); RED CELL DISTRIBUTION WIDTH SD 47.8 fL (36.4-46.3); WHITE BLOOD COUNT 10.45 K/uL (4.8-10.8)
[2017-07-27] MEDS: ARFORMOTEROL TART 15MCG/2ML VIAL INH SCH (07:32)
[2017-07-27] MEDS: BUDESONIDE 0.5 MG/2 ML VIAL (PULMICORT) INH SCH (07:32)
[2017-07-27 07:33] LABS: CALCIUM 8.2 mg/dl (8.5-10.1); CREATININE 0.9 mg/dl (0.60-1.40); PHOSPHORUS 2.6 mg/dl (2.5-4.9); POTASSIUM 3.2 mmol/L (3.5-5.1)
--- NOTE | 2017-07-27 07:42 | SURGERY PROGRESS NOTE ---
DATE: 07/27/2017 Alexsander is sitting at the side of the bed. He is much more comfortable today than he had been yesterday. His is at bedside. He had 5 bowel movements yesterday, he feels much better, the abdomen is less distended. His last vitals showed a temperature of 37, pulse 86, respirations 20, blood pressure 129/70, O2 sat is 92 on 2 liters. I&O, he continues to mobilize fluid, he had 1325 out yesterday, 400 overnight. He is less edematous. The abdomen is a bit softer. The incision has some erythema, wanting to call cellulitis around where the retention sutures are but there is no drainage. Laboratory becerril, this morning is pending. He tolerated some diet yesterday. His is a little concerned that he has not taken much still p.o. I advanced him to a regular diabetic type 2 diet this morning. His hyperal is continuing. I suspect Alexsander will be ready to go home by tomorrow. I would continue the hyperalimentation and finish it today. We will check on him in the afternoon. The other issues, I discontinued his Phenergan and his Zofran. We will keep him on Reglan. Discontinue his IV analgesics. He is on Percocet. I will be out of town for the next 4-5 days. My service, Drs. Manzano, Ashli or Edwin will be covering if there are any issues, but again, I suspect by tomorrow he will be ready to be discharged.
[2017-07-27] MEDS ORDERED: ALBUTEROL 0.083% NEBU SOLN 3 ML VIAL INH PRN (08:00)
[2017-07-27] MEDS: DESLORATADINE 5 MG TAB PO SCH (08:51)
[2017-07-27] MEDS: FLUTICASONE PROPIONATE NA SPR 16 GM BTL NAE SCH (08:51)
[2017-07-27] MEDS: ZAFIRLUKAST TAB 20 MG TAB PO SCH (08:52)
[2017-07-27] MEDS: ESCITALOPRAM OXALATE 10 MG TAB PO SCH (08:52)
[2017-07-27] MEDS: SPIRONOLACTONE 25 MG TAB PO SCH (08:53)
[2017-07-27] MEDS: DILTIAZEM HCL 180 MG CAPCR PO SCH (08:53)
[2017-07-27] MEDS: POTASSIUM CHLORIDE 20 MEQ TABCR PO SCH ×2 (08:54→14:21)
[2017-07-27] MEDS ORDERED: POTASSIUM CHLR 20 MEQ / WTR 20 MEQ in PREMIXED WATER 100 ML IV ONE (09:00)
[2017-07-27] MEDS ORDERED: MAGNESIUM OXIDE 400 MG TAB PO SCH (09:00)
[2017-07-27] MEDS ORDERED: MAGNESIUM SULFATE 1GM / D5W 1 GM in PREMIXED IN D5W 100 ML IV ONE (09:00)
[2017-07-27] MEDS: INSULIN GLARGINE SOLOSTAR 100 UNITS/ML 3 ML PEN SC SCH (09:12)
[2017-07-27] MEDS: TPN/PPN CONSULT PHARMACY SCH (09:26)
[2017-07-27] MEDS ORDERED: ONDA4TAB65 PO (11:01)
[2017-07-27] MEDS ORDERED: OXYC-57 PO (11:01)
--- NOTE | 2017-07-27 11:03 | Discharge Instructions ---
Discharge Instructions Date of Service Jul 27, 2017. Admission Reason for Admission: Adenomatous Colon Polyp Discharge Discharge Diagnosis / Problem: right colon resection Discharge Goals Goal(s): Improve disease control, Improve nutritional status Activity Recommendations Activity Limitations: as noted below Lifting Limitations: no more than 10 pounds Shower/Bathe: no limitations . Instructions / Follow-Up Instructions / Follow-Up Dr. Alexander within 1 week, call [phone] to schedule or with any questions Current Hospital Diet Patient's current hospital diet: Diabetes Type 2 Diet Discharge Diet Recommended Diet: Diabetes Type 2 Diet, Low Fat Diet Procedures Procedures Performed: Closure of Abdomial Wound dehiscence and Washout Pending Studies Studies pending at discharge: no Laboratory Results Hemoglobin A1c Test 07/16/17 06:38 Range/Units Estimated Average Glucose 143 mg/dl Hemoglobin A1c 6.6 H 4.5-5.6 % Lipid Panel Test 07/23/17 04:33 Range/Units Triglycerides Level 184 H 0-150 mg/dl Medical Emergencies . Who to Call and When: Medical Emergencies: If at any time you feel your situation is an emergency, please call 911 immediately. . Non-Emergent Contact Non-Emergency issues call your: Surgeon Call Non-Emergent contact if: you have a fever, temperature is above 101.5, your pain is not controlled, wound has increased drainage, wound has increased redness, wound has increased pain, you have any medication questions . "Provider Documentation" section prepared by Nikolai Sandra. .
[2017-07-27] MEDS ORDERED: METO-157 PO (11:06)
--- NOTE | 2017-07-27 14:29 | Hospitalist Progress Note ---
Hospitalist Progress Note Date of Service Jul 27, 2017. Subjective Pt evaluation today including: conversation w/ patient, conversation w/ family , physical exam, lab review, conversation w/ internal controls consultant (Francis Jiménez) Patient seen and evaluated. Doing a lot better today. Consumed 100% of breakfast and most of lunch. No abdominal pain or N/V. Having multiple bowel movements. Discussed with patient and about dietary recommendations and to promote good GI motility. Recommended to also stay as ambulatory as possible. Also expressed concern for nebs. Patient reports he takes them as needed and uses them a lot at home. Did present with an acute exacerbation but now there is no wheezing. Recommended to continue to try and take deep breaths due to atelectasis. States he has a concentrator at home and utilizes O2 during the day occ. Feels that he does not need a two step and says they don't need any more tanks. Constitutional: No fever, No chills Respiratory: No cough, No shortness of breath Cardiovascular: No chest pain Abdomen: + pain (minimal - incisional), No nausea, No vomiting, No diarrhea , No constipation Musculoskeletal: + swelling (b/l lower extremities), No calf pain Male : No dysuria Heme: No abnormal bleeding/bruising Skin: No rash Medications Current Inpatient Medications Medications (Trade) Dose Ordered Sig/Dianne Route Start Time Stop Time Status Last Admin Dose Admin Oxycodone/ Acetaminophen (Percocet 5-325mg Tab) 1 tab Q4H PRN PO 07/15/17 14:45 07/29/17 14:44 07/26/17 13:55 1 TAB Heparin Sodium (Porcine) (Heparin Sq 5000 Unit/0.5ml) 5,000 unit Q8 SQ 07/16/17 06:00 08/15/17 05:59 07/27/17 14:20 5,000 UNIT Arformoterol Tartrate (Brovana 15MCG/ 2ML Neb Soln) 15 mcg BIDR INH 07/16/17 08:00 08/15/17 07:59 07/27/17 07:32 15 MCG Budesonide (Pulmicort Respules 0.5MG/ 2ML Neb Soln) 1 mg BIDR INH 07/16/17 08:00 08/15/17 07:59 07/27/17 07:32 1 MG Fluticasone Propionate (Flonase Nasal [place]) 2 sprays QAM ANNA 07/16/17 09:00 08/15/17 08:59 07/27/17 08:51 2 SPRAYS Glucose (Glucose 40% Gel) 15-30 GRAMS 15 GRAMS... UD PRN PO 07/15/17 21:45 08/14/17 21:44 Glucose (Glucose Chew Tab) 4-8 Tablets 4 Tabl... UD PRN PO 07/15/17 21:45 08/14/17 21:44 Dextrose (Dextrose 50% 50ML Syringe) 25-50ML OF 50% DW IV FOR... UD PRN IV 07/15/17 21:45 08/14/17 21:44 07/21/17 13:38 25 ML Glucagon (Glucagon Inj) 1 mg UD PRN SQ 07/15/17 21:45 08/14/17 21:44 Miscellaneous Information (Consult Glycemic Management Pharmacy) 1 ea UD PRN N/A 07/16/17 06:55 08/15/17 06:54 Escitalopram Oxalate (Lexapro Tab) 10 mg QAM PO 07/19/17 09:00 08/18/17 08:59 07/27/17 08:52 10 MG Potassium Chloride (Klor-Con Tab) 20 meq TID PO 07/19/17 09:00 08/18/17 08:59 07/27/17 14:21 20 MEQ Spironolactone (Aldactone Tab) 25 mg QAM PO 07/22/17 09:00 08/21/17 08:59 07/27/17 08:53 25 MG Albuterol/ Ipratropium (Duoneb) 3 ml Q4R PRN INH 07/22/17 11:15 08/21/17 11:14 07/27/17 14:46 3 ML Heparin Sodium (Porcine) (Heparin 10 Unit/ ml 5 ml Flush) 5 ml PRN PRN FLUSH 07/22/17 13:30 08/21/17 13:29 07/27/17 13:17 5 ML Metoclopramide HCl (Reglan Inj) 10 mg Q6H PRN IV. 07/23/17 08:30 08/22/17 08:29 07/27/17 05:39 10 MG Diltiazem HCl (Cardizem Cd Cap) 180 mg QAM PO 07/24/17 09:00 08/23/17 08:59 07/27/17 08:53 180 MG Simvastatin (Zocor Tab) 10 mg QPM PO 07/23/17 21:00 08/21/17 08:59 07/26/17 21:06 10 MG Zafirlukast (Accolate Tab) 20 mg BID PO 07/24/17 09:00 08/23/17 08:59 07/27/17 08:52 20 MG Desloratidine (Clarinex) 5 mg QAM PO 07/24/17 09:00 08/23/17 08:59 07/27/17 08:51 5 MG Insulin Glargine (Lantus Solostar Pen) SEE PROTOCOL TEXT BID SC 07/24/17 21:00 08/23/17 20:59 07/27/17 09:12 15 UNITS Bisacodyl (Dulcolax Supp) 10 mg ONE PRN [place] 07/26/17 07:30 08/25/17 07:29 Bisacodyl (Dulcolax Supp) 10 mg DAILY PRN [place] 07/26/17 11:45 08/25/17 11:44 Miscellaneous Information (Pharmacy Tpn/ Ppn Consult Active) 1 ea DAILY N/A 07/26/17 12:38 07/27/17 15:59 07/27/17 09:26 1 EA Prednisone (PredniSONE TAB) 10 mg QAM PO 07/27/17 09:00 08/26/17 08:59 07/27/17 08:54 10 MG Diclofenac Sodium (Voltaren 1% Top Gel) 1 appln Q6H PRN EXT 07/26/17 20:45 08/25/17 20:44 07/27/17 05:33 1 APPLN Albuterol Sulfate (Ventolin 0.083% 2.5MG/3ML Neb) 2.5 mg Q6R PRN INH 07/27/17 08:00 08/26/17 07:59 Magnesium Oxide (Mag-Ox Tab) 400 mg BID PO 07/27/17 09:00 07/30/17 08:59 07/27/17 09:19 400 MG Insulin Aspart (novoLOG ASPART) SLIDING SCALE ACHS SC 07/27/17 12:00 08/26/17 11:59 07/27/17 13:16 5 UNITS Objective Vital Signs Date Time Temp Pulse Resp B/P (MAP) Pulse Ox O2 Delivery O2 Flow Rate FiO2 07/27/17 08:30 Nasal Cannula 2.0 Humidified Oxygen 07/27/17 07:33 96 16 96 Nasal Cannula 2.0 07/27/17 07:10 37.2 99 16 136/82 (100) 97 Nasal Cannula 3.0 07/27/17 05:07 86 20 92 Nasal Cannula 2.0 07/27/17 03:04 80 20 94 Nasal Cannula 2.0 07/27/17 01:22 79 16 94 Nasal Cannula 2.0 07/27/17 00:15 Nasal Cannula 2.0 07/27/17 00:06 37.0 81 18 129/72 (91) 97 Nasal Cannula 2.0 07/26/17 21:07 82 16 97 Nasal Cannula 2.0 07/26/17 18:22 90 18 94 Nasal Cannula 2.0 07/26/17 16:10 Nasal Cannula 2.0 07/26/17 15:01 37.0 87 18 146/71 (96) 93 Room Air Physical Exam General Appearance: WD/WN, no apparent distress Eyes: sclerae normal ENT: hearing grossly normal Neck: supple, no JVD, trachea midline Respiratory/Chest: lungs clear, no respiratory distress, no accessory muscle use, + decreased breath sounds Cardiovascular: regular rate, rhythm, no gallop, no murmur Abdomen: normal bowel sounds, + pertinent finding (binder in place) Extremities: + pertinent finding (b/l lower extremity edema) Neurologic/Psychiatric: alert Skin: normal color, warm/dry Laboratory Results Last 24 Hours Test 07/26/17 17:02 07/26/17 20:54 07/26/17 23:54 07/27/17 05:34 Bedside Glucose 127 mg/dl 182 mg/dl 166 mg/dl 63 mg/dl Test 07/27/17 05:56 07/27/17 06:32 Bedside Glucose 96 mg/dl White Blood Count 10.45 K/uL Red Blood Count 3.75 M/uL Hemoglobin 10.2 g/dL Hematocrit 31.3 % Mean Corpuscular Volume 83.5 fL Mean Corpuscular Hemoglobin 27.2 pg Mean Corpuscular Hemoglobin Concent 32.6 g/dl RDW Standard Deviation 47.8 fL RDW Coefficient of Variation 15.8 % Platelet Count 298 K/uL Mean Platelet Volume 10.0 fL Sodium Level 139 mmol/L Potassium Level 3.2 mmol/L Chloride Level 104 mmol/L Carbon Dioxide Level 24 mmol/L Anion Gap 11.0 mmol/L Blood Urea Nitrogen 26 mg/dl Creatinine 0.90 mg/dl Est Creatinine Clear Calc Drug Dose 96.6 ml/min Estimated GFR () 105.7 Estimated GFR (Non- 91.2 BUN/Creatinine Ratio 28.5 Random Glucose 87 mg/dl Calcium Level 8.2 mg/dl Phosphorus Level 2.6 mg/dl Magnesium Level 1.7 mg/dl Assessment and Plan 62 y/o male s/p right colon resection with Dr. Alexander on 07/15, hospitalist consulted for medical management. S/P R Colon Resection on 07/15 with Wound Dehiscence and Closure/Washout on 07/20: - TPN resumed on 07/26 but taking in better orally and will stop TPN - plans to return home later today - Maintain bowel regimen - discussed to use Miralax at home if needed and to encourage ambulation - Gen Surg following - appreciate surgical management Acute Hypoxic Respiratory Failure with Underlying COPD/Asthma: IMPROVING - S/P Bronchoscopy on 07/20 and extubated on 07/21 - Recommend to wean O2 for saturations at or greater than 90% - patient reports he does intermittently use O2 at home via his concentrator and does not want a two step or tanks - Duonebs/Ventolin PRN, Brovana BID, Pulmicort BID, and Zafirlukast 20 mg BID YOLETTE: RESOLVED - Continues to have adequate urine output - Has some lower extremity edema but no respiratory distress or JVD - can resume his PRN Lasix - Apply TEDs to promote better circulation; can elevate legs intermittently T2DM: - Appreciate pharmacy input on glycemic management HTN: STABLE - Cardizem 180 mg daily Metabolic Acidosis with Anion Gap: RESOLVED DVT Prophylaxis: Heparin 5000 units SC Q8H Disposition: - Plans to return home later today Discharge planning: home
[2017-07-27] MEDS: ALBUT/IPRATROP 3MG/0.5MG NEB 3 ML VIAL INH PRN (14:46)
[2017-07-27] MEDS: OXYCODONE/ACETAMINOPHEN 5-325 TAB PO PRN (16:26)
[2017-07-28] MEDS ORDERED: INSULIN ASPART 100 UNITS/ML 3 ML PEN SC SCH
--- NOTE | 2017-07-28 12:21 | DISCHARGE SUMMARY ---
ATTENDING: Dr. Alexander. PRIMARY DISCHARGE DIAGNOSIS: 1. 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 2. Abdominal wound dehiscence. 3. Chronic obstructive pulmonary disease/asthma. 4. Acute hypoxic respiratory failure. 5. Acute kidney injury. 6. Hypokalemia. 7. Acute on chronic anemia. SECONDARY DISCHARGE DIAGNOSES: 1. Type 1 diabetes. 2. Hypertension. 3. Gastroesophageal reflux disease. 4. Congestive heart failure. 5. Anxiety. PROCEDURE PERFORMED: 1. Laparoscopic assisted right colectomy on 07/15/17. 2. Closure of abdominal wound dehiscence and washout on 07/20/2017. CONSULTATIONS: 1. [facility] hospitalist to assist in medical management. 2. [facility] manager economic for postoperative care. HOSPITAL COURSE: The patient is a 62-year-old male with type 1 diabetes, hypertension and severe COPD/eosinophilic asthma with a sessile polyp of the cecum and a dilated appendix, brought in through same day for laparoscopic-assisted right colon resection. The procedure was well tolerated. He was transferred to PCU postoperatively. The hospitalist was consulted routinely. His creatinine peaked at 2.2, but then was returning back to baseline. His blood sugars were high, he was maintained on insulin drip for a few days before turning it on, there was home Lantus and sliding scale. His home diltiazem was continued, Lisinopril was held. He had some nausea over the first day postoperatively, he was able to start clear liquids on day #2. Bryant catheter was removed. Day #4, he began having increasing distention. He was beginning to pass some flatus on postoperative day #5, but remained distended. Radiographs were consistent with a postoperative ileus. He had some vomiting while NG tube was being inserted at which time his wound dehisced. He was taken to the operating room emergently for repair of the dehiscence. He was transferred to ICU and remained intubated for 24 hours. Once extubated, he continued to make steady progress. He was started on TPN. His creatinine had risen again to 1.9, but then returned back to baseline at 0.9. Nasogastric tube was removed on postoperative day #2. He was transferred to PCU. He was able to tolerate a slowly advancing diet. He was having increasing flatus over days #4 and #5. He had multiple bowel movements beginning postoperative day #6. His potassium had been supplemented. His blood sugars were better controlled. His blood pressure remained stable. On postoperative day #7, he was able to tolerate a regular diet. His incision was healing well, he has retention sutures in place that had a little bit of erythema around those. He was stable for discharge. His H&H had been stable at 10 and 31, and he did not require transfusion during admission. DISCHARGE INSTRUCTIONS: Discharge home. Follow up with Dr. Alexander in 1 week. Follow up with his PCP within 1 week. DISCHARGE MEDICATIONS: Percocet 1-2 tablets every 4 hours as needed for pain and Reglan 10 mg p.o. q. 6 hours as needed for nausea or to be taken a.c. and at bedtime if he has persistent nausea. Continue his home medications including Fosamax 70 mg weekly, Brovana nebulizer b.i.d., aspirin 81 mg daily, super B complex tablet daily, Pulmicort nebulizer b.i.d., Os-Lee 500+ one tablet daily, desloratadine 5 mg daily, diltiazem ER 180 mg daily, Celexa 10 mg daily, Flonase nasal spray 2 sprays daily, Lasix 20-40 mg daily, potassium extended release 20 mEq t.i.d., Motrin 400-600 mg as needed for pain, oxygen 2 liters p.r.n., sliding scale NovoLog with Lantus in the morning and in the evening. He had been on 15 units while in the hospital and was given a sliding scale as his oral intake increases to back to 35 units as he had been on previously, Combivent inhaler 1 puff 6 times a day, DuoNebs q. 4 hours as needed, Zestoretic 20/25 mg daily, Ativan 0.5 mg as needed, Nucala 100 mg subQ monthly, Prilosec 40 mg b.i.d., prednisone 10 mg daily, Zocor 10 mg daily, spironolactone 25 mg daily, trazodone 50 mg at bedtime, turmeric supplement 500 mg daily, daily multivitamin, and Singulair 20 mg b.i.d. PATHOLOGY: Right colon showed a large tubulovillous adenoma of the cecum and a smaller tubular adenoma of the cecum. There is a mucinous adenoma of the appendix. There were 3 benign lymph nodes. MTDD
== END 2017-07-27 16:45 | disposition home or self-care (01) | DRG 329 ==
LOC: C.ACU 09:45 → UNDOADMIN 14:43 → C.2T 14:43 → ENRESERV 18:41 → C.MSN 07-19 18:22 → C.MSICU 07-20 12:16 → ENRESERV 07-22 18:01 → C.2E 07-22 19:00 → EDBEDREQSVC 07-25 17:01 → ENRESERV 07-25 17:32 → C.MSN 07-25 18:51
PROVIDERS: ADMIT Surgery; ATTEND Hospitalist
PROC: 0DTK0ZZ Resection of Ascending Colon, Open Approach (ICD-10-PCS; principal; 2017-07-15 11:55)
PROC: 0DTJ0ZZ Resection of Appendix, Open Approach (ICD-10-PCS; principal; 2017-07-15 11:55)
PROC: 0DBB0ZZ Excision of Ileum, Open Approach (ICD-10-PCS; principal; 2017-07-15 11:55)
PROC: 0BJ08ZZ Inspection of Tracheobronchial Tree, Via Natural or Artificial Opening Endoscopic (ICD-10-PCS; 2017-07-20)
DX: K63.9 Disease of intestine, unspecified (principal); I50.33 Acute on chronic diastolic (congestive) heart failure; E10.10 Type 1 diabetes mellitus with ketoacidosis without coma; J82 Pulmonary eosinophilia, not elsewhere classified; N17.9 Acute kidney failure, unspecified; J44.0 Chronic obstructive pulmonary disease with (acute) lower respiratory infection; J96.11 Chronic respiratory failure with hypoxia; T81.30XA Disruption of wound, unspecified, initial encounter; K21.9 Gastro-esophageal reflux disease without esophagitis; E87.6 Hypokalemia; E10.65 Type 1 diabetes mellitus with hyperglycemia; I11.0 Hypertensive heart disease with heart failure; F41.9 Anxiety disorder, unspecified; E78.5 Hyperlipidemia, unspecified; K44.9 Diaphragmatic hernia without obstruction or gangrene; Z72.0 Tobacco use; Z79.52 Long term (current) use of systemic steroids; Z79.4 Long term (current) use of insulin; Z99.81 Dependence on supplemental oxygen; Z82.49 Family history of ischemic heart disease and other diseases of the circulatory system; Z83.3 Family history of diabetes mellitus; Z80.1 Family history of malignant neoplasm of trachea, bronchus and lung; Z81.8 Family history of other mental and behavioral disorders